=== PATIENT | male | born 1965 | race Caucasian/White ===

== ENCOUNTER 2018-11-29 20:48 | Observation (INO) ==
[2018-11-29 21:08] LABS: Basophils # 0.1 K/mm3 (0-0.2); Eosinophils # 0.3 K/mm3 (0.0-0.4); Eosinophils % 3.7 % (0.1-12.0); Hematocrit 49.1 % (42.0-52.0); Hemoglobin 16.9 g/dL (14.1-18.0); Lymphocytes # 2.9 K/mm3 (0.7-4.5); Mean Corpuscular HGB Conc 34.4 g/dL (31.8-35.4); Mean Corpuscular Hemoglobin 30.2 pg (27.0-31.2); Mean Corpuscular Volume 87.9 fl (80-94); Mean Platelet Volume 7.7 fl (7.4-10.4); Monocytes # 0.5 K/mm3 (0.1-1.0); Monocytes % 5.9 % (1.7-9.3); Neutrophils % 56.4 % (37.0-80.0); Platelet Count 207 K/mm3 (142-424); Red Blood Count 5.59 M/mm3 (4.60-6.20); White Blood Count 8.9 K/mm3 (4.8-10.8)
[2018-11-29 21:09] LABS: Appearance,Urine CLEAR (Clear); Bilirubin,Urine Negative (Negative); Blood, Urine 1+ (Negative); Color,Urine YELLOW (Yellow); Glucose,Urine (UA) 3+ (Negative); Ketones,Urine TRACE (Negative); Leukocyte Esterase,Urine Negative (Negative); Microscopic, Urine URINE MICROSCOPIC (MICROSCOPIC); Protein,Urine 2+ (Negative); Urobilinogen,Urine 0.2 EU/dl (0.2)
[2018-11-29 21:19] LABS: Alanine Aminotransferase 32 U/L (12-78); Albumin Level 3.6 gm/dL (3.4-5.0); Alkaline Phosphatase 92 U/L (46-116); Anion Gap 15.2 mEq/L (5-15); Aspartate Amino Transferase 8 U/L (15-37); Bilirubin,Direct 0.1 mg/dL (0.0-0.2); Bilirubin,Indirect 0.2 mg/dL (0.0-0.9); Bilirubin,Total 0.3 mg/dL (0.2-1.0); Blood Urea Nitrogen 20 mg/dL (7-18); Calcium 9.8 mg/dL (8.5-10.1); Carbon Dioxide 25 mmol/L (21.0-32.0); Chloride 97 mmol/L (98-107); Glucose 342 mg/dL (74-106); Potassium 4.2 mmoL/L (3.5-5.1); Sodium 133 mmol/L (136-145); Total Protein,Serum 7.5 gm/dL (6.4-8.2)
[2018-11-29 21:35] LABS: C-Reactive Protein < 0.2 mg/L (0.0-0.9)
[2018-11-29 21:36] LABS: Bacteria,Urine 1+ /lpf; Mucus,Urine Trace /lpf
--- NOTE | 2018-11-29 21:59 | Emergency Department Note ---
ED Disposition Clinical Impression: Pulmonary nodule, Tobacco use, Hepatomegaly Chest pain Qualifiers: Chest pain type: precordial pain Qualified Code(s): R07.2 - Precordial pain Pancreatitis Qualifiers: Chronicity: acute Pancreatitis type: unspecified pancreatitis type Acute p ancreatitis complication: no infection or necrosis Qualified Code(s): K85.90 - Acute pancreatitis without necrosis or infection, unspecified COPD (chronic obstructive pulmonary disease) Qualifiers: COPD type: unspecified COPD Qualified Code(s): J44.9 - Chronic obstructive pulmonary disease, unspecified Disposition: Admitted as Observation Condition on Discharge: Fair - Critical Care Critical Care Time: No Attestation: On 11/29/18, the high probability of a clinically significant, sudden or life threatening deterioration of the following system(s) required my full and direct attention, intervention and personal management. The time I documented below is in addition to time spent performing reported procedures but includes the following listed in this critical care notation. Medical Decision Making - Medical Records Medical records reviewed: Yes: I reviewed the patient's medical records. - Anthony Inquiry Pt receiving controlled substance: No Vital Signs: 11/29/18 20:49 11/29/18 21:16 11/29/18 21:50 Temperature 98.5 F Temperature Source Oral Pulse Rate [Right Brachial] 109 H 100 H 100 H Respiratory Rate 15 Blood Pressure [Right Arm] 101/62 L 182/97 H 181/100 H Blood Pressure Mean [Right Arm] 75 125 127 Blood Pressure Source [Right Arm] Automatic Cuff Automatic Cuff Blood Pressure Position [Right Arm] Sitting Sitting 02 Sat by Pulse Oximetry 99 98 98 Oxygen Delivery Method Room Air Room Air Room Air 11/29/18 22:00 11/29/18 22:39 11/29/18 23:00 Temperature Temperature Source Pulse Rate [Right Brachial] 94 H 99 H 100 H Respiratory Rate 15 Blood Pressure [Right Arm] 138/98 H 189/94 H 167/53 H Blood Pressure Mean [Right Arm] 111 125 91 Blood Pressure Source [Right Arm] Automatic Cuff Blood Pressure Position [Right Arm] Sitting 02 Sat by Pulse Oximetry 95 99 100 Oxygen Delivery Method Room Air Room Air - Lab Data Lab results reviewed: Yes: I reviewed the patient's lab results. Lab Results 11/29/18 20:50: WBC 8.9, RBC 5.59, Hgb 16.9, Hct 49.1, MCV 87.9, MCH 30.2, MCHC 34.4, RDW 13.0, Plt Count 207, MPV 7.7, Neut % (Auto) 56.4, Lymph % (Auto) 33.0, [place] % (Auto) 5.9, Eos % (Auto) 3.7, Baso % (Auto) 1.0, Neut # (Auto) 5.0, Lymph # (Auto) 2.9, [place] # (Auto) 0.5, Eos # (Auto) 0.3, Baso # (Auto) 0.1, ESR 14 11/29/18 20:50: Sodium 133 L, Potassium 4.2, Chloride 97 L, Carbon Dioxide 25, Anion Gap 15.2 H, BUN 20 H, Creatinine 1.08, Estimated Creat Clear 80, Estimated GFR 71, Est GFR ( Amer) 86, Glucose 342 H, Calcium 9.8, Total Bilirubin 0.3, Direct Bilirubin 0.1, Indirect Bilirubin 0.2, AST 8 L, ALT 32, Alkaline Phosphatase 92, Troponin I < 0.02, C-Reactive Protein < 0.2, Total Protein 7.5, Albumin 3.6 11/29/18 20:50: Acetone Level None detected 11/29/18 20:50: Amylase 138 H, Lipase 2260 H 11/29/18 21:00: Urine Color Yellow, Urine Appearance Clear, Urine pH 6.0, Ur Specific [place] 1.020, Urine Protein 2+, Urine Glucose (UA) 3+, Urine Ketones Trace, Urine Blood 1+, Urine Nitrate Negative, Urine Bilirubin Negative, Urine Urobilinogen 0.2, Ur Leukocyte Esterase Negative, Urine RBC 5-10, Urine WBC 3-5, Ur Squamous Epith Cells 3-5, Urine Bacteria 1+, Hyaline Casts 3-5, Urine Mucus Trace Result diagrams: 11/29/18 20:50 11/29/18 20:50 Orders (Tests/Meds): ED MEDICATIONS Generic Name Dose Route Start Last Admin Trade Name Freq PRN Reason Stop Dose Admin Sodium Chloride 1,000 mls @ 999 mls/hr 11/29/18 21:15 11/29/18 21:11 Sod Chlor 0.9% 1000ml Bag IV 11/29/18 22:15 999 mls/hr .[id number] MARISELA Administration Discontinued Medications Generic Name Dose Route Start Last Admin Trade Name Shahana PRN Reason Stop Dose Admin Aspirin 324 mg 11/29/18 21:07 11/29/18 21:11 Aspirin 81mg Chewable Tablet PO 11/29/18 21:08 324 mg ONCE ONE Administration ORDERS Category Date Time Status CT abdomen pelvis wo con Stat Cat Scan 11/29/18 20:[address] chest wo con Stat Cat Scan 11/29/18 20:[address] head/brain wo con Stat Cat Scan 11/29/18 20:55 Taken XR chest portable Stat Exams 11/29/18 20:53 Taken Hemoglobin A1C Stat Lab 11/29/18 20:50 Received ECG Request by /Farhad Stat Y 11/29/18 20:53 Ordered - Radiology Data #1 Image(s): Chest Image Reviewed: Yes I reviewed the patient's radiology image Preliminary Findings: Normal/NAD - CT Data CT Scan: Head, Abdomen, Pelvis, Chest Time Received: 23:[address] Reviewed: Yes: I have viewed the radiologist's interpretation Preliminary Findings: Abnormal (see reports ) - ECG Data Tracing #1 Normal Sinus Rhythm: Yes Ischemic changes: non-specific ST-T wave changes Chest Pain HPI - General Chief Complaint: Chest Pain Stated Complaint: cp, weakness, weight loss, high blood sugar Time Seen by Provider: 11/29/18 20:55 Mode of Arrival: Wheelchair Source of Information: Patient Limitations: No Limitations Description of Symptoms (Recalled from ER Triage Doc. by RN): Pt brought by family with c/o chest pain that has been intermittent over the last few months, but got worse about 45 minutes ago. Pt reports he does not have a family doctor, but he has had multiple complaints. Frequent urination, significant weight loss, high blood sugar, and weakness. - History of Present Illness HPI narrative: pt with not feeling well and had chest pain tonight and has had episodes of chest pain over the last few months - has diabetes and tob use - pt has no etoh - MD complaint: chest pain indicative of cardiac Onset (ago): hour(s) Duration: now resolved Activity at onset: during rest Pain location: substernal Severity: moderate Quality: sharp Risk Factors for CAD: Hypertension, Family Hx of CAD, Diabetes, Smoking Treatments prior to or on arrival for Cardiac Chest Pain: none - SHAUN Score for Non-Stemi Age of Patient: 50-59 years old Heart Rate: 90-109 bpm Systolic Blood Pressure: 100-119 mmHg Serum Creatinine: 0.80-1.19 mg/dl CHF [place] Class: I-No CHF Other Risk Factors: None Non-Stemi Risk Score: 106 - Related Data Home Medications Medication Instructions Recorded Confirmed Metformin HCl 1,000 mg PO BID 11/29/18 11/29/18 Allergies Allergy/AdvReac Type Severity Reaction Status Date / Time Penicillins [PENICILLINS] Allergy Unknown Verified 11/29/18 21:04 [facility] History - Hepatitis A Screen Drug use history?: No High risk sexual behaviors?: No History of sexually transmitted infection?: No 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er?: No Do you have indoor plumbing?: Yes Do you have electricity?: Yes Attestation statement:: This patient has been screened for Hepatitis A risk factors. I have reviewed the patient's past medical history: Yes ROS Obtained: Yes All systems reviewed & no additional complaints - Constitutional Constitutional: Denies fever(s) - Eyes Eyes: Denies change in vision - ENT Ears, Nose, Mouth, and Throat: Denies throat swelling - Cardiovascular Cardiovascular: Reports chest pain, Reports chest pain at rest, Reports palpitations - Respiratory Respiratory: No cough - Gastrointestinal Gastrointestingal: Denies: abdominal pain, vomiting - Genitourinary Male Genitourinary: Denies hematuria - Musculoskeletal Musculoskeletal: Denies joint swelling - Integumentary/Breasts Skin/Breast: Denies rash - Neurologic Neurologic: Denies headache(s), Denies seizure-like activity, Denies sensory deficit Physical Exam - General General appearance: alert, in no apparent distress - Head Head exam: normocephalic - Eye Eye exam: Present: PERRL, EOMI. Absent: scleral icterus - ENT ENT exam: Present: mucous membranes dry - Neck Neck exam: Present: trachea midline, other (no bruit ) - Respiratory Respiratory exam: Present: normal lung sounds bilaterally, respiratory distress - Cardiovascular Cardiovascular exam: Present: regular rate, systolic murmur - Abdominal Exam Abdominal exam: Present: soft, tenderness Abdominal tenderness: Present: epigastrium, moderate - Extremities Exam Extremities exam: Present: full ROM. Absent: calf tenderness - Neurological Exam Neurological exam: Present: alert, oriented X3, CN II-XII intact, motor sensory deficit, other (dec sensory lower ext ) - Psychiatric Psychiatric exam: Present: normal affect - Skin Skin exam: Absent: rash
[2018-11-29 22:14] LABS: Erythrocyte Sedimentation Rate 14 mm/hr (0-20)
[2018-11-29 22:25] LABS: Amylase 138 U/L (25-115); Lipase 2260 u/L (73-393)
[2018-11-30 07:02] LABS: Basophils # 0.1 K/mm3 (0-0.2); Eosinophils # 0.3 K/mm3 (0.0-0.4); Eosinophils % 3.9 % (0.1-12.0); Hematocrit 45.1 % (42.0-52.0); Lymphocytes # 2.2 K/mm3 (0.7-4.5); Lymphocytes % 26.9 % (10-50); Mean Corpuscular HGB Conc 33.4 g/dL (31.8-35.4); Mean Corpuscular Hemoglobin 29.8 pg (27.0-31.2); Mean Corpuscular Volume 89.4 fl (80-94); Mean Platelet Volume 7.9 fl (7.4-10.4); Monocytes # 0.4 K/mm3 (0.1-1.0); Monocytes % 5.2 % (1.7-9.3); Neutrophils # 5.2 K/mm3 (1.8-7.8); Platelet Count 177 K/mm3 (142-424); Red Blood Count 5.05 M/mm3 (4.60-6.20); Red Cell Distribution Width 13.1 % (11.5-17.5); White Blood Count 8.2 K/mm3 (4.8-10.8)
[2018-11-30 07:16] LABS: Hemoglobin 15.1 g/dL (14.1-18.0)
[2018-11-30 07:18] LABS: Anion Gap 11.9 mEq/L (5-15); Blood Urea Nitrogen 14 mg/dL (7-18); Carbon Dioxide 25 mmol/L (21.0-32.0); Chloride 102 mmol/L (98-107); Chol/HDL Ratio 3.5 (1-3.5); Cholesterol 204 mg/dL (140-200); Glucose 287 mg/dL (74-106); HDL Cholesterol 59 mg/dL (27-67); LDL Cholesterol 104 mg/dL (0-130); Potassium 3.9 mmoL/L (3.5-5.1); Sodium 135 mmol/L (136-145); Triglycerides 205 mg/dL (30-200); VLDL Cholesterol 41 mg/dL (0-40)
--- NOTE | 2018-11-30 07:35 | Pharmacy Consult Notes ---
[facility] Pharmacy VTE Monitoring - Patient Demographics Admission date: 11/30/18 Report Date: 11/30/18 Time: 07:34 Allergies/Adverse Reactions: Patient Allergies Penicillins [PENICILLINS] Allergy (Unknown, Verified 11/29/18 21:04) Height: 1.78 m Weight: 72.575 kg Patient Problems: Current Active Problems (Updated 11/29/18 @ 23:50 by Yash Dacosta MD) Chest pain (Acute) Pancreatitis (Acute) Pulmonary nodule (Acute) Tobacco use (Acute) Hepatomegaly (Acute) COPD (chronic obstructive pulmonary disease) (Acute) - VTE Risk Labs: VTE Related Lab Results Hgb 15.1 g/dL (14.1-18.0) D 11/30/18 06:04 Hct 45.1 % (42.0-52.0) 11/30/18 06:04 Plt Count 177 K/mm3 (142-424) 11/30/18 06:04 BUN 14 mg/dL (7-18) D 11/30/18 06:04 Creatinine 0.79 mg/dL (0.70-1.30) D 11/30/18 06:04 Estimated Creat Clear 110 mL/min (50-200) 11/30/18 06:04 Was VTE Risk Assessment Performed: Yes VTE Score: 2 VTE Risk Level: Low Risk Clinical Trial Participant: No - Prophylaxis Types of VTE Prophylaxis: TEDS Knee High Location of Applied Device: Bilateral Lower Extremeties
--- NOTE | 2018-11-30 10:32 | Consult Report ---
History of Present Illness Consult date: 11/30/18 Requesting physician: Yash Dacosta Consult reason: chest pain Chief complaint: Chest pain Additional Medical History:: 1. Hypertension 2. Diabetes History of present illness: This is a 53-year-old gentleman who was admitted to the hospital with chest pain. He has ruled out for myocardial infarction. The patient reports that his blood sugar was elevated yesterday and he had sudden onset of weakness and dizziness followed by chest pain. The patient reports that his chest pain was a dull aching sensation in the center of his chest. It radiated to the left side and to his left side of his back. The chest pain was associated with shortness of breath, nausea, and sweatiness. He rates the pain a 3 or 4 out of 10 in intensity. He states that the chest pain lasts for about 30 minutes approximately on and off. The patient states that he is no longer having chest pain this morning. He has never previously had symptoms like this before. He is a 1 pack/day smoker. He does state that his maternal grandmother from an [place]. He denies any fever, chills, vomiting, diarrhea, PND or orthopnea. [facility] History I have reviewed the patient's past medical history: Yes Medical History: Reports:: Diabetes Mellitus Type 2, Hypertension Denies:: Diabetes Mellitus Type 1, MRSA *Have you ever received a pneumonia vaccine?: No *Have you received a flu vaccine this season?: No Other Surgeries: Yes: Cholecystectomy, EGD Amputation: No Fractures: Yes (knee) - *Social History Educational Level: Completed High School Smoking Status: Current every day smoker Tobacco Type: cigarettes # Packs/Day (cigarettes): 1 Alcohol Intake: current Alcohol Intake Frequency:: holidays/special occasions only *Occupational Status:: employed Housing: house Household Members: family *Travel in the last 8 weeks: None - Psychiatric History Expresses thoughts of harming self/others: None Suicide Plan Description: No Plan Family Hx:: Diabetes, Hypertension Meds Home Medications Medication Instructions Recorded Confirmed Type Metformin HCl 1,000 mg PO BID 11/29/18 11/30/18 History Allergies Allergy/AdvReac Type Severity Reaction Status Date / Time Penicillins [PENICILLINS] Allergy Unknown Verified 11/29/18 21:04 Review of Systems - Review of Systems Review of systems:: pertinent systems reviewed and negative unless documented below - *Cardiovascular Reports chest pain, Reports chest pain at rest, Reports chest pain with activity, Reports shortness of breath, Reports shortness of breath with activity - *Respiratory Reports shortness of breath, Reports shortness of breath with activity - *Gastrointestinal Reports nausea - *Neurologic Denies headache(s), Denies seizure-like activity, Denies sensory deficit Exam Vital signs and Labs for Last 24 Hours: Temp Pulse Resp BP Pulse Ox 98.8 F 96 H 16 148/89 H 99 11/30/18 08:00 11/30/18 08:00 11/30/18 08:00 11/30/18 08:00 11/30/18 08:00 Laboratory Results - last 24 hr 11/29/18 20:50: WBC 8.9, RBC 5.59, Hgb 16.9, Hct 49.1, MCV 87.9, MCH 30.2, MCHC 34.4, RDW 13.0, Plt Count 207, MPV 7.7, Neut % (Auto) 56.4, Lymph % (Auto) 33.0, [place] % (Auto) 5.9, Eos % (Auto) 3.7, Baso % (Auto) 1.0, Neut # (Auto) 5.0, Lymph # (Auto) 2.9, [place] # (Auto) 0.5, Eos # (Auto) 0.3, Baso # (Auto) 0.1, ESR 14 11/29/18 20:50: Sodium 133 L, Potassium 4.2, Chloride 97 L, Carbon Dioxide 25, Anion Gap 15.2 H, BUN 20 H, Creatinine 1.08, Estimated Creat Clear 80, Estimated GFR 71, Est GFR ( Amer) 86, Glucose 342 H, Calcium 9.8, Total Bilirubin 0.3, Direct Bilirubin 0.1, Indirect Bilirubin 0.2, AST 8 L, ALT 32, Alkaline Phosphatase 92, Troponin I < 0.02, C-Reactive Protein < 0.2, Total Protein 7.5, Albumin 3.6 11/29/18 20:50: Acetone Level None detected 11/29/18 20:50: Amylase 138 H, Lipase 2260 H 11/29/18 20:50: Hemoglobin A1c 11.1 H 11/29/18 20:50: Plasma/Serum Alcohol 0 11/29/18 21:00: Urine Color Yellow, Urine Appearance Clear, Urine pH 6.0, Ur Specific [place] 1.020, Urine Protein 2+, Urine Glucose (UA) 3+, Urine Ketones Trace, Urine Blood 1+, Urine Nitrate Negative, Urine Bilirubin Negative, Urine Urobilinogen 0.2, Ur Leukocyte Esterase Negative, Urine RBC 5-10, Urine WBC 3-5, Ur Squamous Epith Cells 3-5, Urine Bacteria 1+, Hyaline Casts 3-5, Urine Mucus Trace 11/30/18 03:00: Troponin I < 0.02 11/30/18 06:04: WBC 8.2, RBC 5.05, Hgb 15.1 D, Hct 45.1, MCV 89.4, MCH 29.8, MCHC 33.4, RDW 13.1, Plt Count 177, MPV 7.9, Neut % (Auto) 63.0, Lymph % (Auto) 26.9, [place] % (Auto) 5.2, Eos % (Auto) 3.9, Baso % (Auto) 1.0, Neut # (Auto) 5.2, Lymph # (Auto) 2.2, [place] # (Auto) 0.4, Eos # (Auto) 0.3, Baso # (Auto) 0.1 11/30/18 06:04: Sodium 135 L, Potassium 3.9, Chloride 102, Carbon Dioxide 25, Anion Gap 11.9, BUN 14 D, Creatinine 0.79 D, Estimated Creat Clear 110, Estimated GFR 102, Est GFR ( Amer) 124 D, Glucose 287 H, Calcium 9.0, Magnesium 1.8, Troponin I < 0.02, Triglycerides 205 H, Cholesterol 204 H, LDL Cholesterol 104, VLDL Cholesterol 41 H, HDL Cholesterol 59, Cholesterol/HDL Ratio 3.5 11/30/18 06:49: POC Glucose 267 H I & O for Last 24 hours: Intake & Output 11/27/18 11/28/18 11/29/18 11/30/18 23:59 23:59 23:59 23:59 Intake Total 1308 / 1308 Balance 1308 / 1308 Weight 160 lb 160 lb Narrative: His EKG shows sinus rhythm with incomplete right bundle branch block and left axis deviation. - Constitutional no acute distress, average body habitus - *Routine HEENT Exam Head: Present: normocephalic, atraumatic Eye: Present: EOMI, PERRL ENT: Present: mucous membranes moist - *Routine Neck Exam Present: supple, full ROM, normal carotid upstroke. Absent: JVD, carotid bruit, lymphadenopathy - *Routine Respiratory Exam Present: CTA bilaterally - *Routine Cardiovascular Exam Present: RRR, Normal S1, Normal S2. Absent: murmur, gallop - *Routine Abdominal Exam Present: soft, normoactive bowel sounds. Absent: tenderness, distended - *Routine Extremities Exam Present: full ROM, pulses intact, normal capillary refill. Absent: cyanosis, clubbing, edema - *Routine Skin Exam Present: intact, warm. Absent: erythema, rash - *Routine Neurological Exam Present: alert, oriented X3, CN II-XII intact. Absent: sensory deficit, motor deficit - Routine Psychiatric Exam Present: normal affect, normal thought process - Detailed Eye Exam Eyelids: Left normal inspection Assessment and Plan (1) Chest pain Current visit: Yes Status: Acute Qualifiers: Chest pain type: precordial pain Qualified Code(s): R07.2 - Precordial pain Category: Medical Code(s): R07.9 - Chest pain, unspecified (2) Hypertension Current visit: Yes Status: Chronic Category: Medical Code(s): I10 - Essential (primary) hypertension (3) Abnormal EKG Current visit: Yes Status: Acute Category: Medical Code(s): R94.31 - Abnormal electrocardiogram [ECG] [EKG] (4) Diabetes mellitus Current visit: Yes Status: Chronic Category: Medical Code(s): E11.9 - Type 2 diabetes mellitus without complications (5) Tobacco use Current visit: Yes Status: Chronic Category: Medical Code(s): Z72.0 - Tobacco use (6) COPD (chronic obstructive pulmonary disease) Current visit: Yes Status: Chronic Qualifiers: COPD type: unspecified COPD Qualified Code(s): J44.9 - Chronic obstructive pulmonary disease, unspecified Category: Medical Code(s): J44.9 - Chronic obstructive pulmonary disease, unspecified - Assessment and plan all Dx Assessment and Plan for all problems:: Plan: 1. The patient was admitted to the hospital with chest pain. States that this was a dull aching sensation in the center of his chest and radiated to his left side and the left side of his back. It was associated with shortness of breath, nausea and sweatiness. The patient states that the pain was occurring off and on and lasting for approximately 30 minutes when he was having the chest pain. He is a 1 pack/day smoker. He does have an abnormal EKG. He is diabetic and does have a family history of ischemic heart disease. 2. We will set the patient up for a Myoview stress test to rule out ischemia. 3. His echocardiogram is currently pending. 4. His blood pressure is acceptable. 5. His LDL goal is less than 100. His LDL is currently 104. 6. The patient is diabetic. This is placed him at high risk for coronary artery disease. The patient does need aggressive control of his diabetes. Is managed by his primary care provider. 7. Tobacco cessation is highly advised and counseled. 8. Further recognitions will be made pending the patient's response to treatmen t and the results of his Myoview stress test later today. Thank you for the opportunity to help participate in the care of this patient.
--- NOTE | 2018-11-30 17:34 | H&P/Discharge Summary ---
General - General Admission date:: 11/30/18 Discharge date: 11/30/18 *Admission Date: 11/30/18 *Chief complaint: chest pain *History of present illness: this wm presented to the ed with chest pain with sig risk factors and was admitted for eval and treatment - he was also noted to have elevated lipase - Pt brought by family with c/o chest pain that has been intermittent over the last few months, but got worse about 45 minutes ago. Pt reports he does not have a family doctor, but he has had multiple complaints. Frequent urination, significant weight loss, high blood sugar, and weakness. - pt with not feeling well and had chest pain tonight and has had episodes of chest pain over the last few months - has diabetes and tob use - pt has no etoh - [facility] History I have reviewed the patient's past medical history: Yes Medical History: Reports:: Diabetes Mellitus Type 2, Hypertension Denies:: Diabetes Mellitus Type 1, MRSA *Have you ever received a pneumonia vaccine?: No *Have you received a flu vaccine this season?: No Other Surgeries: Yes: Cholecystectomy, EGD Amputation: No Fractures: Yes (knee) - *Social History Educational Level: Completed High School Smoking Status: Current every day smoker Tobacco Type: cigarettes # Packs/Day (cigarettes): 1 Alcohol Intake: current Alcohol Intake Frequency:: holidays/special occasions only *Occupational Status:: employed Housing: house Household Members: family *Travel in the last 8 weeks: None - Psychiatric History Expresses thoughts of harming self/others: None Suicide Plan Description: No Plan Family Hx:: Diabetes, Hypertension Review of Systems - Review of Systems Review of systems:: pertinent systems reviewed and negative unless documented below - Constitutional Denies fever(s) - Eyes Denies discharge - ENT Denies sore throat - *Cardiovascular Reports chest pain, Reports radiating jaw, neck or arm pain - *Respiratory Denies cough - *Gastrointestinal Denies abdominal pain - *Musculoskeletal Denies back pain - Integumentary/Breasts Denies rash - *Neurologic Denies headache(s), Denies seizure-like activity, Denies sensory deficit Exam Vital signs and Labs for Last 24 Hours: Temp Pulse Resp BP Pulse Ox 98.1 F 100 H 16 150/80 H 99 11/30/18 16:00 11/30/18 16:00 11/30/18 16:00 11/30/18 16:00 11/30/18 16:00 Laboratory Results - last 24 hr 11/29/18 20:50: WBC 8.9, RBC 5.59, Hgb 16.9, Hct 49.1, MCV 87.9, MCH 30.2, MCHC 34.4, RDW 13.0, Plt Count 207, MPV 7.7, Neut % (Auto) 56.4, Lymph % (Auto) 33.0, Mckean % (Auto) 5.9, Eos % (Auto) 3.7, Baso % (Auto) 1.0, Neut # (Auto) 5.0, Lymph # (Auto) 2.9, Mckean # (Auto) 0.5, Eos # (Auto) 0.3, Baso # (Auto) 0.1, ESR 14 11/29/18 20:50: Sodium 133 L, Potassium 4.2, Chloride 97 L, Carbon Dioxide 25, Anion Gap 15.2 H, BUN 20 H, Creatinine 1.08, Estimated Creat Clear 80, Estimated GFR 71, Est GFR ( Amer) 86, Glucose 342 H, Calcium 9.8, Total Bilirubin 0.3, Direct Bilirubin 0.1, Indirect Bilirubin 0.2, AST 8 L, ALT 32, Alkaline Phosphatase 92, Troponin I < 0.02, C-Reactive Protein < 0.2, Total Protein 7.5, Albumin 3.6 11/29/18 20:50: Acetone Level None detected 11/29/18 20:50: Amylase 138 H, Lipase 2260 H 11/29/18 20:50: Hemoglobin A1c 11.1 H 11/29/18 20:50: Plasma/Serum Alcohol 0 11/29/18 21:00: Urine Color Yellow, Urine Appearance Clear, Urine pH 6.0, Ur Specific Garland 1.020, Urine Protein 2+, Urine Glucose (UA) 3+, Urine Ketones Trace, Urine Blood 1+, Urine Nitrate Negative, Urine Bilirubin Negative, Urine Urobilinogen 0.2, Ur Leukocyte Esterase Negative, Urine RBC 5-10, Urine WBC 3-5, Ur Squamous Epith Cells 3-5, Urine Bacteria 1+, Hyaline Casts 3-5, Urine Mucus Trace 11/30/18 03:00: Troponin I < 0.02 11/30/18 06:04: WBC 8.2, RBC 5.05, Hgb 15.1 D, Hct 45.1, MCV 89.4, MCH 29.8, MCHC 33.4, RDW 13.1, Plt Count 177, MPV 7.9, Neut % (Auto) 63.0, Lymph % (Auto) 26.9, Mckean % (Auto) 5.2, Eos % (Auto) 3.9, Baso % (Auto) 1.0, Neut # (Auto) 5.2, Lymph # (Auto) 2.2, Mckean # (Auto) 0.4, Eos # (Auto) 0.3, Baso # (Auto) 0.1 11/30/18 06:04: Sodium 135 L, Potassium 3.9, Chloride 102, Carbon Dioxide 25, Anion Gap 11.9, BUN 14 D, Creatinine 0.79 D, Estimated Creat Clear 110, Estimated GFR 102, Est GFR ( Amer) 124 D, Glucose 287 H, Calcium 9.0, Magnesium 1.8, Troponin I < 0.02, Triglycerides 205 H, Cholesterol 204 H, LDL Cholesterol 104, VLDL Cholesterol 41 H, HDL Cholesterol 59, Cholesterol/HDL Ratio 3.5 11/30/18 06:49: POC Glucose 267 H 11/30/18 11:22: POC Glucose 219 H I & O for Last 24 hours: Intake & Output 11/28/18 11/29/18 11/30/18 12/01/18 11:59 11:59 11:59 11:59 Intake Total 1308 / 1308 0 / 0 Balance 1308 / 1308 0 / 0 Weight 160 lb 160 lb 0.008 oz - Constitutional no acute distress - *Routine HEENT Exam Head: Present: normocephalic Eye: Present: EOMI, PERRL ENT: Present: mucous membranes dry - *Routine Neck Exam Present: supple - *Routine Respiratory Exam Present: CTA bilaterally - *Routine Cardiovascular Exam Present: RRR, murmur - *Routine Abdominal Exam Present: soft - *Routine Extremities Exam Absent: calf tenderness - *Routine Skin Exam Present: intact - *Routine Neurological Exam Present: alert, oriented X3, CN II-XII intact - Routine Psychiatric Exam Present: normal affect Hospital Course Hospital Course: pt was admitted and did well with stable card enz and was seen by card - ertension 2. Diabetes History of present illness: This is a 53-year-old gentleman who was admitted to the hospital with chest pain. He has ruled out for myocardial infarction. The patient reports that his blood sugar was elevated yesterday and he had sudden onset of weakness and dizziness followed by chest pain. The patient reports that his chest pain was a dull aching sensation in the center of his chest. It radiated to the left side and to his left side of his back. The chest pain was associated with shortness of breath, nausea, and sweatiness. He rates the pain a 3 or 4 out of 10 in intensity. He states that the chest pain lasts for about 30 minutes approximately on and off. The patient states that he is no longer having chest pain this morning. He has never previously had symptoms like this before. He is a 1 pack/day smoker. He does state that his maternal grandmother from an [place]. He denies any fever, chills, vomiting, diarrhea, PND or orthopnea. The patient was admitted to the hospital with chest pain. States that this was a dull aching sensation in the center of his chest and radiated to his left side and the left side of his back. It was associated with shortness of breath, nausea and sweatiness. The patient states that the pain was occurring off and on and lasting for approximately 30 minutes when he was having the chest pain. He is a 1 pack/day smoker. He does have an abnormal EKG. He is diabetic and does have a family history of ischemic heart disease. 2. We will set the patient up for a Myoview stress test to rule out ischemia. 3. His echocardiogram is currently pending. 4. His blood pressure is acceptable. 5. His LDL goal is less than 100. His LDL is currently 104. 6. The patient is diabetic. This is placed him at high risk for coronary artery disease. The patient does need aggressive control of his diabetes. Is managed by his primary care provider. 7. Tobacco cessation is highly advised and counseled. 8. Further recognitions will be made pending the patient's response to treatment and the results of his Myoview stress test later today. ORY: chest pain PROCEDURE: Rest imaging performed after administration of10.70 millicuries Tc MIBI. Dose administered at12:00 p.m., with imaging thereafter. Stress imaging was then performed following7 minutes of exercise stress. The patient achieved a heart [id number] with projected heart rate of145 . Resting BP161/90 with stress 142/83. At maximum exercise stress,31.2 millicuries Tc MIBI administered at1:30 p.m. with [id number] minutes thereafter. FINDINGS: Perfusion Evaluation: The single slice spect images as well as the [facility] bull's-eye data summary were reviewed. Wall Motion and Ejection Fraction Evaluation: Gated SPECT review and analysis used to evaluate these features. There is a 53 % left ventricular ejection fraction. There seems to be good wall motion Uniform myocardial activity at both stress and rest gated images calculated ejection fraction of percent with normal wall motion IMPRESSION: No scintigraphic evidence of exercise-induced myocardial ischemia with normal ejection fraction normal wall motion pt will be followed as op and lipase pending and will discuss diabetes and meds and tob cessation Results Labs on day of discharge: Labs from last 24 hours 11/30/18 11/30/18 11/30/18 11:22 06:49 06:04 WBC RBC Hgb Hct MCV MCH MCHC RDW Plt Count MPV Neut % (Auto) Lymph % (Auto) Mckean % (Auto) Eos % (Auto) Baso % (Auto) Neut # (Auto) Lymph # (Auto) Mckean # (Auto) Eos # (Auto) Baso # (Auto) ESR Sodium 135 L Potassium 3.9 Chloride 102 Carbon Dioxide 25 Anion Gap 11.9 BUN 14 D Creatinine 0.79 D Estimated Creat Clear 110 Estimated GFR 102 Est GFR ( Amer) 124 D Glucose 287 H POC Glucose 219 H 267 H Hemoglobin A1c Calcium 9.0 Magnesium 1.8 Total Bilirubin Direct Bilirubin Indirect Bilirubin AST ALT Alkaline Phosphatase Troponin I < 0.02 C-Reactive Protein Total Protein Albumin Triglycerides 205 H Cholesterol 204 H LDL Cholesterol 104 VLDL Cholesterol 41 H HDL Cholesterol 59 Cholesterol/HDL Ratio 3.5 Amylase Lipase Urine Color Urine Appearance Urine pH Ur Specific Garland Urine Protein Urine Glucose (UA) Urine Ketones Urine Blood Urine Nitrate Urine Bilirubin Urine Urobilinogen Ur Leukocyte Esterase Urine RBC Urine WBC Ur Squamous Epith Cells Urine Bacteria Hyaline Casts Urine Mucus Plasma/Serum Alcohol Acetone Level 11/30/18 11/30/18 11/29/18 06:04 03:00 21:00 WBC 8.2 RBC 5.05 Hgb 15.1 D Hct 45.1 MCV 89.4 MCH 29.8 MCHC 33.4 RDW 13.1 Plt Count 177 MPV 7.9 Neut % (Auto) 63.0 Lymph % (Auto) 26.9 Mckean % (Auto) 5.2 Eos % (Auto) 3.9 Baso % (Auto) 1.0 Neut # (Auto) 5.2 Lymph # (Auto) 2.2 Mckean # (Auto) 0.4 Eos # (Auto) 0.3 Baso # (Auto) 0.1 ESR Sodium Potassium Chloride Carbon Dioxide Anion Gap BUN Creatinine Estimated Creat Clear Estimated GFR Est GFR ( Amer) Glucose POC Glucose Hemoglobin A1c Calcium Magnesium Total Bilirubin Direct Bilirubin Indirect Bilirubin AST ALT Alkaline Phosphatase Troponin I < 0.02 C-Reactive Protein Total Protein Albumin Triglycerides Cholesterol LDL Cholesterol VLDL Cholesterol HDL Cholesterol Cholesterol/HDL Ratio Amylase Lipase Urine Color Yellow Urine Appearance Clear Urine pH 6.0 Ur Specific Garland 1.020 Urine Protein 2+ Urine Glucose (UA) 3+ Urine Ketones Trace Urine Blood 1+ Urine Nitrate Negative Urine Bilirubin Negative Urine Urobilinogen 0.2 Ur Leukocyte Esterase Negative Urine RBC 5-10 Urine WBC 3-5 Ur Squamous Epith Cells 3-5 Urine Bacteria 1+ Hyaline Casts 3-5 Urine Mucus Trace Plasma/Serum Alcohol Acetone Level 11/29/18 11/29/18 11/29/18 20:50 20:50 20:50 WBC RBC Hgb Hct MCV MCH MCHC RDW Plt Count MPV Neut % (Auto) Lymph % (Auto) Mckean % (Auto) Eos % (Auto) Baso % (Auto) Neut # (Auto) Lymph # (Auto) Mckean # (Auto) Eos # (Auto) Baso # (Auto) ESR Sodium Potassium Chloride Carbon Dioxide Anion Gap BUN Creatinine Estimated Creat Clear Estimated GFR Est GFR ( Amer) Glucose POC Glucose Hemoglobin A1c 11.1 H Calcium Magnesium Total Bilirubin Direct Bilirubin Indirect Bilirubin AST ALT Alkaline Phosphatase Troponin I C-Reactive Protein Total Protein Albumin Triglycerides Cholesterol LDL Cholesterol VLDL Cholesterol HDL Cholesterol Cholesterol/HDL Ratio Amylase 138 H Lipase 2260 H Urine Color Urine Appearance Urine pH Ur Specific Gar[place] Urine Protein Urine Glucose (UA) Urine Ketones Urine Blood Urine Nitrate Urine Bilirubin Urine Urobilinogen Ur Leukocyte Esterase Urine RBC Urine WBC Ur Squamous Epith Cells Urine Bacteria Hyaline Casts Urine Mucus Plasma/Serum Alcohol 0 Acetone Level 11/29/18 11/29/18 11/29/18 20:50 20:50 20:50 WBC 8.9 RBC 5.59 Hgb 16.9 Hct 49.1 MCV 87.9 MCH 30.2 MCHC 34.4 RDW 13.0 Plt Count 207 MPV 7.7 Neut % (Auto) 56.4 Lymph % (Auto) 33.0 Mckean % (Auto) 5.9 Eos % (Auto) 3.7 Baso % (Auto) 1.0 Neut # (Auto) 5.0 Lymph # (Auto) 2.9 Mckean # (Auto) 0.5 Eos # (Auto) 0.3 Baso # (Auto) 0.1 ESR 14 Sodium 133 L Potassium 4.2 Chloride 97 L Carbon Dioxide 25 Anion Gap 15.2 H BUN 20 H Creatinine 1.08 Estimated Creat Clear 80 Estimated GFR 71 Est GFR ( Amer) 86 Glucose 342 H POC Glucose Hemoglobin A1c Calcium 9.8 Magnesium Total Bilirubin 0.3 Direct Bilirubin 0.1 Indirect Bilirubin 0.2 AST 8 L ALT 32 Alkaline Phosphatase 92 Troponin I < 0.02 C-Reactive Protein < 0.2 Total Protein 7.5 Albumin 3.6 Triglycerides Cholesterol LDL Cholesterol VLDL Cholesterol HDL Cholesterol Cholesterol/HDL Ratio Amylase Lipase Urine Color Urine Appearance Urine pH Ur Specific Gar[place] Urine Protein Urine Glucose (UA) Urine Ketones Urine Blood Urine Nitrate Urine Bilirubin Urine Urobilinogen Ur Leukocyte Esterase Urine RBC Urine WBC Ur Squamous Epith Cells Urine Bacteria Hyaline Casts Urine Mucus Plasma/Serum Alcohol Acetone Level None detected DS: Diagnosis - Discharge Diagnosis (1) Chest pain Status: Acute (2) Hypertension Status: Chronic (3) Abnormal EKG Status: Acute (4) Diabetes mellitus Status: Chronic (5) Tobacco use Status: Chronic (6) COPD (chronic obstructive pulmonary disease) Status: Chronic (7) Pulmonary nodule Status: Acute (8) Pancreatitis Status: Acute (9) History of cholecystectomy Status: Acute (10) Lumbar spondylitis Status: Acute (11) CAD (coronary artery disease) Status: Acute Discharge Medications - Medications for Discharge Home Medication List at Discharge: Continued Metformin HCl 1,000 mg PO BID Disposition Disposition: Home, Self-Care
--- NOTE | 2018-12-01 10:01 | Cardiology Report ---
PROCEDURE: 2-D M-mode and color Doppler study INDICATIONS FOR THE TEST: Chest pain+ COPD+ Heart Murmur Tobacco Smoking+ Palpitations Fatigue Syncope Edema Hypertension+Diabetes Mellitus+ Rheumatic Fever SOB+RUANO Obesity Hyperlipidemia+ Family History HD Additional History PULMONARY NODULES, PANCREATITIS PATIENT INFORMATION HEIGHT: 70 WEIGHT:160 GENDER: Male B/P:101/62 2-D/M-MODE INTERPRETATION: 2-D MEASUREMENTS OBSERVED VALUES IN CMS Right Ventricular Dimension (RVDd) 3.0 Interventricular Septum (Thickness)(IVsd) 1.5 Left Ventricular Internal Dimensions(LVIDd) 4.5 Left Ventricular Posterior Wall (Thickness)(LVPWd) 0.7 Aortic Root .3.7 Aortic Cusp Separation 2.1 Left Atrial Dimensions (LAD) 3.7 2D 1. Left atrium is mildly enlarged, left ventricle is normal size, mild concentric left ventricular hypertrophy, visually estimated ejection fraction 55% with no regional wall motion abnormality. 2. The right atrium and ventricle are mildly enlarged with normal contractility. 3. The aortic valve is minimally thickened and fibrosed. 4. The mitral and tricuspid valvular grossly normal. 5. The pulmonic valve is poorly visualized. 6. No significant pericardial effusion noted. DOPPLER INTERROGATION: Doppler interrogation of the aortic, mitral and tricuspid valvular presence of mild mitral and tricuspid regurgitation, tricuspid regurgitation jet velocity is inadequate for calculation of the right ventricular systolic pressure, grade 1 diastolic dysfunction seen with tissue Doppler evidence of raised left atrial pressure. Inferior vena cava is normal size with normal inspiratory collapse. CONCLUSION: 1. Mildly enlarged left atrium, normal left ventricular size, mild concentric left ventricular hypertrophy, visually estimated ejection fraction 55% with no regional wall motion abnormality, grade 1 diastolic dysfunction seen with tissue Doppler evidence of raised left atrial pressure. 2. Mildly enlarged right ventricle with normal contractility 3. Thickened and calcified aortic valve without Doppler evidence of aortic stenosis aortic insufficiency. 4. Mild mitral and tricuspid regurgitation 5. Inferior vena cava is normal size with normal inspiratory collapse. 6. No significant pericardial effusion.
== END 2018-11-30 18:38 | disposition home or self-care (01) ==
LOC: ER 20:48 → 2ND 20:48
PROVIDERS: ADMIT Emergency Medicine; ATTEND Emergency Medicine
CPT/HCPCS: 36415; 70450; 71010; 71045; 71250; 74176; 78452; 80048; 80061; 80076; 81001; 82009; 82150; 82962; 83036; 83690; 83735; 84484; 85025; 85651; 86140; 93005; 93017; 93306; 96365; 99285; A9502; G0378

== ENCOUNTER 2020-07-09 18:38 | Emergency (ER) | payer MEDICAID, SELFPAY ==
[2020-07-09 18:50] VITALS: BP 156/94; PULSE 111; RESP 18; TEMP 36.7; O2SAT 100; BMI 23.6
--- NOTE | 2020-07-09 19:12 | HMH.EDUTC ---
[facility] – [place] Disposition Clinical Impression: Foot ulcer, right Qualifiers: Non-pressure ulcer stage: unspecified non-pressure ulcer stage Qualified Code(s): L97.519 - Non-pressure chronic ulcer of other part of right foot with unspecified severity Disposition: Home, Self-Care Condition on Discharge: Good Instructions: DI for Diabetic Foot Ulcer, Clindamycin Additional Instructions: Keep wound area clean Stay off foot as much as possible and wear diabetic shoes and avoid tight fitting shoes that cause pressure to blister area you was given cast shoe to help avoid pressure to the toe Call Podiatry Clinic tomorrow and make appointment for further treatment and evaluation of foot and wound Return if needed Straight to ER if any life threatening symptoms or worsening of redness FOllow up with your Family Doctor for further evaluation and treatment Prescriptions: clindamycin HCL [Cleocin HCl] 300 mg PO TID 10 Days #30 cap Transmission Status: Received by [facility] Referrals: PCP,No [Primary Care Provider] - As needed Rianna Pablo APRN [Nurse Practitioner] - Jacqui Hernandez DPM [Staff Physician] - As needed (Call office tomorrow for appointment) Time of Disposition: 19:25 Medical Decision Making - Anthony Inquiry Pt receiving controlled substance: No Anthony was queried for this patient: No Vital Signs: 07/09/20 18:50 07/09/20 19:35 Temperature 98.1 F 98.1 F Temperature Source Oral Pulse Rate 111 H Pulse Rate [Right Brachial] 111 H Respiratory Rate 18 18 Blood Pressure 156/94 H Blood Pressure [Right Arm] 156/94 H Blood Pressure Mean [Right Arm] 114 Blood Pressure Source [Right Arm] Automatic Cuff Blood Pressure Position [Right Arm] Sitting 02 Sat by Pulse Oximetry 100 Oxygen Delivery Method Room Air Orders (Tests/Meds): ORDERS Category Date Time Status Tissue Culture and Gram Stain Stat Micro 07/09/20 19:10 Received Medical Decision Narrative: Patient was educated to clean wound well and stay off foot until he sees Dr Hernandez or Rianna Pablo in the Podiatry Clinic for further evaluation and treatment Use post op shoe to help not apply pressure to toe area Take medication as prescribed [facility] [place] HPI - General Stated complaint: sore on R Foot Time Seen by Provider: 07/09/20 19:12 Mode of Arrival: Ambulatory Source of Information: Patient Limitations: No Limitations Description of Symptoms (Recalled from Triage Doc. by RN): PATIENT C/O INFECTION TO RIGHT FOOT X 1 WEEK. REPORTS HE IS DIABETIC HEENT Symptoms (Recalled from RN notes): No Resp Symptoms (Recalled from RN notes): No Skin Symptoms (Recalled from RN notes): Yes MS Symptoms (Recalled from RN notes): No Functional Status (Recalled from RN notes): WNL - History of Present Illness Provider Complaint: Patient states that he is a diabetic State that he noticed about a week ago that he had a blister on the side of his right great toe States that he has been keeping it clean and soaking it in peroxide and applying neosporin but today the toe looked red so he come in to see if he could get some oral antibiotics to help with infection States that he hasnt seen PCP in awhile and has managed wounds like this before at home but this one looked a little red and was worried that it may be infected - Related Data Home Medications Medication Instructions Recorded Confirmed Metformin HCl [Metformin 1000mg 1,000 mg PO BID 07/09/20 07/09/20 Tablets] Previous Rx's Medication Instructions Recorded clindamycin HCL [Cleocin HCl] 300 mg PO TID 10 Days #30 cap 07/09/20 Allergies Allergy/AdvReac Type Severity Reaction Status Date / Time Penicillins [PENICILLINS] Allergy Unknown Verified 12/12/18 09:12 - Worker's Comp Is this a Worker's Comp case?: No [facility] History - Hepatitis A Screen Drug use history?: No High risk sexual behaviors?: No History of sexually transmitted infection?: No 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
[2020-07-09 19:35] VITALS: BP 156/94; PULSE 111; RESP 18; TEMP 36.7; O2SAT 100
== END 2020-07-09 19:43 | disposition home or self-care (01) ==
PROVIDERS: Emergency Provider Nurse Practitioner
DX: E11.621 Type 2 diabetes mellitus with foot ulcer (principal); L97.511 Non-pressure chronic ulcer of other part of right foot limited to breakdown of skin; Z79.84 Long term (current) use of oral hypoglycemic drugs; I10 Essential (primary) hypertension; J44.9 Chronic obstructive pulmonary disease, unspecified; F17.210 Nicotine dependence, cigarettes, uncomplicated; Z88.0 Allergy status to penicillin
CPT/HCPCS: 87070; 87077; 87186; 87205; 99201

== ENCOUNTER → 2020-07-16 10:43 | Outpatient (CLI) | payer MEDICAID, SELFPAY ==
--- NOTE | 2020-07-16 10:49 | XR_ITS ---
PROCEDURE: XR ANKLE WT BEARING RT MIN 3V CLINICAL INDICATION: diabetic Diabetic ulcer COMPARISON: CR XR FOOT WT BEARING RT 3V from 07/16/2020 FINDINGS: There is diffuse vascular calcification. No fracture or dislocation. No lytic or blastic change. No bony erosive process evident. Bandage artifact noted at distal aspect of the great toe. There is soft tissue swelling along proximal aspect of the proximal phalanx of the 5th toe. IMPRESSION: No acute findings. Dictated by: Vince Miranda MD 07/16/2020 17:21 Vince Miranda MD in [place] 07/16/2020 17:21
--- NOTE | 2020-07-16 10:49 | XR_ITS ---
PROCEDURE: XR ANKLE WT BEARING LT MIN 3V CLINICAL INDICATION: wound Diabetic ulcer. Numbness COMPARISON: CR XR FOOT WT BEARING LT 3V from 07/16/2020 FINDINGS: There is diffuse vascular calcification. There is a prominent posterior talar process. Faint calcifications are present at the tip of the lateral malleolus. No fracture or dislocation. No lytic or blastic change. IMPRESSION: No acute findings. Dictated by: Vince Miranda MD 07/16/2020 17:20 Vince Miranda MD in [place] 07/16/2020 17:20
[2020-07-16 11:36] LABS: Basophils # 0.1 K/mm3 (0-0.2); Basophils % 1.1 % (0.1-2.0); Eosinophils # 0.4 K/mm3 (0.0-0.4); Eosinophils % 3.7 % (0.1-12.0); Hematocrit 48.1 % (42.0-52.0); Hemoglobin 15.7 g/dL (14.1-18.0); Lymphocytes # 2.3 K/mm3 (0.7-4.5); Lymphocytes % 23.2 % (10-50); Mean Corpuscular HGB Conc 32.6 g/dL (31.8-35.4); Mean Corpuscular Hemoglobin 30.5 pg (27.0-31.2); Mean Corpuscular Volume 93.3 fl (80-94); Mean Platelet Volume 8.1 fl (7.4-10.4); Monocytes # 0.4 K/mm3 (0.1-1.0); Monocytes % 4.3 % (1.7-9.3); Neutrophils # 6.7 K/mm3 (1.8-7.8); Neutrophils % 67.7 % (37.0-80.0); Platelet Count 218 K/mm3 (142-424); Red Blood Count 5.16 M/mm3 (4.60-6.20); Red Cell Distribution Width 13.9 % (11.5-17.5); White Blood Count 9.8 K/mm3 (4.8-10.8)
[2020-07-16 12:00] LABS: Hemoglobin A1C > 14.0 % (4.0-6.0)
[2020-07-16 12:13] LABS: Erythrocyte Sedimentation Rate 17 mm/hr (0-20)
[2020-07-16 12:26] LABS: Alanine Aminotransferase 24 U/L (12-78); Albumin Level 4.1 g/dl (3.5-5.0); Albumin/Globulin Ratio 1.6 (1.1-1.8); Alkaline Phosphatase 97 U/L (38-126); Anion Gap 12.4 mEq/L (5-15); Aspartate Amino Transferase 27 U/L (17-59); Bilirubin,Total 0.4 mg/dl (0.2-1.3); Blood Urea Nitrogen 19 mg/dl (9-20); Calcium 9.9 mg/dl (8.4-10.2); Carbon Dioxide 29 mmol/L (22.0-30.0); Chloride 99 mmol/L (98-107); Estimated Glomerular Filt Rate 100 ml/min (>60); GFR (African American) 121 ML/MIN (>60); Globulin 2.6 g/dL (1.3-3.2); Glucose 361 mg/dl (74-100); Potassium 4.4 mmoL/L (3.5-5.1); Sodium 136 mmol/L (136-145); Total Protein,Serum 6.7 g/dl (6.3-8.2)
[2020-07-16 12:34] LABS: C-Reactive Protein < 0.3 mg/L (0-4)
== END ==
PROVIDERS: PCP Emergency Medicine; Visit Provider Nurse Practitioner
DX: E11.621 Type 2 diabetes mellitus with foot ulcer (principal); E11.622 Type 2 diabetes mellitus with other skin ulcer; L97.309 Non-pressure chronic ulcer of unspecified ankle with unspecified severity; L97.509 Non-pressure chronic ulcer of other part of unspecified foot with unspecified severity; Z79.84 Long term (current) use of oral hypoglycemic drugs
CPT/HCPCS: 36415; 73610; 73630; 80053; 83036; 85025; 85651; 86140

== ENCOUNTER → 2020-07-26 12:51 | Outpatient (CLI) | payer MEDICAID, SELFPAY ==
--- NOTE | 2020-07-26 13:08 | US_ITS ---
APPROVED REPORT Exam Type: Lower Extremity Segmental Pressures Plate Glass Grinder: Cheri Castillo RVT Indications Claudication: Bilaterally Non-healing Ulcer: Right Rest Pain: Bilaterally Current Smoker ULCER RT GREAT TOE Risk Factors Diabetes Current Smoker Pressures/Indices Right Indices Left Indices Brachial 145.00 mmHg Brachial 158.00 mmHg Low Thigh 255.00 mmHg 0.00 Low Thigh 167.00 mmHg 1.06 Calf 191.00 mmHg 1.21 Calf 226.00 mmHg 1.43 Ankle(PT) 255.00 mmHg 0.00 Ankle(PT) 255.00 mmHg 0.00 Ankle(DP) 147.00 mmHg 0.93 Ankle(DP) 255.00 mmHg 0.00 Digit 101.00 mmHg 0.64 Digit 63.00 mmHg 0.40 Findings RT TRINITY:NON-COMPRESSIBLE LT TRINITY:NON-COMPRESSIBLE RT TBI:0.64 LT TBI:0.40 NORMAL PULSES BILATERAL NORMAL WAVEFORMS BILATERAL Conclusion RT TRINITY:0.93 LT TRINITY:NON-COMPRESSIBLE RT TBI:0.64 LT TBI:0.40 NORMAL PULSES BILATERAL NORMAL WAVEFORMS BILATERAL Low left TBI suggesting small vessel disease Medial calcinosis (rigid vessels) is suggested due to noncompressible thigh vessels, bilaterally. Electronically signed by : Vince Miranda MD 07/26/2020 16:11:17
== END ==
PROVIDERS: PCP Emergency Medicine; Visit Provider Nurse Practitioner
DX: R68.89 Other general symptoms and signs (principal); R20.0 Anesthesia of skin; R20.2 Paresthesia of skin
CPT/HCPCS: 93923

== ENCOUNTER → 2020-08-05 10:09 | Outpatient (CLI) | payer MEDICAID, SELFPAY ==
[2020-08-05 10:49] LABS: Basophils # 0.1 K/mm3 (0-0.2); Basophils % 1.2 % (0.1-2.0); Eosinophils # 0.5 K/mm3 (0.0-0.4); Eosinophils % 4.9 % (0.1-12.0); Hemoglobin 15.3 g/dL (14.1-18.0); Lymphocytes # 2.6 K/mm3 (0.7-4.5); Lymphocytes % 28.1 % (10-50); Mean Corpuscular HGB Conc 32.5 g/dL (31.8-35.4); Mean Corpuscular Hemoglobin 30.9 pg (27.0-31.2); Mean Corpuscular Volume 95.2 fl (80-94); Mean Platelet Volume 8.4 fl (7.4-10.4); Monocytes # 0.5 K/mm3 (0.1-1.0); Monocytes % 5.4 % (1.7-9.3); Neutrophils # 5.7 K/mm3 (1.8-7.8); Neutrophils % 60.4 % (37.0-80.0); Platelet Count 222 K/mm3 (142-424); Red Blood Count 4.93 M/mm3 (4.60-6.20); Red Cell Distribution Width 13.8 % (11.5-17.5); White Blood Count 9.4 K/mm3 (4.8-10.8)
[2020-08-05 10:56] LABS: Chloride 102 mmol/L (98-107)
[2020-08-05 10:57] LABS: Potassium 4.8 mmoL/L (3.5-5.1); Sodium 134 mmol/L (136-145)
[2020-08-05 11:00] LABS: Anion Gap 9.8 mEq/L (5-15); Blood Urea Nitrogen 20 mg/dl (9-20); Calcium 10.2 mg/dl (8.4-10.2); Carbon Dioxide 27 mmol/L (22.0-30.0); Estimated Glomerular Filt Rate 88 ml/min (>60); GFR (African American) 106 ML/MIN (>60); Glucose 371 mg/dl (74-100)
[2020-08-05 12:03] LABS: Coronavirus 19 IgG Antibody Negative (Negative); Coronavirus 19 IgM Antibody Negative (Negative)
[2020-08-06 10:08] LABS: C-Reactive Protein < 0.3 mg/L (0-4)
== END ==
PROVIDERS: Nurse Practitioner; Visit Provider Urology
DX: Z01.818 Encounter for other preprocedural examination (principal); Z03.818 Encounter for observation for suspected exposure to other biological agents ruled out; R06.00 Dyspnea, unspecified; R42 Dizziness and giddiness; I20.9 Angina pectoris, unspecified; E08.621 Diabetes mellitus due to underlying condition with foot ulcer; I10 Essential (primary) hypertension; I25.10 Atherosclerotic heart disease of native coronary artery without angina pectoris; L97.501 Non-pressure chronic ulcer of other part of unspecified foot limited to breakdown of skin; R20.0 Anesthesia of skin; R20.2 Paresthesia of skin; R68.89 Other general symptoms and signs; Z72.0 Tobacco use; Z51.89 Encounter for other specified aftercare; Z79.84 Long term (current) use of oral hypoglycemic drugs
CPT/HCPCS: 36415; 80048; 85025; 86140; 86328

== ENCOUNTER 2020-08-08 07:35 | Day surgery (SDC) | payer MEDICAID, SELFPAY ==
[2020-08-08] VITALS (14 sets, daily range): BP systolic 123–188; BP diastolic 81–108; PULSE 81–94; RESP 13–18; TEMP 36.2; O2SAT 94–97; BMI 24.3
--- NOTE | 2020-08-08 07:15 | IR_ITS ---
APPROVED REPORT Patient Location: Outpatient PROCEDURES Left heart catheterization Left ventriculogram Selective coronary angiogram Drug-eluting stent deployment to the proximal and mid LAD Drug-eluting stent deployment to the dominant circumflex arteries first obtuse marginal artery INDICATION Coronary artery disease, Angina pectoris accelerated Informed consent was obtained prior to the procedure. COMPLICATIONS none Estimated Blood Loss: less than 10 mls TECHNIQUE One percent lidocaine used to anesthetize the right anterior aspect of the wrist. The right radial artery was accessed via the Seldinger technique. A 6 Indian sheath was placed in the right radial artery. 2.5 mg of verapamil, 800 mcg of nitroglycerin, 1mg Lidocaine and 5000 U Heparin were given through the arterial sheath. The trap catheter was also used to perform left heart catheterization, left ventriculogram and selective coronary angiogram. At the end the diagnostic angiogram therapeutic heparin was administered giving an ACT out of range. An EBU 3.75 guide catheter was placed in the left main artery and a Choice PT extra-support wire was placed into the distal LAD. A 3 mm x 38 mm resolute comfort stent was deployed at 20 javier reducing the stenosis. An additional 3 mm x 22 mm resolute Comfort stent was placed distal to the first stent and deployed at 18 javier. The balloon was brought back and deployed at 24 javier up and down the LAD stents. Following this a 3.5 x 12 mm noncompliant balloon was placed in the proximal and midportion of the first stent and deployed at 20 javier and then 24 javier to post dilate. Excellent angiographic results were obtained with CHRISTIANNE-3 flow being present before and after the procedure. Following this the same wire was placed into the circumflex arteries first obtuse marginal artery and a 2.5 x 26 mm resolute comfort stent was deployed at 18 javier in the first obtuse marginal artery reducing the severe stenosis to 0%. CHRISTIANNE-3 flow was present before and after the procedure. At the end of the procedure the apparatus was removed the sheath was removed and hemostasis was achieved using TR banding patient was transferred to the postop putting her stable condition ANGIOGRAPHIC RESULTS The left main artery Normal The left anterior descending artery Is a proximal to mid vessel concentric 70% stenosis. The first diagonal artery is a bifurcating vessel with the inferior branch being 1.5 mm in diameter with a proximal 80% stenosis The circumflex artery Is a large dominant vessel with 30 to 40% stenosis in the proximal to mid segment. The first obtuse marginal artery is a large branch which has a proximal 70 to 80% stenosis which extends into the mid segment. The right coronary artery Is a nondominant vessel with a long proximal to mid vessel 70 to 80% tubular stenosis. This is a 2.5 mm vessel The MCCURDY ventriculogram reveals Hyperdynamic at 80 to 85% The left ventricular end-diastolic pressure 20 mmHg IMPRESSION Severe coronary disease as described above Successful stenting in the proximal to mid LAD with 2 drug-eluting stents in a contiguous manner Successful stenting of the large first obtuse marginal artery branching off a large dominant circumflex artery Persistent severe stenosis throughout a small to moderate size nondominant right coronary artery Hyperdynamic ventricle 80 to 85% Elevated LVEDP PLAN 1. Dual antiplatelet therapy 2. At this point I favor medical management for the right coronary artery. If patient has ongoing angina pectoris it likely stems from the hyperdynamic ventricle which should be treated with beta-blockers and diltiazem or verapamil 3. Avoidance of tobacco products 4. Risk facto
--- NOTE | 2020-08-08 07:43 | CA_ITS ---
APPROVED REPORT EXAM: Comprehensive 2D, Doppler, and color-flow Echocardiogram Brake Shoe Rebuilder: Allison Eric RT(R) Ht: 5 ft 10 in Wt: 170lbs BSA: 1.95 BP: 147/84 mmHg Indications: SOA, CP, smoker, HTN, DM, SOB, RUANO, CAD 2D Dimensions LVOT 1.98 cm (M/F) 1.5-2.5 M-Mode Dimensions RVDd 1.64 cm (0.9-2.6) LA Diam 2.87 cm (1.9-4.0) LVDd 3.12 cm (3.5-5.7) Ao Diam 3.16 cm (2.0-3.7) LVDs 2.45 cm (3.5-5.7) IVSd 1.17 cm (0.6-1.1) PWd 0.87 cm (0.6-1.1) EF (Teich) 44.90% FS 21.50% EDV (Teich) 38.50 mL ESV (Teich) 21.20 mL LV Diastology E Decel Time 208.00 (160-240 msec) E/A Ratio 0.9 MED E' 7.00 (< 7 cm/sec) E'/MED E' Ratio 12.89 (>14) LAT E' 9.00 (<10 cm/sec) E/LAT E' Ratio 10.02 (>14) Mitral Valve MV E Max Zhang. 90.00 (40-130 cm/s) MV A Velocity 104.00 (40-130 cm/s) E/A Ratio 0.86 MV Decel. Time 208.00 (160-240 ms) MV PHT 61.00 ms Left Ventricle Left atrium is mildly enlarged, left ventricle is normal size, mild concentric left ventricular hypertrophy, visually estimated ejection fraction 55% with no regional wall motion abnormality, grade 1 diastolic dysfunction seen without tissue Doppler evidence of raise left atrial pressure. Right Ventricle Right atrium and right ventricle are normal size and contractility. Aortic Valve Aortic valve is minimally thickened and fibrosed, there is no aortic stenosis or aortic insufficiency. Mitral Valve Mitral valve is grossly normal, there is mild mitral regurgitation. Tricuspid Valve Tricuspid valve grossly normal, there is mild tricuspid regurgitation tricuspid regurgitation jet velocity is inadequate for calculation of the right ventricular systolic pressure. Pulmonic Valve Pulmonic valve is poorly visualized. Great Vessels Aortic root is normal size. Pericardium No significant pericardial effusion noted. Conclusion 1. Mildly enlarged left atrium, normal left ventricular size, mild concentric left ventricular hypertrophy, visually estimated ejection fraction 55% with no regional wall motion abnormality, grade 1 diastolic dysfunction seen without tissue Doppler evidence of raise left atrial pressure. 2. Mild mitral and tricuspid regurgitation. 3. No significant pericardial effusion noted. Electronically signed by : Alireza Mai, 08/09/2020 11:58:52
[2020-08-08 13:57] LABS: CATHL Activated Clotting Time > 400 SEC (74-125)
--- NOTE | 2020-08-08 14:20 | HMH.PHACLD ---
Vikash Van has received discharge medication counseling on the following medications: NEW MEDICATIONS: BRILINTA, ASPIRIN, BISOPROLOL CONTINUED MEDICATIONS: ATORVASTATIN, LISINOPRIL
== END 2020-08-08 14:44 | disposition home or self-care (01) ==
LOC: CATHLAB 07:35
PROVIDERS: PCP Emergency Medicine; Visit Provider Internal Medicine
DX: I25.118 Atherosclerotic heart disease of native coronary artery with other forms of angina pectoris (principal); I10 Essential (primary) hypertension; Z72.0 Tobacco use; E11.621 Type 2 diabetes mellitus with foot ulcer; L97.511 Non-pressure chronic ulcer of other part of right foot limited to breakdown of skin; Z79.84 Long term (current) use of oral hypoglycemic drugs; E11.42 Type 2 diabetes mellitus with diabetic polyneuropathy; J44.9 Chronic obstructive pulmonary disease, unspecified; Z79.82 Long term (current) use of aspirin; Z88.0 Allergy status to penicillin
CPT/HCPCS: 85347; 92928; 93306; 93458; 99152; 99153; C1725; C1769; C1876; C9600; J1644; Q9967

== ENCOUNTER 2020-08-14 09:41 | Emergency (ER) | payer OTHER, SELFPAY ==
[2020-08-14] VITALS (8 sets, daily range): BP systolic 126–180; BP diastolic 64–96; PULSE 85–103; RESP 16; TEMP 36.7–36.9; O2SAT 97–98; BMI 23.6
--- NOTE | 2020-08-14 09:43 | ECG_ITS ---
APPROVED REPORT Exam: Resting ECG HR:94 bpm ECG Measurements Heart Rate 94 AXES MA 130 P 68 QRSd 92 QRS -40 QT 358 T 36 QTc 447 Conclusion Normal sinus rhythm Left axis deviation Septal infarct, age undetermined Abnormal ECG Electronically signed by : Parveen Rosales, 08/14/2020 17:10:15
--- NOTE | 2020-08-14 09:43 | XR_ITS ---
PROCEDURE: XR CHEST PORTABLE CLINICAL HISTORY: chest pain COMPARISON: CR CXR CHEST(2 VIEWS-NOT PORTABLE) from 03/14/2015 CR CXR2 CHEST-AP VIEW ONLY from 03/23/[address] chest wo con from 11/29/2018 CR CXR1VP XR chest portable from 11/29/2018 FINDINGS: The cardiomediastinal silhouette and pulmonary vascularity are within normal limits. COPD changes. No lobar consolidation or collapse. Lungs are clear. No acute bony abnormalities. IMPRESSION: No acute findings. Dictated by: Vince Miranda MD 08/14/2020 10:36 Vince Miranda MD in [place] 08/14/2020 10:36
--- NOTE | 2020-08-14 09:43 | HMH.EDGENADL ---
ED Disposition Clinical Impression: Chest pain due to CAD Disposition: Home, Self-Care Condition on Discharge: Fair Instructions: DI for Chest Pain Additional Instructions: You have been evaluated for chest pain. Please take all medications as prescribed including metoprolol. Avoid tobacco. Follow-up with Dr. Navarrete in clinic on Wednesday as scheduled. Return to the emergency department if you have any new or worsening symptoms. Prescriptions: bisoproloL fumarate [Bisoprolol 10mg Tablet] 10 mg PO DAILY #30 tab Transmission Status: Received by [facility] Referrals: Yash Dacosta MD [Primary Care Provider] - Time of Disposition: 13:49 - Critical Care Critical Care Time: No Attestation: On , the high probability of a clinically significant, sudden or life threatening deterioration of the following system(s) required my full and direct attention, intervention and personal management. The time I documented below is in addition to time spent performing reported procedures but includes the following listed in this critical care notation. Medical Decision Making - Medical Records Medical records reviewed: Yes: I reviewed the patient's medical records. - Anthony Inquiry Pt receiving controlled substance: No Vital Signs: 08/14/20 09:41 08/14/20 10:28 08/14/20 11:00 Temperature 98.1 F Temperature Source Oral Pulse Rate [Right] 93 H 103 H 97 H Respiratory Rate 16 Blood Pressure [Right Arm] 136/80 162/87 H 180/96 H Blood Pressure Mean [Right Arm] 98 112 124 Blood Pressure Source [Right Arm] Automatic Cuff Automatic Cuff Automatic Cuff Blood Pressure Position [Right Arm] Sitting Sitting Sitting 02 Sat by Pulse Oximetry 98 98 98 Oxygen Delivery Method Room Air Room Air Room Air 08/14/20 11:46 08/14/20 12:32 08/14/20 13:15 Temperature Temperature Source Pulse Rate [Right] 93 H 102 H 97 H Respiratory Rate Blood Pressure [Right Arm] 176/94 H 141/82 H 152/92 H Blood Pressure Mean [Right Arm] 121 101 112 Blood Pressure Source [Right Arm] Automatic Cuff Automatic Cuff Automatic Cuff Blood Pressure Position [Right Arm] Sitting Sitting Sitting 02 Sat by Pulse Oximetry 97 97 97 Oxygen Delivery Method Room Air Room Air Room Air 08/14/20 13:43 Temperature Temperature Source Pulse Rate [Right] 90 Respiratory Rate Blood Pressure [Right Arm] 139/75 Blood Pressure Mean [Right Arm] 96 Blood Pressure Source [Right Arm] Automatic Cuff Blood Pressure Position [Right Arm] Sitting 02 Sat by Pulse Oximetry 97 Oxygen Delivery Method Room Air - Lab Data Lab Results 08/14/20 09:48: WBC 12.4 H, RBC 5.04, Hgb 15.3, Hct 46.4, MCV 92.0, MCH 30.3, MCHC 32.9, RDW 13.6, Plt Count 243, MPV 8.7, Neut % (Auto) 69.4, Lymph % (Auto) 20.5, Jack % (Auto) 5.4, Eos % (Auto) 3.4, Baso % (Auto) 1.2, Neut # (Auto) 8.6 H, Lymph # (Auto) 2.5, Jack # (Auto) 0.7, Eos # (Auto) 0.4, Baso # (Auto) 0.2 08/14/20 09:48: Sodium 135 L, Potassium 4.4, Chloride 100, Carbon Dioxide 26, Anion Gap 13.4, BUN 22 H, Creatinine 0.90, Estimated Creat Clear 98, Estimated GFR 88, Est GFR ( Amer) 106, Glucose 390 H, Calcium 9.6, Troponin I 0.14 H 08/14/20 09:48: NT-Pro-B Natriuret Pep 225 H 08/14/20 09:48: SARS-CoV-2 IgG Ab (Rapid) Negative, SARS-CoV-2 IgM Ab (Rapid) Negative 08/14/20 12:55: Troponin I 0.13 H Result diagrams: 08/14/20 09:48 08/14/20 09:48 Orders (Tests/Meds): ED MEDICATIONS Discontinued Medications Generic Name Dose Route Start Last Admin Trade Name Freq PRN Reason Stop Dose Admin Bisoprolol Fumarate 10 mg 08/15/20 12:32 Bisoprolol 5mg Tablet PO 08/15/20 12:33 ONCE ONE Bisoprolol Fumarate 10 mg 08/14/20 12:32 08/14/20 12:53 Bisoprolol 5mg Tablet PO 08/14/20 12:33 10 mg ONCE ONE Administration ORDERS Category Date Time Status Troponin I Q3H Lab 08/14/20 15:45 Ordered EKG Request [ECG Request by /Farhad] Stat Y 08/14/20 09:43 Stop Req - ECG Data Tracing
[2020-08-14 09:59] LABS: Basophils # 0.2 K/mm3 (0-0.2); Basophils % 1.2 % (0.1-2.0); Eosinophils # 0.4 K/mm3 (0.0-0.4); Eosinophils % 3.4 % (0.1-12.0); Hematocrit 46.4 % (42.0-52.0); Hemoglobin 15.3 g/dL (14.1-18.0); Lymphocytes # 2.5 K/mm3 (0.7-4.5); Lymphocytes % 20.5 % (10-50); Mean Corpuscular HGB Conc 32.9 g/dL (31.8-35.4); Mean Corpuscular Hemoglobin 30.3 pg (27.0-31.2); Mean Platelet Volume 8.7 fl (7.4-10.4); Monocytes # 0.7 K/mm3 (0.1-1.0); Monocytes % 5.4 % (1.7-9.3); Neutrophils # 8.6 K/mm3 (1.8-7.8); Neutrophils % 69.4 % (37.0-80.0); Platelet Count 243 K/mm3 (142-424); Red Blood Count 5.04 M/mm3 (4.60-6.20); Red Cell Distribution Width 13.6 % (11.5-17.5); White Blood Count 12.4 K/mm3 (4.8-10.8)
[2020-08-14 10:07] LABS: Chloride 100 mmol/L (98-107); Potassium 4.4 mmoL/L (3.5-5.1); Sodium 135 mmol/L (136-145)
[2020-08-14 10:09] LABS: Blood Urea Nitrogen 22 mg/dl (9-20); Creatinine Clearance Estimated 98 mL/min (50-200); Estimated Glomerular Filt Rate 88 ml/min (>60); GFR (African American) 106 ML/MIN (>60)
[2020-08-14 10:10] LABS: Anion Gap 13.4 mEq/L (5-15); Calcium 9.6 mg/dl (8.4-10.2); Carbon Dioxide 26 mmol/L (22.0-30.0); Glucose 390 mg/dl (74-100)
[2020-08-14 10:20] LABS: NT Pro Brain Natriuretic Pep. 225 pg/mL (0-125)
[2020-08-14 10:22] LABS: Troponin I 0.14 ng/ml (0.00-0.034)
[2020-08-14 10:43] LABS: Coronavirus 19 IgG Antibody Negative (Negative); Coronavirus 19 IgM Antibody Negative (Negative)
--- NOTE | 2020-08-14 12:24 | PC.NURSE ---
Dr. Navarrete speaking with Dr. Duarte
--- NOTE | 2020-08-14 12:32 | PC.NURSE ---
Dr Navarrete at bedside
--- NOTE | 2020-08-14 12:34 | PC.NURSE ---
Dr. Navarrete at bedside
--- NOTE | 2020-08-14 12:35 | PC.NURSE ---
Notified pharmacy need for medication
--- NOTE | 2020-08-14 13:10 | PC.NURSE ---
Family at bedside
[2020-08-14 13:37] LABS: Troponin I 0.13 ng/ml (0.00-0.034)
--- NOTE | 2020-08-14 14:28 | HMH.CNCARD ---
History of Present Illness Consult date: 08/14/20 Requesting physician: Elaine Duarte Consult reason: chest pain Chief complaint: chest pain History of present illness: This is a 54-year-old white gentleman who presented to the emergency department with complaints of chest pain. The patient has a known history of coronary artery disease with recent stenting last week. The patient states that he was having a left-sided chest pain that was sharp in nature. He states that this was radiating down his left arm. He states that it started approximately an hour prior to his arrival to the emergency department while he was at his primary care provider's office. He states that he was given aspirin and nitroglycerin and told to come to the emergency department. He did have improvement in his chest pain and arm pain with the nitroglycerin and aspirin. He states that his pain was a 4 out of 10 in intensity. The patient states that he has had no chest pain until today while he was at his primary care provider's office. He states that this was associated with shortness of breath and he did feel like he was going to pass out. He denies any fever, chills, nausea, vomiting, diarrhea, PND or orthopnea. His initial troponin was 0.14 which is most likely secondary to his recent cardiac intervention. The patient is tachycardic on arrival to the hospital. [facility] History I have reviewed the patient's past medical history: Yes Medical History: Reports:: Chronic Obstructive Pulmonary Disease (COPD), Coronary Artery Disease, Diabetes Mellitus Type 2, Hyperlipidemia, Hypertension Denies:: Diabetes Mellitus Type 1, MRSA *Have you ever received a pneumonia vaccine?: No *Have you received a flu vaccine this season?: Yes Other Surgeries: Yes: Cholecystectomy, EGD Amputation: No Fractures: Yes (knee) - *Social History Smoking Status: Current every day smoker Tobacco Type: cigarettes # Packs/Day (cigarettes): 1 Alcohol Intake: never Alcohol Intake Frequency:: holidays/special occasions only Substance Use Type: denies use *Occupational Status:: employed Housing: house Household Members: family *Travel in the last 8 weeks: None Family Hx:: Diabetes, Hypertension Meds Home Medications Medication Instructions Recorded Confirmed Type metformin 1,000 mg tablet 1,000 mg PO BID #180 tab 07/23/20 08/14/20 Rx Atorvastatin Calcium [Lipitor 10mg 10 mg PO DAILY 08/08/20 08/14/20 History Tab] Blood Sugar Diagnostic [Advanced See Rx Instructions .ROUTE 08/08/20 08/14/20 History Gluc Meter Test Strip] .MEDSUPPLY Blood-Glucose Meter [Blood Glucose See Rx Instructions .ROUTE 08/08/20 08/14/20 History Meter] .MEDSUPPLY Empagliflozin [Jardiance] 25 mg PO DAILY 08/08/20 08/14/20 History Lancets [Pip Lancet] See Rx Instructions .ROUTE 08/08/20 08/14/20 History .MEDSUPPLY lisinopriL [Lisinopril 5mg 5 mg PO DAILY 08/08/20 08/14/20 History Tablet] Ticagrelor [Brilinta 60mg Tab] 60 mg PO BID 08/14/20 08/14/20 History bisoproloL fumarate [Bisoprolol 10 mg PO DAILY #30 tab 08/14/20 Rx 10mg Tablet] Allergies Allergy/AdvReac Type Severity Reaction Status Date / Time Penicillins [PENICILLINS] Allergy Unknown Verified 08/14/20 08:54 Exam Vital signs and Labs for Last 24 Hours: Temp Pulse Resp BP Pulse Ox 98.4 F 85 16 126/64 97 08/14/20 14:03 08/14/20 14:03 08/14/20 14:03 08/14/20 14:03 08/14/20 13:43 Laboratory Results - last 24 hr 08/14/20 09:48: WBC 12.4 H, RBC 5.04, Hgb 15.3, Hct 46.4, MCV 92.0, MCH 30.3, MCHC 32.9, RDW 13.6, Plt Count 243, MPV 8.7, Neut % (Auto) 69.4, Lymph % (Auto) 20.5, [place] % (Auto) 5.4, Eos % (Auto) 3.4, Baso % (Auto) 1.2, Neut # (Auto) 8.6 H, Lymph # (Auto) 2.5, [place] # (Auto) 0.7, Eos # (Auto) 0.4, Baso # (Auto) 0.2 08/14/20 09:48: Sodium 135 L, Potassium 4.4, Chloride 100, Carbon Dioxide 26, Anion Gap 13.4, BUN 22 H, Creatinine 0.90, Estimated Creat Clear 98, Estimated GFR 88, Est GFR ( Amer) 106, Gluc
== END 2020-08-14 14:04 | disposition home or self-care (01) ==
PROVIDERS: Emergency Provider Emergency Medicine; PCP Emergency Medicine
DX: R07.89 Other chest pain (principal); I25.10 Atherosclerotic heart disease of native coronary artery without angina pectoris; E11.65 Type 2 diabetes mellitus with hyperglycemia; Z79.4 Long term (current) use of insulin; I10 Essential (primary) hypertension; J44.9 Chronic obstructive pulmonary disease, unspecified; Z01.84 Encounter for antibody response examination; Z79.899 Other long term (current) drug therapy; Z88.0 Allergy status to penicillin; Z95.5 Presence of coronary angioplasty implant and graft
CPT/HCPCS: 36415; 71045; 80048; 83880; 84484; 85025; 86328; 93005; 99283

== ENCOUNTER → 2020-08-23 15:13 | Outpatient (CLI) | payer OTHER, SELFPAY ==
[2020-08-23 16:07] LABS: Basophils # 0.2 K/mm3 (0-0.2); Basophils % 1.3 % (0.1-2.0); Eosinophils # 0.7 K/mm3 (0.0-0.4); Eosinophils % 5.9 % (0.1-12.0); Hematocrit 44.7 % (42.0-52.0); Hemoglobin 14.8 g/dL (14.1-18.0); Lymphocytes # 3.4 K/mm3 (0.7-4.5); Mean Corpuscular HGB Conc 33.1 g/dL (31.8-35.4); Mean Corpuscular Hemoglobin 30.1 pg (27.0-31.2); Mean Corpuscular Volume 91.1 fl (80-94); Mean Platelet Volume 7.8 fl (7.4-10.4); Monocytes # 0.6 K/mm3 (0.1-1.0); Monocytes % 4.8 % (1.7-9.3); Neutrophils # 6.8 K/mm3 (1.8-7.8); Neutrophils % 59.1 % (37.0-80.0); Platelet Count 224 K/mm3 (142-424); Red Blood Count 4.91 M/mm3 (4.60-6.20); Red Cell Distribution Width 13.8 % (11.5-17.5); White Blood Count 11.6 K/mm3 (4.8-10.8)
[2020-08-23 16:42] LABS: Coronavirus 19 IgG Antibody Negative (Negative); Coronavirus 19 IgM Antibody Negative (Negative)
[2020-08-23 19:44] LABS: Alanine Aminotransferase 51 U/L (12-78); Albumin Level 3.7 g/dl (3.5-5.0); Albumin/Globulin Ratio 1.5 (1.1-1.8); Alkaline Phosphatase 68 U/L (38-126); Anion Gap 11.1 mEq/L (5-15); Aspartate Amino Transferase 34 U/L (17-59); Bilirubin,Total 0.3 mg/dl (0.2-1.3); Blood Urea Nitrogen 21 mg/dl (9-20); Calcium 9.5 mg/dl (8.4-10.2); Carbon Dioxide 27 mmol/L (22.0-30.0); Chloride 103 mmol/L (98-107); Estimated Glomerular Filt Rate 77 ml/min (>60); GFR (African American) 94 ML/MIN (>60); Globulin 2.5 g/dL (1.3-3.2); Glucose 226 mg/dl (74-100); Potassium 5.1 mmoL/L (3.5-5.1); Sodium 136 mmol/L (136-145); Total Protein,Serum 6.2 g/dl (6.3-8.2)
== END ==
PROVIDERS: Visit Provider Internal Medicine
DX: I25.10 Atherosclerotic heart disease of native coronary artery without angina pectoris (principal); Z01.812 Encounter for preprocedural laboratory examination; Z11.52 Encounter for screening for COVID-19
CPT/HCPCS: 36415; 80053; 85025; 86328

== ENCOUNTER 2020-08-26 08:58 | Day surgery (SDC) | payer OTHER, SELFPAY ==
[2020-08-26] VITALS (11 sets, daily range): BP systolic 147–188; BP diastolic 82–108; PULSE 71–76; RESP 16–20; TEMP 36.6; O2SAT 95–98; BMI 23.2
--- NOTE | 2020-08-26 07:07 | IR_ITS ---
APPROVED REPORT Patient Location: Outpatient Medical Research Associate: CHAY Zhou RT (R) PROCEDURES Left femoral arterial access Catheter placed in the abdominal aorta Abdominal aortography with bilateral iliofemoral runoff Drug-coated balloon angioplasty to the right popliteal artery Right popliteal artery selective angiogram INDICATION Alexander claudication class V, Poorly healing lower extremity ulcer, Peripheral artery disease, Right popliteal artery stenosis Informed consent was obtained prior to the procedure. COMPLICATIONS none Estimated Blood Loss: less than 10 mls TECHNIQUE 1% lidocaine used anesthetize the left groin the left femoral artery was accessed via the Salinger technique and a five Lithuanian sheath was placed in the femoral artery. Pigtail catheter was advanced to the abdominal aorta and bilateral iliofemoral runoff was performed. Therapeutic heparin was administered and an advantage wire was then used to cannulate the right common iliac artery and then placed into the right superficial femoral artery under fluoroscopic guidance. The five Lithuanian sheath was exchanged for a long destination sheath. The wire was used to traverse the stenosis in the popliteal artery and a 4 mm x 40 mm balloon was used to predilate the stenosis. Following this a 4 mm x 60 mm drug-coated balloon was deployed at 8 javier for 3 minutes reducing the stenosis. A small dissection was identified therefore the balloon was reinflated at 16 javier for 2 minutes. Post balloon angiography demonstrated wide patency of the right popliteal artery with improved in line flow below the knee. At the end of the procedure the apparatus was removed the groin was reprepped gloves were changed sheath was removed and hemostasis was achieved using Perclose device patient was transferred to the postop putting in stable condition ANGIOGRAPHIC RESULTS The distal abdominal aorta is calcified with no significant stenosis. The right common iliac artery has proximal eccentric 30% stenosis. The right internal iliac artery is patent. The right external iliac artery has a small proximal aneurysmal dilatation. Distally the vessel is normal. The right common femoral artery has 30% stenosis. The right profunda femoris artery is normal. The right superficial femoral artery has a very proximal eccentric 30 to 40% stenosis with diffuse 10 to 20% stenoses. The left right popliteal artery has a concentric 90% relatively focal stenosis. The right anterior tibialis artery is subtotally occluded in the proximal segment and then occludes at the mid segment and then reconstitutes distally although is subtotally occluded. The right peroneal artery is a large vessel and supplies inline flow into the right foot. The right posterior tibialis artery is severely diseased in the proximal segment and patent. The vessel does reconstitute distally via collaterals from the peroneal artery The left common iliac artery is widely patent with mild atheromatous plaque the left internal iliac arteries patent the left external iliac artery has mild disease. The left common femoral artery has a 40% stenosis. The left profunda femoris artery is normal. The left superficial femoral artery has proximal 30 to 40% stenosis with a mid vessel 70 to 80% stenotic lesion. The left popliteal artery has mild disease in the proximal segment with a 70% stenosis at the infrageniculate level. The left posterior tibialis artery is severely diseased in the proximal segment and then subtotally occluded distally. The peroneal artery is widely patent and provides flow just proximal to the beginning of the left foot. The left posterior tibialis artery is patent but severely diseased throughout its en
[2020-08-26 15:33] LABS: CATHL Activated Clotting Time 232 SEC (74-125)
--- NOTE | 2020-08-26 16:37 | SUR.PHASEII ---
Patient was very disgruntled about care received since stents place on 08/08/20 I addressed several concerns I called Araceli Rodrigues to make sure his insurance was still active and explained to the patient that it would be active until 11/06/20, with a possible additional 3 month extension Patient was concerned about diarrhea after starting new medications, So I called his PCP for Follow-up. Olesya 08/28/20 at 1130 I called cardiac rehab about getting patient an appointment following PCI. They told me he would be called as soon as possible to get an appointment for evaluation but that they were backlogged and short staffed.
--- NOTE | 2020-08-26 17:51 | SUR.PHASEII ---
1530 During discharge education patient observed wiping forehead with blue OR towel. When questioned patient stated he hit head on wipe bracket located on wall. I observed 1-1.5 inch what appeared to be a superficial wound on left scalp on hair line area. When I asked patient if I could clean and dress wound, and or get a physician to look at site, patient refused care.
== END 2020-08-26 15:30 | disposition home or self-care (01) ==
LOC: CATHLAB 08:59
PROVIDERS: PCP Emergency Medicine; Visit Provider Internal Medicine
DX: E11.51 Type 2 diabetes mellitus with diabetic peripheral angiopathy without gangrene (principal); L98.491 Non-pressure chronic ulcer of skin of other sites limited to breakdown of skin; I70.25 Atherosclerosis of native arteries of other extremities with ulceration; I77.1 Stricture of artery; Z72.0 Tobacco use; I25.118 Atherosclerotic heart disease of native coronary artery with other forms of angina pectoris; I10 Essential (primary) hypertension; I77.79 Dissection of other specified artery; Z88.0 Allergy status to penicillin; Z79.899 Other long term (current) drug therapy; Z79.82 Long term (current) use of aspirin; Z79.84 Long term (current) use of oral hypoglycemic drugs; I70.213 Atherosclerosis of native arteries of extremities with intermittent claudication, bilateral legs
CPT/HCPCS: 36247; 37224; 75630; 85347; 99152; 99153; C1725; C1760; C1766; C1769; C1894; C2623; J1644; Q9966

== ENCOUNTER 2020-09-12 09:10 | Outpatient (RCR) | payer OTHER, SELFPAY | END 2020-11-20 09:43 | disposition home or self-care (01) | LOC: PT 09:10 | PROVIDERS: Visit Provider Internal Medicine | DX: Z95.5 Presence of coronary angioplasty implant and graft (principal); Z95.820 Peripheral vascular angioplasty status with implants and grafts ==

== ENCOUNTER 2020-09-13 11:02 | Observation (INO) | payer OTHER, SELFPAY ==
[2020-09-13] VITALS (21 sets, daily range): BP systolic 112–176; BP diastolic 61–91; PULSE 80–104; RESP 12–20; TEMP 36.2–37; O2SAT 94–100; BMI 22.9; BMI 23.6
--- NOTE | 2020-09-13 11:23 | XR_ITS ---
PROCEDURE: XR FOOT RT 2V CLINICAL INDICATION: pain Diabetic ulcer COMPARISON: CR XR FOOT WT BEARING LT 3V from 07/16/2020 CR XR FOOT WT BEARING RT 3V from 07/16/2020 FINDINGS: No fracture or dislocation. No lytic or blastic change. There is normal mineralization. The joint spaces are well-preserved. No significant degenerative/arthritic changes. No erosive changes evident. Other findings:Vascular calcification noted IMPRESSION: No acute findings. Dictated by: Vince Miranda MD 09/13/2020 12:10 Vince Miranda MD in [place] 09/13/2020 12:10
[2020-09-13 11:50] LABS: Basophils # 0.1 K/mm3 (0-0.2); Basophils % 1.1 % (0.1-2.0); Eosinophils # 0.3 K/mm3 (0.0-0.4); Eosinophils % 2.8 % (0.1-12.0); Hematocrit 44.4 % (42.0-52.0); Hemoglobin 14.3 g/dL (14.1-18.0); Lymphocytes # 1.5 K/mm3 (0.7-4.5); Lymphocytes % 16.2 % (10-50); Mean Corpuscular HGB Conc 32.1 g/dL (31.8-35.4); Mean Corpuscular Hemoglobin 29.2 pg (27.0-31.2); Mean Corpuscular Volume 91.1 fl (80-94); Mean Platelet Volume 7.2 fl (7.4-10.4); Monocytes # 0.8 K/mm3 (0.1-1.0); Monocytes % 8.6 % (1.7-9.3); Neutrophils # 6.7 K/mm3 (1.8-7.8); Neutrophils % 71.4 % (37.0-80.0); Platelet Count 237 K/mm3 (142-424); Red Blood Count 4.88 M/mm3 (4.60-6.20); White Blood Count 9.3 K/mm3 (4.8-10.8)
[2020-09-13 12:08] LABS: Activated Partial Thrombo Time 24.2 seconds (23.6-34.0); Chloride 101 mmol/L (98-107); INR 0.91 (0.9-1.1); Potassium 4.3 mmoL/L (3.5-5.1); Prothrombin Time 10.2 seconds (9.4-11.8); Sodium 137 mmol/L (136-145)
[2020-09-13 12:11] LABS: Alanine Aminotransferase 23 U/L (12-78); Albumin/Globulin Ratio 1.1 (1.1-1.8); Alkaline Phosphatase 112 U/L (38-126); Anion Gap 12.3 mEq/L (5-15); Aspartate Amino Transferase 28 U/L (17-59); Bilirubin,Total 0.6 mg/dl (0.2-1.3); Blood Urea Nitrogen 24 mg/dl (9-20); Calcium 9.9 mg/dl (8.4-10.2); Carbon Dioxide 28 mmol/L (22.0-30.0); Creatinine Clearance Estimated 85 mL/min (50-200); Estimated Glomerular Filt Rate 77 ml/min (>60); GFR (African American) 94 ML/MIN (>60); Globulin 3.5 g/dL (1.3-3.2); Glucose 343 mg/dl (74-100); Total Protein,Serum 7.5 g/dl (6.3-8.2)
--- NOTE | 2020-09-13 12:42 | HMH.EDGENADL ---
ED Disposition Clinical Impression: Ischemic necrosis of toe, Peripheral vascular disease COPD (chronic obstructive pulmonary disease) Qualifiers: COPD type: chronic bronchitis Chronic bronchitis type: simple Qualified Code(s): J41.0 - Simple chronic bronchitis Hypertension Qualifiers: Hypertension type: essential hypertension Qualified Code(s): I10 - Essential (primary) hypertension Disposition: Admitted As Inpatient Condition on Discharge: Fair Referrals: Yash Dacosta MD [Primary Care Provider] - - Critical Care Critical Care Time: No Attestation: On 09/13/20, the high probability of a clinically significant, sudden or life threatening deterioration of the following system(s) required my full and direct attention, intervention and personal management. The time I documented below is in addition to time spent performing reported procedures but includes the following listed in this critical care notation. Medical Decision Making - Medical Records Medical records reviewed: Yes: I reviewed the patient's medical records. - Anthony Inquiry Pt receiving controlled substance: Yes Anthony was queried for this patient: No Reason not queried -: Emergent pt cond-no time Risks and benefits of using a controlled substance: were discussed with pt by me Vital Signs: 09/13/20 11:04 09/13/20 11:28 Temperature 98.6 F Temperature Source Oral Pulse Rate [Radial] 104 H 99 H Respiratory Rate 16 18 Blood Pressure [Right Arm] 176/91 H 164/87 H Blood Pressure Mean [Right Arm] 119 112 Blood Pressure Position [Right Arm] Sitting 02 Sat by Pulse Oximetry 94 L 98 Oxygen Delivery Method Room Air - Lab Data Lab Results 09/13/20 11:30: WBC 9.3, RBC 4.88, Hgb 14.3, Hct 44.4, MCV 91.1, MCH 29.2, MCHC 32.1, RDW 13.0, Plt Count 237, MPV 7.2 L, Neut % (Auto) 71.4, Lymph % (Auto) 16.2, [place] % (Auto) 8.6, Eos % (Auto) 2.8, Baso % (Auto) 1.1, Neut # (Auto) 6.7, Lymph # (Auto) 1.5, [place] # (Auto) 0.8, Eos # (Auto) 0.3, Baso # (Auto) 0.1 09/13/20 11:30: PT 10.2, INR 0.91, APTT 24.2 09/13/20 11:30: Sodium 137, Potassium 4.3, Chloride 101, Carbon Dioxide 28, Anion Gap 12.3, BUN 24 H, Creatinine 1.00, Estimated Creat Clear 85, Estimated GFR 77, Est GFR ( Amer) 94, Glucose 343 H, Calcium 9.9, Total Bilirubin 0.6, AST 28, ALT 23, Alkaline Phosphatase 112, Total Protein 7.5, Albumin 4.0, Globulin 3.5 H, Albumin/Globulin Ratio 1.1 09/13/20 11:30: Lactate 1.0 Result diagrams: 09/13/20 11:30 09/13/20 11:30 Orders (Tests/Meds): ED MEDICATIONS Generic Name Dose Route Start Last Admin Trade Name Freq PRN Reason Stop Dose Admin Vancomycin HCl 1,500 mg/ 250 mls @ 125 mls/hr 09/13/20 13:00 Sodium Chloride IV 09/13/20 14:59 ONCE ONE Heparin Sodium/Dextrose 500 mls @ 26 mls/hr 09/13/20 13:00 09/13/20 13:21 Heparin 25,000 Units In D5w 500ml Premix IV 10/13/20 12:59 26 mls/hr .[id number] MARISELA Administration 1,300 UNITS/HR Discontinued Medications Generic Name Dose Route Start Last Admin Trade Name Freq PRN Reason Stop Dose Admin Heparin Sodium (Porcine) 5,800 unit 09/13/20 13:00 09/13/20 13:18 Heparin Sodium 5,000 Unit/Ml Vial IV 09/13/20 13:01 5,800 unit ONCE ONE Administration Miscellaneous 1 each 09/13/20 13:00 09/13/20 13:01 Heparin Drip Consult * 10/13/20 12:59 1 each CONSULT PHARMACY MARISELA Administration ORDERS Category Date Time Status Consult to Cardiology [CONS] Routine Cons 09/13/20 13:30 Active Consult to Podiatry [CONS] Routine Cons 09/13/20 13:30 Active PTT [Activated Partial Thrombo Time] Stat Lab 09/13/20 14:20 Ordered Blood Culture Stat Micro 09/13/20 11:30 Received - Radiology Data #1 Image(s): Foot/Toes Image Reviewed: Yes I reviewed the patient's radiology results, Yes I reviewed the patient's radiology image, Yes I have reviewed radiologist's interpretation Preliminary Findings: Normal/NAD, No Fracture Seen - Reevaluation(s) Time: 13:3
--- NOTE | 2020-09-13 12:58 | PC.NURSE ---
Dr Araujo speaking with Dr hood
--- NOTE | 2020-09-13 13:00 | PC.NURSE ---
DR PETTIT SPOKE WITH DR DEL TORO HE IS GONNA COME SEE THE PT
--- NOTE | 2020-09-13 13:04 | PC.NURSE ---
DR DEL TORO HERE TO SEE PT
--- NOTE | 2020-09-13 13:15 | PC.NURSE ---
DR PRECIOUS LLANOS
--- NOTE | 2020-09-13 13:36 | PC.NURSE ---
DR LOPEZ CALLED BACK SHE WANTS PT ADMITTED FOR REMOVAL OF TOE , DR OQUENDO CALLED AND AGREED TO ADMIT PT
[2020-09-13 14:17] LABS: Coronavirus 19 IgG Antibody Negative (Negative); Coronavirus 19 IgM Antibody Negative (Negative)
[2020-09-13 14:19] LABS: POC Glucose,Bedside 346 (70-110)
--- NOTE | 2020-09-13 14:32 | HMH.ORTHOCON ---
*Admission Date: 09/13/20 *Reason for consult:: Right hallux gangrene, cellulitis *History of present illness: 55-year-old male presented to the emergency department 09/13/20 with pain in the right great toe. The patient does have a history of peripheral vascular disease. ER concerned for ischemic digit. There is also some surrounding redness. Patient was started on antibiotic therapy. Dr Navarrete saw patient and feels that the stent is working appropriately. We do believe that the ischemia, edema and swelling of the right great toe is likely secondary to reperfusion. However this is consistent with an ischemic digit that was likely there prior to the reperfusion injury. I did consult podiatry. Patient will need amputation. Patient started on broad-spectrum antibiotics. Admitted to the hospital for further evaluation and treatment. Patient has been seeing Rianna Pablo APRN outpatient, last seen 09/03/20. He has a f/u schedule for 09/17/20. [facility] History I have reviewed the patient's past medical history: Yes Medical History: Reports:: Chronic Obstructive Pulmonary Disease (COPD), Coronary Artery Disease, Diabetes Mellitus Type 2, Hyperlipidemia, Hypertension Denies:: Diabetes Mellitus Type 1, Internal Pacemaker, MRSA, Seizures *Have you ever received a pneumonia vaccine?: No *Have you received a flu vaccine this season?: No Other Surgeries: Yes: Cardiac Catheterization, Cholecystectomy, Coronary Stent, EGD. No: Pacemaker Amputation: No Fractures: Yes (knee) - *Social History Smoking Status: Current every day smoker Tobacco Type: cigarettes # Packs/Day (cigarettes): 1 Alcohol Intake: never Alcohol Intake Frequency:: holidays/special occasions only Substance Use Type: denies use *Occupational Status:: employed Housing: house Household Members: spouse *Travel in the last 8 weeks: None Family Hx:: Diabetes, Hypertension Review of Systems - Review of Systems Review of systems:: pertinent systems reviewed and negative unless documented below - Constitutional Denies chills - Eyes Denies blind spots - ENT Denies abnormal hearing - *Cardiovascular Reports foot swelling, Denies chest pain, Denies shortness of breath - *Respiratory Denies shortness of breath - *Gastrointestinal Denies abdominal pain - *Genitourinary Denies difficulty urinating - *Musculoskeletal Reports joint pain, Reports numbness, Reports stiffness - Integumentary/Breasts Reports hair loss, Reports nail changes, Reports dry skin, Reports non-healing lesions, Reports wounds - *Neurologic Reports tingling/numbness/burning sensations, Denies headache(s) - Psychiatric Denies abnormal sleep pattern - Endocrine Reports increased thirst - Hematologic/Lymphatic Reports easy bruising - Allergic/Immunologic Denies wheezing Meds Home Medications Medication Instructions Recorded Confirmed Type metformin 1,000 mg tablet 1,000 mg PO BID #180 tab 07/23/20 09/03/20 Rx Atorvastatin Calcium [Lipitor 10mg 10 mg PO DAILY 08/08/20 09/03/20 History Tab] Empagliflozin [Jardiance] 25 mg PO DAILY 08/08/20 09/03/20 History Lancets [Pip Lancet] See Rx Instructions .ROUTE 08/08/20 09/03/20 History .MEDSUPPLY lisinopriL [Lisinopril 5mg 5 mg PO DAILY 08/08/20 09/03/20 History Tablet] metoprolol succinate 100 mg 100 mg PO HS #30 tab 08/14/20 09/03/20 Rx tablet,extended release 24 hr aspirin 81 mg tablet,delayed 81 mg PO DAILY 08/19/20 09/03/20 History release diltiazem HCl 120 mg 120 mg PO DAILY #30 cap 08/19/20 09/03/20 Rx capsule,extended release 24 hr ticagrelor 90 mg tablet 90 mg PO BID #60 tab 09/03/20 09/03/20 Rx clindamycin HCl 300 mg capsule 300 mg PO TID 14 Days #42 cap 09/13/20 Rx levofloxacin 750 mg tablet 750 mg PO Q24H 14 Days #14 tab 09/13/20 Rx oxycodone 5 mg tablet 5 mg PO Q6H PRN 7 Days #30 tab 09/13/20 Rx Allergies Allergy/AdvReac Type Severity Reaction Status Date / Time Penicillins [PENICILLINS] Allergy
--- NOTE | 2020-09-13 14:43 | HMH.OPNOTE ---
Date of procedure: 09/16/20 Pre-op Diagnosis:: 1. Right hallux gangrene, ischemic toe 2. Right diabetic foot infection 3. Right foot cellulitis Post-op Diagnosis:: Same Procedure performed:: 1. Right hallux amputation 2. Right foot irrigation and debridement Surgeon:: Jacqui Hernandez DPM SYSTEMS ADMINISTRATION ANALYST:: Yoni Rose Anesthesia: GETA, local (30cc 0.5% marcaine plain) Estimated blood loss (mL): 5 Clinical Note:: Patient has been seeing Podiatry GLASS SCULLION, last seen 09/03/20. Has f/u scheduled 09/17/20. He reports worsening blackness and pain x 5days. Recent revac and stent placement per Dr. Navarrete. Patient having reperfusion pain. Radiographs of the right foot were reviewed and discussed with the patient. X-rays show no obvious gas or osteomyelitis. Vascular calcifications noted. We discussed conservative versus surgical treatment options. Conservative treatment options include local wound care, oral and IV antibiotics, change in shoe wear, taping/padding, and off-loading. Discussed that patient would benefit from a wider and deeper shoe wear to accommodate the deformity. We discussed surgical intervention for amputation of the right great toe Patient understands that there is a chance that the toes can migrate to fill the gap or the foot may change shape after surgery. Patient also understands that they could have wound healing complications including delayed healing and infection. We discussed that if the wound does not heal, it is possible that they may need a more proximal amputation and could result in further loss of digits, loss of partial foot or loss of leg. We discussed the risks and benefits in great detail. Other surgical risks include: prolonged pain and swelling, further infection requiring oral or IV antibiotics, delay in healing of soft tissue or bone, nerve or blood vessel damage, CRPS/RSD, DVT, anesthesia complications, and even . All questions answered. Patient verbalized understanding. Consent obtained. Medical clearance per Dr. Dacosta and cardiac clearance per Dr. Navarrete. Operative findings:: Right toe had gangrene with skin sloughing. The entire toe was ischemic. The underlying soft tissue and bone was a purplish discoloration. There was no bleeding at the tip of the toe. No capillary fill time. Upon removal of the distal phalanx the proximal phalanx head was purple issue. There were calcified vessels that had no blood flow to the tip of the toe. First metatarsal head intact with early arthritic changes noted. No infection tracking up the tendon. No obvious signs of osteomyelitis to the first metatarsal. Operative note:: On this date and time patient was deemed an appropriate surgical candidate. With informed consent signed, the patient was taken to the operating theater. The patient was positioned supine. General anesthesia was induced. No tourniquet used. Pre-op right hallux and ankle blocks given with 30 cc 0.5% marcaine plain. IV vancomycin and Levaquin given. Right hallux amputation, irrigation and debridement: The right lower extremity was prepped and drapped in normal sterile fashion. Cellulitis noted around the ulcer. A fish mouth incision was mapped out. Utilizing a 15 blade dissection was carried down sharply to the level of the bone around the distal phalanx which was disarticulated from the proximal phalanx. All nonviable soft tissue and bone was debrided. The distal phalanx bone was hard but had mild malodor and purplish discoloration to it. Attention was then directed to the proximal phalanx. The head was discolored with cortical erosions noted. The head was transected and sent for bone culture. The base the proximal phalanx was sent for bone path proximal margin. The head of the 1st metatarsal was intact with early degenerative changes, no discoloration or obvious signs of osteomyelitis. Next 3L of bacitracin irrigation was used to flush the wound. The wound was reexplored and no further signs of infection noted. No vessels ligat
--- NOTE | 2020-09-13 15:28 | P.PN_ITS ---
[facility] Anesthesia Checklist - Patient Identification Patient Identification: Arm Band - Structural Data Admitted From: Home Planned Operative Procedure/s: Left Great Toe Amputation Consent for Planned Operative Procedure(s) Verified: Yes Verified Documents: Surgical Consent, History and Physical - NPO Status Verified Time NPO: 07:00 (black coffee) - Additional verifications Anesthesia Reactions: No - Airway Assessment C-Spine Mobility Assessed: Yes (mp2) TMJ Mobility Assessed: Yes Dentition: Poor Dentition - Neurological Assessment Level of Consciousness: Awake, Alert - Anesthesia Plan Anesthesia Risk discussed: Yes Anesthesia Plan: Verified ASA Class: III Anesthesia Type: General [facility] History I have reviewed the patient's past medical history: Yes Medical History: Reports:: Chronic Obstructive Pulmonary Disease (COPD), Coronary Artery Disease, Diabetes Mellitus Type 2, Hyperlipidemia, Hypertension Denies:: Diabetes Mellitus Type 1, Internal Pacemaker, MRSA, Seizures *Have you ever received a pneumonia vaccine?: No *Have you received a flu vaccine this season?: No Anesthesia experience/problems:: nac Other Surgeries: Yes: Cardiac Catheterization, Cholecystectomy, Coronary Stent, EGD. No: Pacemaker Amputation: No Fractures: Yes (knee) - *Social History Smoking Status: Current every day smoker Tobacco Type: cigarettes # Packs/Day (cigarettes): 1 Alcohol Intake: never Alcohol Intake Frequency:: holidays/special occasions only Substance Use Type: denies use *Occupational Status:: employed Housing: house Household Members: spouse *Travel in the last 8 weeks: None Family Hx:: Diabetes, Hypertension
--- NOTE | 2020-09-13 15:40 | HMH.PHAVTE ---
[facility] Pharmacy VTE Monitoring - Patient Demographics Admission date: 09/13/20 Report Date: 09/13/20 Time: 15:40 Allergies/Adverse Reactions: Patient Allergies Penicillins [PENICILLINS] Allergy (Unknown, Verified 09/03/20 09:36) Height: 1.78 m Weight: 72.575 kg Patient Problems: Current Active Problems Ischemic necrosis of toe (Acute) Peripheral vascular disease (Acute) Abnormal ankle brachial index (TRINITY) (Acute) COPD (chronic obstructive pulmonary disease) (Chronic) Hypertension (Chronic) CAD (coronary artery disease) (Chronic) Diabetic ulcer of toe associated with diabetes mellitus due to underlying condition, limited to breakdown of skin (Acute) Uncontrolled diabetes mellitus (Acute) - VTE Risk Labs: VTE Related Lab Results Hgb 14.3 g/dL (14.1-18.0) 09/13/20 11:30 Hct 44.4 % (42.0-52.0) 09/13/20 11:30 Plt Count 237 K/mm3 (142-424) 09/13/20 11:30 PT 10.2 seconds (9.4-11.8) 09/13/20 11:30 INR 0.91 (0.9-1.1) 09/13/20 11:30 APTT 24.2 seconds (23.6-34.0) 09/13/20 11:30 BUN 24 mg/dl (9-20) H 09/13/20 11:30 Creatinine 1.00 mg/dl (0.66-1.25) 09/13/20 11:30 Estimated Creat Clear 85 mL/min (50-200) 09/13/20 11:30 Clinical Trial Participant: No - Prophylaxis VTE Prophylaxis Ordered?: Yes Types of VTE Prophylaxis: Pharmacological Pharmacologic Type: Heparin
--- NOTE | 2020-09-13 15:45 | HMH.PHACONS ---
- Pharmacy Consult Date: 09/13/20 Time: 15:45 Referring provider: DR. JOHNSTON Reason for Consult:: VANCOMYCIN DOSING Allergies and ADEs:: Allergies Allergy/AdvReac Type Severity Reaction Status Date / Time Penicillins [PENICILLINS] Allergy Unknown Verified 09/03/20 09:36 Home Medications:: Home Medications Medication Instructions Recorded Confirmed Type metformin 1,000 mg tablet 1,000 mg PO BID #180 tab 07/23/20 09/03/20 Rx Atorvastatin Calcium [Lipitor 10mg 10 mg PO DAILY 08/08/20 09/03/20 History Tab] Empagliflozin [Jardiance] 25 mg PO DAILY 08/08/20 09/03/20 History Lancets [Pip Lancet] See Rx Instructions .ROUTE 08/08/20 09/03/20 History .MEDSUPPLY lisinopriL [Lisinopril 5mg 5 mg PO DAILY 08/08/20 09/03/20 History Tablet] metoprolol succinate 100 mg 100 mg PO HS #30 tab 08/14/20 09/03/20 Rx tablet,extended release 24 hr aspirin 81 mg tablet,delayed 81 mg PO DAILY 08/19/20 09/03/20 History release diltiazem HCl 120 mg 120 mg PO DAILY #30 cap 08/19/20 09/03/20 Rx capsule,extended release 24 hr ticagrelor 90 mg tablet 90 mg PO BID #60 tab 09/03/20 09/03/20 Rx clindamycin HCl 300 mg capsule 300 mg PO TID 14 Days #42 cap 09/13/20 Rx levofloxacin 750 mg tablet 750 mg PO Q24H 14 Days #14 tab 09/13/20 Rx oxycodone 5 mg tablet 5 mg PO Q6H PRN 7 Days #30 tab 09/13/20 Rx Height: 1.78 m Weight: 72.575 kg Laboratory Results:: Laboratory Results - last 24 hr 09/13/20 11:30: WBC 9.3, RBC 4.88, Hgb 14.3, Hct 44.4, MCV 91.1, MCH 29.2, MCHC 32.1, RDW 13.0, Plt Count 237, MPV 7.2 L, Neut % (Auto) 71.4, Lymph % (Auto) 16.2, [place] % (Auto) 8.6, Eos % (Auto) 2.8, Baso % (Auto) 1.1, Neut # (Auto) 6.7, Lymph # (Auto) 1.5, [place] # (Auto) 0.8, Eos # (Auto) 0.3, Baso # (Auto) 0.1 09/13/20 11:30: PT 10.2, INR 0.91, APTT 24.2 09/13/20 11:30: Sodium 137, Potassium 4.3, Chloride 101, Carbon Dioxide 28, Anion Gap 12.3, BUN 24 H, Creatinine 1.00, Estimated Creat Clear 85, Estimated GFR 77, Est GFR ( Amer) 94, Glucose 343 H, Calcium 9.9, Total Bilirubin 0.6, AST 28, ALT 23, Alkaline Phosphatase 112, Total Protein 7.5, Albumin 4.0, Globulin 3.5 H, Albumin/Globulin Ratio 1.1 09/13/20 11:30: Lactate 1.0 09/13/20 11:30: SARS-CoV-2 IgG Ab (Rapid) Negative, SARS-CoV-2 IgM Ab (Rapid) Negative 09/13/20 14:12: POC Glucose 346 H* Medical History: Reports:: Chronic Obstructive Pulmonary Disease (COPD), Coronary Artery Disease, Diabetes Mellitus Type 2, Hyperlipidemia, Hypertension Denies:: Diabetes Mellitus Type 1, Internal Pacemaker, MRSA, Seizures Assessment and Plan (1) Ischemic necrosis of toe Status: Acute Category: Medical Code(s): I96 - Gangrene, not elsewhere classified (2) Peripheral vascular disease Status: Acute Category: Medical Code(s): I73.9 - Peripheral vascular disease, unspecified (3) Diabetic ulcer of toe associated with diabetes mellitus due to underlying condition, limited to breakdown of skin Status: Acute Qualifiers: Laterality: right Qualified Code(s): E08.621 - Diabetes mellitus due to underlying condition with foot ulcer; L97.511 - Non-pressure chronic ulcer of other part of right foot limited to breakdown of skin Category: Medical Code(s): E08.621 - Diabetes mellitus due to underlying condition with foot ulcer; L97.501 - Non-pressure chronic ulcer of other part of unspecified foot limited to breakdown of skin (4) Uncontrolled diabetes mellitus Status: Acute Qualifiers: Diabetes mellitus type: type 2 Glycemic state: with hyperglycemia Qualified Code(s): E11.65 - Type 2 diabetes mellitus with hyperglycemia Category: Medical Code(s): E11.65 - Type 2 diabetes mellitus with hyperglycemia (5) Diabetic ulcer of foot associated with diabetes mellitus due to underlying condition, limited to breakdown of skin Status: Resolved Qualifiers: Diabetic foot ulcer location: other Laterality: right Qualified Code(s): E08.621 - Diabetes mellitus due to unde
--- NOTE | 2020-09-13 15:58 | PC.NURSE ---
came to floor from surgery
--- NOTE | 2020-09-13 16:27 | HMH.ANESII ---
[facility] Anesthesia Record Part II Discharge Time: 15:54 Destination: Medical Surgical Department PACU nurse assessment reviewed?: Yes Patient Condition:: Good Anesthesia Complications:: None Swallowing reflex intact?: Yes Cyanosis?: No Blood Pressure: 118/63 Pulse Rate: 85 Temperature: 97.8 F Mental Status: Alert & Oriented Pain level:: 0 Nausea and/or vomitting:: None Intake, IV Amount: 0
--- NOTE | 2020-09-13 16:28 | P.PN_ITS ---
[facility] Anesthesia Record Part I Intake, IV Amount: 600 Estimated blood loss (mL): 5 Urine output (mL): 0 Blood Pressure: 112/61 SaO2: 96 Pulse Rate: 84 Respiratory Rate: 16 Temperature: 97.2 F Patient is:: Drowsy, Stable Stable to PACU at:: 15:25
[2020-09-13 16:53] LABS: Activated Partial Thrombo Time 31.5 seconds (23.6-34.0)
--- NOTE | 2020-09-13 19:09 | HMH.HP ---
*Admission Date: 09/13/20 *History of present illness: Patient is a 55-year-old white male, history of diabetes, tobacco abuse, coronary disease, peripheral vascular disease, presented to the emergency room with an ischemic right great toe. Patient has a history of coronary artery disease. In late July he was taken to [facility], had 2 stents deployed in the LAD, 1 deployed in the obtuse marginal. Disease in the RCA was to be medically managed. He was brought in subsequently for peripheral studies, underwent an angioplasty of his right popliteal artery. Severe bilateral infrageniculate disease was noted, and the decision was made to medically observe the left lower extremity. He was placed on dual antiplatelet agents, later transitioned to Xarelto and aspirin. Vascular disease occurs in the setting of poorly controlled diabetes and longstanding tobacco abuse. The patient has smoked 2 packs/day for the last 30 years, has longstanding diabetes but does not measure his sugars at home. Patient presented to the emergency room with increasing pain in the right great toe. Dr. Herrera was consulted. The cardiology service also came to see the patient. Patient was taken to the OR earlier today for amputation of the right hallux. Also debridement of the infected tissue. He is currently receiving IV antibiotics. Patient is awake, alert, oriented x3. He appears to have tolerated the procedure well, the dressing on the right foot is clean and dry. The patient is eating, denies chest pain or dyspnea at rest. [facility] History Medical History: Reports:: Chronic Obstructive Pulmonary Disease (COPD), Coronary Artery Disease, Diabetes Mellitus Type 2, Hyperlipidemia, Hypertension Denies:: Diabetes Mellitus Type 1, Internal Pacemaker, MRSA, Seizures *Have you ever received a pneumonia vaccine?: Yes *Have you received a flu vaccine this season?: Yes Anesthesia experience/problems:: nac Other Surgeries: Yes: Cardiac Catheterization, Cholecystectomy, Coronary Stent, EGD. No: Pacemaker Amputation: No Fractures: Yes (knee) - *Social History Smoking Status: Current every day smoker Tobacco Type: cigarettes # Packs/Day (cigarettes): 1 Alcohol Intake: never Alcohol Intake Frequency:: holidays/special occasions only Substance Use Type: denies use *Occupational Status:: retired Housing: house Household Members: spouse *Travel in the last 8 weeks: None Family Hx:: Unable to obtain Review of Systems - Constitutional Reports fatigue, Reports lack of energy - Eyes Denies change in vision - ENT Denies abnormal hearing - *Cardiovascular Reports leg pain with activity, Reports shortness of breath with activity, Reports leg sores, Denies chest pain, Denies chest pain at rest - *Respiratory Denies chest congestion - *Gastrointestinal Denies abdominal pain - *Genitourinary Denies difficulty urinating - *Musculoskeletal Reports abnormal walking, Reports muscle weakness - Integumentary/Breasts Denies yellowing of the skin - *Neurologic Reports numbness, Reports tingling/numbness/burning sensations, Denies abnormal hearing, Denies headache(s) - Psychiatric Denies behavioral changes - Endocrine Denies excessive sweating - Hematologic/Lymphatic Denies easy bleeding - Allergic/Immunologic Denies hives Meds Home Medications Medication Instructions Recorded Confirmed Type metformin 1,000 mg tablet 1,000 mg PO BID #180 tab 07/23/20 09/03/20 Rx Atorvastatin Calcium [Lipitor 10mg 10 mg PO DAILY 08/08/20 09/03/20 History Tab] Empagliflozin [Jardiance] 25 mg PO DAILY 08/08/20 09/03/20 History Lancets [Pip Lancet] See Rx Instructions .ROUTE 08/08/20 09/03/20 History .MEDSUPPLY lisinopriL [Lisinopril 5mg 5 mg PO DAILY 08/08/20 09/03/20 History Tablet] metoprolol succinate 100 mg 100 mg PO HS #30 tab 08/14/20 09/03/20 Rx tablet,extended release 24 hr aspirin 81 mg tablet,delayed 81 mg PO DAILY 08/19/20 09/03/20 Hist
[2020-09-13 19:24] LABS: Activated Partial Thrombo Time 24.7 seconds (23.6-34.0)
--- NOTE | 2020-09-13 20:31 | PC.NURSE ---
THIS RN PHONED DAYRON MUHAMMAD FOR CONFIRMATION TO ADMINISTER HEPARIN DRIP. DAYRON STATED TO CALL MD. THIS RN ALSO REPORTED TO PHARMACY THAT PATIENT IS UNABLE TO COMPLETE MED REC AT THIS TIME WITH THIS RN. PER JB PADGETT. HE WILL LOOK INTO PATIENT'S MEDICATIONS. THIS RN SPOKE WITH DR. JANG. INQUIRED ABOUT HEPARIN DRIP. PER MD, HE WAS STILL IN HIS OFFICE WITH PATIENTS AND HE WILL COME TO THE FLOOR AND LOOK OVER PATIENT'S INFORMATION THEN. THIS RN RECEIVED A PHONE CALL FROM DAYRON STATING TO CALL HIM WHEN MD DECIDES SO THAT HE MAY STATE DOSAGE. DR. JANG INFORMED THIS RN ALONG WITH ASHWIN LOPEZ RN. OKAY TO ADMINISTER HEPARIN. THIS RN PHONED DAYRON MUHAMMAD, PER ANNEL PADGETT TO KEEP HEPARIN BOLUS AND DRIP STATED ON OCT. THIS RN REPORTED INFORMATION TO Dominik LOPEZ RN.
[2020-09-13 21:22] LABS: POC Glucose,Bedside 268 (70-110)
[2020-09-14] VITALS: BP 112/59; PULSE 81; RESP 18; TEMP 36.8; O2SAT 96
[2020-09-14 01:53] LABS: Activated Partial Thrombo Time 58.1 seconds (23.6-34.0)
--- NOTE | 2020-09-14 02:03 | PC.NURSE ---
Will CLAY CONTACTED THIS RN REGARDING PTT LEVELS. NEW ORDER: CHANGE HEPARIN RATE TO 1350 UNITS/HR AND RECHECK PTT IN 4 HRS.
[2020-09-14 04:00] VITALS: BP 110/74; PULSE 79; RESP 16; TEMP 36.9; O2SAT 99
[2020-09-14 05:45] VITALS: BMI 21.9
[2020-09-14 06:28] LABS: POC Glucose,Bedside 153 (70-110)
--- NOTE | 2020-09-14 07:01 | PC.NURSE ---
PT. HAS NOT C/O PAIN, N/V/D, SOA, OR DIZZINESS. R FOOT DSG IN PLACE; C/D/I.
[2020-09-14 07:54] VITALS: BP 149/70; PULSE 75; RESP 20; TEMP 36.9; O2SAT 99
[2020-09-14 08:53] LABS: Basophils # 0.1 K/mm3 (0-0.2); Basophils % 0.8 % (0.1-2.0); Eosinophils # 0.4 K/mm3 (0.0-0.4); Eosinophils % 3.9 % (0.1-12.0); Hematocrit 37.3 % (42.0-52.0); Lymphocytes # 1.8 K/mm3 (0.7-4.5); Lymphocytes % 17.7 % (10-50); Mean Corpuscular HGB Conc 33.3 g/dL (31.8-35.4); Mean Corpuscular Volume 90.1 fl (80-94); Mean Platelet Volume 8.1 fl (7.4-10.4); Monocytes # 0.8 K/mm3 (0.1-1.0); Monocytes % 7.2 % (1.7-9.3); Neutrophils # 7.3 K/mm3 (1.8-7.8); Neutrophils % 70.4 % (37.0-80.0); Platelet Count 239 K/mm3 (142-424); Red Blood Count 4.14 M/mm3 (4.60-6.20); Red Cell Distribution Width 13.3 % (11.5-17.5); White Blood Count 10.4 K/mm3 (4.8-10.8)
[2020-09-14 08:57] LABS: Chloride 102 mmol/L (98-107); Sodium 133 mmol/L (136-145)
--- NOTE | 2020-09-14 08:59 | HMH.DCSUM ---
General - General Admission date:: 09/13/20 Discharge date: 09/14/20 HPI HPI: Patient is a 55-year-old white male, history of diabetes, tobacco abuse, coronary disease, peripheral vascular disease, presented to the emergency room with an ischemic right great toe. Patient has a history of coronary artery disease. In late July he was taken to the [facility], had 2 stents deployed in the LAD, 1 deployed in the obtuse marginal. Disease in the RCA was to be medically managed. He was brought in subsequently for peripheral studies, underwent an angioplasty of his right popliteal artery. Severe bilateral infrageniculate disease was noted, and the decision was made to medically observe the left lower extremity. He was placed on dual antiplatelet agents, later transitioned to Xarelto and aspirin. Vascular disease occurs in the setting of poorly controlled diabetes and longstanding tobacco abuse. The patient has smoked 2 packs/day for the last 30 years, has longstanding diabetes but does not measure his sugars at home. Patient presented to the emergency room with increasing pain in the right great toe. Dr. Herrera was consulted. The cardiology service also came to see the patient. Patient was taken to the OR earlier today for amputation of the right hallux. Also debridement of the infected tissue. He is currently receiving IV antibiotics. Patient is awake, alert, oriented x3. He appears to have tolerated the procedure well, the dressing on the right foot is clean and dry. The patient is eating, denies chest pain or dyspnea at rest. Hospital Course Hospital Course: pt was seen by dr weaver and had surg-Reason for consult:: Right hallux gangrene, cellulitis *History of present illness: 55-year-old male presented to the emergency department 09/13/20 with pain in the right great toe. The patient does have a history of peripheral vascular disease. ER concerned for ischemic digit. There is also some surrounding redness. Patient was started on antibiotic therapy. Dr Hood saw patient and feels that the stent is working appropriately. We do believe that the ischemia, edema and swelling of the right great toe is likely secondary to reperfusion. However this is consistent with an ischemic digit that was likely there prior to the reperfusion injury. I did consult podiatry. Patient will need amputation. Patient started on broad-spectrum antibiotics. Admitted to the hospital for further evaluation and treatment. Patient has been seeing Rianna Gauze DIRECTOR OF LEARNING outpatient, last seen 09/03/20. He has a f/u schedule for 09/17/20. Admit per Dr. Dacosta 2. Continue IV antibiotics: IV Vanco, Levofloxacin 3. e-Rx Oxycodone 5mg, Clinda 300mg TID x 14 days and Levofloxacin 750mg daily x 14 days (called into Clinic Rx for meds to bed) 4. Maintain dressing clean dry and intact to right foot 5. NWB to right foot with fracture boot (he has at home) and DME assistance (may need walker) 6. Plan for discharge home tomorrow after some IV antibiotics 7. Stable from Podiatry stand point 8. Follow up as previously scheduled with Podiatry on Wednesday09/17/20 @0840 this am looks good with intact dressing rt foot and discussed with dr hood for follow up - to restart brillanta and asa - ient has been seeing Podiatry DIRECTOR OF LEARNING, last seen 09/03/20. Has f/u scheduled 09/17/20. He reports worsening blackness and pain x 5days. Recent revac and stent placement per Dr. Hood. Patient having reperfusion pain. Radiographs of the right foot were reviewed and discussed with the patient. X-rays show no obvious gas or osteomyelitis. Vascular calcifications noted. We discussed conservative versus surgical treatment options. Conservative treatment options include local wound care, oral and IV antibiotics, change in shoe wear, taping/padding, and off-loading. Discussed that patient would benefit from a wider and deeper shoe wear to accommodate the deformity. We discussed surgical intervention for amputation
[2020-09-14 09:00] LABS: Alanine Aminotransferase 16 U/L (12-78); Albumin Level 3.2 g/dl (3.5-5.0); Albumin/Globulin Ratio 1.1 (1.1-1.8); Alkaline Phosphatase 82 U/L (38-126); Aspartate Amino Transferase 24 U/L (17-59); Bilirubin,Total 0.4 mg/dl (0.2-1.3); Blood Urea Nitrogen 18 mg/dl (9-20); Carbon Dioxide 28 mmol/L (22.0-30.0); Chol/HDL Ratio 2.6 (1-3.5); Cholesterol 90 mg/dl (140-200); Creatinine Clearance Estimated 101 mL/min (50-200); Estimated Glomerular Filt Rate 100 ml/min (>60); GFR (African American) 121 ML/MIN (>60); Globulin 2.8 g/dL (1.3-3.2); Glucose 244 mg/dl (74-100); HDL Cholesterol 35 mg/dl (40-60); Triglycerides 152 mg/dl (30-150); VLDL Cholesterol 30 mg/dL (0-40)
[2020-09-14 09:01] LABS: Calcium 8.9 mg/dl (8.4-10.2)
[2020-09-14 09:03] LABS: Activated Partial Thrombo Time 41.6 seconds (23.6-34.0)
[2020-09-14 09:12] LABS: Direct LDL Cholesterol 30.08 mg/dL (100-129)
[2020-09-14 09:26] LABS: Hemoglobin 12.4 g/dL (14.1-18.0)
[2020-09-14 10:31] LABS: Hemoglobin A1C 11.9 % (4.0-6.0)
--- NOTE | 2020-09-14 13:46 | HMH.PHAHEP ---
[facility] Pharmacy Heparin Dosing - Demographic Data Admission date:: 09/13/20 Date: 09/14/20 Time: 08:30 Allergies/Adverse Reactions: Allergies Allergy/AdvReac Type Severity Reaction Status Date / Time Penicillins [PENICILLINS] Allergy Unknown Verified 09/03/20 09:36 Height: 1.78 m Weight: 69.57 kg - Indication Medication therapy:: Heparin Patient Problems: Current Active Problems Ischemic necrosis of toe (Acute) Peripheral vascular disease (Acute) Abnormal ankle brachial index (TRINITY) (Acute) COPD (chronic obstructive pulmonary disease) (Chronic) Hypertension (Chronic) CAD (coronary artery disease) (Chronic) Diabetic ulcer of toe associated with diabetes mellitus due to underlying condition, limited to breakdown of skin (Acute) Uncontrolled diabetes mellitus (Acute) CVA?: No Bleeding problem?: No Kidney disease?: No ID?: No Desired PTT range:: 60-80 seconds - Labs Anticoagulation Lab Results:: 09/14/20 08:13 Hgb 12.4 L D Hct 37.3 L Plt Count 239 - Monitoring Dose Monitor 1 Date: 09/13/20 Time: 11:30 PTT Result:: 24.2 Infusion Rate:: HEPARIN 1300 UNITS/HR AND 5800 UNIT BOLUS STARTED ~1330. Dose Monitor 2 Date: 09/13/20 Time: 16:00 PTT Result:: 31.5 Infusion Rate:: PATIENT WAS TAKEN TO SURGERY. HEPARIN DRIP WAS TURNED OFF PRIOR TO SURGICAL DEBRIDEMENT. RESTARTED ~2113. NURSE WAS DISCUSSING CONTINUING THE HEPARIN DRIP WITH DR. JANG. Dose Monitor 3 Date: 09/13/20 Time: 23:30 PTT Result:: 89.0 Infusion Rate:: DRIP AND SEND BOLUS WAS NOT STARTED UNTIL 2113. RECOMMENDED STARTING WITH HEPARIN 1300 UNITS/HR AND 6000 UNIT BOLUS. Dose Monitor 4 Date: 09/14/20 Time: 01:18 PTT Result:: 58.1 Infusion Rate:: INCREASE RATE OF HEPARIN DRIP TO 1350 UNITS/HR. WHILE THERAPEUTIC NOW, SUSPECT PTT WITH FURTHER DROP. Dose Monitor 5 Date: 09/14/20 Time: 08:13 PTT Result:: 41.6 Infusion Rate:: PATIENT IS IN PROCESS OF BEING DISCHARGE RESULT OF 0600 LAB CAME BACK. - Core Measures Is INR > or = 2 at discharge?: No Most Recent Labs:: Laboratory Results - last 24 hr 09/13/20 11:30: SARS-CoV-2 IgG Ab (Rapid) Negative, SARS-CoV-2 IgM Ab (Rapid) Negative 09/13/20 14:12: POC Glucose 346 H* 09/13/20 16:15: APTT 31.5 09/13/20 18:37: APTT 24.7 09/13/20 21:09: POC Glucose 268 H 09/13/20 23:30: APTT 89.0 H* D 09/14/20 01:18: APTT 58.1 H* D 09/14/20 06:21: POC Glucose 153 H 09/14/20 08:13: WBC 10.4, RBC 4.14 L, Hgb 12.4 L D, Hct 37.3 L, MCV 90.1, MCH 30.0, MCHC 33.3, RDW 13.3, Plt Count 239, MPV 8.1, Neut % (Auto) 70.4, Lymph % (Auto) 17.7, [place] % (Auto) 7.2, Eos % (Auto) 3.9, Baso % (Auto) 0.8, Neut # (Auto) 7.3, Lymph # (Auto) 1.8, [place] # (Auto) 0.8, Eos # (Auto) 0.4, Baso # (Auto) 0.1 09/14/20 08:13: Sodium 133 L, Potassium 4.0, Chloride 102, Carbon Dioxide 28, Anion Gap 7.0, BUN 18, Creatinine 0.80, Estimated Creat Clear 101, Estimated GFR 100, Est GFR ( Amer) 121 D, Glucose 244 H D, Calcium 8.9 D, Total Bilirubin 0.4, AST 24, ALT 16 D, Alkaline Phosphatase 82, Total Protein 6.0 L, Albumin 3.2 L D, Globulin 2.8, Albumin/Globulin Ratio 1.1, Triglycerides 152 H, Cholesterol 90 L, LDL Cholesterol Direct 30.08 L, VLDL Cholesterol 30, HDL Cholesterol 35 L, Cholesterol/HDL Ratio 2.6 09/14/20 08:13: Hemoglobin A1c 11.9 H D 09/14/20 08:13: APTT 41.6 H D Were Heparin and Warfarin started on the same day?: No
--- NOTE | 2020-09-16 10:45 | SW/DCPLANNER ---
PATIENT DISCHARGED OVER THE WEEKEND AND DID NOT GET A WALKER.... I HAVE ATTEMPTED TO SET ONE UP TODAY FOR IT TO BE DELIVERED TO HIS HOME... I HAVE CALLED DR JOHNSTON'S OFFICE TO GET HER TO WRITE WHY HE NEEDS A WALKER... ONCE I RECEIVE THIS I WILL SET IT UP TO BE DELIVERED TO HIS HOME....
--- NOTE | 2020-09-16 15:16 | PC.NURSE ---
PATIENT WILL REQUIRE A ROLLING WALKER RATHER THAN A CANE DUE TO UNSTABLE GAIT AND MOBILITY ISSUES.
== END 2020-09-14 11:14 | disposition home or self-care (01) ==
LOC: ER 13:39 → OR 13:43 → 2ND 14:40
PROVIDERS: Family Medicine; Admitting Provider Emergency Medicine; Emergency Provider Emergency Medicine; PCP Emergency Medicine; Visit Provider Podiatrist
PROC: (CPT 28825; principal; 2020-09-13 14:45)
DX: E11.65 Type 2 diabetes mellitus with hyperglycemia (principal); Z88.0 Allergy status to penicillin; Z79.899 Other long term (current) drug therapy; Z79.4 Long term (current) use of insulin; Z95.5 Presence of coronary angioplasty implant and graft; E11.52 Type 2 diabetes mellitus with diabetic peripheral angiopathy with gangrene; Z95.820 Peripheral vascular angioplasty status with implants and grafts; I77.1 Stricture of artery; I70.25 Atherosclerosis of native arteries of other extremities with ulceration; I70.213 Atherosclerosis of native arteries of extremities with intermittent claudication, bilateral legs; Z72.0 Tobacco use; J44.9 Chronic obstructive pulmonary disease, unspecified; Z91.81 History of falling; L03.031 Cellulitis of right toe; B95.1 Streptococcus, group B, as the cause of diseases classified elsewhere; B96.89 Other specified bacterial agents as the cause of diseases classified elsewhere
CPT/HCPCS: 28825; 36415; 73620; 80053; 80061; 82962; 83036; 83605; 85025; 85610; 85730; 86328; 87040; 87070; 87075; 87077; 87186; 87205; 96375; 99284; G0378; J1956; J2405; J3370

== ENCOUNTER → 2020-09-25 14:42 | Outpatient (CLI) | payer OTHER, SELFPAY ==
[2020-09-25 15:46] LABS: Basophils # 0.1 K/mm3 (0-0.2); Basophils % 0.7 % (0.1-2.0); Eosinophils # 0.3 K/mm3 (0.0-0.4); Eosinophils % 1.9 % (0.1-12.0); Hematocrit 38.9 % (42.0-52.0); Hemoglobin 12.4 g/dL (14.1-18.0); Lymphocytes # 2.1 K/mm3 (0.7-4.5); Lymphocytes % 15.2 % (10-50); Mean Corpuscular HGB Conc 31.9 g/dL (31.8-35.4); Mean Corpuscular Hemoglobin 29.6 pg (27.0-31.2); Mean Corpuscular Volume 92.8 fl (80-94); Mean Platelet Volume 6.9 fl (7.4-10.4); Monocytes # 0.7 K/mm3 (0.1-1.0); Monocytes % 4.8 % (1.7-9.3); Neutrophils # 10.9 K/mm3 (1.8-7.8); Neutrophils % 77.4 % (37.0-80.0); Platelet Count 408 K/mm3 (142-424); Red Blood Count 4.19 M/mm3 (4.60-6.20); Red Cell Distribution Width 13.7 % (11.5-17.5)
[2020-09-25 16:02] LABS: Chloride 101 mmol/L (98-107); Potassium 4.3 mmoL/L (3.5-5.1); Sodium 137 mmol/L (136-145)
[2020-09-25 16:05] LABS: Alanine Aminotransferase 30 U/L (12-78); Albumin Level 3.4 g/dl (3.5-5.0); Albumin/Globulin Ratio 1.3 (1.1-1.8); Alkaline Phosphatase 84 U/L (38-126); Anion Gap 10.3 mEq/L (5-15); Aspartate Amino Transferase 30 U/L (17-59); Bilirubin,Total 0.2 mg/dl (0.2-1.3); Blood Urea Nitrogen 20 mg/dl (9-20); Calcium 9.6 mg/dl (8.4-10.2); Carbon Dioxide 30 mmol/L (22.0-30.0); Estimated Glomerular Filt Rate 87 ml/min (>60); GFR (African American) 106 ML/MIN (>60); Globulin 2.7 g/dL (1.3-3.2); Total Protein,Serum 6.1 g/dl (6.3-8.2)
[2020-09-25 16:09] LABS: Glucose 420 mg/dl (74-100)
[2020-09-25 16:15] LABS: C-Reactive Protein 1.2 mg/L (0-4)
[2020-09-25 17:02] LABS: Erythrocyte Sedimentation Rate 86 mm/hr (0-20)
== END ==
PROVIDERS: Visit Provider Nurse Practitioner
DX: Z98.890 Other specified postprocedural states (principal); I96 Gangrene, not elsewhere classified; I73.9 Peripheral vascular disease, unspecified; E08.621 Diabetes mellitus due to underlying condition with foot ulcer; L97.511 Non-pressure chronic ulcer of other part of right foot limited to breakdown of skin; Z79.84 Long term (current) use of oral hypoglycemic drugs
CPT/HCPCS: 36415; 80053; 85025; 85651; 86140

== ENCOUNTER → 2020-09-27 06:04 | Day surgery (SDC) | payer OTHER, SELFPAY ==
[2020-09-27 06:45] VITALS: BMI 28.9
--- NOTE | 2020-09-27 07:56 | SUR.PREOP ---
PROCEDURE CANCELLED/TO BE RESCHEDULED TRANSPORTATION NOT AVAILABLE
[2020-09-27 07:58] LABS: Coronavirus 19 IgG Antibody Negative (Negative); Coronavirus 19 IgM Antibody Negative (Negative)
== END ==
PROVIDERS: PCP Emergency Medicine; Visit Provider Podiatrist
DX: Z53.09 Procedure and treatment not carried out because of other contraindication (principal); E11.42 Type 2 diabetes mellitus with diabetic polyneuropathy; Z79.84 Long term (current) use of oral hypoglycemic drugs; Z79.899 Other long term (current) drug therapy
CPT/HCPCS: 86328

== ENCOUNTER → 2020-10-08 17:54 | Outpatient (CLI) | payer OTHER, SELFPAY ==
[2020-10-08 18:12] LABS: Basophils # 0.2 K/mm3 (0-0.2); Basophils % 1.4 % (0.1-2.0); Eosinophils # 0.6 K/mm3 (0.0-0.4); Eosinophils % 5.2 % (0.1-12.0); Hemoglobin 14.5 g/dL (14.1-18.0); Lymphocytes # 2.8 K/mm3 (0.7-4.5); Lymphocytes % 24.3 % (10-50); Mean Corpuscular HGB Conc 31.5 g/dL (31.8-35.4); Mean Corpuscular Hemoglobin 29.8 pg (27.0-31.2); Mean Corpuscular Volume 94.5 fl (80-94); Monocytes # 0.6 K/mm3 (0.1-1.0); Monocytes % 5.1 % (1.7-9.3); Neutrophils # 7.3 K/mm3 (1.8-7.8); Neutrophils % 63.9 % (37.0-80.0); Platelet Count 323 K/mm3 (142-424); Red Blood Count 4.86 M/mm3 (4.60-6.20); Red Cell Distribution Width 13.9 % (11.5-17.5); White Blood Count 11.5 K/mm3 (4.8-10.8)
[2020-10-08 18:26] LABS: Alanine Aminotransferase 78 U/L (12-78); Albumin Level 4.2 g/dl (3.5-5.0); Albumin/Globulin Ratio 1.4 (1.1-1.8); Alkaline Phosphatase 104 U/L (38-126); Anion Gap 11.4 mEq/L (5-15); Aspartate Amino Transferase 53 U/L (17-59); Bilirubin,Total 0.3 mg/dl (0.2-1.3); Blood Urea Nitrogen 21 mg/dl (9-20); Calcium 10.4 mg/dl (8.4-10.2); Carbon Dioxide 27 mmol/L (22.0-30.0); Chloride 100 mmol/L (98-107); Chol/HDL Ratio 1.7 (1-3.5); Cholesterol 165 mg/dl (140-200); Estimated Glomerular Filt Rate 69 ml/min (>60); GFR (African American) 84 ML/MIN (>60); Glucose 362 mg/dl (74-100); HDL Cholesterol 96 mg/dl (40-60); Potassium 5.4 mmoL/L (3.5-5.1); Sodium 133 mmol/L (136-145); Total Protein,Serum 7.2 g/dl (6.3-8.2); Triglycerides 196 mg/dl (30-150); VLDL Cholesterol 39 mg/dL (0-40)
[2020-10-08 18:36] LABS: Direct LDL Cholesterol 38.94 mg/dL (100-129)
[2020-10-08 18:42] LABS: Free T4 (Free Thyroxine) 1.03 ng/dl (0.78-2.19)
[2020-10-08 18:57] LABS: Prostate Specific Ag Screen 0.1 ng/ml (0.0-4.0); Thyroid Stimulating Hormone 4.36 uIU/mL (0.465-4.68)
[2020-10-08 19:06] LABS: Creatinine,Urine Random 35 mg/dL (Not Estab.)
[2020-10-08 19:56] LABS: Hemoglobin A1C 11.5 % (4.0-6.0)
== END ==
PROVIDERS: Visit Provider Emergency Medicine
DX: E11.9 Type 2 diabetes mellitus without complications (principal); Z79.84 Long term (current) use of oral hypoglycemic drugs; Z79.899 Other long term (current) drug therapy
CPT/HCPCS: 80053; 80061; 82043; 82570; 83036; 84439; 84443; 85025; G0103

== ENCOUNTER → 2020-10-15 09:49 | Outpatient (CLI) | payer OTHER, SELFPAY ==
[2020-10-15 10:51] LABS: Coronavirus 19 IgG Antibody Negative (Negative); Coronavirus 19 IgM Antibody Negative (Negative)
== END ==
PROVIDERS: Visit Provider Podiatrist
DX: Z01.818 Encounter for other preprocedural examination (principal); Z11.52 Encounter for screening for COVID-19; M86.10 Other acute osteomyelitis, unspecified site; I96 Gangrene, not elsewhere classified
CPT/HCPCS: 36415; 86328

== ENCOUNTER 2020-10-16 09:05 | Day surgery (SDC) | payer OTHER, SELFPAY ==
[2020-10-14 16:39] VITALS: BMI 21.5
[2020-10-16] VITALS (11 sets, daily range): BP systolic 105–146; BP diastolic 60–87; PULSE 82–91; RESP 15–18; TEMP 36.2–36.7; O2SAT 96–100
[2020-10-16 11:19] LABS: Basophils # 0.1 K/mm3 (0-0.2); Basophils % 0.9 % (0.1-2.0); Eosinophils # 0.6 K/mm3 (0.0-0.4); Eosinophils % 5.7 % (0.1-12.0); Hematocrit 43.2 % (42.0-52.0); Hemoglobin 13.4 g/dL (14.1-18.0); Lymphocytes # 2.5 K/mm3 (0.7-4.5); Lymphocytes % 24.1 % (10-50); Mean Corpuscular Hemoglobin 29.3 pg (27.0-31.2); Mean Corpuscular Volume 94.4 fl (80-94); Mean Platelet Volume 8.1 fl (7.4-10.4); Monocytes # 0.6 K/mm3 (0.1-1.0); Monocytes % 5.4 % (1.7-9.3); Neutrophils # 6.7 K/mm3 (1.8-7.8); Neutrophils % 63.9 % (37.0-80.0); Platelet Count 283 K/mm3 (142-424); Red Blood Count 4.58 M/mm3 (4.60-6.20); Red Cell Distribution Width 13.9 % (11.5-17.5); White Blood Count 10.5 K/mm3 (4.8-10.8)
[2020-10-16 11:23] LABS: Chloride 104 mmol/L (98-107); Potassium 5.5 mmoL/L (3.5-5.1); Sodium 136 mmol/L (136-145)
[2020-10-16 11:25] LABS: Alanine Aminotransferase 65 U/L (12-78); Alkaline Phosphatase 95 U/L (38-126); Anion Gap 10.5 mEq/L (5-15); Aspartate Amino Transferase 50 U/L (17-59); Bilirubin,Total 0.3 mg/dl (0.2-1.3); Blood Urea Nitrogen 26 mg/dl (9-20); Carbon Dioxide 27 mmol/L (22.0-30.0); Creatinine Clearance Estimated 88 mL/min (50-200); Estimated Glomerular Filt Rate 87 ml/min (>60); GFR (African American) 106 ML/MIN (>60)
[2020-10-16 11:26] LABS: Albumin/Globulin Ratio 1.3 (1.1-1.8); Globulin 3.2 g/dL (1.3-3.2); Glucose 297 mg/dl (74-100); Total Protein,Serum 7.2 g/dl (6.3-8.2)
--- NOTE | 2020-10-16 11:30 | HMH.OPNOTE ---
Date of procedure: 10/16/20 Pre-op Diagnosis:: 1. Right foot gangrene 2. PAD 3. Ischemic necrosis of toe 4. Right foot osteomyelitis 5. Diabetic foot 6. Uncontrolled type 2 diabetes mellitus with hyperglycemia 7. Equinus contracture of right ankle Post-op Diagnosis:: Same Procedure performed:: 1. Right transmetatarsal amputation 2. Right tendo achilles lengthening 3. Right foot irrigation and debridement Surgeon:: Jacqui Hernandez DPM WHEAT WASHER:: Yoni Rose Anesthesia: GETA, local (25cc 0.5% marcaine plain) Estimated blood loss (mL): 20 Clinical Note:: Patient is a 55 DM male with PAD who had right hallux amp 09/13/20. The amp site has edema and erythema, with early gangrenous changes. We discussed conservative versus surgical treatment options. Conservative treatment options include local wound care, oral and IV antibiotics, change in shoe wear, taping/padding, and off-loading. We discussed surgical intervention for amputation of the forefoot to a level that would likely heal. Patient understands that there is a chance that the foot may change shape after surgery. Patient also understands that they could have wound healing complications including delayed healing and infection. We discussed that if the wound does not heal, it is possible that they may need a more proximal amputation and could result in further loss of digits, loss of partial foot or loss of leg. We discussed the risks and benefits in great detail. Other surgical risks include: prolonged pain and swelling, further infection requiring oral or IV antibiotics, delay in healing of soft tissue or bone, nerve or blood vessel damage, CRPS/RSD, DVT, anesthesia complications, and even . All questions answered. Patient verbalized understanding. Consent obtained. PCP Dr Dacosta, cardiology Dr Navarrete. Pre-op labs: ESR, CRP, CBC, CMP, covid. e-Rx Bactrim DS x 2 weeks. 09/13/20, intra-op specimens: Right hallux wound culture: Enterobacter cloacae Right proximal phalanx bone culture: Enterobacter cloacae, Staphylococcus aureus (MSSA) Right proximal phalanx bone pathology: bone with findings compatible with acute osteomyelitis Right great toe: skin and underlying soft tissue with ulceration and cellulitis, extends to soft tissue margin. Underlying bon with osteomyelitis Operative findings:: Previous right hallux amputation. There was intact black eschar and gangrenous changes to the hallux amputation site extending to the first metatarsal neck. Mild edema and minimal erythema noted. No ascending cellulitis under the black eschar there was purulence noted, wound culture taken. First metatarsal distally was soft and crumbly, suspicious for osteomyelitis. No infection tracking up the tendons. Infection tend to be localized distally. Adequate blood flow noted at the level of the TMA. Operative note:: On this date and time patient was deemed an appropriate surgical candidate. With informed consent signed, the patient was taken to the operating theater. The patient was positioned supine. General anesthesia was induced. No tourniquet used. Right tendo Achilles lengthening: The extremity was prepped and draped in normal sterile fashion. Utilizing a 15 blade stab incision was made x3 in the distal posterior leg. Utilizing the three holes, percutaneous aline-section of the Achilles was performed with the foot maximally dorsiflexed. Release of Achilles contracture was noted. The incisions were flushed with sterile saline and the wound was closed with Prolene. Right transmetatarsal amputation: Attention was directed to the hallux where previous amp was noted with gangrenous changes. There was skin sloughing noted with dusky discoloration noted sub-first through fifth MPJs. A wound culture was taken from under the hallux eschar. A fish mouth incision was mapped out. Utilizing a 15 blade dissection was carried down sharply to the level of the bone around the proximal phalanx bases, which were disarticulated from the metata
--- NOTE | 2020-10-16 11:40 | P.PN_ITS ---
[facility] Anesthesia Checklist - Patient Identification Patient Identification: Arm Band - Structural Data Admitted From: Home Planned Operative Procedure/s: Right Transmetatarsal Amputation Consent for Planned Operative Procedure(s) Verified: Yes Verified Documents: Surgical Consent, History and Physical - NPO Status Verified Time NPO: 00:00 - Additional verifications Anesthesia Reactions: No Hx Blood Transfusions: No Blood Transfusion Reaction: No - Airway Assessment C-Spine Mobility Assessed: Yes (mp1) TMJ Mobility Assessed: Yes Dentition: Edentulous - Neurological Assessment Level of Consciousness: Awake, Alert - Anesthesia Plan Anesthesia Risk discussed: Yes Anesthesia Plan: Verified ASA Class: III Anesthesia Type: General [facility] History I have reviewed the patient's past medical history: Yes Medical History: Reports:: Chronic Obstructive Pulmonary Disease (COPD), Coronary Artery Disease, Diabetes Mellitus Type 2, Hyperlipidemia, Hypertension Denies:: Cancer, Diabetes Mellitus Type 1, Internal Pacemaker, MRSA, Seizures *Have you ever received a pneumonia vaccine?: No *Have you received a flu vaccine this season?: No Other Medical History: Denies: Blood Transfusion Reaction Anesthesia experience/problems:: nac Other Surgeries: Yes: Cardiac Catheterization, Cardiac Surgery, Cholecystectomy, Coronary Stent, EGD. No: Pacemaker Amputation: Yes Fractures: Yes (knee) - *Social History Last grade of school completed: High school graduate Smoking Status: Current every day smoker Tobacco Type: cigarettes # Packs/Day (cigarettes): 1 Alcohol Intake: never Alcohol Intake Frequency:: holidays/special occasions only Substance Use Type: denies use *Occupational Status:: retired Housing: house Household Members: spouse *Travel in the last 8 weeks: None Family Hx:: Unable to obtain
[2020-10-16 11:42] LABS: C-Reactive Protein 0.5 mg/L (0-4)
--- NOTE | 2020-10-16 11:51 | XR_ITS ---
PROCEDURE: XR FOOT RT 2V CLINICAL INDICATION: PLANNING FOR RIGHT TRANS METATARSAL AMPUTATION COMPARISON: CR XR FOOT WT BEARING LT 3V from 07/16/2020 CR XR FOOT WT BEARING RT 3V from 07/16/2020 CR XR FOOT RT 2V from 09/13/2020 FINDINGS: Fluoroscopy time: 4 seconds Single AP view is submitted for planning for the transmetatarsal amputation. There has been amputation at the 1st metatarsophalangeal junction Other findings:None. IMPRESSION: C-arm utilized for transmetatarsal amputation Dictated by: Vince Miranda MD 10/16/2020 16:56 Vince Miranda MD in [place] 10/16/2020 16:56
[2020-10-16 11:54] LABS: Erythrocyte Sedimentation Rate 67 mm/hr (0-20)
--- NOTE | 2020-10-16 12:30 | XR_ITS ---
PROCEDURE: XR FOOT RT MIN 3V CLINICAL INDICATION: Post op amp Follow-up amputation COMPARISON: CR XR FOOT WT BEARING LT 3V from 07/16/2020 CR XR FOOT WT BEARING RT 3V from 07/16/2020 CR XR FOOT RT 2V from 09/13/2020 CR XR FOOT RT 2V from 10/16/2020 FINDINGS: Status post transmetatarsal amputation at the proximal aspect of the metatarsals. Postsurgical drain and clips are present. Good alignment. Diffuse vascular calcification noted. IMPRESSION: Status post transmetatarsal amputation Dictated by: Vince Miranda MD 10/16/2020 15:53 Vince Miranda MD in [place] 10/16/2020 15:53
--- NOTE | 2020-10-16 12:35 | HMH.ANESI ---
[facility] Anesthesia Record Part I Intake, IV Amount: 1,000 Estimated blood loss (mL): 5 Urine output (mL): 0 Blood Pressure: 113/60 SaO2: 97 Pulse Rate: 88 Respiratory Rate: 16 Temperature: 98.1 F Patient is:: Drowsy, Stable Stable to PACU at:: 12:30
[2020-10-16 13:03] LABS: POC Glucose,Bedside 272 (70-110)
--- NOTE | 2020-10-16 14:34 | HMH.ANESII ---
[facility] Anesthesia Record Part II Discharge Time: 13:00 Destination: Surgical Day Care (OP Surgery) PACU nurse assessment reviewed?: Yes Patient Condition:: Good Anesthesia Complications:: None Swallowing reflex intact?: Yes Cyanosis?: No Blood Pressure: 105/62 Pulse Rate: 90 Temperature: 97.4 F Mental Status: Alert & Oriented Pain level:: 0 Nausea and/or vomitting:: None Intake, IV Amount: 0
[2020-10-16 20:54] LABS: POC Glucose,Bedside 275 (70-110)
== END 2020-10-16 13:43 | disposition home or self-care (01) ==
LOC: OR 09:07
PROVIDERS: PCP Emergency Medicine; Visit Provider Podiatrist
PROC: (CPT 28805; principal; 2020-10-16 10:45)
DX: E11.52 Type 2 diabetes mellitus with diabetic peripheral angiopathy with gangrene (principal); I96 Gangrene, not elsewhere classified; M67.01 Short Achilles tendon (acquired), right ankle; E11.65 Type 2 diabetes mellitus with hyperglycemia; Z79.84 Long term (current) use of oral hypoglycemic drugs; M24.571 Contracture, right ankle; E11.621 Type 2 diabetes mellitus with foot ulcer; E11.69 Type 2 diabetes mellitus with other specified complication; M86.9 Osteomyelitis, unspecified; L97.514 Non-pressure chronic ulcer of other part of right foot with necrosis of bone
CPT/HCPCS: 28805; 27606; 36415; 73620; 73630; 76000; 80053; 82962; 85025; 85651; 86140; 87070; 87075; 87077; 87186; 87205; 96374; J2405; J3370

== ENCOUNTER → 2020-10-22 16:43 | Outpatient (CLI) | payer OTHER, SELFPAY | PROVIDERS: Visit Provider Podiatrist | DX: Z98.890 Other specified postprocedural states (principal); L97.519 Non-pressure chronic ulcer of other part of right foot with unspecified severity | CPT/HCPCS: 87070; 87077; 87186; 87205 ==

== ENCOUNTER → 2020-10-29 16:58 | Outpatient (CLI) | payer OTHER, SELFPAY | PROVIDERS: Visit Provider Podiatrist | DX: Z98.890 Other specified postprocedural states (principal); M79.671 Pain in right foot | CPT/HCPCS: 87070; 87077; 87186; 87205 ==

== ENCOUNTER → 2020-11-12 09:55 | Outpatient (CLI) | payer OTHER, SELFPAY ==
[2020-11-12 10:36] LABS: Basophils # 0.1 K/mm3 (0-0.2); Basophils % 0.9 % (0.1-2.0); Eosinophils # 0.5 K/mm3 (0.0-0.4); Eosinophils % 4.4 % (0.1-12.0); Lymphocytes # 1.7 K/mm3 (0.7-4.5); Lymphocytes % 14.1 % (10-50); Mean Corpuscular HGB Conc 31.4 g/dL (31.8-35.4); Mean Corpuscular Hemoglobin 29.3 pg (27.0-31.2); Mean Corpuscular Volume 93.1 fl (80-94); Mean Platelet Volume 7.3 fl (7.4-10.4); Monocytes # 0.6 K/mm3 (0.1-1.0); Monocytes % 4.9 % (1.7-9.3); Neutrophils % 75.7 % (37.0-80.0); Platelet Count 385 K/mm3 (142-424); Red Blood Count 4.08 M/mm3 (4.60-6.20); Red Cell Distribution Width 13.7 % (11.5-17.5); White Blood Count 11.9 K/mm3 (4.8-10.8)
[2020-11-12 10:49] LABS: Hemoglobin A1C 11.4 % (4.0-6.0)
[2020-11-12 11:21] LABS: Alanine Aminotransferase 50 U/L (12-78); Albumin Level 3.9 g/dl (3.5-5.0); Albumin/Globulin Ratio 1.4 (1.1-1.8); Alkaline Phosphatase 110 U/L (38-126); Anion Gap 13.8 mEq/L (5-15); Aspartate Amino Transferase 46 U/L (17-59); Bilirubin,Total 0.2 mg/dl (0.2-1.3); Blood Urea Nitrogen 28 mg/dl (9-20); Calcium 9.7 mg/dl (8.4-10.2); Carbon Dioxide 20 mmol/L (22.0-30.0); Chloride 104 mmol/L (98-107); Estimated Glomerular Filt Rate 100 ml/min (>60); GFR (African American) 121 ML/MIN (>60); Globulin 2.7 g/dL (1.3-3.2); Glucose 379 mg/dl (74-100); Potassium 5.8 mmoL/L (3.5-5.1); Sodium 132 mmol/L (136-145); Total Protein,Serum 6.6 g/dl (6.3-8.2)
[2020-11-12 15:21] LABS: Erythrocyte Sedimentation Rate 87 mm/hr (0-20)
== END ==
PROVIDERS: Visit Provider Podiatrist
DX: Z98.890 Other specified postprocedural states (principal); E11.9 Type 2 diabetes mellitus without complications; Z79.84 Long term (current) use of oral hypoglycemic drugs
CPT/HCPCS: 36415; 80053; 83036; 85025; 85651; 86140

== ENCOUNTER → 2020-11-13 10:27 | Outpatient (CLI) | payer OTHER, SELFPAY ==
--- NOTE | 2020-11-13 10:28 | CA_ITS ---
APPROVED REPORT Doll Dresser: VANESA Laterality: Bilateral Study Quality: Excellent Indications: dizziness/cad/pad Risk Factors Hypertension: Hyperlipidemia CAD, PAD Smoking Doppler Spectral Velocity Analysis ECA (R) 117.40/0.00 cm/s ECA (L) 133.70/6.00 cm/s dICA (R) 89.00/26.20 cm/s dICA (L) 74.80/25.40 cm/s Art (R) 84.50/26.20 cm/s Art (L) 74.10/23.90 cm/s pICA (R) 50.70/14.10 cm/s pICA (L) 55.40/18.00 cm/s dCCA (R) 89.10/17.10 cm/s dCCA (L) 108.00/21.40 cm/s pCCA (R) 114.40/15.00 cm/s pCCA (L) 115.70/18.00 cm/s Vert (R) 53.10/18.70 cm/s Vert (L) 42.40/14.10 cm/s ICA/CCA 1.00 ICA/CCA 0.70 Findings Duplex evaluation demonstrates antegrade flow of bilateral vertebral arteries. Duplex evaluation demonstrates stenosis of the right proximal internal carotid artery in the range of 20-49% with PSV <140 cm/sec, EDV <100 cm/sec, and IC/CC Ratio <4.0. Mild heterogenous plaque formation in the right carotid bulb. Duplex evaluation demonstrates stenosis of the left proximal internal carotid artery <20% with PSV <140 cm/sec, EDV <100 cm/sec, and IC/CC Ratio <4.0. Conclusion Duplex evaluation demonstrates antegrade flow of bilateral vertebral arteries. Duplex evaluation demonstrates stenosis of the right proximal internal carotid artery in the range of 20-49% with PSV <140 cm/sec, EDV <100 cm/sec, and IC/CC Ratio <4.0. Mild heterogenous plaque formation in the right carotid bulb. Duplex evaluation demonstrates stenosis of the left proximal internal carotid artery <20% with PSV <140 cm/sec, EDV <100 cm/sec, and IC/CC Ratio <4.0. Electronically signed by : Vince Miranda MD 11/13/2020 17:11:28
--- NOTE | 2020-11-13 10:28 | US_ITS ---
APPROVED REPORT Market Superintendent: Allison Eric RT(R) Symptoms History of Smoking Claudication : Waveforms Prox Mid Distal Brachial 114 Radial 149 Ulnar 150 Left Prox Mid Distal Brachial 111 Radial 196 Ulnar 153 Findings RT forearm [id number] with an index of 1.3 LT forearm pressure 196 with an index of 1.72 RT radial pressures non compressible=no index LT radial pressure 200 with an index of 1.75 RT wrist pressure 150 with an index of 1.32 LT wrist pressure 153 with an index of 1.34 Rt digit pressure 186 with an index of 1.63 LT digit pressure 179 with an index of 1.57 Conclusion RT forearm with an index of 1.3 LT forearm pressure 196 with an index of 1.72 RT radial pressures non compressible=no index LT radial pressure 200 with an index of 1.75 RT wrist pressure 150 with an index of 1.32 LT wrist pressure 153 with an index of 1.34 Rt digit pressure 186 with an index of 1.63 LT digit pressure 179 with an index of 1.57 The WBI is normal on both sides at the ulnar arteries Elevated radial pressures may indicate vessel hardening Electronically signed by : Vince Miranda MD 11/13/2020 17:19:29
--- NOTE | 2020-11-13 10:28 | US_ITS ---
APPROVED REPORT Exam Type: Ankle to Brachial Index Inspector [employer]: Allison Eric RT(R) Indications Non-healing Ulcer: History of Smoking s/P RT TOES REMOVED Risk Factors Hypertension Pressures/Indices Right Indices Left Indices Brachial 124.00 mmHg Brachial 147.00 mmHg Low Thigh 174.00 mmHg 1.18 Low Thigh 0.00 mmHg 0.00 Calf 144.00 mmHg 0.98 Calf 0.00 mmHg 0.00 Ankle(PT) 109.00 mmHg 0.74 Ankle(PT) 0.00 mmHg 0.00 Ankle(DP) 65.00 mmHg 0.44 Ankle(DP) 0.00 mmHg 0.00 Digit Digit 81.00 mmHg 0.55 Findings RT TRINITY= 0.74 NO LT TRINITY=NONCOMPRESSIBLE VESSELS-MEDIAL CALCINOSIS NO RT TOES LT TPI0.55 Conclusion RT TRINITY= 0.74 NO LT TRINITY=NONCOMPRESSIBLE VESSELS-MEDIAL CALCINOSIS NO RT TOES LT TPI0.55 Moderate arterial disease on the right Non compressible vessels on the left indicating medial calcinosis of the arteries Electronically signed by : Vince Miranda MD 11/13/2020 17:24:28
== END ==
PROVIDERS: PCP Emergency Medicine; Visit Provider Podiatrist
DX: R42 Dizziness and giddiness (principal); R06.00 Dyspnea, unspecified; I25.10 Atherosclerotic heart disease of native coronary artery without angina pectoris; I10 Essential (primary) hypertension; E78.5 Hyperlipidemia, unspecified; I96 Gangrene, not elsewhere classified; L97.519 Non-pressure chronic ulcer of other part of right foot with unspecified severity; Z72.0 Tobacco use
CPT/HCPCS: 93880; 93923

== ENCOUNTER 2020-11-28 07:34 | Observation (INO) | payer OTHER, SELFPAY ==
[2020-11-28] VITALS (13 sets, daily range): BP systolic 143–200; BP diastolic 73–112; PULSE 80–116; RESP 8–22; TEMP 36.4–36.8; O2SAT 98–100; BMI 21.5; BMI 20.8
--- NOTE | 2020-11-28 07:26 | ECG_ITS ---
APPROVED REPORT Exam: Resting ECG HR:111 bpm ECG Measurements Heart Rate 111 AXES AR 116 P 74 QRSd 86 QRS -58 QT 344 T 79 QTc 467 Conclusion Sinus tachycardia Possible Left atrial enlargement RSR' or QR pattern in V1 suggests right ventricular conduction delay Left anterior fascicular block Abnormal ECG Electronically signed by : Parveen Rosales, 11/29/2020 19:11:30
--- NOTE | 2020-11-28 07:42 | XR_ITS ---
PROCEDURE: XR CHEST PORTABLE CLINICAL HISTORY: CHEST PAIN COMPARISON: CR CXR2 CHEST-AP VIEW ONLY from 03/23/2017 CR CXR1VP XR chest portable from 11/29/[address] chest wo con from 11/29/2018 CR XR CHEST PORTABLE from 08/14/2020 FINDINGS: The cardiomediastinal silhouette and pulmonary vascularity are within normal limits. The lungs are clear without infiltrates, suspicious nodules, or pleural effusions. COPD changes No acute bony abnormalities. IMPRESSION: No acute findings. Dictated by: Vince Miranda MD 11/28/2020 09:10 Vince Miranda MD in [facility] 11/28/2020 09:10
[2020-11-28 07:49] LABS: Basophils # 0.1 K/mm3 (0-0.2); Basophils % 0.4 % (0.1-2.0); Eosinophils # 0.1 K/mm3 (0.0-0.4); Eosinophils % 0.5 % (0.1-12.0); Hemoglobin 13.1 g/dL (14.1-18.0); Lymphocytes # 1.8 K/mm3 (0.7-4.5); Mean Corpuscular HGB Conc 31.3 g/dL (31.8-35.4); Mean Corpuscular Hemoglobin 28.2 pg (27.0-31.2); Mean Corpuscular Volume 90.1 fl (80-94); Mean Platelet Volume 7.8 fl (7.4-10.4); Monocytes # 0.7 K/mm3 (0.1-1.0); Monocytes % 4.4 % (1.7-9.3); Neutrophils # 12.3 K/mm3 (1.8-7.8); Neutrophils % 82.7 % (37.0-80.0); Platelet Count 328 K/mm3 (142-424); Red Blood Count 4.66 M/mm3 (4.60-6.20); Red Cell Distribution Width 14.2 % (11.5-17.5); White Blood Count 14.8 K/mm3 (4.8-10.8)
[2020-11-28 07:50] LABS: Chloride 90 mmol/L (98-107); Potassium 4.7 mmoL/L (3.5-5.1); Sodium 130 mmol/L (136-145)
[2020-11-28 07:53] LABS: Alanine Aminotransferase 37 U/L (12-78); Albumin Level 4.3 g/dl (3.5-5.0); Alkaline Phosphatase 118 U/L (38-126); Anion Gap 16.7 mEq/L (5-15); Aspartate Amino Transferase 25 U/L (17-59); Bilirubin,Direct 0.2 mg/dl (0.0-0.4); Bilirubin,Indirect 0.4 mg/dL (0.0-0.9); Bilirubin,Total 0.6 mg/dl (0.2-1.3); Bilirubin,Unconjugated 0.5 mg/dL (0.0-1.1); Blood Urea Nitrogen 26 mg/dl (9-20); Calcium 10.1 mg/dl (8.4-10.2); Carbon Dioxide 28 mmol/L (22.0-30.0); Creatinine Clearance Estimated 79 mL/min (50-200); Estimated Glomerular Filt Rate 77 ml/min (>60); GFR (African American) 94 ML/MIN (>60); Total Protein,Serum 7.3 g/dl (6.3-8.2)
[2020-11-28 07:55] LABS: Glucose 476 mg/dl (74-100)
--- NOTE | 2020-11-28 08:04 | HMH.EDGENADL ---
ED Disposition Clinical Impression: Gastroenteritis, Hyperglycemia Chest pain Qualifiers: Chest pain type: precordial pain Qualified Code(s): R07.2 - Precordial pain Disposition: Admitted as Observation Condition on Discharge: Fair - Critical Care Critical Care Time: No Attestation: On 11/28/20, the high probability of a clinically significant, sudden or life threatening deterioration of the following system(s) required my full and direct attention, intervention and personal management. The time I documented below is in addition to time spent performing reported procedures but includes the following listed in this critical care notation. Medical Decision Making - Medical Records Medical records reviewed: Yes: I reviewed the patient's medical records. MR Comment: Reviewed recent cardiology office visit 11/25/2020. Repeat left heart cath and aortic runoff recommended. Reviewed left heart cath report from 08/08/2020. See below. - Anthony Inquiry Pt receiving controlled substance: No Vital Signs: 11/28/20 07:34 11/28/20 08:00 11/28/20 08:30 Temperature 97.5 F L Temperature Source Oral Pulse Rate 101 H 101 H Pulse Rate [Radial] 116 H Respiratory Rate 22 8 L 10 L Blood Pressure 167/100 H 168/98 H Blood Pressure [Right Radial Artery] 148/94 H Blood Pressure Mean 122 119 Blood Pressure Mean [Right Radial Artery] 112 Blood Pressure Position [Right Radial Artery] Sitting 02 Sat by Pulse Oximetry 98 98 98 Oxygen Delivery Method Room Air - Lab Data Lab Results 11/28/20 07:35: WBC 14.8 H, RBC 4.66, Hgb 13.1 L, Hct 42.0, MCV 90.1, MCH 28.2, MCHC 31.3 L, RDW 14.2, Plt Count 328, MPV 7.8, Neut % (Auto) 82.7 H, Lymph % (Auto) 12.0, Glynn % (Auto) 4.4, Eos % (Auto) 0.5, Baso % (Auto) 0.4, Neut # (Auto) 12.3 H, Lymph # (Auto) 1.8, Glynn # (Auto) 0.7, Eos # (Auto) 0.1, Baso # (Auto) 0.1 11/28/20 07:35: Sodium 130 L, Potassium 4.7, Chloride 90 L, Carbon Dioxide 28, Anion Gap 16.7 H, BUN 26 H, Creatinine 1.00, Estimated Creat Clear 79, Estimated GFR 77, Est GFR ( Amer) 94, Glucose 476 H*, Calcium 10.1, Total Bilirubin 0.6, Direct Bilirubin 0.2, Conjugated Bilirubin 0.0, Indirect Bilirubin 0.4, Unconjugated Bilirubin 0.5, AST 25, ALT 37, Alkaline Phosphatase 118, Troponin I < 0.01, C-Reactive Protein 0.9, Total Protein 7.3, Albumin 4.3 11/28/20 07:35: ESR 53 H 11/28/20 07:35: Acetone Level Small 11/28/20 08:24: VBG pH 7.35, VBG pCO2 46.3, VBG pO2 73.4 H, VBG HCO3 25.2, VBG Total CO2 26.6, VBG O2 Saturation 94.4 H, VBG Base Excess -0.4 Result diagrams: 11/28/20 07:35 11/28/20 07:35 Orders (Tests/Meds): ED MEDICATIONS Discontinued Medications Generic Name Dose Route Start Last Admin Trade Name Shahana PRN Reason Stop Dose Admin Aspirin 324 mg 11/28/20 07:40 11/28/20 07:43 Aspirin 81mg Chewable Tablet PO 11/28/20 07:41 324 mg ONCE ONE Administration Sodium Chloride 1,000 mls @ 999 mls/hr 11/28/20 07:45 11/28/20 07:43 Sod Chlor 0.9% 1000ml Bag IV 11/28/20 08:45 999 mls/hr .Q1H1M MARISELA Administration Insulin Human Regular 5 unit 11/28/20 08:32 11/28/20 08:43 Insulin Human Regular 100 Units/Ml 10ml Vial IVP 11/28/20 08:33 5 unit ONCE ONE Administration Ondansetron HCl 4 mg 11/28/20 07:38 11/28/20 07:43 Ondansetron 4mg/2ml Vial IV 11/28/20 07:39 4 mg ONCE ONE Administration ORDERS Category Date Time Status Consult to Cardiology [CONS] Routine Cons 11/28/20 08:26 Active Diarrhea 23 Panel, PCR Stat Lab 11/28/20 07:43 Ordered Full Resp Panel w/COVID ([facility]) Routine Lab 11/28/20 08:27 Received Troponin I Q3H Lab 11/28/20 10:45 Ordered Troponin I Q3H Lab 11/28/20 13:45 Ordered - Radiology Data #1 Image(s): Chest Image Reviewed: Yes I reviewed the patient's radiology image COPD, no acute process - ECG Data Tracing #1 EKG interpreted by Kwabena Rivas MD: Rhythm: sinus tachycardia Rate: 111 RSR prime pattern in V1 suggest
[2020-11-28 08:07] LABS: C-Reactive Protein 0.9 mg/L (0-4)
[2020-11-28 08:13] LABS: Acetone, Serum (Rapid) Small (None Detect)
[2020-11-28 08:16] LABS: Erythrocyte Sedimentation Rate 53 mm/hr (0-20)
[2020-11-28 08:19] LABS: Troponin I < 0.01 ng/ml (0.00-0.034)
[2020-11-28 08:32] LABS: VBG Base Excess -0.4 mmol/L (-2.4-2.3); VBG HCO3 25.2 mmol/L (23-30); VBG Oxygen Saturation 94.4 % (50-70); VBG PCO2 46.3 mmol/L (35-51); VBG PH 7.35 mmol/L (7.31-7.41); VBG PO2 73.4 mmol/L (28-40); VBG Total CO2 26.6 mmol/L (23-27)
--- NOTE | 2020-11-28 08:34 | PC.NURSE ---
CARE MANAGEMENT CALLED REGARDING PT'S ADMISSION
[2020-11-28 08:35] LABS: Adenovirus,PCR Not Detected (NotDetected); Bordetella Pertussis Not Detected (NotDetected); Chlamydophila Pneumoniae, PCR Not Detected (NotDetected); Coronavirus 19, PCR Not Detected (NotDetected); Coronavirus 229E Not Detected (NotDetected); Coronavirus NL63 Not Detected (NotDetected); Coronavirus OC43 Not Detected (NotDetected); Coronovirus HKU1,PCR Not Detected (NotDetected); Human Metapneumovirus Not Detected (NotDetected); Influenza A, PCR Not Detected (NotDetected); Influenza AH1, 2009 Not Detected (NotDetected); Influenza AH1, PCR Not Detected (NotDetected); Influenza AH3,PCR Not Detected (NotDetected); Influenza B, PCR Not Detected (NotDetected); Mycoplasma Pneumoniae, PCR Not Detected (NotDetected); Parainfluenza 1, PCR Not Detected (NotDetected); Parainfluenza 2, PCR Not Detected (NotDetected); Parainfluenza 3, PCR Not Detected (NotDetected); Parainfluenza 4, PCR Not Detected (NotDetected); Respiratory Syncytial Virus Not Detected (NotDetected); Rhinovirus/Enterovirus Not Detected (NotDetected)
--- NOTE | 2020-11-28 08:40 | PC.NURSE ---
CALLED WOUND CARE REGARDING PT'S DRESSING CHANGE.
--- NOTE | 2020-11-28 08:43 | HMH.HP ---
*Admission Date: 11/28/20 *Chief complaint: chest pain *History of present illness: pt presents to the ed -pt has episodes of chest pain and has nausea and vomiting -scription of Symptoms (Recalled from ER Triage Doc. by RN): TO ED PER [employer] WITH C/O NAUSEA, VOMITING, DIARRHEA X 1 WEEK, STATES TODAY WOKE UP WITH CHEST PRESSURE RADIATING MADELYN. ARMS C/O SOB, COUGH. PT STATES UNABLE TO KEEP MEDS DOWN. PT WITH HX OF DM WITH AMPUTATIONS TOES RT FOOT. PT STATES CURRENTLY TAKING ANTIBIOTICS AND HAS BEEN ON ANTIBIOTICS SINCE AUGUST . PT DENIES FEVER, CHILLS, ABD PAIN Multiple complaints. States he has not been able to hold anything down since Wednesday 3 days ago. Is having vomiting and diarrhea. Last episode this morning. Has not noted blood in his diarrhea. No fever. No abdominal pain. He has diabetes and has a blood glucose monitor device on his abdomen, but says that it is due for replacement and he has not yet learned how to replace it. Therefore does not know what his blood sugar has been running. He also complains of has episodic chest pain. last episode this morning, lasted 1/2-hour. States he has been having chest pain off and on for a while, it has not stopped since getting 3 stents placed August 08. He is not currently having chest pain. Also states that he has COPD and has been having increasing shortness of breath recently. Denies getting any treatment for COPD: He is not on oxygen, nebulizer treatments, inhalers, or pills for COPD. He continues to smoke, but has cut down. Had amputation of his distal right foot a couple of months ago. Had amputation of his distal right foot couple of months ago. Says they initially amputated his great toe, then took off the distal aspect of the foot because it was not healing. pt was admitted for treatment and eval [facility] History I have reviewed the patient's past medical history: Yes Medical History: Reports:: Chronic Obstructive Pulmonary Disease (COPD), Coronary Artery Disease, Diabetes Mellitus Type 2, Hyperlipidemia, Hypertension Denies:: Cancer, Diabetes Mellitus Type 1, Internal Pacemaker, MRSA, Seizures *Have you ever received a pneumonia vaccine?: Yes *Have you received a flu vaccine this season?: Yes Other Medical History: Denies: Blood Transfusion Reaction Other Surgeries: Yes: Cardiac Catheterization, Cardiac Surgery, Cholecystectomy, Coronary Stent, EGD. No: Pacemaker Amputation: Yes Fractures: Yes (knee) - *Social History Smoking Status: Current every day smoker Tobacco Type: cigarettes # Packs/Day (cigarettes): 1 Alcohol Intake: never Alcohol Intake Frequency:: holidays/special occasions only Substance Use Type: denies use *Occupational Status:: retired Housing: house Household Members: spouse *Travel in the last 8 weeks: None Family Hx:: Unable to obtain Review of Systems - Review of Systems Review of systems:: pertinent systems reviewed and negative unless documented below - Constitutional Denies fever(s) - Eyes Denies change in vision - ENT Denies sore throat - *Cardiovascular Reports chest pain, Reports shortness of breath - *Respiratory Reports cough - *Gastrointestinal Reports abdominal pain, Reports nausea, Reports vomiting - *Genitourinary Denies blood in urine - *Musculoskeletal Reports joint pain - Integumentary/Breasts Reports other (rt foot with healing ) - *Neurologic Denies seizure-like activity, Denies localized weakness, Denies headache(s) - Psychiatric Denies confusion Meds Home Medications Medication Instructions Recorded Confirmed Type metformin 1,000 mg tablet 1,000 mg PO BID #180 tab 07/23/20 11/28/20 Rx Metoprolol Succinate [Metoprolol 100 mg PO DAILY 10/14/20 11/28/20 History Succinate 100mg Tablet*] Nicotine [Nicotine Patch 1 patch TRANSDERMA DAILY 10/14/20 11/28/20 History 14mg/24Hrs] glipiZIDE [Glipizide ER] 10 mg PO DAILY 10/14/20 11/28/20 History glucagon 1 mg/0.2 mL subcutaneous 1 mg SQ O
--- NOTE | 2020-11-28 08:55 | PC.NURSE ---
Talked to Romie Palacios to come see pt
--- NOTE | 2020-11-28 09:23 | HMH.CNCARD ---
History of Present Illness Consult date: 11/28/20 Requesting physician: Yash Dacosta Consult reason: chest pain Chief complaint: Vomiting, diarrhea, chest pain Additional Medical History:: 1. Diabetes mellitus A. Poorly controlled with hemoglobin A1c of 11.4, 11/2020 2. Hypertension A. Echo, 08/2020,1. Mildly enlarged left atrium, normal left ventricular size, mild concentric left ventricular hypertrophy, visually estimated ejection fraction 55% with no regional wall motion abnormality, grade 1 diastolic dysfunction seen without tissue Doppler evidence of raise left atrial pressure. 2. Mild mitral and tricuspid regurgitation. 3. No significant pericardial effusion noted 3. Tobacco use, ongoing A. COPD 4. Hyperlipidemia A. LDL 38, 10/2020, on statin therapy 5. Coronary artery disease A. [facility], 08/08/2020, CODY to mid LAD and large 1st OM off dominant Circumflex. Med Therapy for remaining RCA disease. The left main artery Normal The left anterior descending artery Is a proximal to mid vessel concentric 70% stenosis. The first diagonal artery is a bifurcating vessel with the inferior branch being 1.5 mm in diameter with a proximal 80% stenosis The circumflex artery Is a large dominant vessel with 30 to 40% stenosis in the proximal to mid segment. The first obtuse marginal artery is a large branch which has a proximal 70 to 80% stenosis which extends into the mid segment. The right coronary artery Is a nondominant vessel with a long proximal to mid vessel 70 to 80% tubular stenosis. This is a 2.5 mm vessel The MCCURDY ventriculogram reveals Hyperdynamic at 80 to 85% The left ventricular end-diastolic pressure 20 mmHg IMPRESSION Severe coronary disease as described above Successful stenting in the proximal to mid LAD with 2 drug-eluting stents in a contiguous manner Successful stenting of the large first obtuse marginal artery branching off a large dominant circumflex artery Persistent severe stenosis throughout a small to moderate size nondominant right coronary artery Hyperdynamic ventricle 80 to 85% Elevated LVEDP 6. Peripheral arterial disease A. Abdominal angiogram with bilateral lower extremity runoff, 08/2020, resulting in drug-coated balloon angioplasty of the right popliteal artery. Severe bilateral infrageniculate small vessel disease with recommendation for medical therapy unless limb threatening ischemia develops then consideration for intervention could be undertaken. Patient was started on Xarelto 2.5 mg twice daily. B. Status post right hallux amputation, 09/2020 C. 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 States he has not been able to hold anything down since Wednesday 3 days ago. Is having vomiting and diarrhea. Last episode this morning. Has not noted blood in his diarrhea. No fever. No abdominal pain. He has diabetes and has a blood glucose monitor device on his abdomen, but says that it is due for replacement and he has not yet learned how to replace it. Therefore does not know what his blood sugar has been running. He also complains of has episodic chest pain. last episode this morning, lasted 1/2-hour. States he has been having chest pain off and on for a while, it has not stopped since getting 3 stents placed August 08. He is not currently having chest pain. Also states that he has COPD and has been having increasing shortness of breath recently. Denies getting any treatment for COPD: He is not on oxygen, nebulizer treatments, inhalers, or pills for COPD. He continues to smoke, but has cut down. Had amputation of his distal right foot a couple of months ago. Had amputation of his distal right foot couple of months ago. Says they initially amputated his great toe, then took off the distal aspect of the foot because it was not healing The above per Dr. Rivas 55-year-old white male with known CAD, PA
--- NOTE | 2020-11-28 09:43 | PC.NURSE ---
ACCUCHECK 356
[2020-11-28 09:46] LABS: POC Glucose,Bedside 356 (70-110)
--- NOTE | 2020-11-28 10:14 | PC.NURSE ---
REPORT CALLED TO SIERRA MONZON
--- NOTE | 2020-11-28 10:34 | PC.NURSE ---
patient arrived to floor at this time
--- NOTE | 2020-11-28 10:34 | HMH.PHAVTE ---
[facility] Pharmacy VTE Monitoring - Patient Demographics Admission date: 11/28/20 Report Date: 11/28/20 Time: 10:35 Allergies/Adverse Reactions: Patient Allergies Penicillins [PENICILLINS] Allergy (Unknown, Verified 11/25/20 14:25) Height: 1.78 m Weight: 68.039 kg Patient Problems: Current Active Problems Gastroenteritis (Acute) Hyperglycemia (Acute) PAD (peripheral artery disease) (Chronic) Cigarette smoker (Acute) Chest pain (Acute) COPD (chronic obstructive pulmonary disease) (Chronic) Hypertension (Chronic) Diabetes mellitus (Chronic) CAD (coronary artery disease) (Chronic) - VTE Risk Labs: VTE Related Lab Results Hgb 13.1 g/dL (14.1-18.0) L 11/28/20 07:35 Hct 42.0 % (42.0-52.0) 11/28/20 07:35 Plt Count 328 K/mm3 (142-424) 11/28/20 07:35 BUN 26 mg/dl (9-20) H 11/28/20 07:35 Creatinine 1.00 mg/dl (0.66-1.25) 11/28/20 07:35 Estimated Creat Clear 79 mL/min (50-200) 11/28/20 07:35 - Prophylaxis VTE Prophylaxis Ordered?: Yes Types of VTE Prophylaxis: TEDS Knee High Location of Applied Device: Bilateral Lower Extremeties
--- NOTE | 2020-11-28 11:04 | HMH.PTWOUND ---
Rehab Inpt Wound Evaluation Rehab IP Wound Evaluation Start: 11/28/20 09:26 Freq: ONCE Status: Active Protocol: Document 11/28/20 10:58 LUCIA (Rec: 11/28/20 11:04 PHOFLORENTIN [id number]) Rehab PT Wound Assessment Subjective Subjective 55 yowm adm to [facility] with chest pain, but has prior wound of the R foot due to gangrene and is S/P L TMA. Wound Left Distal Foot Wound Type Incision Is This a Chronic Wound Yes Wound Length (cm) 2.5 Wound Width (cm) 11.0 Wound Bed Appearance Yellow,Slough,Eschar,Sutures, Cisco Wound Margins Description Indistinct Surrounding Tissue Appearance Natoma Wound Drainage Description Serosanguineous,Purulent Drainage Amount Small Dressing Status Changed Wound Topical Solution/Irrigant Saline Irrigant Primary Dressing Composite Comment polymem Wound Secondary Dressing Type Gauze Pad,Gauze Roll/Wrap Wound Debridement Amount of Tissue None Removed Dressing Change Patient Tolerance Tolerated Well Plan/Recommendation Comment Nsg to continue dressing changes as above daily. Will continue with outpatient wound care as needed depending of podiatry recommendations. Eval Complexity Eval Charge Codes 46431 - Moderate Complexity PHYSICIAN CERTIFICATION: I certify the specified therapy services for Vikash Van are required, authorized, and reviewed every 30 days.
[2020-11-28 11:10] LABS: POC Glucose,Bedside 357 (70-110)
[2020-11-28 11:16] LABS: Troponin I < 0.01 ng/ml (0.00-0.034)
[2020-11-28 15:21] LABS: Troponin I < 0.01 ng/ml (0.00-0.034)
[2020-11-28 16:30] LABS: POC Glucose,Bedside 179 (70-110)
--- NOTE | 2020-11-28 17:01 | PC.NURSE ---
Pt has been pleasant and cooperative this shift. A&O X4. No complaints of pain. Pt has had frequents complaints of heart burn and has received Maalox per MAR X2 with favorable results. Pt is on room air with sats. >90%. No edema noted. Telemetry reveals NSR. RT foot partial amputation dressing C/D/I. Pt ambulates independently and uses the toilet to void clear, yellow urine without issue. No BM this shift. FSBS results have been 357 and 179. 20 G peripheral IV in the LT AC is patent and infusing NS@ 150 ML/HR. VSS. Call light within reach. Will continue to monitor.
[2020-11-28 19:56] LABS: POC Glucose,Bedside 189 (70-110)
[2020-11-29] VITALS (18 sets, daily range): BP systolic 138–164; BP diastolic 67–87; PULSE 77–93; RESP 16–20; TEMP 36.4–36.9; O2SAT 96–100; BMI 22.1
--- NOTE | 2020-11-29 | IR_ITS ---
APPROVED REPORT Patient Location: Inpatient [facility]: CHAY Zhou RT (R) PROCEDURES Left heart catheterization Left ventriculogram Selective coronary angiogram Catheter placed in the right external iliac artery Right external iliac artery antegrade angiogram with unilateral runoff to the right foot Catheter placement in the left external iliac artery Left external iliac artery antegrade angiogram with unilateral runoff to the left foot Catheter placed to the distal abdominal aorta Distal abdominal aortogram with iliofemoral angiography INDICATION Abnormal TRINIYT, Iroquois claudication class IV-V, History of right foot transmetatarsal amputation, Poorly healing ulcer on the right foot, Known coronary disease, Accelerated angina pectoris Informed consent was obtained prior to the procedure. COMPLICATIONS None Estimated Blood Loss: Less than 10 mls TECHNIQUE One percent lidocaine used to anesthetize the right anterior aspect of the wrist. The right radial artery was accessed via the Seldinger technique. A 6 Swedish sheath was placed in the right radial artery. 2.5 mg of verapamil, 800 mcg of nitroglycerin, 1mg Lidocaine and 5000 U Heparin were given through the arterial sheath. The trap catheter was also used to perform left heart catheterization, left ventriculogram and selective coronary angiogram. A PV multi curve was used to selectively intubate each bilateral external iliac artery and perform selective unilateral antegrade runoff. At the end of this portion of the procedure the catheter was pulled back to the distal abdominal area where distal abdominal aortography with bilateral iliofemoral angiography was performed. The trap catheter was then used as described above. At the end the procedure the apparatus was removed the sheath was removed and hemostasis was achieved using TR banding patient was transferred to the postop holding in stable condition ANGIOGRAPHIC RESULTS The left main artery Normal The left anterior descending artery Is proximally normal and then has a stent proximal to the first septal visual training aide which extends throughout the mid segment which is widely patent free of in-stent restenosis with excellent proximal distal transitioning The circumflex artery Is a large dominant vessel with a proximal tubular 30% stenosis which extends both proximally and distally to the first obtuse marginal artery. A moderate sized first obtuse marginal artery has an ostial proximal 50% smooth stenosis while the much larger second obtuse marginal artery giving rise to the posterior descending artery is widely patent The right coronary artery Is nondominant yet still supplies a portion of the left ventricle. The vessel has a long 70% stenosis throughout its proximal to midportion over a 60 to 70 mm zone. The MCCURDY ventriculogram reveals Normal to hyperdynamic at 75% The left ventricular end-diastolic pressure 20 to 25 mmHg The distal abdominal aorta is calcified but patent with no stenosis greater than 10% Right common iliac artery has a proximal to distal tubular 30% stenosis. The right internal iliac artery is widely patent. The right external iliac artery is widely patent with mild atheromatous plaque which extends into a widely patent right femoral artery with mild 20% stenosis. The right profunda femoris artery is normal. The right superficial femoral artery has a proximal eccentric 40% stenosis and is open throughout its entire proximal and mid segment which extends into moderate to large caliber popliteal artery which has concentric 40% stenosis. The anterior tibialis artery is proximally occluded while the posterior tibialis artery is subtotally occluded in its proximal segm
--- NOTE | 2020-11-29 03:32 | PC.NURSE ---
Pt A&O x4 and has slept well through the night. Pt c/o pain in legs, tylenol given per mar with desired effects. Pt also c/o heart burn, Maalox was given x1 with favorable results. Lungs CTA, on room air. Drsg on RLE CDI PT has been NPO since midnight. VSS, call light in reach, no concerns at this time.
[2020-11-29 06:11] LABS: POC Glucose,Bedside 220 (70-110)
[2020-11-29 07:29] LABS: Chloride 101 mmol/L (98-107); Sodium 135 mmol/L (136-145)
[2020-11-29 07:30] LABS: Potassium 3.8 mmoL/L (3.5-5.1)
[2020-11-29 07:32] LABS: Blood Urea Nitrogen 18 mg/dl (9-20); Creatinine Clearance Estimated 102 mL/min (50-200); Estimated Glomerular Filt Rate 100 ml/min (>60); GFR (African American) 121 ML/MIN (>60)
[2020-11-29 07:33] LABS: Anion Gap 8.8 mEq/L (5-15); Carbon Dioxide 29 mmol/L (22.0-30.0); Glucose 199 mg/dl (74-100)
[2020-11-29 07:51] LABS: Calcium 8.6 mg/dl (8.4-10.2)
--- NOTE | 2020-11-29 09:08 | HMH.PNCARD ---
Subjective Date: 11/29/20 Time: 09:08 Principal diagnosis: AGE, chest pain, right foot pain Interval history: 55-year-old white male sitting up in bed in no acute distress. Nausea and vomiting have resolved. He is epigastric discomfort from the vomiting. Right foot pain is unchanged. Exam Vital signs and Labs for Last 24 Hours: Temp Pulse Resp BP Pulse Ox 98.4 F 86 20 144/78 H 96 11/29/20 07:45 11/29/20 07:45 11/29/20 07:45 11/29/20 07:45 11/29/20 07:45 Laboratory Results - last 24 hr 11/28/20 08:27: Chlamy pneumoniae PCR Not detected, Adenovirus (PCR) Not detected, B. pertussis DNA (PCR) Not detected, Coronavirus OC43 (PCR) Not detected, Coronavirus HKU1 (PCR) Not detected, Coronavirus 229E (PCR) Not detected, SARS-CoV-2 (PCR) Not detected, Coronavirus NL63 (PCR) Not detected, Human Metapneumovir PCR Not detected, Influenza A (H1) PCR Not detected, Influ A (H1N1/09) PCR Not detected, Influenza A (H3) PCR Not detected, Influenza Type A (PCR) Not detected, Influenza Type B (PCR) Not detected, M. pneumoniae (PCR) Not detected, Parainfluenza 1 (PCR) Not detected, Parainfluenza 2 (PCR) Not detected, Parainfluenza 3 (PCR) Not detected, Parainfluenza 4 (PCR) Not detected, RSV (PCR) Not detected, Entero/Rhino (PCR) Not detected 11/28/20 09:39: POC Glucose 356 H* 11/28/20 10:30: Troponin I < 0.01 11/28/20 10:58: POC Glucose 357 H* 11/28/20 13:38: Troponin I < 0.01 11/28/20 16:14: POC Glucose 179 H 11/28/20 19:47: POC Glucose 189 H 11/29/20 05:37: POC Glucose 220 H 11/29/20 06:45: Sodium 135 L, Potassium 3.8, Chloride 101, Carbon Dioxide 29, Anion Gap 8.8, BUN 18 D, Creatinine 0.80, Estimated Creat Clear 102, Estimated GFR 100, Est GFR ( Amer) 121 D, Glucose 199 H D, Calcium 8.6 D I & O for Last 24 hours: Intake & Output 11/26/20 11/27/20 11/28/20 11/29/20 11:59 11:59 11:59 11:59 Intake Total 1538 / 1538 Balance 1538 / 1538 Weight 145 lb 1 oz 154 lb 4 oz - Constitutional no acute distress - *Routine HEENT Exam Head: Present: normocephalic Eye: Present: EOMI, PERRL ENT: Present: mucous membranes moist - *Routine Neck Exam Present: supple. Absent: lymphadenopathy - *Routine Respiratory Exam Present: CTA bilaterally - *Routine Cardiovascular Exam Present: RRR - *Routine Abdominal Exam Present: soft, normoactive bowel sounds. Absent: tenderness - *Routine Extremities Exam Absent: cyanosis, clubbing, edema Comments: Right foot is still wrapped in gauze. - *Routine Skin Exam Present: warm. Absent: rash - *Routine Neurological Exam Present: alert, oriented X3 Progress Note: A&P (1) Gastroenteritis Status: Acute (2) CAD (coronary artery disease) Status: Chronic (3) Diabetes mellitus Status: Chronic (4) Diabetic foot Status: Acute (5) Peripheral vascular disease Status: Acute (6) PAD (peripheral artery disease) Status: Chronic Assessment and Plan for All Diagnoses:: Plan to proceed with left heart catheterization today for further evaluation of his recurrent angina despite increasing antianginal medications. Depending on the amount of contrast used for left heart catheterization, we will plan to proceed with lower extremity angiogram to reevaluate the patient's complaint of right foot pain in hopes of maximizing blood flow to allow healing after transmetatarsal amputation. Further recommendations pending above results.
--- NOTE | 2020-11-29 09:31 | HMH.ORTHOCON ---
*Admission Date: 11/28/20 *Reason for consult:: Right foot ulcer, s/p TMA *History of present illness: Patient is resting comfortably in bed. He is n.p.o. for cardiac cath and possible peripheral runoff. Patient has been seeing the [facility] wound care clinic but has missed several podiatry appointments. He had a right foot TMA 10/16/2020. Uncontrolled diabetes with chronic nonhealing surgical wound. [facility] History I have reviewed the patient's past medical history: Yes Medical History: Reports:: Chronic Obstructive Pulmonary Disease (COPD), Coronary Artery Disease, Diabetes Mellitus Type 2, Hyperlipidemia, Hypertension, Myocardial Infarction Denies:: Cancer, Diabetes Mellitus Type 1, Internal Pacemaker, MRSA, Seizures *Have you ever received a pneumonia vaccine?: No *Have you received a flu vaccine this season?: No Other Medical History: Denies: Blood Transfusion Reaction Other Surgeries: Yes: Cardiac Catheterization, Cardiac Surgery, Cholecystectomy, Coronary Stent, EGD, Other (RT foot partial amputation). No: Pacemaker Amputation: Yes Fractures: Yes (knee) - *Social History Last grade of school completed: High school graduate Smoking Status: Current every day smoker Tobacco Type: cigarettes # Packs/Day (cigarettes): 1 Alcohol Intake: never Alcohol Intake Frequency:: holidays/special occasions only Substance Use Type: denies use *Occupational Status:: previously employed Housing: house Household Members: spouse *Travel in the last 8 weeks: None Family Hx:: No significant family history Review of Systems - Review of Systems Review of systems:: pertinent systems reviewed and negative unless documented below - Constitutional Reports lack of energy - Eyes Denies blind spots - ENT Denies abnormal hearing - *Cardiovascular Reports chest pain, Reports shortness of breath - *Respiratory Reports shortness of breath - *Gastrointestinal Denies abdominal pain, Denies nausea, Denies vomiting - Integumentary/Breasts Reports hair loss, Reports nail changes, Reports dry skin, Reports wounds - *Neurologic Denies confusion, Denies seizure-like activity, Denies localized weakness, Denies headache(s) - Psychiatric Denies abnormal sleep pattern - Hematologic/Lymphatic Reports easy bruising Meds Home Medications Medication Instructions Recorded Confirmed Type metformin 1,000 mg tablet 1,000 mg PO BID #180 tab 07/23/20 11/28/20 Rx Metoprolol Succinate [Metoprolol 100 mg PO DAILY 10/14/20 11/28/20 History Succinate 100mg Tablet*] Nicotine [Nicotine Patch 1 patch TRANSDERMA DAILY 10/14/20 11/28/20 History 14mg/24Hrs] glipiZIDE [Glipizide ER] 10 mg PO DAILY 10/14/20 11/28/20 History glucagon 1 mg/0.2 mL subcutaneous 1 mg SQ ONCE PRN #0.4 ml 10/31/20 11/28/20 Rx auto-injector oxycodone 5 mg tablet 5 mg PO Q6H PRN 7 Days #28 tab 11/08/20 11/28/20 Rx levofloxacin 750 mg tablet 750 mg PO DAILY 21 Days #21 tab 11/12/20 11/28/20 Rx sulfamethoxazole 800 1 tab PO BID 14 Days #28 tab 11/12/20 11/28/20 Rx mg-trimethoprim 160 mg tablet Ticagrelor [Brilinta 90mg 90 mg PO BID 11/28/20 11/28/20 History Tablet] clindamycin HCL [Clindamycin HCl] 300 mg PO TID 11/28/20 11/28/20 History dilTIAZem HCL [Cardizem Cd] 120 mg PO DAILY 11/28/20 11/28/20 History metroNIDAZOLE [metroNIDAZOLE 500mg 500 mg PO DAILY 11/28/20 11/28/20 History Tablet] Allergies Allergy/AdvReac Type Severity Reaction Status Date / Time Penicillins [PENICILLINS] Allergy Unknown Verified 11/28/20 18:28 Exam Vital signs and Labs for Last 24 Hours: Temp Pulse Resp BP Pulse Ox 98.4 F 86 20 144/78 H 96 11/29/20 07:45 11/29/20 07:45 11/29/20 07:45 11/29/20 07:45 11/29/20 07:45 Laboratory Results - last 24 hr 11/28/20 08:27: Chlamy pneumoniae PCR Not detected, Adenovirus (PCR) Not detected, B. pertussis DNA (PCR) Not detected, Coronavirus OC43 (PCR) Not detected, Coronavirus HKU1 (PCR) Not dete
--- NOTE | 2020-11-29 09:41 | HMH.PHAINT ---
MEDICATION RECONCILIATION COMPLETED BY NURSING USING MED LEST FROM FAMILY MEMBER
--- NOTE | 2020-11-29 10:11 | XR_ITS ---
PROCEDURE: XR FOOT RT MIN 3V CLINICAL INDICATION: DM ulcer, Hx TMA follow-up amputation COMPARISON: CR XR FOOT WT BEARING LT 3V from 07/16/2020 CR XR FOOT RT 2V from 09/13/2020 CR XR FOOT RT MIN 3V from 10/16/2020 CR XR FOOT RT 2V from 10/16/2020 FINDINGS: There has been a transmetatarsal amputation. Surgical clips are present at the amputation stump. Surgical drain is been removed. At the amputation site at the 1st metatarsal there is a lucent area laterally not readily apparent on the previous exam possibly due to the patient's positioning. Continued follow-up suggested to exclude a developing area of bony destruction. This area measures approximately 3 mm. Study is otherwise unremarkable. IMPRESSION: Status post transmetatarsal amputation. A nonspecific lucent areas present at the amputation site involving the lateral aspect of the 1st metatarsal and could be related to an area of bony erosive change from osteomyelitis. Please correlate with clinical parameters and follow-up. Dictated by: Vince Miranda MD 11/29/2020 11:04 Vince Miranda MD in [place] 11/29/2020 11:04
[2020-11-29 11:47] LABS: POC Glucose,Bedside 155 (70-110)
--- NOTE | 2020-11-29 15:36 | HMH.DCSUM ---
General - General Admission date:: 11/28/20 Discharge date: 11/29/20 HPI HPI: pt presents to the ed -pt has episodes of chest pain and has nausea and vomiting -scription of Symptoms (Recalled from ER Triage Doc. by RN): TO ED PER [facility] [facility] WITH C/O NAUSEA, VOMITING, DIARRHEA X 1 WEEK, STATES TODAY WOKE UP WITH CHEST PRESSURE RADIATING MADELYN. ARMS C/O SOB, COUGH. PT STATES UNABLE TO KEEP MEDS DOWN. PT WITH HX OF DM WITH AMPUTATIONS TOES RT FOOT. PT STATES CURRENTLY TAKING ANTIBIOTICS AND HAS BEEN ON ANTIBIOTICS SINCE AUGUST . PT DENIES FEVER, CHILLS, ABD PAIN Multiple complaints. States he has not been able to hold anything down since Wednesday 3 days ago. Is having vomiting and diarrhea. Last episode this morning. Has not noted blood in his diarrhea. No fever. No abdominal pain. He has diabetes and has a blood glucose monitor device on his abdomen, but says that it is due for replacement and he has not yet learned how to replace it. Therefore does not know what his blood sugar has been running. He also complains of has episodic chest pain. last episode this morning, lasted 1/2-hour. States he has been having chest pain off and on for a while, it has not stopped since getting 3 stents placed August 08. He is not currently having chest pain. Also states that he has COPD and has been having increasing shortness of breath recently. Denies getting any treatment for COPD: He is not on oxygen, nebulizer treatments, inhalers, or pills for COPD. He continues to smoke, but has cut down. Had amputation of his distal right foot a couple of months ago. Had amputation of his distal right foot couple of months ago. Says they initially amputated his great toe, then took off the distal aspect of the foot because it was not healing. pt was admitted for treatment and eval Hospital Course Hospital Course: pt has improved while in the hospital with dec gi sx - pt was seen by podiatry and wound clinic -[facility] TMA wound dehiscence, DM foot infection, PAD: 11/28/20, labs: wbc 14.8, esr 53, crp 0.9, glucose 199, creatinine 0.8, gfr 100 11/29/20, bedside right amp wound culture: pending Right foot x-rays 3 views: pending Report FINDINGS: There has been a transmetatarsal amputation. Surgical clips are present at the amputation stump. Surgical drain is been removed. At the amputation site at the 1st metatarsal there is a lucent area laterally not readily apparent on the previous exam possibly due to the patient's positioning. Continued follow-up suggested to exclude a developing area of bony destruction. This area measures approximately 3 mm. Study is otherwise unremarkable. IMPRESSION: Status post transmetatarsal amputation. A nonspecific lucent areas present at the amputation site involving the lateral aspect of the 1st metatarsal and could be related to an area of bony erosive change from osteomyelitis. Please correlate with clinical parameters and follow-up. Sutures and sydnee are clean, dry and intact to the incision site. Several sutures were removed from the incision and posterior Achilles AZEEM site. Skin not fully healed. Wound dehiscence to the TMA site. Patient has been seeing wound care. Utilizing a 15 blade and forceps sutures were removed and nonviable fibrotic slough and debris was sharply excisionally debrided from the wound dehiscence site. Post debridement see skin section for measurements. There was some serosanguineous drainage, wound culture taken. A betadine soaked gauze, dry 4x4's, joseph and Mac were placed to the foot. Patient is to keep this dressing clean, dry, and intact until follow-up with wound care Wednesday. He was given specific instructions on how to do the Betadine dressing change. If the dressing gets wet, patient will need to change immediately. Continue partial weight bearing. Educated the patient he must wear the fracture boot and use a walker or crutches. I explained the more tension and weight that on the foot, greater chance
== END 2020-11-29 17:30 | disposition home or self-care (01) ==
LOC: ER 08:49 → 2ND 09:57
PROVIDERS: Internal Medicine; Admitting Provider Emergency Medicine; Emergency Provider Emergency Medicine; PCP Emergency Medicine; Visit Provider Emergency Medicine
DX: I25.118 Atherosclerotic heart disease of native coronary artery with other forms of angina pectoris (principal); E78.5 Hyperlipidemia, unspecified; I10 Essential (primary) hypertension; I70.235 Atherosclerosis of native arteries of right leg with ulceration of other part of foot; R06.00 Dyspnea, unspecified; Z72.0 Tobacco use; E11.52 Type 2 diabetes mellitus with diabetic peripheral angiopathy with gangrene; E11.628 Type 2 diabetes mellitus with other skin complications; Z89.431 Acquired absence of right foot; K52.9 Noninfective gastroenteritis and colitis, unspecified; Z79.84 Long term (current) use of oral hypoglycemic drugs; Z79.01 Long term (current) use of anticoagulants; Z88.0 Allergy status to penicillin; Z95.820 Peripheral vascular angioplasty status with implants and grafts; Z95.5 Presence of coronary angioplasty implant and graft; T87.81 Dehiscence of amputation stump; E11.621 Type 2 diabetes mellitus with foot ulcer; E11.65 Type 2 diabetes mellitus with hyperglycemia
CPT/HCPCS: 11042; 36246; 36248; 36415; 71045; 73630; 75625; 75716; 80048; 80076; 82009; 82803; 82962; 84484; 85025; 85651; 86140; 87070; 87077; 87186; 87205; 87581; 87633; 87798; 93005; 93458; 96365; 96372; 96376; 99152; 99153; 99284; C1725; C1769; G0378; J1335; J1644; J2405; Q9966

== ENCOUNTER → 2020-12-09 09:39 | Outpatient (CLI) | payer OTHER, SELFPAY ==
[2020-12-09 10:10] LABS: Basophils # 0.1 K/mm3 (0-0.2); Basophils % 1.3 % (0.1-2.0); Eosinophils # 0.6 K/mm3 (0.0-0.4); Eosinophils % 5.5 % (0.1-12.0); Hematocrit 42.2 % (42.0-52.0); Hemoglobin 13.4 g/dL (14.1-18.0); Lymphocytes # 2.8 K/mm3 (0.7-4.5); Mean Corpuscular HGB Conc 31.9 g/dL (31.8-35.4); Mean Platelet Volume 7.7 fl (7.4-10.4); Monocytes # 0.5 K/mm3 (0.1-1.0); Monocytes % 4.7 % (1.7-9.3); Neutrophils % 63.6 % (37.0-80.0); Platelet Count 343 K/mm3 (142-424); Red Blood Count 4.64 M/mm3 (4.60-6.20); White Blood Count 11.1 K/mm3 (4.8-10.8)
[2020-12-09 10:39] LABS: Coronavirus 19 IgG Antibody Negative (Negative); Coronavirus 19 IgM Antibody Negative (Negative)
[2020-12-09 10:42] LABS: Alanine Aminotransferase 29 U/L (12-78); Albumin Level 3.8 g/dl (3.5-5.0); Albumin/Globulin Ratio 1.4 (1.1-1.8); Alkaline Phosphatase 125 U/L (38-126); Anion Gap 9.9 mEq/L (5-15); Aspartate Amino Transferase 22 U/L (17-59); Bilirubin,Total 0.2 mg/dl (0.2-1.3); Blood Urea Nitrogen 19 mg/dl (9-20); Calcium 9.9 mg/dl (8.4-10.2); Carbon Dioxide 30 mmol/L (22.0-30.0); Chloride 98 mmol/L (98-107); Estimated Glomerular Filt Rate 100 ml/min (>60); GFR (African American) 121 ML/MIN (>60); Globulin 2.7 g/dL (1.3-3.2); Potassium 4.9 mmoL/L (3.5-5.1); Sodium 133 mmol/L (136-145); Total Protein,Serum 6.5 g/dl (6.3-8.2)
[2020-12-09 10:43] LABS: Erythrocyte Sedimentation Rate 39 mm/hr (0-20)
[2020-12-09 10:44] LABS: Glucose 540 mg/dl (74-100)
[2020-12-09 10:48] LABS: C-Reactive Protein 0.4 mg/L (0-4)
== END ==
PROVIDERS: Visit Provider Podiatrist
DX: M86.172 Other acute osteomyelitis, left ankle and foot (principal); Z51.89 Encounter for other specified aftercare
CPT/HCPCS: 36415; 80053; 83036; 85025; 85651; 86140; 86328; 87070; 87077; 87186; 87205

== ENCOUNTER 2020-12-09 10:00 | Outpatient (RCR) | payer OTHER, SELFPAY | END 2020-12-09 10:05 | disposition home or self-care (01) | LOC: PT 10:00 | PROVIDERS: PCP Emergency Medicine; Visit Provider Podiatrist | DX: L97.519 Non-pressure chronic ulcer of other part of right foot with unspecified severity (principal); I96 Gangrene, not elsewhere classified | CPT/HCPCS: 97162; 97597; 97598 ==

== ENCOUNTER 2020-12-11 09:25 | Day surgery (SDC) | payer OTHER, SELFPAY ==
[2020-12-11] VITALS (15 sets, daily range): BP systolic 127–180; BP diastolic 70–114; PULSE 83–108; RESP 12–20; TEMP 36.3–43; O2SAT 95–99; BMI 21.5
--- NOTE | 2020-12-11 10:16 | SUR.PREOP ---
1000: Will Rose CRNA notified of pts. glucose of 422. States to leave it untreated at this time.
[2020-12-11 10:17] LABS: POC Glucose,Bedside 442 (70-110)
--- NOTE | 2020-12-11 13:30 | XR_ITS ---
PROCEDURE: XR FOOT RT MIN 3V CLINICAL INDICATION: Post op amp COMPARISON: CR XR FOOT RT 2V from 09/13/2020 CR XR FOOT RT MIN 3V from 10/16/2020 CR XR FOOT RT 2V from 10/16/2020 CR XR FOOT RT MIN 3V from 11/29/2020 FINDINGS: There has been interval extension the amputation now at the distal tarsal region with antibiotic beads present. Amputation site also appears to include the distal aspect of the mid cuneiform. A drain is in place medially curving around the amputation stump. IMPRESSION: Extension of amputation now at distal tarsal region as described above. Dictated by: Vince Miranda MD 12/11/2020 17:01 Vince Miranda MD in [place] 12/11/2020 17:01
--- NOTE | 2020-12-11 13:39 | P.PN_ITS ---
[facility] Anesthesia Checklist - Structural Data Admitted From: Home Planned Operative Procedure/s: r foot amp revision Consent for Planned Operative Procedure(s) Verified: Yes - Additional verifications Anesthesia Reactions: No Hx Blood Transfusions: No Blood Transfusion Reaction: No - Airway Assessment C-Spine Mobility Assessed: Yes TMJ Mobility Assessed: Yes Dentition: Edentulous - Neurological Assessment Level of Consciousness: Awake, Alert, Appropriate - Anesthesia Plan Anesthesia Risk discussed: Yes Anesthesia Plan: Verified ASA Class: III Anesthesia Type: General [facility] History I have reviewed the patient's past medical history: Yes Medical History: Reports:: Chronic Obstructive Pulmonary Disease (COPD), Coronary Artery Disease, Diabetes Mellitus Type 2, Hyperlipidemia, Hypertension, Myocardial Infarction Denies:: Cancer, Diabetes Mellitus Type 1, Internal Pacemaker, MRSA, Seizures *Have you ever received a pneumonia vaccine?: No *Have you received a flu vaccine this season?: No Other Medical History: Denies: Blood Transfusion Reaction Anesthesia experience/problems:: none Other Surgeries: Yes: Cardiac Catheterization, Cardiac Surgery, Cholecystectomy, Coronary Stent, EGD, Other (RT foot partial amputation). No: Pacemaker Amputation: Yes Fractures: Yes (knee) - *Social History Last grade of school completed: High school graduate Smoking Status: Current every day smoker Tobacco Type: cigarettes # Packs/Day (cigarettes): 1 Alcohol Intake: never Alcohol Intake Frequency:: holidays/special occasions only Substance Use Type: denies use *Occupational Status:: unemployed Housing: house Household Members: spouse, children *Travel in the last 8 weeks: None Family Hx:: No significant family history
--- NOTE | 2020-12-11 14:00 | HMH.ANESI ---
[facility] Anesthesia Record Part I Intake, IV Amount: 1,000 Estimated blood loss (mL): 0 Urine output (mL): 0 Blood Pressure: 127/70 SaO2: 98 Pulse Rate: 88 Respiratory Rate: 12 Temperature: 97.8 F Patient is:: Awake, Stable Stable to PACU at:: 14:00
[2020-12-11 14:11] LABS: POC Glucose,Bedside 383 (70-110)
--- NOTE | 2020-12-11 14:11 | HMH.OPNOTE ---
Date of procedure: 12/11/20 Pre-op Diagnosis:: 1. Right foot osteomyelitis 2. Right diabetic foot infection 3. Right foot gangrene 4. PAD Post-op Diagnosis:: Same Procedure performed:: 1. Right tarsometatarsal (LisFranc) disarticulation/amputation 2. Right foot irrigation and debridement of non-viable soft tissue and bone 3. Application of antibiotic beads 4. Application of RONN drain 5. Removal of sutures/sydnee Surgeon:: Jacqui Hernandez DPM SHEEP CLIPPER:: Yoni Rose Anesthesia: GETA Estimated blood loss (mL): 15 Clinical Note:: Patient is a noncompliant 55-year-old uncontrolled diabetic with peripheral arterial disease who had surgery on 10/16/20, s/p right transmetatarsal amputation, tendo achilles lengthening, foot irrigation and debridement. Previous surgery on 10/16/20, intra-op specimens: Right hallux/1st metatarsal bone culture: Pantoea agglomerans, Enterobacter cloacae. Right 2-3rd metatarsals bone culture: Pantoea agglomerans, Enterobacter cloacae. Right distal toes/TMA pathology: Skin and subcutaneous tissue with marked acute and chronic inflammation and gangrenous necrosis, extends to surgical margin. Underlying bone, negative for acute osteomyelitis. Right foot metatarsals bone pathology: Fragments of bone, negative for acute osteomyelitis. 10/29/20, right amp wound culture: Enterobacter cloacae. 11/29/20, CATH: Right common iliac artery has a proximal to distal tubular 30% stenosis. The right internal iliac artery is widely patent. The right external iliac artery is widely patent with mild atheromatous plaque which extends into a widely patent right femoral artery with mild 20% stenosis. The right profunda femoris artery is normal. The right superficial femoral artery has a proximal eccentric 40% stenosis and is open throughout its entire proximal and mid segment which extends into moderate to large caliber popliteal artery which has concentric 40% stenosis. The anterior tibialis artery is proximally occluded while the posterior tibialis artery is subtotally occluded in its proximal segment. A large peroneal artery is patent throughout its entire course and supplies the distal calf. It then branches and reconstitutes the posterior tibial artery and anterior tibialis artery into the dorsalis pedis artery and scantly supplies the right foot. There is small vessel diffuse vasculopathy distal to the distal tibial bone. The left common iliac artery is widely patent with mild atheromatous plaque while the left internal iliac artery is patent in the left external iliac artery has a proximal 20 and distal 40% stenosis as it turns into the left common femoral artery which continues with a 40% eccentric stenosis. The left profunda femoris artery is normal. The left superficial femoral artery has a proximal eccentric 30% stenosis with a mid vessel concentric 70 to 80% stenosis but is patent with excellent flow through Damian's canal and into a large caliber popliteal artery which has diffuse 30% disease with a focal 50% concentric stenosis at the proximal tibial plate. The vessel then branches into the left anterior tibialis artery which is severely diseased in the proximal segment and essentially subtotally occluded however does have antegrade flow into the left foot. The left peroneal artery is patent and has small vessel vasculopathy in the distal segments. The left posterior tibialis artery is proximally occluded and then reconstitutes from a collateral from the peroneal artery as well as some collaterals from the posterior tibial artery itself and then scantly supplies the left foot. Distal to the distal tibial plate all vascularity in the left foot is small diffusely and severely diseased with severe vasculopathy. IMPRESSION: Coronary disease as described above. Patient does have right coronary artery disease which is amenable to stenting however given the hyperdynamic ventricle I believe patient's angina pectoris stems from hypertensive heart disease. Elevated LVEDP consis
--- NOTE | 2020-12-11 14:42 | SUR.PHASEI ---
blood sugar 383 in pacu- no new orders per anesthesia or surgeon
--- NOTE | 2020-12-12 09:51 | P.PN_ITS ---
[facility] Anesthesia Record Part II Discharge Time: 14:40 Destination: Surgical Day Care (OP Surgery) PACU nurse assessment reviewed?: Yes Patient Condition:: Good Anesthesia Complications:: None Swallowing reflex intact?: Yes Cyanosis?: No Blood Pressure: 180/95 Pulse Rate: 83 Temperature: 98 F Mental Status: Alert & Oriented Pain level:: 8 Nausea and/or vomitting:: None Intake, IV Amount: 0
[2020-12-12 09:59] VITALS: BP 180/95; PULSE 83; TEMP 36.6
== END 2020-12-11 15:40 | disposition home or self-care (01) ==
LOC: OR 09:26
PROVIDERS: PCP Emergency Medicine; Visit Provider Podiatrist
PROC: (CPT 28805; principal; 2020-12-11 11:00)
DX: I96 Gangrene, not elsewhere classified (principal); E11.621 Type 2 diabetes mellitus with foot ulcer; M86.171 Other acute osteomyelitis, right ankle and foot; M86.671 Other chronic osteomyelitis, right ankle and foot; E11.52 Type 2 diabetes mellitus with diabetic peripheral angiopathy with gangrene; E11.65 Type 2 diabetes mellitus with hyperglycemia; E11.69 Type 2 diabetes mellitus with other specified complication; I10 Essential (primary) hypertension; B95.2 Enterococcus as the cause of diseases classified elsewhere; L97.514 Non-pressure chronic ulcer of other part of right foot with necrosis of bone; I70.235 Atherosclerosis of native arteries of right leg with ulceration of other part of foot; T87.81 Dehiscence of amputation stump; J44.9 Chronic obstructive pulmonary disease, unspecified; Z79.84 Long term (current) use of oral hypoglycemic drugs; Z79.01 Long term (current) use of anticoagulants
CPT/HCPCS: 28805; 11043; 73630; 82962; 87070; 87075; 87077; 87186; 87205; 96374; C1713; J1335; J2405; J3370

== ENCOUNTER → 2020-12-19 16:57 | Outpatient (CLI) | payer OTHER, SELFPAY | PROVIDERS: Visit Provider Podiatrist | DX: Z98.890 Other specified postprocedural states (principal) | CPT/HCPCS: 87070; 87077; 87186; 87205 ==

== ENCOUNTER 2020-12-20 09:45 | Outpatient (CLI) | payer OTHER, SELFPAY ==
[2020-12-20 10:30] VITALS: BMI 20.7
--- NOTE | 2020-12-20 10:30 | XR_ITS ---
PROCEDURE: XR CHEST PORTABLE PICC PLAC CLINICAL HISTORY: PICC line placement COMPARISON: CR CXR1VP XR chest portable from 11/29/[address] chest wo con from 11/29/2018 CR XR CHEST PORTABLE from 08/14/2020 CR XR CHEST PORTABLE from 11/28/2020 FINDINGS: Left subclavian PICC line with its tip overlying the SVC is noted. No lobar consolidation, pleural effusions or pneumothorax. The cardiac size and central pulmonary vasculature within normal limits. Calcified left hilar lymph nodes. Few calcified granulomas. Minor degenerative changes of the visualized thoracic spine. IMPRESSION: No lobar consolidation, pleural effusions or pneumothorax. Dictated by: Kaylynn Philippe 12/20/2020 10:44 Kaylynn Philippe in [place] 12/20/2020 10:44
[2020-12-20 12:00] VITALS: BP 131/112; PULSE 98; RESP 20; TEMP 36.9; O2SAT 100
[2020-12-20 12:30] VITALS: BP 131/78; PULSE 60; RESP 20; TEMP 37.1; O2SAT 95
== END 2020-12-20 12:30 | disposition home or self-care (01) ==
LOC: INF 09:50
PROVIDERS: Visit Provider Podiatrist
DX: M86.171 Other acute osteomyelitis, right ankle and foot (principal)
CPT/HCPCS: 71045; 96365; C1751; J0878

== ENCOUNTER → 2020-12-23 13:00 | Outpatient (CLI) | payer OTHER, SELFPAY ==
[2020-12-23 13:24] LABS: Basophils # 0.1 K/mm3 (0-0.2); Basophils % 0.8 % (0.1-2.0); Eosinophils # 0.3 K/mm3 (0.0-0.4); Eosinophils % 3.2 % (0.1-12.0); Hematocrit 30.6 % (42.0-52.0); Hemoglobin 9.4 g/dL (14.1-18.0); Lymphocytes # 1.6 K/mm3 (0.7-4.5); Lymphocytes % 15.1 % (10-50); Mean Corpuscular HGB Conc 30.6 g/dL (31.8-35.4); Mean Corpuscular Hemoglobin 27.4 pg (27.0-31.2); Mean Corpuscular Volume 89.5 fl (80-94); Monocytes # 0.7 K/mm3 (0.1-1.0); Monocytes % 6.8 % (1.7-9.3); Neutrophils # 7.9 K/mm3 (1.8-7.8); Neutrophils % 74.2 % (37.0-80.0); Platelet Count 428 K/mm3 (142-424); Red Blood Count 3.41 M/mm3 (4.60-6.20); Red Cell Distribution Width 13.4 % (11.5-17.5); White Blood Count 10.7 K/mm3 (4.8-10.8)
[2020-12-23 13:41] LABS: Alanine Aminotransferase 12 U/L (12-78); Albumin Level 2.6 g/dl (3.5-5.0); Alkaline Phosphatase 109 U/L (38-126); Anion Gap 8.7 mEq/L (5-15); Aspartate Amino Transferase 14 U/L (17-59); Bilirubin,Total 0.2 mg/dl (0.2-1.3); Blood Urea Nitrogen 12 mg/dl (9-20); Calcium 8.4 mg/dl (8.4-10.2); Carbon Dioxide 27 mmol/L (22.0-30.0); Chloride 101 mmol/L (98-107); Creatine Kinase 38 U/L (55-170); Estimated Glomerular Filt Rate 87 ml/min (>60); GFR (African American) 106 ML/MIN (>60); Globulin 2.5 g/dL (1.3-3.2); Glucose 366 mg/dl (74-100); Potassium 3.7 mmoL/L (3.5-5.1); Sodium 133 mmol/L (136-145); Total Protein,Serum 5.1 g/dl (6.3-8.2)
[2020-12-23 13:46] LABS: C-Reactive Protein 17.2 mg/L (0-4)
[2020-12-23 14:43] LABS: Erythrocyte Sedimentation Rate > 140 mm/hr (0-20)
== END ==
PROVIDERS: Visit Provider Podiatrist
DX: M86.171 Other acute osteomyelitis, right ankle and foot (principal)
CPT/HCPCS: 80053; 82550; 85025; 85651; 86140

== ENCOUNTER 2020-12-24 18:18 | Emergency (ER) | payer OTHER, SELFPAY ==
--- NOTE | 2020-12-24 18:09 | ECG_ITS ---
APPROVED REPORT Exam: Resting ECG HR:103 bpm ECG Measurements Heart Rate 103 AXES TN 124 P 61 QRSd 86 QRS -51 QT 354 T 44 QTc 463 Conclusion Sinus tachycardia Left axis deviation Abnormal ECG Electronically signed by : Parveen Rosales, 12/27/2020 09:08:35
[2020-12-24 18:21] VITALS: BP 162/92; PULSE 102; RESP 14; TEMP 36.6; O2SAT 100; BMI 21.5
--- NOTE | 2020-12-24 18:21 | XR_ITS ---
PROCEDURE INFORMATION: Exam: XR Chest Exam date and time: 12/24/2020 6:21 PM Age: 55 years old Clinical indication: Shortness of breath; Prior surgery; Surgery date: 6+ months; Surgery type: Stents; Patient HX: Soa---. Emphysema; Additional info: Short of breath TECHNIQUE: Imaging protocol: XR of the chest. Views: 1 view. COMPARISON: CR XR CHEST PORTABLE PICC PLAC 12/20/2020 10:35 AM FINDINGS: Tubes, catheters and devices: Left-sided subclavian PICC line tip in the SVC. Lungs: Emphysema. No consolidation. Pleural spaces: Unremarkable. No pleural effusion. No pneumothorax. Heart/Mediastinum: Unremarkable. No cardiomegaly. Bones/joints: Unremarkable. IMPRESSION: No acute findings.
--- NOTE | 2020-12-24 18:22 | HMH.EDGENADL ---
ED Disposition Clinical Impression: Hyperglycemia Post-operative infection Qualifiers: Encounter type: subsequent encounter Postoperative infection type: unspecified type Qualified Code(s): T81.40XD - Infection following a procedure, unspecified, subsequent encounter Disposition: Home, Self-Care Condition on Discharge: Fair Instructions: DI for Hyperglycemia -- Adult, How to Check Your Blood Glucose Additional Instructions: You have been evaluated for elevated blood glucose. Please continue taking Metformin. Follow a low-carb, low sugar diet. Continue I V daptomycin as prescribed. Follow-up with Dr. Hernandez as scheduled. Call Dr. Dacosta's office in the morning for follow-up appointment. Return to the emergency department for any new or worsening symptoms, vomiting, confusion, shortness of breath, other concerns. Referrals: Yash Dacosta MD [Primary Care Provider] - Time of Disposition: 20:32 - Critical Care Critical Care Time: No Attestation: On , the high probability of a clinically significant, sudden or life threatening deterioration of the following system(s) required my full and direct attention, intervention and personal management. The time I documented below is in addition to time spent performing reported procedures but includes the following listed in this critical care notation. Medical Decision Making - Medical Records Medical records reviewed: Yes: I reviewed the patient's medical records. - Anthony Inquiry Pt receiving controlled substance: No Vital Signs: 12/24/20 18:21 12/24/20 19:32 Temperature 97.9 F 100 F H Temperature Source Oral Pulse Rate 94 H Pulse Rate [Right] 102 H Respiratory Rate 14 Blood Pressure 163/89 H Blood Pressure [Right Arm] 162/92 H Blood Pressure Mean [Right Arm] 115 Blood Pressure Source [Right Arm] Automatic Cuff Blood Pressure Position [Right Arm] Sitting 02 Sat by Pulse Oximetry 100 100 Oxygen Delivery Method Room Air - Lab Data Lab Results 12/24/20 18:21: WBC 11.7 H, RBC 3.66 L, Hgb 10.1 L, Hct 31.1 L, MCV 85.0, MCH 27.5, MCHC 32.4, RDW 13.6, Plt Count 402, MPV 7.2 L, Neut % (Auto) 77.3, Lymph % (Auto) 14.6, [place] % (Auto) 5.3, Eos % (Auto) 2.3, Baso % (Auto) 0.5, Neut # (Auto) 9.0 H, Lymph # (Auto) 1.7, [place] # (Auto) 0.6, Eos # (Auto) 0.3, Baso # (Auto) 0.1 12/24/20 18:21: Sodium 132 L, Potassium 3.3 L, Chloride 98, Carbon Dioxide 25, Anion Gap 12.3, BUN 11, Creatinine 0.80, Estimated Creat Clear 99, Estimated GFR 100, Est GFR ( Amer) 121, Glucose 425 H*, Calcium 8.7, Phosphorus 1.7 L, Magnesium 1.2 L, Total Bilirubin 0.4, AST 17, ALT 15, Alkaline Phosphatase 110, Total Protein 6.1 L, Albumin 3.1 L D, Globulin 3.0, Albumin/Globulin Ratio 1.0 L 12/24/20 18:21: Acetone Level None detected 12/24/20 18:21: Lactate 2.0 12/24/20 18:21: C-Reactive Protein 21.1 H, Procalcitonin 0.227 12/24/20 18:21: Troponin I < 0.01 12/24/20 18:31: Chlamy pneumoniae PCR Not detected, Adenovirus (PCR) Not detected, B. pertussis DNA (PCR) Not detected, Coronavirus OC43 (PCR) Not detected, Coronavirus HKU1 (PCR) Not detected, Coronavirus 229E (PCR) Not detected, SARS-CoV-2 (PCR) Not detected, Coronavirus NL63 (PCR) Not detected, Human Metapneumovir PCR Not detected, Influenza A (H1) PCR Not detected, Influ A (H1N1/09) PCR Not detected, Influenza A (H3) PCR Not detected, Influenza Type A (PCR) Not detected, Influenza Type B (PCR) Not detected, M. pneumoniae (PCR) Not detected, Parainfluenza 1 (PCR) Not detected, Parainfluenza 2 (PCR) Not detected, Parainfluenza 3 (PCR) Not detected, Parainfluenza 4 (PCR) Not detected, RSV (PCR) Not detected, Entero/Rhino (PCR) Not detected 12/24/20 19:17: VBG pH 7.47 H, VBG pCO2 41.1, VBG pO2 34.9, VBG HCO3 29.2, VBG Total CO2 30.4 H, VBG O2 Saturation 75.1 H, VBG Base Excess 5.5 H 12/24/20 20:13: POC Glucose 374 H* Result diagrams: 12/24/20 18:21 12/24/20 18:21 Orders (Tests/Meds): ED MEDICATIONS Generic Name Dose Route Start Last A
--- NOTE | 2020-12-24 18:26 | PC.NURSE ---
Access pt port and bruna labs.
[2020-12-24 18:31] LABS: Basophils # 0.1 K/mm3 (0-0.2); Basophils % 0.5 % (0.1-2.0); Eosinophils # 0.3 K/mm3 (0.0-0.4); Eosinophils % 2.3 % (0.1-12.0); Hematocrit 31.1 % (42.0-52.0); Hemoglobin 10.1 g/dL (14.1-18.0); Lymphocytes # 1.7 K/mm3 (0.7-4.5); Lymphocytes % 14.6 % (10-50); Mean Corpuscular HGB Conc 32.4 g/dL (31.8-35.4); Mean Corpuscular Hemoglobin 27.5 pg (27.0-31.2); Mean Platelet Volume 7.2 fl (7.4-10.4); Monocytes # 0.6 K/mm3 (0.1-1.0); Monocytes % 5.3 % (1.7-9.3); Neutrophils % 77.3 % (37.0-80.0); Platelet Count 402 K/mm3 (142-424); Red Blood Count 3.66 M/mm3 (4.60-6.20); Red Cell Distribution Width 13.6 % (11.5-17.5); White Blood Count 11.7 K/mm3 (4.8-10.8)
[2020-12-24 18:36] LABS: Adenovirus,PCR Not Detected (NotDetected); Bordetella Pertussis Not Detected (NotDetected); Chlamydophila Pneumoniae, PCR Not Detected (NotDetected); Coronavirus 19, PCR Not Detected (NotDetected); Coronavirus 229E Not Detected (NotDetected); Coronavirus NL63 Not Detected (NotDetected); Coronavirus OC43 Not Detected (NotDetected); Coronovirus HKU1,PCR Not Detected (NotDetected); Human Metapneumovirus Not Detected (NotDetected); Influenza A, PCR Not Detected (NotDetected); Influenza AH1, 2009 Not Detected (NotDetected); Influenza AH1, PCR Not Detected (NotDetected); Influenza AH3,PCR Not Detected (NotDetected); Influenza B, PCR Not Detected (NotDetected); Mycoplasma Pneumoniae, PCR Not Detected (NotDetected); Parainfluenza 1, PCR Not Detected (NotDetected); Parainfluenza 2, PCR Not Detected (NotDetected); Parainfluenza 3, PCR Not Detected (NotDetected); Parainfluenza 4, PCR Not Detected (NotDetected); Respiratory Syncytial Virus Not Detected (NotDetected); Rhinovirus/Enterovirus Not Detected (NotDetected)
[2020-12-24 18:38] LABS: Alanine Aminotransferase 15 U/L (12-78); Albumin Level 3.1 g/dl (3.5-5.0); Alkaline Phosphatase 110 U/L (38-126); Anion Gap 12.3 mEq/L (5-15); Aspartate Amino Transferase 17 U/L (17-59); Bilirubin,Total 0.4 mg/dl (0.2-1.3); Blood Urea Nitrogen 11 mg/dl (9-20); Calcium 8.7 mg/dl (8.4-10.2); Carbon Dioxide 25 mmol/L (22.0-30.0); Chloride 98 mmol/L (98-107); Creatinine Clearance Estimated 99 mL/min (50-200); Estimated Glomerular Filt Rate 100 ml/min (>60); GFR (African American) 121 ML/MIN (>60); Magnesium 1.2 mg/dl (1.6-2.3); Potassium 3.3 mmoL/L (3.5-5.1); Sodium 132 mmol/L (136-145); Total Protein,Serum 6.1 g/dl (6.3-8.2)
[2020-12-24 18:43] LABS: Acetone, Serum (Rapid) None Detected (None Detect)
[2020-12-24 18:49] LABS: Glucose 425 mg/dl (74-100); Phosphorous 1.7 mg/dl (2.5-4.5)
--- NOTE | 2020-12-24 18:49 | PC.NURSE ---
critical lab value glucose given to Andrew Langford. 421
[2020-12-24 18:56] LABS: C-Reactive Protein 21.1 mg/L (0-4)
[2020-12-24 19:00] VITALS: BP 145/91; PULSE 96; O2SAT 100
[2020-12-24 19:10] LABS: Procalcitonin 0.227 ng/mL (0.0-2.0)
[2020-12-24 19:17] LABS: Troponin I < 0.01 ng/ml (0.00-0.034)
[2020-12-24 19:19] LABS: VBG Base Excess 5.5 mmol/L (-2.4-2.3); VBG HCO3 29.2 mmol/L (23-30); VBG Oxygen Saturation 75.1 % (50-70); VBG PCO2 41.1 mmol/L (35-51); VBG PH 7.47 mmol/L (7.31-7.41); VBG PO2 34.9 mmol/L (28-40); VBG Total CO2 30.4 mmol/L (23-27)
[2020-12-24 19:32] VITALS: BP 163/89; PULSE 94; TEMP 37.7; O2SAT 100
[2020-12-24 20:00] VITALS: BP 180/93; PULSE 92; O2SAT 100
--- NOTE | 2020-12-24 20:12 | PC.NURSE ---
Dr. Cantu pageandreea
--- NOTE | 2020-12-24 20:15 | PC.NURSE ---
finger stick 374, Dr. Acosta aware
[2020-12-24 20:21] LABS: POC Glucose,Bedside 374 (70-110)
[2020-12-24 20:30] VITALS: BP 155/75; PULSE 90; O2SAT 99
[2020-12-24 20:58] VITALS: BP 150/74; PULSE 92; RESP 20; TEMP 36.7; O2SAT 99
== END 2020-12-24 21:02 | disposition home or self-care (01) ==
PROVIDERS: Emergency Provider Emergency Medicine; PCP Emergency Medicine
DX: T81.40XD Infection following a procedure, unspecified, subsequent encounter (principal); M86.671 Other chronic osteomyelitis, right ankle and foot; E11.65 Type 2 diabetes mellitus with hyperglycemia; I10 Essential (primary) hypertension; E78.5 Hyperlipidemia, unspecified; I25.10 Atherosclerotic heart disease of native coronary artery without angina pectoris; J44.9 Chronic obstructive pulmonary disease, unspecified; Z79.899 Other long term (current) drug therapy; Z88.0 Allergy status to penicillin
CPT/HCPCS: 71045; 80053; 82009; 82803; 82962; 83605; 83735; 84100; 84145; 84484; 85025; 86140; 87040; 87581; 87633; 87798; 93005; 96365; 99283

== ENCOUNTER 2020-12-30 10:55 | Outpatient (CLI) | payer OTHER, SELFPAY ==
[2020-12-30 11:00] VITALS: BMI 21.5
[2020-12-30 11:36] LABS: Basophils # 0.1 K/mm3 (0-0.2); Basophils % 0.6 % (0.1-2.0); Eosinophils # 0.4 K/mm3 (0.0-0.4); Hemoglobin 9.1 g/dL (14.1-18.0); Lymphocytes # 2.1 K/mm3 (0.7-4.5); Neutrophils # 9.8 K/mm3 (1.8-7.8)
[2020-12-30 11:39] LABS: Alanine Aminotransferase 20 U/L (12-78); Albumin/Globulin Ratio 1.1 (1.1-1.8); Alkaline Phosphatase 75 U/L (38-126); Anion Gap 9.2 mEq/L (5-15); Aspartate Amino Transferase 30 U/L (17-59); Bilirubin,Total 0.2 mg/dl (0.2-1.3); Blood Urea Nitrogen 16 mg/dl (9-20); Calcium 8.2 mg/dl (8.4-10.2); Carbon Dioxide 28 mmol/L (22.0-30.0); Chloride 101 mmol/L (98-107); Creatine Kinase 269 U/L (55-170); Creatinine Clearance Estimated 88 mL/min (50-200); Estimated Glomerular Filt Rate 87 ml/min (>60); GFR (African American) 106 ML/MIN (>60); Globulin 2.8 g/dL (1.3-3.2); Glucose 267 mg/dl (74-100); Potassium 3.2 mmoL/L (3.5-5.1); Sodium 135 mmol/L (136-145); Total Protein,Serum 5.8 g/dl (6.3-8.2)
[2020-12-30 11:44] LABS: Eosinophils % 2.9 % (0.1-12.0); Hematocrit 28.3 % (42.0-52.0); Lymphocytes % 16.2 % (10-50); Mean Corpuscular HGB Conc 32.2 g/dL (31.8-35.4); Mean Corpuscular Volume 83.9 fl (80-94); Mean Platelet Volume 7.5 fl (7.4-10.4); Monocytes # 0.6 K/mm3 (0.1-1.0); Monocytes % 4.6 % (1.7-9.3); Neutrophils % 75.6 % (37.0-80.0); Platelet Count 398 K/mm3 (142-424); Red Blood Count 3.38 M/mm3 (4.60-6.20); Red Cell Distribution Width 13.4 % (11.5-17.5)
[2020-12-30 11:45] LABS: C-Reactive Protein 3.4 mg/L (0-4)
[2020-12-30 12:55] LABS: Erythrocyte Sedimentation Rate > 140 mm/hr (0-20)
== END 2020-12-30 11:20 | disposition home or self-care (01) ==
LOC: INF 10:56
PROVIDERS: PCP Emergency Medicine; Visit Provider Podiatrist
DX: M86.171 Other acute osteomyelitis, right ankle and foot (principal); Z48.00 Encounter for change or removal of nonsurgical wound dressing
CPT/HCPCS: 80053; 82550; 85025; 85651; 86140

== ENCOUNTER → 2021-01-03 09:44 | Outpatient (CLI) | payer OTHER, SELFPAY ==
--- NOTE | 2021-01-03 09:52 | XR_ITS ---
PROCEDURE: XR TIBIA FIBULA RT 2V CLINICAL INDICATION: RT BKA evaluation COMPARISON: No exams were available for comparison FINDINGS: The tibia and fibula appear intact and bone mineralization appears normal. The soft tissues are grossly normal, there are no abnormal calcifications seen. There appears be minimal calcification of the popliteal artery. IMPRESSION: No acute findings. Dictated by: Dr. Arsenio Pedro MD 01/03/2021 12:18 Dr. Arsenio Pedro MD in [place] 01/03/2021 12:18
== END ==
PROVIDERS: PCP Emergency Medicine; Visit Provider Orthopaedic Surgery
DX: I96 Gangrene, not elsewhere classified (principal)
CPT/HCPCS: 73590

== ENCOUNTER → 2021-01-06 17:44 | Outpatient (CLI) | payer OTHER, SELFPAY ==
[2021-01-06 18:19] LABS: Basophils # 0.1 K/mm3 (0-0.2); Basophils % 0.9 % (0.1-2.0); Eosinophils # 0.5 K/mm3 (0.0-0.4); Eosinophils % 4.6 % (0.1-12.0); Hematocrit 28.4 % (42.0-52.0); Hemoglobin 9.3 g/dL (14.1-18.0); Lymphocytes # 2.1 K/mm3 (0.7-4.5); Lymphocytes % 18.8 % (10-50); Mean Corpuscular HGB Conc 32.8 g/dL (31.8-35.4); Mean Corpuscular Hemoglobin 27.6 pg (27.0-31.2); Mean Corpuscular Volume 84.1 fl (80-94); Mean Platelet Volume 7.4 fl (7.4-10.4); Monocytes # 0.5 K/mm3 (0.1-1.0); Monocytes % 4.7 % (1.7-9.3); Neutrophils # 8.1 K/mm3 (1.8-7.8); Neutrophils % 70.9 % (37.0-80.0); Platelet Count 361 K/mm3 (142-424); Red Blood Count 3.37 M/mm3 (4.60-6.20); Red Cell Distribution Width 14.3 % (11.5-17.5); White Blood Count 11.4 K/mm3 (4.8-10.8)
[2021-01-06 18:30] LABS: Alanine Aminotransferase 33 U/L (12-78); Albumin Level 3.2 g/dl (3.5-5.0); Albumin/Globulin Ratio 1.1 (1.1-1.8); Alkaline Phosphatase 106 U/L (38-126); Anion Gap 6.4 mEq/L (5-15); Aspartate Amino Transferase 29 U/L (17-59); Bilirubin,Total 0.3 mg/dl (0.2-1.3); Blood Urea Nitrogen 20 mg/dl (9-20); Calcium 8.7 mg/dl (8.4-10.2); Carbon Dioxide 31 mmol/L (22.0-30.0); Chloride 100 mmol/L (98-107); Creatine Kinase 52 U/L (55-170); Estimated Glomerular Filt Rate 117 ml/min (>60); GFR (African American) 141 ML/MIN (>60); Glucose 287 mg/dl (74-100); Potassium 4.4 mmoL/L (3.5-5.1); Sodium 133 mmol/L (136-145); Total Protein,Serum 6.2 g/dl (6.3-8.2)
[2021-01-06 18:35] LABS: C-Reactive Protein 6.8 mg/L (0-4)
[2021-01-06 20:42] LABS: Erythrocyte Sedimentation Rate > 140 mm/hr (0-20)
== END ==
PROVIDERS: Visit Provider Podiatrist
DX: M86.171 Other acute osteomyelitis, right ankle and foot (principal)
CPT/HCPCS: 80053; 82550; 85025; 85651; 86140

== ENCOUNTER → 2021-01-14 15:04 | Outpatient (CLI) | payer OTHER, SELFPAY ==
[2021-01-14 15:06] LABS: Adenovirus F 40/41, stool Not Detected (NotDetected); Astrovirus Not Detected (NotDetected); Campylobacter Not Detected (NotDetected); Clostridium Difficile A/B, PCR Not Detected (NotDetected); Cryptosporidium Not Detected (NotDetected); Cyclospora Cayetanesis Not Detected (NotDetected); Entamoeba histolytica Not Detected (NotDetected); Enteroaggregative E coli Not Detected (NotDetected); Enteropathogenic E coli Not Detected (NotDetected); Enterotoxigenic E coli Not Detected (NotDetected); Giardia lamblia Not Detected (NotDetected); Norovirus Not Detected (NotDetected); Plesimonas Shigalloides, PCR Not Detected (NotDetected); Rotavirus A Not Detected (NotDetected); Salmonella, PCR Not Detected (NotDetected); Sapovirus Not Detected (NotDetected); Shiga-like toxin E coli Not Detected (NotDetected); Shigella Enterovasive E coli Not Detected (NotDetected); Vibrio Cholerae Not Detected (NotDetected); Vibrio, PCR Not Detected (NotDetected); Yersinia Entercolitica, PCR Not Detected (NotDetected)
[2021-01-14 18:33] LABS: Prothrombin Time 10.7 seconds (10.1-12.5)
== END ==
PROVIDERS: Visit Provider Emergency Medicine
DX: R19.7 Diarrhea, unspecified (principal); I10 Essential (primary) hypertension; E78.5 Hyperlipidemia, unspecified; E11.9 Type 2 diabetes mellitus without complications; Z79.84 Long term (current) use of oral hypoglycemic drugs; F17.210 Nicotine dependence, cigarettes, uncomplicated
CPT/HCPCS: 85610; 85730; 87507

== ENCOUNTER → 2021-01-20 14:22 | Outpatient (CLI) | payer OTHER, SELFPAY ==
[2021-01-20 14:42] LABS: Basophils # 0.1 K/mm3 (0-0.2); Basophils % 0.5 % (0.1-2.0); Eosinophils # 1.6 K/mm3 (0.0-0.4); Eosinophils % 13.5 % (0.1-12.0); Hematocrit 28.8 % (42.0-52.0); Hemoglobin 9.1 g/dL (14.1-18.0); Lymphocytes # 1.9 K/mm3 (0.7-4.5); Lymphocytes % 15.7 % (10-50); Mean Corpuscular HGB Conc 31.7 g/dL (31.8-35.4); Mean Corpuscular Hemoglobin 26.2 pg (27.0-31.2); Mean Corpuscular Volume 82.6 fl (80-94); Mean Platelet Volume 8.2 fl (7.4-10.4); Monocytes # 0.5 K/mm3 (0.1-1.0); Monocytes % 4.5 % (1.7-9.3); Neutrophils # 7.9 K/mm3 (1.8-7.8); Neutrophils % 65.8 % (37.0-80.0); Platelet Count 448 K/mm3 (142-424); Red Blood Count 3.49 M/mm3 (4.60-6.20); Red Cell Distribution Width 14.3 % (11.5-17.5)
[2021-01-20 14:47] LABS: Chloride 95 mmol/L (98-107); Potassium 4.3 mmoL/L (3.5-5.1); Sodium 129 mmol/L (136-145)
[2021-01-20 14:50] LABS: Alanine Aminotransferase 22 U/L (12-78); Albumin/Globulin Ratio 1.1 (1.1-1.8); Alkaline Phosphatase 122 U/L (38-126); Anion Gap 11.3 mEq/L (5-15); Aspartate Amino Transferase 24 U/L (17-59); Blood Urea Nitrogen 20 mg/dl (9-20); Carbon Dioxide 27 mmol/L (22.0-30.0); Estimated Glomerular Filt Rate 117 ml/min (>60); GFR (African American) 141 ML/MIN (>60); Globulin 2.7 g/dL (1.3-3.2); Total Protein,Serum 5.7 g/dl (6.3-8.2)
[2021-01-20 14:55] LABS: C-Reactive Protein 11.4 mg/L (0-4)
[2021-01-20 15:02] LABS: Bilirubin,Total 0.1 mg/dl (0.2-1.3); Glucose 559 mg/dl (74-100)
[2021-01-20 15:12] LABS: Erythrocyte Sedimentation Rate > 140 mm/hr (0-20)
[2021-01-21 10:34] LABS: Creatine Kinase 53 U/L (55-170)
== END ==
PROVIDERS: Visit Provider Podiatrist
DX: M86.171 Other acute osteomyelitis, right ankle and foot (principal)
CPT/HCPCS: 80053; 82550; 85025; 85651; 86140

== ENCOUNTER 2021-02-12 07:58 | Observation (INO) | payer OTHER, SELFPAY ==
[2021-02-12] VITALS (13 sets, daily range): BP systolic 158–191; BP diastolic 82–99; PULSE 78–92; RESP 16–19; TEMP 35.9–36.8; O2SAT 97–100; BMI 22.9; BMI 22.8
--- NOTE | 2021-02-12 | CA_ITS ---
APPROVED REPORT Exam: Pharmacologic Technologist: pranay pedroza, Ht: 5 ft 10 in Wt: 165 lbs BSA: 1.92 m2 HR: 82 bpm BP: 170/76 mmHg Rhythm: NSR, LAD, BORDERLINE CRITERIA FOR INCOMPLETE RBBB Indications: Pre-OP Medical History Medical History: HTN, Hyperlipidemia, Diabetic ??? Noninsulin Medications: Asa,,,,, Metformin,,,,, Glipizide,,,,, OxYCODONE,,,,, JaRDiance,,,,, RIvaROXABAN,,,,, Metooprolol,,,,, RYbelsus,,,,, Cardiac Risk Factors: HTN, Hyperlipidemia, Diabetes (non-insulin), FHX of CAD, Smoking Stress Test Details Test: LEXISCAN HR Resting HR: 79 bpm Max Heart Rate (APMHR): 164.909559 bpm Max HR Achieved: 100 bpm Target HR (85% APMHR): 139.189177 bpm % of APMHR: 60.98 Recovery HR: 95 bpm BP Resting BP: 170/76 mmHg Max BP: 185/87 mmHg Recovery BP: 179.0/85.0 mmHg ECG Resting ECG: NSR, LAD, BORDERLINE CRITERIA FOR INCOMPLETE RBBB Clinical Exercise duration: 04:00 min Highest Stage Achieved: Exercise capacity: 1.0 METs Stress ECG Conclusion During lexiscan pt experinced SOA, mild stomach discomfort, and BAZZI. Pt did not complain of CP. Rare PVCs noted. No ST-T significant changes. Unremarkable Lexiscan stress, myoview images reported separately. Electronically signed by : Godfrey Navarrete, 02/13/2021 09:24:00
[2021-02-12 08:11] LABS: POC Glucose,Bedside 463 (70-110)
--- NOTE | 2021-02-12 08:11 | ECG_ITS ---
APPROVED REPORT Exam: Resting ECG HR:85 bpm ECG Measurements Heart Rate 85 AXES CO 124 P 74 QRSd 98 QRS -34 QT 376 T 21 QTc 447 Conclusion Normal sinus rhythm Left axis deviation Incomplete right bundle branch block Abnormal ECG Electronically signed by : Parveen Rosales, 02/12/2021 17:40:19
[2021-02-12 08:20] LABS: Basophils # 0.1 K/mm3 (0-0.2); Eosinophils # 0.7 K/mm3 (0.0-0.4); Eosinophils % 8.9 % (0.1-12.0); Hematocrit 34.6 % (42.0-52.0); Hemoglobin 11.2 g/dL (14.1-18.0); Lymphocytes # 1.9 K/mm3 (0.7-4.5); Lymphocytes % 23.9 % (10-50); Mean Corpuscular HGB Conc 32.3 g/dL (31.8-35.4); Mean Corpuscular Hemoglobin 26.7 pg (27.0-31.2); Mean Corpuscular Volume 82.8 fl (80-94); Mean Platelet Volume 7.6 fl (7.4-10.4); Monocytes # 0.4 K/mm3 (0.1-1.0); Monocytes % 4.6 % (1.7-9.3); Neutrophils # 4.9 K/mm3 (1.8-7.8); Neutrophils % 61.6 % (37.0-80.0); Platelet Count 269 K/mm3 (142-424); Red Blood Count 4.19 M/mm3 (4.60-6.20); Red Cell Distribution Width 16.5 % (11.5-17.5)
--- NOTE | 2021-02-12 08:21 | PC.NURSE ---
Calling for records from at this time
[2021-02-12 08:28] LABS: Alanine Aminotransferase 26 U/L (12-78); Albumin Level 3.4 g/dl (3.5-5.0); Albumin/Globulin Ratio 1.1 (1.1-1.8); Alkaline Phosphatase 120 U/L (38-126); Anion Gap 10.7 mEq/L (5-15); Aspartate Amino Transferase 23 U/L (17-59); Bilirubin,Total 0.3 mg/dl (0.2-1.3); Blood Urea Nitrogen 17 mg/dl (9-20); Calcium 9.1 mg/dl (8.4-10.2); Carbon Dioxide 26 mmol/L (22.0-30.0); Chloride 104 mmol/L (98-107); Creatinine Clearance Estimated 94 mL/min (50-200); Estimated Glomerular Filt Rate 87 ml/min (>60); GFR (African American) 106 ML/MIN (>60); Globulin 3.1 g/dL (1.3-3.2); Potassium 3.7 mmoL/L (3.5-5.1); Sodium 137 mmol/L (136-145); Total Protein,Serum 6.5 g/dl (6.3-8.2)
[2021-02-12 08:32] LABS: Glucose 491 mg/dl (74-100)
--- NOTE | 2021-02-12 08:32 | PC.NURSE ---
JUWAN FROM LAB NOTIFIED ER OF A GLUCOSE OF 491. MADE AWARE
--- NOTE | 2021-02-12 09:00 | PC.NURSE ---
RESPIRATORY CALLED FOR FOR VBG
[2021-02-12 09:05] LABS: VBG Base Excess -1.5 mmol/L (-2.4-2.3); VBG Oxygen Saturation 90.2 % (50-70); VBG PCO2 44.1 mmol/L (35-51); VBG PH 7.35 mmol/L (7.31-7.41); VBG Total CO2 25.4 mmol/L (23-27)
[2021-02-12 09:15] LABS: Microscopic, Urine URINE MICROSCOPIC (MICROSCOPIC)
[2021-02-12 09:20] LABS: Appearance,Urine CLEAR (Clear); Bilirubin,Urine Negative (Negative); Blood, Urine 2+ (Negative); Color,Urine YELLOW (Yellow); Glucose,Urine (UA) 3+ (Negative); Ketones,Urine Negative (Negative); Leukocyte Esterase,Urine Negative (Negative); Nitrate,Urine Negative (Negative); PH,Urine 5.5 (5.0-8.5); Protein,Urine 3+ (Negative); Specific Gravity, Urine 1.025 (1.005-1.030); Urobilinogen,Urine 0.2 EU/dl (0.2)
[2021-02-12 09:26] LABS: Erythrocyte Sedimentation Rate 117 mm/hr (0-20)
--- NOTE | 2021-02-12 09:26 | PC.NURSE ---
CARDIOLOGY AWARE OF CONSULT ORDERED
[2021-02-12 09:39] LABS: Troponin I < 0.01 ng/ml (0.00-0.034)
--- NOTE | 2021-02-12 09:45 | PC.NURSE ---
Wound care & dressing changed to right foot.
--- NOTE | 2021-02-12 09:52 | PC.NURSE ---
Cardiology ROCKET MOTOR MECHANIC at bedside.
--- NOTE | 2021-02-12 09:56 | NM_ITS ---
APPROVED REPORT Exam: Nuclear Stress Test Indication: CAD, HTN, D.M., HYPERLIPIDEMIA, TOB USE, FM HX., C.P., SOB, SYNCOPE Patient Location: ER Stress Tech: Sadie Frank [place] Tech:Armida Espinosa, ARRT RT (R)(N)(M) Ht: 5 ft 10 in Wt: 160 lbs HR: 82 bpm BP: 170/76 mmHg BSA: 1.90 m2 BMI: 22.9 History: CAD, HTN, D.M., HYPERLIPIDEMIA, TOB USE, FM HX., C.P., SOB, SYNCOPE Procedure: Patient received a 0.4 mg of intravenous Lexiscan, resting heart rate 82 bpm, resting blood pressure 170/76 mmHg, with Lexiscan maximum heart rate achived was 99 bpm which is % of the maximum predicted heart rate and blood pressure was 150/78 mmHg. With Lexiscan, patient denied any complaint of chest pain. SOB, NAUSEA, H.A. Cardiac Stress and Resting SPECT Images: Cardiac Stress and Resting SPECT images were obtained using technetium 99m Myoview 32.3 mCi stress and 10.03 mCi at rest. EF 52% with no wall motion abnormalities There is a focal defect within the inferior waal on the stress images which shows redistribution on the rest images consistent with an area of ischemia Conclusion: EF lower normal at 52% Ishemic changes inferior wall Electronically signed by : Vince Miranda MD 02/12/2021 14:41:07
--- NOTE | 2021-02-12 10:03 | PC.NURSE ---
patient reports medication list has not changed since recent admission
--- NOTE | 2021-02-12 10:04 | PC.NURSE ---
Dr. Philippe paged for consult on patient at this time
--- NOTE | 2021-02-12 10:12 | PC.NURSE ---
Gave status update to patient , Kirstin with patient permission at this time
--- NOTE | 2021-02-12 10:13 | PC.NURSE ---
called dr jessica baptiste wanted to speak to him
--- NOTE | 2021-02-12 10:17 | HMH.CNCARD ---
History of Present Illness Consult date: 02/12/21 Requesting physician: Yash Dacosta Chief complaint: Syncope History of present illness: 55-year-old male presented to [facility] ED after syncopal episode. Patient states he was fixing breakfast when all of a sudden he fell to the ground and when he awoke EMS was shaking him. Patient states he is unsure as to what happened but thinks his blood sugar dropped. Patient is a known diabetic uncontrolled. Last A1c was greater than 14%. This is managed by his PCP. Patient denies chest pain, tightness or pressure. Patient denies shortness of breath with exertion. Patient denies palpitations or dizziness. Patient states he is unsure of the episode he had this morning, states that a few months ago he had had a similar episode. Patient does have history of coronary artery disease. Patient did undergo left heart catheterization in November 2020 with medical management. Heart catheterization revealed persistent disease to the RCA at 70% in which she had CODY in July 2020. Patient is currently on aspirin and Xarelto 2.5 twice daily due to PAD. Patient did undergo lower leg extremity angiogram for PAD. Medical management November 2020. Patient is also had recent drug coated balloon angioplasty to the right leg. Patient does currently have an infection of the right foot and ankle. Patient had been seeing podiatry due to infection. Patient has been released from that physician. Dressing is dry and intact on the right foot and ankle. It has been recommended that patient have right leg amputation below the knee due to PAD and nonhealing wound. Patient has been following up with this cardiology group and has been awaiting cardiology clearance to proceed with surgery. Patient does have history of hypertension. BP is elevated during this ED admission. History of hyperlipidemia and is on statin therapy. History of carotid artery stenosis. Last TNI was in November 2020 which revealed R ICA 20 to 49% and less than 20% of the LICA. Patient does have history of tobacco use. Patient has been advised to stop smoking due to his PAD and CAD. Patient verbalized understanding but states unwilling to stop at this time. Echocardiogram was performed in July 2020 which revealed EF 55% with no regional wall motion abnormality with grade 1 diastolic dysfunction. Mild mitral and tricuspid regurgitation noted. Serial troponins performed in the ED. Troponin x1 was negative. KG reveals normal sinus rhythm with an incomplete right bundle branch block, heart rate 85 bpm. While in the emergency room, ED physician has ordered Lexiscan Myoview to determine ischemia. Echo:Conclusion(07/28) 1. Mildly enlarged left atrium, normal left ventricular size, mild concentric left ventricular hypertrophy, visually estimated ejection fraction 55% with no regional wall motion abnormality, grade 1 diastolic dysfunction seen without tissue Doppler evidence of raise left atrial pressure. 2. Mild mitral and tricuspid regurgitation. 3. No significant pericardial effusion noted. Discussed plan of care with Dr. Navarrete. Orders and recommendations received from Dr. Navarrete. Pending on the results of the Lexiscan Myoview, medication and treatment therapies may be recommended. If Lexiscan Myoview is negative for ischemia, patient may be cleared for surgery for amputation right BKA. Please notify cardiology of any changes in patient status. Thank you for allowing cardiology to participate in the care of this patient. [facility] History I have reviewed the patient's past medical history: Yes Medical History: Reports:: Chronic Obstructive Pulmonary Disease (COPD), Coronary Artery Disease, Diabetes Mellitus Type 2, Hyperlipidemia, Hypertension, Myocardial Infarction, Peripheral Artery Disease Denies:: Cancer, Diabetes Mellitus Type 1, Internal Pacemaker, MRSA, Seizures *Have you ever received a pneumonia vaccine?: No *Have you received
--- NOTE | 2021-02-12 10:22 | HMH.EDSYNC ---
ED Disposition Clinical Impression: Tobacco use, Acute osteomyelitis, Cardiac ischemia Syncope Qualifiers: Syncope type: unspecified Qualified Code(s): R55 - Syncope and collapse Diabetes mellitus Qualifiers: Diabetes mellitus type: type 2 Diabetes mellitus sporting goods sales manager insulin use: without detention use Diabetes mellitus complication status: with neurologic complications Diabetes mellitus complication detail: with polyneuropathy Qualified Code(s): E11.42 - Type 2 diabetes mellitus with diabetic polyneuropathy Disposition: Admitted as Observation Condition on Discharge: Fair Instructions: DI for Syncope in Adults (Fainting), DI for Syncope in Children (Fainting) Referrals: Yash Dacosta MD [Primary Care Provider] - - Critical Care Critical Care Time: No Attestation: On 02/12/21, the high probability of a clinically significant, sudden or life threatening deterioration of the following system(s) required my full and direct attention, intervention and personal management. The time I documented below is in addition to time spent performing reported procedures but includes the following listed in this critical care notation. Medical Decision Making - Medical Records Medical records reviewed: Yes: I reviewed the patient's medical records. - Anthony Inquiry Pt receiving controlled substance: No Vital Signs: 02/12/21 08:00 02/12/21 08:30 02/12/21 09:00 Temperature 98.2 F Temperature Source Oral Pulse Rate 84 85 Pulse Rate [Right] 86 Respiratory Rate 16 Blood Pressure 171/94 H 158/83 H Blood Pressure [Right Arm] 188/92 H Blood Pressure Mean Blood Pressure Mean [Right Arm] 124 Blood Pressure Position [Right Arm] Sitting 02 Sat by Pulse Oximetry 99 98 98 Oxygen Delivery Method Room Air 02/12/21 09:30 02/12/21 10:00 02/12/21 10:30 Temperature Temperature Source Pulse Rate 86 86 85 Pulse Rate [Right] Respiratory Rate Blood Pressure 175/88 H 184/99 H 160/82 H Blood Pressure [Right Arm] Blood Pressure Mean 117 Blood Pressure Mean [Right Arm] Blood Pressure Position [Right Arm] 02 Sat by Pulse Oximetry 99 99 98 Oxygen Delivery Method 02/12/21 11:00 02/12/21 11:29 Temperature Temperature Source Pulse Rate 82 80 Pulse Rate [Right] Respiratory Rate Blood Pressure 172/93 H 174/94 H Blood Pressure [Right Arm] Blood Pressure Mean Blood Pressure Mean [Right Arm] Blood Pressure Position [Right Arm] 02 Sat by Pulse Oximetry 98 98 Oxygen Delivery Method - Lab Data Lab results reviewed: Yes: I reviewed the patient's lab results. Lab Results 02/12/21 08:01: POC Glucose 463 H* 02/12/21 08:08: WBC 8.0, RBC 4.19 L, Hgb 11.2 L, Hct 34.6 L, MCV 82.8, MCH 26.7 L, MCHC 32.3, RDW 16.5, Plt Count 269, MPV 7.6, Neut % (Auto) 61.6, Lymph % (Auto) 23.9, [place] % (Auto) 4.6, Eos % (Auto) 8.9, Baso % (Auto) 1.0, Neut # (Auto) 4.9, Lymph # (Auto) 1.9, [place] # (Auto) 0.4, Eos # (Auto) 0.7 H, Baso # (Auto) 0.1 02/12/21 08:08: Sodium 137, Potassium 3.7, Chloride 104, Carbon Dioxide 26, Anion Gap 10.7, BUN 17, Creatinine 0.90, Estimated Creat Clear 94, Estimated GFR 87, Est GFR ( Amer) 106, Glucose 491 H*, Calcium 9.1, Total Bilirubin 0.3, AST 23, ALT 26, Alkaline Phosphatase 120, Total Protein 6.5, Albumin 3.4 L, Globulin 3.1, Albumin/Globulin Ratio 1.1 02/12/21 08:08: Lactate 2.0 02/12/21 08:08: ESR 117 H 02/12/21 08:08: Procalcitonin 0.050 02/12/21 08:08: Troponin I < 0.01 02/12/21 08:56: VBG pH 7.35, VBG pCO2 44.1, VBG pO2 68.0 H, VBG HCO3 24.0, VBG Total CO2 25.4, VBG O2 Saturation 90.2 H, VBG Base Excess -1.5 02/12/21 09:11: Urine Color Yellow, Urine Appearance Clear, Urine pH 5.5, Ur Specific [place] 1.025, Urine Protein 3+, Urine Glucose (UA) 3+, Urine Ketones Negative, Urine Blood 2+, Urine Nitrate Negative, Urine Bilirubin Negative, Urine Urobilinogen 0.2, Ur Leukocyte Esterase Negative, Urine RBC 5-10, Urine WBC 3-5, Ur Squamous Epith Cells 3-5, Urine
--- NOTE | 2021-02-12 10:27 | PC.NURSE ---
POC GLUCOSE FINGERSTICK 421. MADE AWARE
[2021-02-12 10:33] LABS: POC Glucose,Bedside 421 (70-110)
--- NOTE | 2021-02-12 10:35 | PC.NURSE ---
DR. ALVA STATED HE WAS NOT GOING TO ADMIT PATIENT AT THIS TIME. PATIENT LORA MADE AWARE
--- NOTE | 2021-02-12 11:39 | PC.NURSE ---
Pt to stress test via wheelchair at this time.
--- NOTE | 2021-02-12 11:40 | PC.NURSE ---
Pt to rad for stress test.
--- NOTE | 2021-02-12 14:07 | PC.NURSE ---
pt back from having stress test
--- NOTE | 2021-02-12 14:45 | PC.NURSE ---
PATIENT RETURNED FROM STRESS TEST
--- NOTE | 2021-02-12 15:02 | PC.NURSE ---
GAVE STATUS UPDATE TO PATIENT AT THIS TIME
--- NOTE | 2021-02-12 15:10 | PC.NURSE ---
called care management to get a bed, emile baptiste, obs, caridiac escemey, synocopy, also called and got a tray for him
[2021-02-12 15:14] LABS: Coronavirus 19, PCR Not Detected (NotDetected); Influenza A, PCR Not Detected (NotDetected); Influenza B, PCR Not Detected (NotDetected)
--- NOTE | 2021-02-12 15:19 | PC.NURSE ---
pt in room eating lunch
--- NOTE | 2021-02-12 15:53 | HMH.PHAINT ---
MEDICATION RECONCILIATION COMPLETE USING LIST FROM MD OFFICE.
--- NOTE | 2021-02-12 15:55 | PC.NURSE ---
Report given to NA Gay from NA Tineo
[2021-02-12 17:11] LABS: POC Glucose,Bedside 366 (70-110)
[2021-02-12 20:23] LABS: POC Glucose,Bedside 452 (70-110)
[2021-02-13] VITALS (17 sets, daily range): BP systolic 131–170; BP diastolic 60–96; PULSE 72–89; RESP 17–20; TEMP 36.6–37.1; O2SAT 98–100; BMI 23.5
--- NOTE | 2021-02-13 | IR_ITS ---
APPROVED REPORT Patient Location: Inpatient PROCEDURES Left heart catheterization Left ventriculogram Selective coronary angiogram INDICATION Known coronary disease, Abnormal Myoview Informed consent was obtained prior to the procedure. COMPLICATIONS NONE Estimated Blood Loss: LESS THAN 10 ML TECHNIQUE One percent lidocaine used to anesthetize the right anterior aspect of the wrist. The right radial artery was accessed via the Seldinger technique. A 6 [place] sheath was placed in the right radial artery. 2.5 mg of verapamil, 800 mcg of nitroglycerin, 1mg Lidocaine and 5000 U Heparin were given through the arterial sheath. The [place] p catheter was also used to perform left heart catheterization, left ventriculogram and selective coronary angiogram. At the end of the procedure the sheath was removed good hemostasis was achieved using Traclet band, patient was transferred to the postop holding area in stable condition. ANGIOGRAPHIC RESULTS The left main artery Normal The left anterior descending artery Has a stent in the proximal and mid segment which is widely patent free of in-stent restenosis with excellent proximal distal transitioning. The remaining vessel is widely patent The circumflex artery Is a large dominant vessel with a proximal 30% stenosis. It gives rise to 2 substantive obtuse marginal arteries. First obtuse marginal artery has an ostial proximal 30% stenosis with a mid vessel 50% stenosis. The large terminal obtuse marginal artery which is a large posterior descending artery is widely patent free of disease The right coronary artery Is a nondominant vessel and has proximal and mid vessel 80 to 90% stenoses. The MCCURDY ventriculogram reveals Normal ejection fraction 65% The left ventricular end-diastolic pressure 10 mmHg IMPRESSION Coronary disease as described above Normal ejection fraction Single-vessel coronary artery disease involving a nondominant right coronary PLAN 1. Patient has normal ejection fraction with severe single-vessel disease in a nondominant vessel. There is no surgical nor clinical advantage or benefit to stenting this vessel either prior to surgery or following surgery. This lesion is managed medically and does not have any impact on life expectancy. This lesion will not alter patient's perioperative risk stratification. Patient is a low and acceptable risk from a cardiac standpoint to proceed with lower extremity amputation 2. Continue with Xarelto 2.5 p.o. twice daily following surgery 3. Continue with aggressive risk factor modification 4. Proceed with standard therapy for ischemic heart disease Electronically signed by : Godfrey Navarrete, 02/13/2021 11:11:28
--- NOTE | 2021-02-13 03:09 | PC.NURSE ---
Pt is A/O x4. No acute changes this shift. Pt slept well the whole shift. Pt is room air with stats >90's. Pt's glucose at 21:00 was 452 notified MD and administered 12 units per MD and sliding scale. Pt has a walker/boot on right foot. C/O of pain in foot once this shift and admin pain med per MAR with relief. Lungs sound CTA. Pt is independent uses bathroom to void. Pt is able to make needs known to staff, call light within reach, VSS. No concerns at this time.
[2021-02-13 05:18] LABS: POC Glucose,Bedside 242 (70-110)
[2021-02-13 06:46] LABS: Basophils # 0.1 K/mm3 (0-0.2); Basophils % 1.1 % (0.1-2.0); Eosinophils # 0.7 K/mm3 (0.0-0.4); Eosinophils % 7.9 % (0.1-12.0); Hematocrit 30.9 % (42.0-52.0); Lymphocytes # 2.4 K/mm3 (0.7-4.5); Lymphocytes % 28.6 % (10-50); Mean Corpuscular HGB Conc 32.4 g/dL (31.8-35.4); Mean Corpuscular Hemoglobin 26.4 pg (27.0-31.2); Mean Corpuscular Volume 81.6 fl (80-94); Mean Platelet Volume 7.4 fl (7.4-10.4); Monocytes # 0.4 K/mm3 (0.1-1.0); Monocytes % 4.8 % (1.7-9.3); Neutrophils # 4.9 K/mm3 (1.8-7.8); Neutrophils % 57.5 % (37.0-80.0); Platelet Count 214 K/mm3 (142-424); Red Blood Count 3.78 M/mm3 (4.60-6.20); Red Cell Distribution Width 16.7 % (11.5-17.5); White Blood Count 8.5 K/mm3 (4.8-10.8)
[2021-02-13 07:26] LABS: Anion Gap 6.1 mEq/L (5-15); Blood Urea Nitrogen 17 mg/dl (9-20); Calcium 8.3 mg/dl (8.4-10.2); Carbon Dioxide 25 mmol/L (22.0-30.0); Chloride 109 mmol/L (98-107); Creatinine Clearance Estimated 124 mL/min (50-200); Estimated Glomerular Filt Rate 117 ml/min (>60); GFR (African American) 141 ML/MIN (>60); Glucose 214 mg/dl (74-100); Magnesium 1.8 mg/dl (1.6-2.3); Potassium 3.1 mmoL/L (3.5-5.1); Sodium 137 mmol/L (136-145)
--- NOTE | 2021-02-13 07:29 | HMH.PHAVTE ---
[facility] Pharmacy VTE Monitoring - Patient Demographics Admission date: 02/12/21 Report Date: 02/13/21 Time: 07:29 Allergies/Adverse Reactions: Patient Allergies Penicillins [PENICILLINS] Allergy (Unknown, Verified 02/05/21 08:58) Height: 1.78 m Weight: 74.531 kg Patient Problems: Current Active Problems Diabetic foot infection (Acute) Syncope (Acute) Cardiac ischemia (Acute) Cigarette smoker (Acute) Acute osteomyelitis (Acute) Tobacco use (Chronic) Abnormal EKG (Acute) Diabetes mellitus (Chronic) Decreased sensation of lower extremity (Acute) Diabetic foot (Acute) - VTE Risk Labs: VTE Related Lab Results Hgb 10.0 g/dL (14.1-18.0) L D 02/13/21 06:21 Hct 30.9 % (42.0-52.0) L 02/13/21 06:21 Plt Count 214 K/mm3 (142-424) 02/13/21 06:21 BUN 17 mg/dl (9-20) 02/13/21 06:21 Creatinine 0.70 mg/dl (0.66-1.25) D 02/13/21 06:21 Estimated Creat Clear 124 mL/min (50-200) 02/13/21 06:21 Was VTE Risk Assessment Performed: Yes VTE Score: 5 VTE Risk Level: Low Risk Clinical Trial Participant: No - Prophylaxis VTE Prophylaxis Ordered?: Yes Types of VTE Prophylaxis: TEDS Knee High, Pharmacological (XARELTO)
--- NOTE | 2021-02-13 07:54 | PC.NURSE ---
PT STATES THAT LAST DOSE OF XARELTO WAS 02/11/2021. REPORTED TO HELENE MONZON IN LICENSE DISTRIBUTOR.
--- NOTE | 2021-02-13 09:51 | HMH.PNCARD ---
Subjective Date: 02/13/21 Time: 09:30 Principal diagnosis: syncope Interval history: This is a 55-year-old white gentleman who presented to the emergency department after syncopal episode. The patient states that he was fixing breakfast when all of a sudden he fell to the ground and he awoke with EMS shaking him. The patient does not really recall what happened but states that he thinks maybe his blood sugar dropped. The patient denied any chest pain, pressure or tightness. He denied any shortness of breath. He denied any dizziness or lightheadedness prior to the event. He denies any fever, chills, nausea, vomiting, diarrhea, PND or orthopnea. The patient does have a known history of coronary artery disease. He is currently being worked up for a right below the knee amputation and does have known PAD. The patient was recently in cardiology clinic for clearance for the right leg amputation due to his PAD and nonhealing wounds. The patient has undergone Myoview stress testing prior to the surgery in order to gain cardiac clearance to have his amputation. The patient did have the Myoview stress test which was abnormal, and showed ischemic changes in the inferior wall. The patient has been set up for left cardiac catheterization today. Exam Vital signs and Labs for Last 24 Hours: Temp Pulse Resp BP Pulse Ox 98.0 F 84 18 145/80 H 99 02/13/21 07:58 02/13/21 07:58 02/13/21 07:58 02/13/21 07:58 02/13/21 07:58 Laboratory Results - last 24 hr 02/12/21 10:25: POC Glucose 421 H* 02/12/21 15:10: SARS-CoV-2 (PCR) Not detected, Influenza A Untype (PCR) Not detected, Influenza Type B (PCR) Not detected 02/12/21 16:55: POC Glucose 366 H* 02/12/21 20:00: POC Glucose 452 H* 02/13/21 05:10: POC Glucose 242 H 02/13/21 06:21: WBC 8.5, RBC 3.78 L, Hgb 10.0 L D, Hct 30.9 L, MCV 81.6, MCH 26.4 L, MCHC 32.4, RDW 16.7, Plt Count 214, MPV 7.4, Neut % (Auto) 57.5, Lymph % (Auto) 28.6, [place] % (Auto) 4.8, Eos % (Auto) 7.9, Baso % (Auto) 1.1, Neut # (Auto) 4.9, Lymph # (Auto) 2.4, [place] # (Auto) 0.4, Eos # (Auto) 0.7 H, Baso # (Auto) 0.1 02/13/21 06:21: Sodium 137, Potassium 3.1 L, Chloride 109 H, Carbon Dioxide 25, Anion Gap 6.1, BUN 17, Creatinine 0.70 D, Estimated Creat Clear 124, Estimated GFR 117, Est GFR ( Amer) 141 D, Glucose 214 H D, Calcium 8.3 L, Magnesium 1.8 I & O for Last 24 hours: Intake & Output 02/10/21 02/11/21 02/12/21 02/13/21 23:59 23:59 23:59 23:59 Intake Total 400 / 1205 805 / 805 Balance 400 / 1205 805 / 805 Weight 159 lb 6 oz 164 lb 5 oz - Constitutional no acute distress, average body habitus, chronically ill appearing - *Routine HEENT Exam Head: Present: normocephalic Eye: Present: EOMI, PERRL ENT: Present: mucous membranes moist - *Routine Neck Exam Present: supple, full ROM, normal carotid upstroke. Absent: JVD, carotid bruit, lymphadenopathy - *Routine Respiratory Exam Present: CTA bilaterally - *Routine Cardiovascular Exam Present: RRR, Normal S1, Normal S2. Absent: murmur - *Routine Abdominal Exam Present: soft, normoactive bowel sounds. Absent: tenderness, distended - *Routine Extremities Exam Present: edema (Left lower extremity), full ROM, pulses intact, normal capillary refill, amputation (Right lower extremity has partial amputation). Absent: cyanosis, clubbing - *Routine Skin Exam Present: warm. Absent: rash Comments: Right lower extremity does have a partial amputation with the extremity wrapped in Mac bandages. - *Routine Neurological Exam Present: alert, oriented X3, CN II-XII intact. Absent: sensory deficit, motor deficit Progress Note: A&P (1) Preop cardiovascular exam Status: Acute (2) Abnormal stress test Status: Acute (3) Syncope Status: Acute (4) Abnormal EKG Status: Acute (5) Cigarette smoker Status: Acute (6) Decreased sensation of lower extremity Status: Acute (7) Diabetic foot Status: Acute (8) Diabetic foot
--- NOTE | 2021-02-13 13:20 | HMH.PHAINT ---
VERIFIED WITH CARDIOLOGY THAT PT SHOULD BE TAKING DILTIAZEM 240MG DAILY. MEDICATION ADDED TO HOME MEDICAITON LIST AND RESTARTED PER VERBAL ORDER
--- NOTE | 2021-02-13 15:41 | HMH.HPDC ---
General - General Admission date:: 02/12/21 Discharge date: 02/13/21 *Admission Date: 02/12/21 *Chief complaint: Syncope *History of present illness: 55-year-old male presented to [facility] ED after syncopal episode. Patient states he was fixing breakfast when all of a sudden he fell to the ground and when he awoke EMS was shaking him. Patient states he is unsure as to what happened but thinks his blood sugar dropped. Patient is a known diabetic uncontrolled. Last A1c was greater than 14%. This is managed by his PCP. Patient denies chest pain, tightness or pressure. Patient denies shortness of breath with exertion. Patient denies palpitations or dizziness. Patient states he is unsure of the episode he had this morning, states that a few months ago he had had a similar episode. Patient does have history of coronary artery disease. Patient did undergo left heart catheterization in November 2020 with medical management. Heart catheterization revealed persistent disease to the RCA at 70% in which she had CODY in July 2020. Patient is currently on aspirin and Xarelto 2.5 twice daily due to PAD. Patient did undergo lower leg extremity angiogram for PAD. Medical management November 2020. Patient is also had recent drug coated balloon angioplasty to the right leg. Patient does currently have an infection of the right foot and ankle. Patient had been seeing podiatry due to infection. Patient has been released from that physician. Dressing is dry and intact on the right foot and ankle. It has been recommended that patient have right leg amputation below the knee due to PAD and nonhealing wound. Patient has been following up with this cardiology group and has been awaiting cardiology clearance to proceed with surgery. Patient does have history of hypertension. BP is elevated during this ED admission. History of hyperlipidemia and is on statin therapy. History of carotid artery stenosis. Last TNI was in November 2020 which revealed R ICA 20 to 49% and less than 20% of the LICA. Patient does have history of tobacco use. Patient has been advised to stop smoking due to his PAD and CAD. Patient verbalized understanding but states unwilling to stop at this time. Echocardiogram was performed in July 2020 which revealed EF 55% with no regional wall motion abnormality with grade 1 diastolic dysfunction. Mild mitral and tricuspid regurgitation noted. Serial troponins performed in the ED. Troponin x1 was negative. KG reveals normal sinus rhythm with an incomplete right bundle branch block, heart rate 85 bpm. While in the emergency room, ED physician has ordered Lexiscan Myoview to determine ischemia (Per Bakari Sánchez APRN). [facility] History I have reviewed the patient's past medical history: Yes Medical History: Reports:: Chronic Obstructive Pulmonary Disease (COPD), Coronary Artery Disease, Diabetes Mellitus Type 2, Hyperlipidemia, Hypertension, Myocardial Infarction, Peripheral Artery Disease Denies:: Cancer, Diabetes Mellitus Type 1, Internal Pacemaker, MRSA, Seizures *Have you ever received a pneumonia vaccine?: No *Have you received a flu vaccine this season?: No Other Medical History: Denies: Blood Transfusion Reaction Other Surgeries: Yes: Cardiac Catheterization, Cardiac Surgery, Cholecystectomy, Coronary Stent, EGD, Other (RT foot partial amputation). No: Pacemaker Amputation: Yes Fractures: Yes (knee) - *Social History Smoking Status: Current some day smoker Tobacco Type: cigarettes # Packs/Day (cigarettes): 1 #Yrs smoked (if former smoker): 30 Alcohol Intake: current Alcohol Intake Frequency:: holidays/special occasions only Substance Use Type: denies use *Occupational Status:: unemployed Housing: house Household Members: spouse, children *Travel in the last 8 weeks: None Family Hx:: No significant family history Review of Systems - Review of Systems Review of systems:: pertinent systems reviewed and n
--- NOTE | 2021-02-13 16:14 | PC.NURSE ---
PT EDUCATED ON ACTIVITY RESTRICTIONS FOLLOWING PROCEDURE. INFORMED OF F/U APPOINTMENTS. VSS AT TIME OF DISCHARGE. ESCORTED BY STAFF TO PERSONAL VEHICLE.
[2021-02-14 00:36] LABS: POC Glucose,Bedside 223 (70-110)
== END 2021-02-13 15:59 | disposition home or self-care (01) ==
LOC: ER 15:22 → 2ND 15:40
PROVIDERS: Family Medicine; Internal Medicine; Admitting Provider Emergency Medicine; Emergency Provider Emergency Medicine; PCP Emergency Medicine; Visit Provider Emergency Medicine
DX: I25.9 Chronic ischemic heart disease, unspecified (principal); F17.210 Nicotine dependence, cigarettes, uncomplicated; Z20.822 Contact with and (suspected) exposure to COVID-19; I25.10 Atherosclerotic heart disease of native coronary artery without angina pectoris; J44.9 Chronic obstructive pulmonary disease, unspecified; I25.2 Old myocardial infarction; Z79.84 Long term (current) use of oral hypoglycemic drugs; Z79.01 Long term (current) use of anticoagulants; Z79.899 Other long term (current) drug therapy; Z95.5 Presence of coronary angioplasty implant and graft; E11.621 Type 2 diabetes mellitus with foot ulcer; L97.519 Non-pressure chronic ulcer of other part of right foot with unspecified severity; E11.65 Type 2 diabetes mellitus with hyperglycemia; M86.671 Other chronic osteomyelitis, right ankle and foot
CPT/HCPCS: 78452; 80048; 80053; 81001; 82803; 82962; 83605; 83735; 84145; 84484; 85025; 85651; 87040; 87081; 93005; 93017; 93458; 96365; 99152; 99284; 99291; A9502; C1725; C1769; G0378; J1644; Q9967; U0003

== ENCOUNTER 2021-02-14 08:24 | Emergency (ER) | payer OTHER, SELFPAY ==
[2021-02-14] VITALS (23 sets, daily range): BP systolic 146–190; BP diastolic 76–105; PULSE 61–968; RESP 16–29; TEMP 36.3–36.9; O2SAT 90–96; BMI 22.9
--- NOTE | 2021-02-14 08:29 | HMH.EDGENADL ---
ED Disposition Clinical Impression: Tonic clonic convulsion AMS (altered mental status) Qualifiers: Altered mental status type: unspecified Qualified Code(s): R41.82 - Altered mental status, unspecified Disposition: Xfer Short-Term Hosp Condition on Discharge: Good Instructions: DI for Syncope in Adults (Fainting), DI for Syncope in Children (Fainting) Referrals: Yash Dacosta MD [Primary Care Provider] - - Critical Care Critical Care Time: Yes (Seizure activity. Desatted. Receieved multiple doses of benzodiazepines) Attestation: On , the high probability of a clinically significant, sudden or life threatening deterioration of the following system(s) required my full and direct attention, intervention and personal management. The time I documented below is in addition to time spent performing reported procedures but includes the following listed in this critical care notation. Total Critical Care Time: 25 Vital system(s) involved:: Central Nervous System My critical care processes included: Assessment & monitoring of V/S, Initial and Re-exams, Data Review/Interpretation, Coordinating Care, Medication Orders and management Medical Decision Making - Medical Records Medical records reviewed: Yes: I reviewed the patient's medical records. - Anthony Inquiry Pt receiving controlled substance: No Vital Signs: 02/14/21 08:28 02/14/21 09:00 02/14/21 10:01 Temperature 97.5 F L Temperature Source Oral Pulse Rate 115 H 94 H Pulse Rate [Apical] 92 H Respiratory Rate 19 18 16 Blood Pressure 162/83 H 162/78 H Blood Pressure [Right Arm] 171/101 H Blood Pressure Mean Blood Pressure Mean [Right Arm] 124 Blood Pressure Source Blood Pressure Source [Right Arm] Automatic Cuff Blood Pressure Position Blood Pressure Position [Right Arm] Supine 02 Sat by Pulse Oximetry 94 L 95 94 L Oxygen Delivery Method Room Air 02/14/21 10:25 02/14/21 10:30 02/14/21 11:00 Temperature 97.4 F L Temperature Source Oral Pulse Rate 93 H 94 H 97 H Pulse Rate [Apical] 97 H Respiratory Rate 16 16 16 Blood Pressure 174/92 H 171/90 H 165/79 H Blood Pressure [Right Arm] 164/79 H Blood Pressure Mean Blood Pressure Mean [Right Arm] 107 Blood Pressure Source Automatic Cuff Blood Pressure Source [Right Arm] Automatic Cuff Blood Pressure Position Supine Supine Supine Blood Pressure Position [Right Arm] Supine 02 Sat by Pulse Oximetry 92 L 90 L 94 L Oxygen Delivery Method Room Air Room Air Room Air 02/14/21 11:30 02/14/21 12:00 02/14/21 13:00 Temperature 98.2 F 98.4 F Temperature Source Oral Oral Pulse Rate 968 H 100 H Pulse Rate [Apical] 96 H 94 H Respiratory Rate 16 16 Blood Pressure 146/79 H 168/89 H Blood Pressure [Right Arm] 168/89 H 178/91 H Blood Pressure Mean Blood Pressure Mean [Right Arm] 115 120 Blood Pressure Source Automatic Cuff Automatic Cuff Blood Pressure Source [Right Arm] Automatic Cuff Automatic Cuff Blood Pressure Position Supine Supine Blood Pressure Position [Right Arm] Supine Supine 02 Sat by Pulse Oximetry 94 L 95 Oxygen Delivery Method Room Air Room Air 02/14/21 13:30 02/14/21 14:00 02/14/21 14:30 Temperature 98.4 F Temperature Source Oral Pulse Rate 91 H Pulse Rate [Apical] 73 Respiratory Rate 16 18 18 Blood Pressure 167/96 H 167/90 H 176/97 H Blood Pressure [Right Arm] 167/96 H Blood Pressure Mean 130 134 Blood Pressure Mean [Right Arm] 119 Blood Pressure Source Blood Pressure Source [Right Arm] Automatic Cuff Blood Pressure Position Blood Pressure Position [Right Arm] Supine 02 Sat by Pulse Oximetry 94 L Oxygen Delivery Method Room Air 02/14/21 15:00 02/14/21 15:30 02/14/21 16:00 Temperature Temperature Source Pulse Rate 91 H 87 84 Pulse Rate [Apical] Respiratory Rate 29 H 18 18 Blood Pressure 186/102 H 190/100 H 190/105 H Blood Pressure [Right Arm] Blood Pressure Mean 137 138 135 Blood Pres
--- NOTE | 2021-02-14 08:30 | XR_ITS ---
PROCEDURE: XR CHEST PORTABLE CLINICAL HISTORY: syncope COMPARISON: CT CHESTWO CT chest wo con from 11/29/2018 CR XR CHEST PORTABLE from 11/28/2020 CR XR CHEST PORTABLE PICC PLAC from 12/20/2020 CR XR CHEST PORTABLE from 12/24/2020 FINDINGS: The cardiomediastinal silhouette and pulmonary vascularity are within normal limits. Patient is slightly rotated to the right. Increased density is present over the right hemithorax and is felt to be related to the rotation and technique. There is slight increased density in the right midlung laterally overlying the 4th rib and could be related to an area of atelectasis or infiltrate. Non rotated upright PA and lateral chest may provide further evaluation. No acute bony abnormalities. IMPRESSION: Possible atelectasis or patchy infiltrate in the right midlung laterally Dictated by: Vince Miranda MD 02/14/2021 08:52 Vince Miranda MD in [facility] 02/14/2021 08:52
[2021-02-14 08:40] LABS: Basophils # 0.1 K/mm3 (0-0.2); Basophils % 1.2 % (0.1-2.0); Eosinophils # 0.5 K/mm3 (0.0-0.4); Eosinophils % 7.1 % (0.1-12.0); Hematocrit 34.3 % (42.0-52.0); Hemoglobin 10.7 g/dL (14.1-18.0); Lymphocytes # 1.9 K/mm3 (0.7-4.5); Lymphocytes % 28.2 % (10-50); Mean Corpuscular HGB Conc 31.1 g/dL (31.8-35.4); Mean Corpuscular Hemoglobin 26.1 pg (27.0-31.2); Mean Corpuscular Volume 83.9 fl (80-94); Monocytes # 0.4 K/mm3 (0.1-1.0); Monocytes % 5.8 % (1.7-9.3); Neutrophils # 3.8 K/mm3 (1.8-7.8); Neutrophils % 57.7 % (37.0-80.0); Platelet Count 239 K/mm3 (142-424); Red Blood Count 4.09 M/mm3 (4.60-6.20); Red Cell Distribution Width 16.9 % (11.5-17.5); White Blood Count 6.6 K/mm3 (4.8-10.8)
[2021-02-14 08:42] LABS: POC Glucose,Bedside 583 (70-110)
[2021-02-14 08:46] LABS: Chloride 104 mmol/L (98-107); Potassium 3.8 mmoL/L (3.5-5.1); Sodium 137 mmol/L (136-145)
[2021-02-14 08:50] LABS: Anion Gap 9.8 mEq/L (5-15); Blood Urea Nitrogen 18 mg/dl (9-20); Calcium 8.9 mg/dl (8.4-10.2); Carbon Dioxide 27 mmol/L (22.0-30.0); Creatinine Clearance Estimated 94 mL/min (50-200); Estimated Glomerular Filt Rate 87 ml/min (>60); GFR (African American) 106 ML/MIN (>60)
--- NOTE | 2021-02-14 08:51 | ECG_ITS ---
APPROVED REPORT Exam: Resting ECG HR:86 bpm ECG Measurements Heart Rate 86 AXES MS 126 P 118 QRSd 92 QRS 217 QT 374 T 125 QTc 447 Conclusion Normal sinus rhythm Right superior axis deviation Pulmonary disease pattern Abnormal ECG Electronically signed by : Parveen Rosales, 02/14/2021 18:49:31
--- NOTE | 2021-02-14 08:53 | PC.NURSE ---
per Nelsy in lab pt has glucose greater than 625, states she is rerunning it to confirm. pt name and confirmed. notified ER MD of critical glucose
[2021-02-14 09:01] LABS: Glucose 633 mg/dl (74-100); Troponin I 0.08 ng/ml (0.00-0.034)
--- NOTE | 2021-02-14 09:04 | CT_ITS ---
PROCEDURE: CT HEAD/BRAIN WO CON CLINICAL INDICATION: seizure Altered mental status, altered level of consciousness, confusion, disorientation COMPARISON: CT HEADWO CT head/brain wo con from 11/29/2018 TECHNIQUE: Axial images obtained. All CT scans at the facility use one or more dose reduction, viz: automated exposure control, ma/kV adjustment per patient size (including targeted exams where dose is matched to indication, i.e. head), or iterative reconstruction technique. FINDINGS: No midline shift, mass effect, intracranial hemorrhage, hydrocephalus, or extra-axial fluid collection is evident. There is generalized atrophy with hypoattenuation of the periventricular white matter consistent with microangiopathic changes. There is an oval lucency in the right basal ganglia at 10 x 5 mm and may represent a choroidal fissure cyst. The calvarium has an unremarkable appearance. No mastoid effusion. No sinus air-fluid level. IMPRESSION: No acute intracranial finding Dictated by: Vince Miranda MD 02/14/2021 09:53 Vince Miranda MD in [facility] 02/14/2021 09:53
--- NOTE | 2021-02-14 09:17 | PC.NURSE ---
pt to CT with RN
[2021-02-14 09:40] LABS: Free T4 (Free Thyroxine) 0.86 ng/dl (0.78-2.19)
--- NOTE | 2021-02-14 09:43 | PC.NURSE ---
pt returned to room from CT
[2021-02-14 10:06] LABS: Lactic Acid 4.9 mmol/L (0.7-2.1)
--- NOTE | 2021-02-14 10:06 | PC.NURSE ---
Nurse transported patient to CT with durable medical equipment technician. During ct patient became highly agitated and was attempting to climb off the bed. 4 staff members were required to assist with patient. Patient was given two doses of ativan. Second dose was effective at helping patient rest. Patient was brought back to er room. Is currently resting in bed. Seizure pads are in place. Vitals stable.
--- NOTE | 2021-02-14 10:07 | PC.NURSE ---
Jael from lab called, talked to Tayla, lactic acid 4.9 and was repeated back
--- NOTE | 2021-02-14 10:08 | PC.NURSE ---
Dr Olesya rubio
--- NOTE | 2021-02-14 10:36 | PC.NURSE ---
BK DIAZ spoke with Dr. Dacosta at this time
--- NOTE | 2021-02-14 11:01 | PC.NURSE ---
[facility] called for transfer they advised no beds and there is a waiting list. [facility] called awaiting call from Neuro
[2021-02-14 11:02] LABS: POC Glucose,Bedside 560 (70-110)
--- NOTE | 2021-02-14 11:04 | PC.NURSE ---
Dr Stewart speaking with Dr Samy Godfrey at [facility]
[2021-02-14 11:05] LABS: Microscopic, Urine URINE MICROSCOPIC (MICROSCOPIC)
[2021-02-14 11:11] LABS: Appearance,Urine CLEAR (Clear); Bilirubin,Urine Negative (Negative); Blood, Urine 2+ (Negative); Color,Urine YELLOW (Yellow); Glucose,Urine (UA) 3+ (Negative); Ketones,Urine Negative (Negative); Leukocyte Esterase,Urine Negative (Negative); Nitrate,Urine Negative (Negative); PH,Urine 5.5 (5.0-8.5); Protein,Urine 2+ (Negative); Urobilinogen,Urine 0.2 EU/dl (0.2)
--- NOTE | 2021-02-14 11:17 | PC.NURSE ---
Dr Stewart spoke with Hospitalist at [facility]
[2021-02-14 11:25] LABS: Amphetamine/Metha Screen,Urine Negative ng/ml (<1000); Barbiturates Screen,Urine Negative ng/ml (<200)
[2021-02-14 11:26] LABS: Benzodiazepines Screen,Urine Negative ng/ml (<200)
[2021-02-14 11:27] LABS: Cannabinoid Screen,Urine Positive ng/ml (<50); Cocaine Screen,Urine Negative ng/ml (<300)
[2021-02-14 11:28] LABS: Methadone Screen,Urine Negative ng/ml (<300)
[2021-02-14 11:29] LABS: Opiate Screen,Urine Negative ng/ml (<300)
[2021-02-14 11:30] LABS: Glucose,Random 603 mg/dL (74-100)
[2021-02-14 11:30] LABS: Phencyclidine Screen,Urine Negative ng/ml (<25)
[2021-02-14 11:57] LABS: Amorphous Sediment,Urine 1+ /lpf
--- NOTE | 2021-02-14 12:07 | PC.NURSE ---
[facility] called no beds available at this time they will call back.
--- NOTE | 2021-02-14 12:19 | PC.NURSE ---
Upon admission to er via ems patient was a&ox4. He was unsure what happened or caused him to come in. Unsure if he had taken his medications. At roughly 0815 ER admissions was discussing with patient his insurance information when he began complaining of his hands cramping bilaterally. soda fountain clerk immediately came and got nurse, nurse and md went into the room and witnessed patient have a tonic clonic seizure, during which patients heartrate and oxygenation levels dropped. Patient was unable to tell us his name or where he was following the episode. MD immediately made orders to care for patient. Patient is currently resting in bed.
--- NOTE | 2021-02-14 12:46 | PC.NURSE ---
Patient continues to be agitated and attempt to dislodge IV catheter. Applied mittens to patient per MD to prevent patient from dislodging mullins catheter and injuring self and others.
[2021-02-14 12:54] LABS: Troponin I 0.07 ng/ml (0.00-0.034)
[2021-02-14 12:59] LABS: Coronavirus 19, PCR Not Detected (NotDetected); Influenza A, PCR Not Detected (NotDetected); Influenza B, PCR Not Detected (NotDetected)
[2021-02-14 13:18] LABS: POC Glucose,Bedside 450 (70-110)
[2021-02-14 13:56] LABS: Reflex Lactic Add Lactic Reflex
--- NOTE | 2021-02-14 14:32 | PC.NURSE ---
[facility] called checking status of pt, they still are working on an icu bed.
--- NOTE | 2021-02-14 14:36 | PC.NURSE ---
matilde from Dr. Dacosta's office called stated they lab staff called them stating that pts CRE screening is positive. notified ER
[2021-02-14 17:32] LABS: Lactic Acid Follow Up (RFLX 1) 2.2 mmol/L (0.7-2.1)
--- NOTE | 2021-02-14 17:33 | PC.NURSE ---
placed call to [facility], they advised they should have a bed no later than shift change at 7pm
[2021-02-14 17:34] LABS: Reflex Lactic (2 hrs) Add Lactic Reflex
[2021-02-14 17:41] LABS: POC Glucose,Bedside 268 (70-110)
--- NOTE | 2021-02-14 19:10 | PC.NURSE ---
Called [facility] for update they said pt should have a bed in approx 20 min.
--- NOTE | 2021-02-14 19:34 | PC.NURSE ---
Called report to mitch KELLOGG/renuka Parra in neuro ICU
[2021-02-15 13:11] LABS: Calcium, Ionized 5.6 mg/dL (4.5-5.6)
== END 2021-02-14 20:01 | disposition short-term general hospital (02) ==
PROVIDERS: Emergency Provider Emergency Medicine; PCP Emergency Medicine
DX: G40.409 Other generalized epilepsy and epileptic syndromes, not intractable, without status epilepticus (principal); R41.82 Altered mental status, unspecified; I25.2 Old myocardial infarction; I73.9 Peripheral vascular disease, unspecified; I10 Essential (primary) hypertension; J44.9 Chronic obstructive pulmonary disease, unspecified; E78.5 Hyperlipidemia, unspecified; F17.210 Nicotine dependence, cigarettes, uncomplicated; Z88.0 Allergy status to penicillin; Z79.899 Other long term (current) drug therapy
CPT/HCPCS: 70450; 71045; 80048; 80305; 81001; 82330; 82947; 82962; 83605; 83735; 84439; 84443; 84484; 85025; 93005; 96365; 96366; 96375; 99284; 99285; J0456; J1953; U0003

== ENCOUNTER → 2021-03-11 10:44 | Outpatient (CLI) | payer OTHER, SELFPAY | PROVIDERS: Visit Provider Orthopaedic Surgery | DX: Z01.812 Encounter for preprocedural laboratory examination (principal) ==

== ENCOUNTER → 2021-03-14 10:12 | Outpatient (CLI) | payer OTHER, SELFPAY ==
[2021-03-14 10:16] LABS: Adenovirus F 40/41, stool Not Detected (NotDetected); Astrovirus Not Detected (NotDetected); Campylobacter Not Detected (NotDetected); Clostridium Difficile A/B, PCR Not Detected (NotDetected); Cryptosporidium Not Detected (NotDetected); Cyclospora Cayetanesis Not Detected (NotDetected); Entamoeba histolytica Not Detected (NotDetected); Enteroaggregative E coli Not Detected (NotDetected); Enteropathogenic E coli Not Detected (NotDetected); Enterotoxigenic E coli Not Detected (NotDetected); Giardia lamblia Not Detected (NotDetected); Norovirus Not Detected (NotDetected); Plesimonas Shigalloides, PCR Not Detected (NotDetected); Rotavirus A Not Detected (NotDetected); Salmonella, PCR Not Detected (NotDetected); Sapovirus Not Detected (NotDetected); Shiga-like toxin E coli Not Detected (NotDetected); Shigella Enterovasive E coli Not Detected (NotDetected); Vibrio Cholerae Not Detected (NotDetected); Vibrio, PCR Not Detected (NotDetected); Yersinia Entercolitica, PCR Not Detected (NotDetected)
== END ==
PROVIDERS: Visit Provider Nurse Practitioner Family
DX: R19.7 Diarrhea, unspecified (principal)
CPT/HCPCS: 87507

== ENCOUNTER → 2021-03-15 11:46 | Outpatient (CLI) | payer OTHER, SELFPAY ==
[2021-03-15 12:12] LABS: Basophils # 0.2 K/mm3 (0-0.2); Basophils % 1.8 % (0.1-2.0); Eosinophils # 0.9 K/mm3 (0.0-0.4); Eosinophils % 9.1 % (0.1-12.0); Hematocrit 38.4 % (42.0-52.0); Hemoglobin 12.5 g/dL (14.1-18.0); Lymphocytes # 2.5 K/mm3 (0.7-4.5); Lymphocytes % 27.3 % (10-50); Mean Corpuscular HGB Conc 32.6 g/dL (31.8-35.4); Mean Corpuscular Hemoglobin 26.8 pg (27.0-31.2); Mean Corpuscular Volume 82.4 fl (80-94); Mean Platelet Volume 8.5 fl (7.4-10.4); Monocytes # 0.5 K/mm3 (0.1-1.0); Monocytes % 5.6 % (1.7-9.3); Neutrophils # 5.3 K/mm3 (1.8-7.8); Neutrophils % 56.2 % (37.0-80.0); Platelet Count 233 K/mm3 (142-424); Red Blood Count 4.66 M/mm3 (4.60-6.20); Red Cell Distribution Width 17.5 % (11.5-17.5); White Blood Count 9.3 K/mm3 (4.8-10.8)
[2021-03-15 13:07] LABS: Chloride 105 mmol/L (98-107); Potassium 4.3 mmoL/L (3.5-5.1); Sodium 137 mmol/L (136-145)
[2021-03-15 13:09] LABS: Alanine Aminotransferase 43 U/L (12-78); Alkaline Phosphatase 104 U/L (38-126); Aspartate Amino Transferase 30 U/L (17-59); Bilirubin,Total 0.3 mg/dl (0.2-1.3); Blood Urea Nitrogen 23 mg/dl (9-20); Estimated Glomerular Filt Rate 77 ml/min (>60); GFR (African American) 94 ML/MIN (>60)
[2021-03-15 13:10] LABS: Albumin Level 3.8 g/dl (3.5-5.0); Albumin/Globulin Ratio 1.5 (1.1-1.8); Anion Gap 13.3 mEq/L (5-15); Calcium 9.2 mg/dl (8.4-10.2); Carbon Dioxide 23 mmol/L (22.0-30.0); Globulin 2.6 g/dL (1.3-3.2); Glucose 291 mg/dl (74-100); Total Protein,Serum 6.4 g/dl (6.3-8.2)
[2021-03-15 13:17] LABS: C-Reactive Protein < 0.3 mg/L (0-4)
[2021-03-15 13:31] LABS: Erythrocyte Sedimentation Rate > 140 mm/hr (0-20)
[2021-03-15 13:44] LABS: Hemoglobin A1C 10.7 % (4.0-6.0)
== END ==
PROVIDERS: Visit Provider Orthopaedic Surgery
DX: Z01.818 Encounter for other preprocedural examination (principal); Z11.52 Encounter for screening for COVID-19
CPT/HCPCS: 80053; 83036; 85025; 85651; 86140; 86850; U0003

== ENCOUNTER 2021-03-17 18:46 | Observation (INO) | payer OTHER, SELFPAY ==
[2021-03-17] VITALS (19 sets, daily range): BP systolic 134–191; BP diastolic 78–99; PULSE 86–96; RESP 12–18; TEMP 36.2–43; O2SAT 96–100; BMI 22.9; BMI 23.4
[2021-03-17 11:29] LABS: POC Glucose,Bedside 262 (70-110)
--- NOTE | 2021-03-17 14:50 | HMH.ANESCL ---
[facility] Anesthesia Checklist - Patient Identification Patient Identification: Arm Band - Structural Data Admitted From: Home Planned Operative Procedure/s: BKA Consent for Planned Operative Procedure(s) Verified: Yes - NPO Status Verified Time NPO: 00:00 - Additional verifications Anesthesia Reactions: No Hx Blood Transfusions: No Blood Transfusion Reaction: No - Airway Assessment C-Spine Mobility Assessed: Yes TMJ Mobility Assessed: Yes Dentition: Edentulous - Neurological Assessment Level of Consciousness: Awake Hx Seizures: No Numbness or tingling in extremities: No - Anesthesia Plan Anesthesia Risk discussed: Yes Anesthesia Plan: Verified ASA Class: III Anesthesia Type: General [facility] History I have reviewed the patient's past medical history: Yes Medical History: Reports:: Chronic Obstructive Pulmonary Disease (COPD), Coronary Artery Disease, Diabetes Mellitus Type 2, Hyperlipidemia, Hypertension, Myocardial Infarction, Peripheral Artery Disease, Seizures Denies:: Cancer, Diabetes Mellitus Type 1, Internal Pacemaker, MRSA *Have you ever received a pneumonia vaccine?: No *Have you received a flu vaccine this season?: No Other Medical History: Denies: Blood Transfusion Reaction Anesthesia experience/problems:: None Other Surgeries: Yes: Angiogram, Cardiac Catheterization, Cardiac Surgery, Cholecystectomy, Coronary Stent, EGD, Other (RT foot partial amputation). No: Pacemaker Amputation: Yes Fractures: Yes (knee) - *Social History Smoking Status: Current some day smoker Tobacco Type: cigarettes # Packs/Day (cigarettes): 1 #Yrs smoked (if former smoker): 30 Alcohol Intake: current Alcohol Intake Frequency:: holidays/special occasions only Substance Use Type: denies use *Occupational Status:: unemployed Housing: house Household Members: spouse, children *Travel in the last 8 weeks: None Family Hx:: No significant family history
--- NOTE | 2021-03-17 17:42 | P.PN_ITS ---
[facility] Anesthesia Record Part I Intake, IV Amount: 600 Estimated blood loss (mL): 50 Urine output (mL): 0 Blood Pressure: 153/95 SaO2: 98 Pulse Rate: 86 Respiratory Rate: 18 Temperature: 99.4 F Patient is:: Awake Stable to PACU at:: 17:41
--- NOTE | 2021-03-17 18:01 | PC.NURSE ---
FSBS 173, NO S/SX OF HYPERGLYCEMIA
--- NOTE | 2021-03-17 18:03 | SUR.PHASEI ---
BIJAL ROCHE CRNA NOTIFIED OF PT'S B/P. ORDERS FOR LABETALOL 5MG IV X 1 PUSH. R/V
[2021-03-17 18:06] LABS: POC Glucose,Bedside 173 (70-110)
--- NOTE | 2021-03-17 18:12 | SUR.PHASEI ---
1809 182/95 HR 90 1812 ANESTHESIA PAGED B/P 191/95 HR 87 1815 ORDERS FOR HYDRALAZINE 10MG IV PUSH X 1 DOSE PER Louis ROCHE CRNA R/V 181 HYDRALAZINE 10MG IV PUSH GIVEN 184/88 HR 88
--- NOTE | 2021-03-17 18:23 | HMH.OPNOTE ---
Date of procedure: 03/17/21 Pre-op Diagnosis:: 1. Osteomyelitis, right foot 2. Nonhealing wound, right foot 3. Peripheral arterial disease Post-op Diagnosis:: Same Procedure performed:: Below-knee amputation, right leg Surgeon:: Redd Philippe MD Mill Platform Supervisor(s):: Lena Mahoney JOURNEYMAN SHEET METAL WORKER:: Alejandro Bryant Anesthesia: LMA Estimated blood loss (mL): 20 Clinical Note:: Patient is a 55-year-old male with multiple medical problems including nonhealing ulcer of the right foot, diabetic infection right foot, osteomyelitis right foot, small vessel arterial disease due to type 2 diabetes mellitus,] tobacco abuse, osteomyelitis, and peripheral arterial disease with previous multiple foot surgeries on his right foot. He was referred to me by Dr. Hernandez, passenger brakeman, for right below-knee amputation. Patient has history of peripheral vascular disease and diabetic foot ulcerations/infections for a long time with multiple foot surgeries. Most recently he had a right tarsometatarsal disarticulation/revision amputation, application of antibiotic beads on 12/11/2020, by Dr. Hernandez. This subsequently got infected leading to nonhealing ulcer and osteomyelitis. Patient was also seen by infectious disease specialist and had prolonged course of antibiotics. As patient failed to respond satisfactorily to IV antibiotics, he is referred to my office for consideration for right below-knee amputation. Patient states he has had extensive discussion with other physicians involved in his care about this and wants to go ahead with the surgery. He says he is feeling well within himself and denies any fevers, chills or rigors. No history of any nausea or vomiting. He states he is having pain in the foot. Following assessment in the office, I had a detailed discussion regarding management options with the patient; patient elected to proceed with a right below-knee amputation. I have discussed about the procedure, risks and benefits and alternatives. The patient expressed a full understanding and wished to proceed. I told him that we would plan on doing a right below-knee amputation but if the circulation is poor at this level, we would go ahead and perform an above-knee amputation. The complications discussed include but are not limited to infection, bleeding, injury to nerves and blood vessels, wound healing problems, prolonged pain and swelling, tender scar, further infection requiring oral or IV antibiotics, phantom pain, CRPS (complex regional pain syndrome- pain, sensory and temperature changes, swelling and stiffness), incomplete relief of pain, incomplete return of function, DVT, PE, ring sequestrum, likely need for further surgery in future and anesthetic problems including stroke, heart attack, and . I have discussed how there is a small but real possibility of loss of use of the limb, loss of the limb (proximal amputation) or loss of life itself. I have also explained how additional surgery may be required if there are any complications. We have also discussed the postoperative management, recovery and rehabilitation and the likely need for physical therapy, prosthetic limb fitting, the possibility of stiffness, osteomyelitis, chronic pain and we've also discussed the option of nonsurgical treatment. I strongly advised the patient to completely stop smoking and explained the rationale behind this advice. Also advised him about healthy lifestyle and healthy eating habits. The patient understand and has asked appropriate questions. All the questions were answered and patient verbalized a good understanding. Patient desires to proceed with the below knee amputation of the right lower extremity. Patient understood the risks, agreed to proceed with surgery and no guarantees or assurances were given or implied. Please refer to my office note for full details. Operative findings:: Healthy well perfused muscle and skin flaps at the level of the below knee amputation. No evidence of
--- NOTE | 2021-03-17 19:39 | SUR.PHASEI ---
1830 DETAILED REPORT GIVEN TO Kyung MUNOZ RN 1835 PT TRANSPORTED TO ROOM 215 PER STRETCHER, BED LOCKED IN LOWEST POSITION, PT STABLE AND TALKING WITH VISITOR. NO NEEDS AT THIS TIME. Kyung MUNOZ RN AT BEDSIDE
[2021-03-17 21:24] LABS: POC Glucose,Bedside 198 (70-110)
[2021-03-18] VITALS (8 sets, daily range): BP systolic 149–187; BP diastolic 80–98; PULSE 87–100; RESP 16–18; TEMP 36.5–37.2; O2SAT 98–100; BMI 22.6
--- NOTE | 2021-03-18 03:25 | PC.NURSE ---
pATIENT IS A&OX4. COMPLAINTS OF PAIN, CONTROLLED WITH PO MEDICATION. GAVE PATIENT CHICKEN SALAD SANDWICH AND SOUP AND PATIENT TOLERATED WELL. PATIENT HAD GOOD URINE OUTPUT. NO FURTHER CONCERNS VOICED TO RN. DRESSING TO RIGHT LOWER EXTREMITY IS CLEAN, DRY AND INTACT. VSS.
[2021-03-18 05:20] LABS: POC Glucose,Bedside 224 (70-110)
[2021-03-18 06:23] LABS: Basophils # 0.1 K/mm3 (0-0.2); Basophils % 1.2 % (0.1-2.0); Eosinophils # 0.7 K/mm3 (0.0-0.4); Eosinophils % 5.8 % (0.1-12.0); Hematocrit 36.4 % (42.0-52.0); Hemoglobin 11.8 g/dL (14.1-18.0); Lymphocytes # 2.1 K/mm3 (0.7-4.5); Lymphocytes % 18.4 % (10-50); Mean Corpuscular HGB Conc 32.4 g/dL (31.8-35.4); Mean Corpuscular Hemoglobin 26.7 pg (27.0-31.2); Mean Corpuscular Volume 82.5 fl (80-94); Mean Platelet Volume 8.3 fl (7.4-10.4); Monocytes # 0.6 K/mm3 (0.1-1.0); Neutrophils # 7.7 K/mm3 (1.8-7.8); Neutrophils % 69.5 % (37.0-80.0); Platelet Count 217 K/mm3 (142-424); Red Blood Count 4.41 M/mm3 (4.60-6.20); Red Cell Distribution Width 17.7 % (11.5-17.5); White Blood Count 11.1 K/mm3 (4.8-10.8)
[2021-03-18 06:33] LABS: Chloride 105 mmol/L (98-107); Potassium 3.9 mmoL/L (3.5-5.1); Sodium 137 mmol/L (136-145)
[2021-03-18 06:36] LABS: Anion Gap 13.9 mEq/L (5-15); Blood Urea Nitrogen 15 mg/dl (9-20); Calcium 8.8 mg/dl (8.4-10.2); Carbon Dioxide 22 mmol/L (22.0-30.0); Creatinine Clearance Estimated 93 mL/min (50-200); Estimated Glomerular Filt Rate 87 ml/min (>60); GFR (African American) 106 ML/MIN (>60); Glucose 215 mg/dl (74-100)
--- NOTE | 2021-03-18 07:19 | HMH.ANESII ---
[facility] Anesthesia Record Part II Discharge Time: 18:21 Destination: Medical Surgical Department PACU nurse assessment reviewed?: Yes Patient Condition:: Good Anesthesia Complications:: None Swallowing reflex intact?: Yes Cyanosis?: No Blood Pressure: 176/87 Pulse Rate: 88 Temperature: 97.7 F Mental Status: Alert & Oriented Pain level:: 0 Nausea and/or vomitting:: None Intake, IV Amount: 0
--- NOTE | 2021-03-18 07:34 | P.CONPHA_ITS ---
[facility] Pharmacy VTE Monitoring - Patient Demographics Admission date: 03/17/21 Report Date: 03/18/21 Time: 07:34 Allergies/Adverse Reactions: Patient Allergies Penicillins [PENICILLINS] Allergy (Unknown, Verified 03/13/21 15:52) Throat swelling Height: 1.78 m Weight: 71.668 kg - VTE Risk Labs: VTE Related Lab Results Hgb 11.8 g/dL (14.1-18.0) L 03/18/21 06:03 Hct 36.4 % (42.0-52.0) L 03/18/21 06:03 Plt Count 217 K/mm3 (142-424) 03/18/21 06:03 BUN 15 mg/dl (9-20) D 03/18/21 06:03 Creatinine 0.90 mg/dl (0.66-1.25) 03/18/21 06:03 Estimated Creat Clear 93 mL/min (50-200) 03/18/21 06:03 - Prophylaxis VTE Prophylaxis Ordered?: Yes Types of VTE Prophylaxis: IPCS Thigh High, Pharmacological Location of Applied Device: Left Leg Pharmacologic Type: Other (XARELTO)
--- NOTE | 2021-03-18 08:41 | HMH.HP ---
*Admission Date: 03/17/21 *Chief complaint: RLE non-healing wound *History of present illness: 55-year-old male patient admitted to [facility] for right below the knee amputation which was performed 03/17/2021 per Ortho. This morning he is sitting up in bed dressing to right lower extremity clean/dry/intact, he reports his pain is under control and denies any current concerns/needs. He does have a history of COPD, CAD, PAD, tobacco abuse, nonhealing right foot wound and gangrene of right foot as well as a history of noncompliance. [facility] History I have reviewed the patient's past medical history: Yes Medical History: Reports:: Chronic Obstructive Pulmonary Disease (COPD), Coronary Artery Disease, Diabetes Mellitus Type 2, Hyperlipidemia, Hypertension, Myocardial Infarction, Peripheral Artery Disease Denies:: Cancer, Diabetes Mellitus Type 1, Internal Pacemaker, MRSA, Seizures *Have you ever received a pneumonia vaccine?: No *Have you received a flu vaccine this season?: No Other Medical History: Denies: Blood Transfusion Reaction Anesthesia experience/problems:: None Other Surgeries: Yes: Angiogram, Cardiac Catheterization, Cardiac Surgery, Cholecystectomy, Coronary Stent, EGD, Other (RT foot partial amputation). No: Pacemaker Amputation: Yes Fractures: Yes (knee) - *Social History Smoking Status: Current every day smoker Tobacco Type: cigarettes # Packs/Day (cigarettes): 1 #Yrs smoked (if former smoker): 30 Alcohol Intake: former Alcohol Intake Frequency:: holidays/special occasions only Substance Use Type: denies use *Occupational Status:: unemployed Housing: house Household Members: spouse, children *Travel in the last 8 weeks: None Family Hx:: No significant family history Review of Systems - Review of Systems Review of systems:: pertinent systems reviewed and negative unless documented below - Constitutional Denies body ache(s), Denies fatigue - Eyes Denies blurry vision, Denies double vision - ENT Denies abnormal hearing, Denies dizziness - *Cardiovascular Denies chest pain, Denies shortness of breath with activity - *Respiratory Denies chest congestion, Denies cough - *Gastrointestinal Denies abdominal pain, Denies change in bowel habits - *Musculoskeletal Reports abnormal walking, Denies back pain - Integumentary/Breasts Denies bleeding lesions, Denies change in skin color - *Neurologic Reports abnormal walking, Denies abnormal speech, Denies behavioral changes - Psychiatric Denies lack of enjoyment, Denies anxiety - Endocrine Denies cold intolerance, Denies rapid, pounding, or irregular heartbeat - Hematologic/Lymphatic Denies easy bleeding, Denies easy bruising - Allergic/Immunologic Denies lip swelling, Denies tongue swelling Meds Home Medications Medication Instructions Recorded Confirmed Type glipiZIDE [Glipizide ER] 10 mg PO DAILY 10/14/20 03/17/21 History Aspirin [Aspirin 81mg EC Tab] 81 mg PO DAILY 12/09/20 03/17/21 History metformin 1,000 mg tablet 1,000 mg PO BID tab 02/05/21 03/17/21 History metoprolol succinate 100 mg 100 mg PO DAILY tab 02/05/21 03/17/21 History tablet,extended release 24 hr Empagliflozin [Jardiance] 25 mg PO DAILY 02/12/21 03/17/21 History Semaglutide [Rybelsus] 3 mg PO DAILY 02/12/21 03/17/21 History dilTIAZem HCl [Diltiazem 240mg 240 mg PO DAILY 02/13/21 03/17/21 History 24Hr ER Cap] levetiracetam 500 mg tablet 500 mg PO BID tab 02/25/21 03/17/21 History Atorvastatin Calcium [Lipitor 40mg 40 mg PO DAILY 03/17/21 03/17/21 History Tab] Losartan Potassium [Cozaar 50mg 50 mg PO DAILY 03/17/21 03/17/21 History Tablets] Rivaroxaban [Xarelto] 2.5 mg PO BID 03/17/21 03/17/21 History Allergies Allergy/AdvReac Type Severity Reaction Status Date / Time Penicillins [PENICILLINS] Allergy Unknown Throat Verified 03/13/21 15:52 swelling Exam Vital signs and Labs for Last 24 Hours: Temp Pulse Resp BP Pulse O
--- NOTE | 2021-03-18 10:18 | HMH.PHAINT ---
MEDICATION RECONCILIATION COMPLETE USING LIST FROM MD OFFICE VISIT IN EARLY MARCH AND EXTERNAL PHARMACY FILL HISTORY.
--- NOTE | 2021-03-18 10:46 | SW/DCPLANNER ---
Addendum entered by Jael Farris 03/19/21 11:48: Lisa with [facility] has stated that services will begin tomorrow for this patient. Addendum entered by Jael Farris 03/19/21 11:10: Patient information/order has been faxed to [facility] to resume home health services. Patient will discharge home later today. I will follow up with [facility] once patient information is reviewed. Addendum entered by Jael Farris 03/18/21 11:45: PT/OT has stated that patient is safe to return home at time of discharge. Original Note: I spoke with this patient regarding discharge plans. Patient stated that he resides at home with his and does well at home. Patients family [place] same [place] as well. Patient stated that he worked with PT this AM and did well. Patient has used [facility] in the past and is agreeable to use services if ordered at discharge. Patient stated that he currently has a rolling walker at home. I will continue to follow up with this patient until medically stable for discharge. Patient plans to return home with /family and home health services if needed.
--- NOTE | 2021-03-18 11:10 | PC.NURSE ---
did call and speak with md office about patient requests for something for diarrhea. no new orders at this time
--- NOTE | 2021-03-18 11:19 | HMH.PTEV ---
Physical Therapy Evaluation Rehab PT IP Evaluation Start: 03/17/21 18:16 Freq: ONCE Status: Active Protocol: Document 03/18/21 11:07 PARVEEN (Rec: 03/18/21 11:19 PARVEEN [id number]) Subjective/History History History Patient is a 55 year old male admitted to [facility] 03/17/21 secondary to osteomyelitis, non-healing wound and PAD. Patient underwent BKA 03/17/21. Patient reports that he lives at home with . Patient reports that he was able to go to the bathroom independently this morning. Subjective Subjective I've been feeling alright. Not really having that much pain. Rehab PT IP Eval Objective Appearance Patient Behavior Appropriate,Cooperative Patient Orientation Person,Place,Birthday,Day of Week Difficulty following instructions none Speech Pattern Clear,Appropriate Ambulation Patient Able to Ambulate Yes Ambulation Observation Ambulation Distance (feet) 5 Ambulation Assistive Device Rolling Walker Ambulation Ability Contact Guard/Hand Hold Balance Ability to Arise Able, uses arms to help Sitting Balance Steady, safe Standing Balance Steady, wide stance Dynamic Sitting Balance Ability Normal Dynamic Standing Balance Ability Normal Transfers Bed Transfer Ability Independent Chair Transfer Ability Contact Guard/Hand Hold Sit to Stand Bed Transfer Ability Contact Guard/Hand Hold Pain Right Calf Pain Intensity 5 ROM All Extremities PT ROM Status WFL MMT RLE PT MMT WFL Rehab PT IP prob,goals,plan Problems Date of Evaluation: 03/18/21 PT IP Problems Gait Rehab Potential Rehab Potential Good Equipment Needs Assistive Devices Rolling / Wheeled Walker Plan PT Intervention Plan Bed Mobility,Transfers,Gait, Balance,Self care,Safety, Therapeutic Exercise PT Plan Frequency BID Duration LOS Discharge Goals Bed Transfer Ability Independent Sit to Stand Chair Transfer Ability Independent Ambulation Assistive Device Rolling Walker Ambulation Distance (feet) 50 Discharge Plan PT Discharge Plan Patient is good to DC at this time, but will be seen by PT
[2021-03-18 11:37] LABS: POC Glucose,Bedside 280 (70-110)
--- NOTE | 2021-03-18 11:37 | HMH.OTEV ---
OT Inpatient Evaluation Rehab OT IP Evaluation Start: 03/17/21 18:16 Freq: ONCE Status: Complete Protocol: Document 03/18/21 11:[facility] (Rec: 03/18/21 11:30 [facility] [id number]) Rehab OT IP Assessment Subjective History Pt oriented x 4 on arrival. Pt agreeable to engage in therapy evaluation. Pt was admitted on 03/17/21 following a Right BKA completed by ortho. Pt had a R LE non-healing wound requiring amputation. Pt has a past medical history of Chronic Obstructive Pulmonary Disease (COPD), Coronary Artery Disease, Diabetes Mellitus Type 2, Hyperlipidemia, Hypertension, Myocardial Infarction, Peripheral Artery Disease. Pt reports prior to surgery he lived with his family. He claims he was independent with all ADLS prior to surgery. He was dependent upon family to complete all IADL's. He did not use a walker prior. Subjective I have had trouble with this wound since July. Objective Patient Orientation Person,Place,Birthday,Day of Week Upper Extremity Gross ROM WFL Bed Mobility bed mobility-scooting,bed mobility - supine/sit,bed mobility - rolling Assist Level Supervision/Stand by Transfer Training Sit/Stand Transfer Assist Level Contact Guard/Hand Hold Chair Transfer Ability Contact Guard/Hand Hold Chair Transfer Technique Sit to/from Ambulatory Chair Transfer Assistive Devices Rolling Walker Rehab OT IP prob,goals,plan Problems Date of Evaluation: 03/18/21 OT IP Problems Bed Mobility,Transfers,Gait, Balance,Self care,Safety Rehab Potential Rehab Potential Good Equipment Needs Assistive Devices Rolling / Wheeled Walker Plan OT intervention Plan Bed Mobility,Transfers,Gait, Balance,Self care,Safety, Therapeutic Exercise OT Plan Frequency BID Duration LOS Discharge Goals Bed Mobility Ability Standby Assistance Sit to
--- NOTE | 2021-03-18 13:55 | HMH.ORTHPN ---
Subjective Date: 03/18/21 Time: 12:15 Principal diagnosis: Status post below-knee amputation, right Interval history: Patient is status post right below-knee amputation post op day #1. Patient is sitting up in the chair and says he is doing well. Patient reports minimal pain in his right residual limb; he says it's well-controlled with as needed medication. No history of any nausea or vomiting. No history of any cough, chest pain, shortness of breath or palpitations. Patient says he is eating and drinking well.? PN: Obj Ex Vital signs: Temp Pulse Resp BP Pulse Ox 98 F 100 H 18 156/88 H 100 03/18/21 07:35 03/18/21 07:35 03/18/21 07:35 03/18/21 07:35 03/18/21 07:35 Narrative: Laboratory Results - last 24 hr 03/17/21 17:58: POC Glucose 173 H 03/17/21 20:19: POC Glucose 198 H 03/18/21 05:13: POC Glucose 224 H 03/18/21 06:03: WBC 11.1 H, RBC 4.41 L, Hgb 11.8 L, Hct 36.4 L, MCV 82.5, MCH 26.7 L, MCHC 32.4, RDW 17.7 H, Plt Count 217, MPV 8.3, Neut % (Auto) 69.5, Lymph % (Auto) 18.4, [place] % (Auto) 5.0, Eos % (Auto) 5.8, Baso % (Auto) 1.2, Neut # (Auto) 7.7, Lymph # (Auto) 2.1, [place] # (Auto) 0.6, Eos # (Auto) 0.7 H, Baso # (Auto) 0.1 03/18/21 06:03: Sodium 137, Potassium 3.9, Chloride 105, Carbon Dioxide 22, Anion Gap 13.9, BUN 15 D, Creatinine 0.90, Estimated Creat Clear 93, Estimated GFR 87, Est GFR ( Amer) 106, Glucose 215 H, Calcium 8.8 03/18/21 11:30: POC Glucose 280 H Exam General appearance: alert, active, awake, no acute distress.? Cardiovascular: regular rate & rhythm Respiratory: No respiratory distress noted, speaks in full sentences ABD: soft and non-tender Neuro: alert, awake, oriented x 3 Psych: Appropriate mood and affect On examination of the left residual limb, the dressings are clean, dry and intact.? No soakage or strikethrough noted.? The sugar tong splint is in place.? The surgical drain is in place and there is only a small amount of serosanguineous discharge in the drain. Progress Note: A&P (1) Below knee amputation Status: Acute (2) Peripheral vascular disease Status: Acute (3) Chronic osteomyelitis of right foot Status: Acute (4) Gangrene of right foot Status: Acute (5) HLD (hyperlipidemia) Status: Chronic (6) Cigarette smoker Status: Acute (7) COPD (chronic obstructive pulmonary disease) Status: Chronic (8) Hypertension Status: Chronic (9) CAD (coronary artery disease) Status: Chronic (10) Uncontrolled diabetes mellitus Status: Chronic (11) Marijuana abuse Status: Acute (12) Medical non-compliance Status: Acute Assessment and Plan for All Diagnoses:: I have reviewed the operative findings and procedure performed with the patient.?Overall he is doing well and no postoperative complications noted. Advised him to continue elevation, icing, as needed pain medication and continue the antibiotics.? Surgical dressings will be changed tomorrow and we will also remove the drain. Patient could potentially be discharged tomorrow after that. Continue medical management as per Dr. Dacosta.
--- NOTE | 2021-03-18 15:25 | PC.NURSE ---
patient has done well this shift. has had minimal complaints. has rested off and on. did sit up in chair with no issues. dahiana drain remains intact dressing remains clean and dry. vitals stable
[2021-03-18 17:37] LABS: POC Glucose,Bedside 257 (70-110)
[2021-03-18 23:45] LABS: POC Glucose,Bedside 298 (70-110)
[2021-03-19] VITALS: BP 132/78; PULSE 88; RESP 20; TEMP 36.6; O2SAT 99
[2021-03-19 04:00] VITALS: BP 151/79; PULSE 85; RESP 20; TEMP 36.6; O2SAT 99
[2021-03-19 05:13] VITALS: BMI 21.7
[2021-03-19 07:40] VITALS: BP 161/86; PULSE 98; RESP 18; TEMP 36.9; O2SAT 99
[2021-03-19 08:38] VITALS: RESP 18
--- NOTE | 2021-03-19 08:48 | PC.NURSE ---
Dr Dacosta and Tracy rounding at bedside at this time, okayed for pt's IV fluids to be saline locked, pt drinking well, vss.
[2021-03-19 09:13] LABS: Chloride 102 mmol/L (98-107); Potassium 3.7 mmoL/L (3.5-5.1); Sodium 137 mmol/L (136-145)
[2021-03-19 09:16] LABS: Anion Gap 10.7 mEq/L (5-15); Blood Urea Nitrogen 10 mg/dl (9-20); Calcium 8.9 mg/dl (8.4-10.2); Carbon Dioxide 28 mmol/L (22.0-30.0); Creatinine Clearance Estimated 89 mL/min (50-200); Estimated Glomerular Filt Rate 87 ml/min (>60); GFR (African American) 106 ML/MIN (>60); Glucose 292 mg/dl (74-100)
[2021-03-19 10:24] LABS: Basophils # 0.1 K/mm3 (0-0.2); Basophils % 1.5 % (0.1-2.0); Eosinophils # 0.8 K/mm3 (0.0-0.4); Eosinophils % 8.4 % (0.1-12.0); Hematocrit 34.6 % (42.0-52.0); Hemoglobin 11.5 g/dL (14.1-18.0); Lymphocytes # 1.7 K/mm3 (0.7-4.5); Lymphocytes % 18.1 % (10-50); Mean Corpuscular HGB Conc 33.3 g/dL (31.8-35.4); Mean Corpuscular Hemoglobin 27.1 pg (27.0-31.2); Mean Corpuscular Volume 81.3 fl (80-94); Mean Platelet Volume 8.8 fl (7.4-10.4); Monocytes # 0.7 K/mm3 (0.1-1.0); Monocytes % 7.7 % (1.7-9.3); Neutrophils # 6.2 K/mm3 (1.8-7.8); Neutrophils % 64.4 % (37.0-80.0); Platelet Count 225 K/mm3 (142-424); Red Blood Count 4.26 M/mm3 (4.60-6.20); Red Cell Distribution Width 17.7 % (11.5-17.5); White Blood Count 9.7 K/mm3 (4.8-10.8)
[2021-03-19 10:41] LABS: Vancomycin,Trough 14.7 ug/mL (5.0-10.0)
[2021-03-19 11:24] VITALS: BP 154/76; PULSE 68; RESP 18; TEMP 36.8; O2SAT 97
--- NOTE | 2021-03-19 12:24 | PC.NURSE ---
1221- Dr. Philippe at bedside at this time, changed pt's dressing and removed RONN drain, okayed for pt to be discharged from orthopedic standpoint 1224-notified NA Suarez at 's office that patient is okayed to be discharged from orthopedic standpoint
--- NOTE | 2021-03-19 13:06 | HMH.DCSUM ---
General - General Admission date:: 03/17/21 Discharge date: 03/19/21 HPI HPI: 55-year-old male patient admitted to [facility] for right below the knee amputation which was performed 03/17/2021 per Ortho. This morning he is sitting up in bed dressing to right lower extremity clean/dry/intact, he reports his pain is under control and denies any current concerns/needs. He does have a history of COPD, CAD, PAD, tobacco abuse, nonhealing right foot wound and gangrene of right foot as well as a history of noncompliance. Hospital Course Hospital Course: Laboratory Tests 03/17/21 03/17/21 03/17/21 11:18 17:58 20:19 WBC RBC Hgb Hct MCV MCH MCHC RDW Plt Count MPV Neut % (Auto) Lymph % (Auto) [place] % (Auto) Eos % (Auto) Baso % (Auto) Neut # (Auto) Lymph # (Auto) [place] # (Auto) Eos # (Auto) Baso # (Auto) Sodium Potassium Chloride Carbon Dioxide Anion Gap BUN Creatinine Estimated Creat Clear Estimated GFR Est GFR ( Amer) Glucose POC Glucose 262 H 173 H 198 H Calcium Vancomycin Trough 03/18/21 03/18/21 03/18/21 05:13 06:03 06:03 WBC 11.1 H RBC 4.41 L Hgb 11.8 L Hct 36.4 L MCV 82.5 MCH 26.7 L MCHC 32.4 RDW 17.7 H Plt Count 217 MPV 8.3 Neut % (Auto) 69.5 Lymph % (Auto) 18.4 [place] % (Auto) 5.0 Eos % (Auto) 5.8 Baso % (Auto) 1.2 Neut # (Auto) 7.7 Lymph # (Auto) 2.1 [place] # (Auto) 0.6 Eos # (Auto) 0.7 H Baso # (Auto) 0.1 Sodium 137 Potassium 3.9 Chloride 105 Carbon Dioxide 22 Anion Gap 13.9 BUN 15 D Creatinine 0.90 Estimated Creat Clear 93 Estimated GFR 87 Est GFR ( Amer) 106 Glucose 215 H POC Glucose 224 H Calcium 8.8 Vancomycin Trough 03/18/21 03/18/21 03/18/21 11:30 17:01 20:19 WBC RBC Hgb Hct MCV MCH MCHC RDW Plt Count MPV Neut % (Auto) Lymph % (Auto) [place] % (Auto) Eos % (Auto) Baso % (Auto) Neut # (Auto) Lymph # (Auto) [place] # (Auto) Eos # (Auto) Baso # (Auto) Sodium Potassium Chloride Carbon Dioxide Anion Gap BUN Creatinine Estimated Creat Clear Estimated GFR Est GFR ( Amer) Glucose POC Glucose 280 H 257 H 298 H Calcium Vancomycin Trough 03/19/21 03/19/21 03/19/21 05:39 08:40 08:40 WBC 9.7 RBC 4.26 L Hgb 11.5 L Hct 34.6 L MCV 81.3 MCH 27.1 MCHC 33.3 RDW 17.7 H Plt Count 225 MPV 8.8 Neut % (Auto) 64.4 Lymph % (Auto) 18.1 [place] % (Auto) 7.7 Eos % (Auto) 8.4 Baso % (Auto) 1.5 Neut # (Auto) 6.2 Lymph # (Auto) 1.7 [place] # (Auto) 0.7 Eos # (Auto) 0.8 H Baso # (Auto) 0.1 Sodium 137 Potassium 3.7 Chloride 102 Carbon Dioxide 28 D Anion Gap 10.7 BUN 10 D Creatinine 0.90 Estimated Creat Clear 89 Estimated GFR 87 Est GFR ( Amer) 106 Glucose 292 H POC Glucose Calcium 8.9 Vancomycin Trough 14.7 H Date of procedure: 03/17/21 Pre-op Diagnosis:: 1. Osteomyelitis, right foot 2. Nonhealing wound, right foot 3. Peripheral arterial disease Post-op Diagnosis:: Same Procedure performed:: Below-knee amputation, right leg Surgeon:: Redd Philippe MD Analytics Senior Manager(s):: Lena Mahoney STARCHMAKER:: Alejandro Bryant Anesthesia: LMA Estimated blood loss (mL): 20 Condition: stable Disposition: PACU Specimens:: None Complications:: None Subjective Date: 03/18/21 Time: 12:15 Principal diagnosis: Status post below-knee amputation, right Interval history: Patient is status post right below-knee amputation post op day #1. Patient is sitting up in the chair and says he is doing well. Patient reports minimal pain in his right residual limb; he says it's well-controlled with as needed medication. No
[2021-03-19 13:45] VITALS: RESP 18
[2021-03-19 14:06] LABS: Vancomycin,Peak 12.4 ug/ml (11-39)
[2021-03-19 14:13] LABS: POC Glucose,Bedside 306 (70-110)
[2021-03-20 05:54] LABS: POC Glucose,Bedside 232 (70-110)
== END 2021-03-19 14:58 | disposition home or self-care (01) ==
LOC: 2ND 18:50
PROVIDERS: Nurse Practitioner Family; Admitting Provider Emergency Medicine; PCP Emergency Medicine; Referring Provider Orthopaedic Surgery; Visit Provider Emergency Medicine
PROC: (CPT 27880; principal; 2021-03-17 11:45)
DX: E11.52 Type 2 diabetes mellitus with diabetic peripheral angiopathy with gangrene (principal); I70.261 Atherosclerosis of native arteries of extremities with gangrene, right leg; L97.519 Non-pressure chronic ulcer of other part of right foot with unspecified severity; E11.69 Type 2 diabetes mellitus with other specified complication; E11.42 Type 2 diabetes mellitus with diabetic polyneuropathy; I25.10 Atherosclerotic heart disease of native coronary artery without angina pectoris; M86.671 Other chronic osteomyelitis, right ankle and foot; J44.9 Chronic obstructive pulmonary disease, unspecified; F17.210 Nicotine dependence, cigarettes, uncomplicated; Z95.5 Presence of coronary angioplasty implant and graft; I10 Essential (primary) hypertension; Z79.899 Other long term (current) drug therapy; Z79.01 Long term (current) use of anticoagulants; Z79.84 Long term (current) use of oral hypoglycemic drugs
CPT/HCPCS: 27880; 36415; 80048; 80202; 82962; 85025; 96374; 97116; 97163; 97166; 97530; G0378; J0131; J3370

== ENCOUNTER 2021-03-28 09:45 | Emergency (ER) | payer OTHER, SELFPAY ==
[2021-03-28 09:46] VITALS: BP 157/87; PULSE 85; RESP 18; TEMP 36.9; O2SAT 99; BMI 22.9
--- NOTE | 2021-03-28 09:48 | HMH.EDGENADL ---
ED Disposition Clinical Impression: Difficulty swallowing Qualifiers: Dysphagia type: oral phase Qualified Code(s): R13.11 - Dysphagia, oral phase Disposition: Home, Self-Care Condition on Discharge: Good Additional Instructions: You were seen in the emergency department for evaluation of dry throat and difficulty swallowing. At this time no further emergent work-up is indicated. If you have worsening symptoms please return to the emergency department. Is important follow-up with your primary care physician also note you were seen in the emergency department. Referrals: Yash Dacosta MD [Primary Care Provider] - - Critical Care Critical Care Time: No Attestation: On , the high probability of a clinically significant, sudden or life threatening deterioration of the following system(s) required my full and direct attention, intervention and personal management. The time I documented below is in addition to time spent performing reported procedures but includes the following listed in this critical care notation. Medical Decision Making - Anthony Inquiry Pt receiving controlled substance: No Vital Signs: 03/28/21 09:46 03/28/21 12:15 Temperature 98.4 F Temperature Source Oral Pulse Rate 65 Pulse Rate [Right Radial] 85 Respiratory Rate 18 Blood Pressure 137/77 Blood Pressure [Right Arm] 157/87 H Blood Pressure Mean [Right Arm] 110 Blood Pressure Source [Right Arm] Automatic Cuff Blood Pressure Position [Right Arm] Sitting 02 Sat by Pulse Oximetry 99 99 Oxygen Delivery Method Room Air - Lab Data Lab Results 03/28/21 10:08: WBC 8.2, RBC 4.08 L, Hgb 11.0 L, Hct 32.6 L, MCV 79.9 L, MCH 26.9 L, MCHC 33.7, RDW 17.2, Plt Count 303, MPV 8.0, Neut % (Auto) 63.8, Lymph % (Auto) 21.1, [place] % (Auto) 6.4, Eos % (Auto) 7.4, Baso % (Auto) 1.3, Neut # (Auto) 5.2, Lymph # (Auto) 1.7, [place] # (Auto) 0.5, Eos # (Auto) 0.6 H, Baso # (Auto) 0.1 03/28/21 10:08: Sodium 134 L, Potassium 4.0, Chloride 99, Carbon Dioxide 25, Anion Gap 14.0, BUN 20, Creatinine 1.00, Estimated Creat Clear 85, Estimated GFR 77, Est GFR ( Amer) 94, Glucose 358 H, Calcium 9.0, Total Bilirubin 0.3, AST 27, ALT 32, Alkaline Phosphatase 94, Total Protein 6.7, Albumin 3.8, Globulin 2.9, Albumin/Globulin Ratio 1.3 Result diagrams: 03/28/21 10:08 03/28/21 10:08 Orders (Tests/Meds): ED MEDICATIONS Discontinued Medications Generic Name Dose Route Start Last Admin Trade Name Shahana PRN Reason Stop Dose Admin Iopamidol 75 ml 03/28/21 11:54 03/28/21 11:55 Iopamidol-370 (76%);100ml Bottle IV 03/28/21 11:55 75 ml ONCE ONE Administration Sodium Chloride 10 ml 03/28/21 11:54 03/28/21 11:55 Sodium Chloride 0.9% 10ml Syr (Rad Only) IV 03/28/21 11:55 10 ml ONCE ONE Administration Medical Decision Narrative: Upon arrival patient is hemodynamically stable afebrile overall nontoxic-appearing. He is saturating well on room air with no acute respiratory distress he does appear to have a dry tongue but his mucous membranes are moist otherwise he has no oropharyngeal swelling he does have a slight enlargement of his right tonsil does not appear to be erythematous or have exudate. Differential diagnosis includes but is not limited to dehydration, pharyngeal abscess, retropharyngeal abscess, viral pharyngitis. Patient has had no pain he has no signs concerning for a COPD exacerbation has no increased oxygen requirement saturating 100% on room air has no wheezing on exam is in no respiratory distress he has no chest pain either. He has no overall reassuring exam given the concern of possible abscess will obtain basic laboratory work-up along with CT of the neck give patient a fluid bolus for symptomatic relief. Patient is currently tolerating p.o. intake and came in drinking a soda. CT scan unremarkable laboratory work-up unremarkable as well no signs concerning for acute infection he did have some right tonsillar hypertrophy w
--- NOTE | 2021-03-28 10:02 | CT_ITS ---
PROCEDURE: CT SOFT TISSUE NECK W CON CLINICAL HISTORY: concern for tonsillar abscess COMPARISON: No exams were available for comparison TECHNIQUE: Oral Contrast: None IV Contrast: 75 mL Isovue 370 Axial images obtained with sagittal and coronal reformats. All CT scans at the facility use one or more dose reduction, viz: automated exposure control, ma/kV adjustment per patient size (including targeted exams where dose is matched to indication, i.e. head), or iterative reconstruction technique. FINDINGS: The nasopharynx, oropharynx, and hypopharynx have an unremarkable appearance. No evidence of peritonsillar abscess. There is some calcification within tonsillar crypts on the right. There is minimal hypertrophy of the right palatine tonsils. The epiglottis and glottic region appear unremarkable. There is some increased density within the left piriform sinus which appears to be due to nondistention. The parotids and submandibular glands have an unremarkable appearance. No significant cervical adenopathy. Unremarkable appearing thyroid gland. There is some hypertrophy of the right sternoclavicular joint with some increased soft tissue density suggesting prominent pannus. Centrilobular emphysematous changes are present in the upper lobes with an azygos fissure noted on the right. Degenerative changes are present within the cervical spine with anterior osteophytes at C5-C6. No sinus air-fluid level. There is mild leftward nasal septal deviation IMPRESSION: No evidence of peritonsillar abscess. Minimal hypertrophy of the right palatine tonsils with tonsillar calcified crypts noted and other non acute findings as described above. Dictated by: Vince Miranda MD 03/28/2021 11:48 Vince Miranda MD in [place] 03/28/2021 11:48
--- NOTE | 2021-03-28 10:03 | XR_ITS ---
PROCEDURE: XR CHEST 2V CLINICAL HISTORY: shortness of breath COMPARISON: CT CHESTWO CT chest wo con from 11/29/2018 CR XR CHEST PORTABLE PICC PLAC from 12/20/2020 CR XR CHEST PORTABLE from 12/24/2020 CR XR CHEST PORTABLE from 02/14/2021 FINDINGS: Normal heart size. Coronary artery stent is noted. No evidence of CHF. The lungs are clear without infiltrates, suspicious nodules, or pleural effusions. No acute bony abnormalities. IMPRESSION: No acute findings. Dictated by: Vince Miranda MD 03/28/2021 11:16 Vince Miranda MD in [place] 03/28/2021 11:16
[2021-03-28 10:16] LABS: Basophils # 0.1 K/mm3 (0-0.2); Basophils % 1.3 % (0.1-2.0); Eosinophils # 0.6 K/mm3 (0.0-0.4); Eosinophils % 7.4 % (0.1-12.0); Hematocrit 32.6 % (42.0-52.0); Lymphocytes # 1.7 K/mm3 (0.7-4.5); Lymphocytes % 21.1 % (10-50); Mean Corpuscular HGB Conc 33.7 g/dL (31.8-35.4); Mean Corpuscular Hemoglobin 26.9 pg (27.0-31.2); Mean Corpuscular Volume 79.9 fl (80-94); Monocytes # 0.5 K/mm3 (0.1-1.0); Monocytes % 6.4 % (1.7-9.3); Neutrophils # 5.2 K/mm3 (1.8-7.8); Neutrophils % 63.8 % (37.0-80.0); Platelet Count 303 K/mm3 (142-424); Red Blood Count 4.08 M/mm3 (4.60-6.20); Red Cell Distribution Width 17.2 % (11.5-17.5); White Blood Count 8.2 K/mm3 (4.8-10.8)
[2021-03-28 11:04] LABS: Chloride 99 mmol/L (98-107); Sodium 134 mmol/L (136-145)
[2021-03-28 11:06] LABS: Alanine Aminotransferase 32 U/L (12-78); Aspartate Amino Transferase 27 U/L (17-59); Blood Urea Nitrogen 20 mg/dl (9-20); Creatinine Clearance Estimated 85 mL/min (50-200); Estimated Glomerular Filt Rate 77 ml/min (>60); GFR (African American) 94 ML/MIN (>60)
[2021-03-28 11:07] LABS: Albumin Level 3.8 g/dl (3.5-5.0); Albumin/Globulin Ratio 1.3 (1.1-1.8); Alkaline Phosphatase 94 U/L (38-126); Bilirubin,Total 0.3 mg/dl (0.2-1.3); Carbon Dioxide 25 mmol/L (22.0-30.0); Globulin 2.9 g/dL (1.3-3.2); Glucose 358 mg/dl (74-100); Total Protein,Serum 6.7 g/dl (6.3-8.2)
[2021-03-28 12:15] VITALS: BP 137/77; PULSE 65; O2SAT 99
[2021-03-28 13:49] VITALS: BP 132/78; PULSE 85; RESP 18; TEMP 36.6; O2SAT 99
== END 2021-03-28 13:51 | disposition home or self-care (01) ==
PROVIDERS: Emergency Provider Emergency Medicine; PCP Emergency Medicine
DX: R13.11 Dysphagia, oral phase (principal); J44.9 Chronic obstructive pulmonary disease, unspecified; E11.65 Type 2 diabetes mellitus with hyperglycemia; I10 Essential (primary) hypertension; E78.5 Hyperlipidemia, unspecified; I25.2 Old myocardial infarction; F17.210 Nicotine dependence, cigarettes, uncomplicated; Z88.0 Allergy status to penicillin; Z79.899 Other long term (current) drug therapy
CPT/HCPCS: 70491; 71046; 80053; 85025; 99283; Q9967

== ENCOUNTER → 2021-04-05 10:39 | Outpatient (CLI) | payer OTHER, SELFPAY ==
[2021-04-05 11:16] LABS: Basophils # 0.1 K/mm3 (0-0.2); Basophils % 1.3 % (0.1-2.0); Eosinophils # 0.7 K/mm3 (0.0-0.4); Eosinophils % 8.7 % (0.1-12.0); Hematocrit 35.1 % (42.0-52.0); Hemoglobin 11.2 g/dL (14.1-18.0); Lymphocytes # 2.2 K/mm3 (0.7-4.5); Lymphocytes % 26.5 % (10-50); Mean Corpuscular HGB Conc 31.9 g/dL (31.8-35.4); Mean Corpuscular Hemoglobin 27.3 pg (27.0-31.2); Mean Corpuscular Volume 85.7 fl (80-94); Mean Platelet Volume 7.9 fl (7.4-10.4); Monocytes # 0.5 K/mm3 (0.1-1.0); Neutrophils # 4.7 K/mm3 (1.8-7.8); Neutrophils % 57.5 % (37.0-80.0); Platelet Count 317 K/mm3 (142-424); Red Cell Distribution Width 17.1 % (11.5-17.5); White Blood Count 8.1 K/mm3 (4.8-10.8)
[2021-04-05 11:57] LABS: Chloride 100 mmol/L (98-107)
[2021-04-05 11:58] LABS: Potassium 3.7 mmoL/L (3.5-5.1); Sodium 136 mmol/L (136-145)
[2021-04-05 12:01] LABS: Anion Gap 11.7 mEq/L (5-15); Blood Urea Nitrogen 19 mg/dl (9-20); Calcium 8.8 mg/dl (8.4-10.2); Carbon Dioxide 28 mmol/L (22.0-30.0); Estimated Glomerular Filt Rate 100 ml/min (>60); GFR (African American) 121 ML/MIN (>60); Glucose 338 mg/dl (74-100)
== END ==
PROVIDERS: Visit Provider Physician Assistant
DX: Z01.812 Encounter for preprocedural laboratory examination (principal); Z11.52 Encounter for screening for COVID-19; I20.0 Unstable angina; R06.00 Dyspnea, unspecified; R94.31 Abnormal electrocardiogram [ECG] [EKG]; I73.9 Peripheral vascular disease, unspecified; I10 Essential (primary) hypertension; E11.9 Type 2 diabetes mellitus without complications; J44.9 Chronic obstructive pulmonary disease, unspecified; Z79.84 Long term (current) use of oral hypoglycemic drugs
CPT/HCPCS: 36415; 80048; 85025; U0003

== ENCOUNTER 2021-04-07 11:01 | Day surgery (SDC) | payer OTHER, SELFPAY ==
[2021-04-07] VITALS (8 sets, daily range): BP systolic 143–167; BP diastolic 72–78; PULSE 63–66; RESP 18–65; TEMP 36.4; O2SAT 95–100; BMI 22.5
--- NOTE | 2021-04-07 07:14 | IR_ITS ---
APPROVED REPORT Patient Location: Outpatient PROCEDURES Drug-eluting stent deployment to the proximal dominant circumflex artery Drug-eluting stent deployment to the first obtuse marginal artery Drug-eluting stent deployment to the proximal mid right coronary INDICATION Coronary disease, Angina pectoris class III-IV Informed consent was obtained prior to the procedure. COMPLICATIONS None Estimated Blood Loss: Less than 10 mls TECHNIQUE 1% lidocaine used anesthetize right groin the right femoral arteries accessed via standard technique and a 6 Taiwanese sheath was placed in the right femoral artery. Therapeutic heparin was administered giving a therapeutic ACT. An EBU 3.75 guide catheter was used to intubate the left main artery the Choice PT extra-support wire was placed in the first obtuse marginal artery and an additional one was placed in the distal right coronary. A 2.5 x 18 mm resolute Dayne stent was deployed in the ostial proximal segment of the first obtuse marginal at 20 javier. This reduce the stenosis to 30%. A 3 mm balloon was then used to open the struts that was sticking out the main circumflex artery. A 3.5 x 18 mm resolute Dayne stent was then deployed in the proximal dominant circumflex artery crossing the first obtuse marginal artery 20 javier. A wire was placed back into the first obtuse marginal artery where a 2 mm balloon was used to predilate the stenosis. A 2.75 x 12 mm balloon was then deployed at 24 javier in the ostial proximal segment as well as the area sticking out into the true circumflex artery. Excellent angiographic results were obtained. The balloon was then pulled back to the obtuse marginal artery placed back into the circumflex artery adjacent from the first obtuse marginal artery and then deployed at 28 javier to make sure no additional struts stuck out to the stents. After achieving excellent angiograph results the apparatus was removed. CHRISTIANNE-3 flow was present before and after the procedure. Following this a JR4 guide catheter was placed in the right coronary artery and a Choice PT extra-support wire was placed distally. A 2.5 x 38 mm resolute Dayne stent was deployed at 20 javier reducing the stenosis. An additional stenosis was identified distally therefore a 3 mm x 12 mm resolute Dayne stent was placed distal to the first stent and deployed at 20 javier. The balloon was brought back and deployed at 24 javier up and down the right coronary artery. Following this a 3.25 x 12 mm balloon was deployed in a calcified area which was not yet fully deployed. The balloon was taken to 28 javier. After this failed to dilate the vessel completely a 3.5 x 12 mm balloon was then deployed at 24 javier. An additional 3.75 x 8 mm noncompliant balloon was then deployed at 28 javier in this area finally reducing the stenosis to less than 10%. CHRISTIANNE-3 flow was present before and after the procedure. After achieving excellent angiographic results the apparatus was removed the groin was reprepped closure changed sheath was removed and hemostasis was achieved using Perclose device patient was transferred to the postop holding her stable condition IMPRESSION Successful stenting of the proximal to mid dominant circumflex artery severe disease reduced to 0% with 1 drug-eluting stent Successful stenting of the first obtuse marginal artery which bifurcated off the proximal circumflex artery reducing the severe stenosis to 0% Successful reconstruction of the proximal to mid nondominant yet still large right coronary artery severe disease reduced to 0% with 2 contiguous drug-eluting stents as described above PLAN 1. Dual antiplatelet therapy 2. Cardiac rehabilitation 3. Avoidance of tobacco products 4. R
[2021-04-08 14:06] LABS: CATHL Activated Clotting Time > 400 SEC (74-125)
== END 2021-04-07 18:35 | disposition home or self-care (01) ==
LOC: CATHLAB 11:02
PROVIDERS: PCP Emergency Medicine; Visit Provider Internal Medicine
DX: I25.110 Atherosclerotic heart disease of native coronary artery with unstable angina pectoris (principal); E78.2 Mixed hyperlipidemia; I10 Essential (primary) hypertension; I73.9 Peripheral vascular disease, unspecified; R06.00 Dyspnea, unspecified; E11.9 Type 2 diabetes mellitus without complications; Z79.84 Long term (current) use of oral hypoglycemic drugs; Z79.01 Long term (current) use of anticoagulants
CPT/HCPCS: 85347; 92928; 92929; 99152; 99153; C1725; C1760; C1769; C1876; C1894; C9600; C9601; J1644; Q9967

== ENCOUNTER → 2021-04-08 22:00 | Outpatient (CLI) | payer OTHER, SELFPAY ==
[2021-04-09 13:40] LABS: Adenovirus F 40/41, stool Not Detected (NotDetected); Astrovirus Not Detected (NotDetected); Campylobacter Not Detected (NotDetected); Clostridium Difficile A/B, PCR Not Detected (NotDetected); Cryptosporidium Not Detected (NotDetected); Cyclospora Cayetanesis Not Detected (NotDetected); Entamoeba histolytica Not Detected (NotDetected); Enteroaggregative E coli Not Detected (NotDetected); Enteropathogenic E coli Not Detected (NotDetected); Enterotoxigenic E coli Not Detected (NotDetected); Giardia lamblia Not Detected (NotDetected); Norovirus Not Detected (NotDetected); Plesimonas Shigalloides, PCR Not Detected (NotDetected); Rotavirus A Not Detected (NotDetected); Salmonella, PCR Not Detected (NotDetected); Sapovirus Not Detected (NotDetected); Shiga-like toxin E coli Not Detected (NotDetected); Shigella Enterovasive E coli Not Detected (NotDetected); Vibrio Cholerae Not Detected (NotDetected); Vibrio, PCR Not Detected (NotDetected); Yersinia Entercolitica, PCR Not Detected (NotDetected)
== END ==
PROVIDERS: Visit Provider Physician Assistant
DX: R42 Dizziness and giddiness (principal); R55 Syncope and collapse; R07.9 Chest pain, unspecified; R06.00 Dyspnea, unspecified; R19.7 Diarrhea, unspecified; I25.10 Atherosclerotic heart disease of native coronary artery without angina pectoris; I73.9 Peripheral vascular disease, unspecified; I10 Essential (primary) hypertension; E78.5 Hyperlipidemia, unspecified; Z72.0 Tobacco use
CPT/HCPCS: 87506

== ENCOUNTER 2021-04-13 10:49 | Emergency (ER) | payer OTHER, SELFPAY ==
[2021-04-13 11:00] VITALS: BP 143/85; PULSE 87; RESP 19; TEMP 36.6; O2SAT 99; BMI 22.2
--- NOTE | 2021-04-13 11:26 | HMH.EDUTC ---
[facility] [place] Disposition Clinical Impression: COVID-19 virus test result unknown Disposition: Home, Self-Care Condition on Discharge: Good Instructions: COVID-19 Viral Test Additional Instructions: covid swab was sent to lab, call later today for results. self isolate until test results are known to be negative Referrals: Yash Dacosta MD [Primary Care Provider] - Time of Disposition: 11:35 Medical Decision Making - Anthony Inquiry Pt receiving controlled substance: No Orders (Tests/Meds): ORDERS Category Date Time Status Covid-19 Nasal PCR ([facility]) Routine Lab 04/13/21 11:11 Ordered [facility] [place] HPI - General Chief complaint: [facility] Stated complaint: covid exposure Time Seen by Provider: 04/13/21 11:26 Mode of Arrival: Ambulatory Source of Information: Patient Limitations: No Limitations - History of Present Illness Provider Complaint: 55 yr old male presents for covid test. pt states his tested positive and he is unsure if he is having symptoms. - Related Data Home Medications Medication Instructions Recorded Confirmed glipiZIDE [Glipizide ER] 10 mg PO DAILY 10/14/20 04/09/21 Aspirin [Aspirin 81mg EC Tab] 81 mg PO DAILY 12/09/20 04/09/21 metformin 1,000 mg tablet 1,000 mg PO BID tab 02/05/21 04/09/21 metoprolol succinate 100 mg 100 mg PO DAILY tab 02/05/21 04/09/21 tablet,extended release 24 hr Empagliflozin [Jardiance] 25 mg PO DAILY 02/12/21 04/09/21 Semaglutide [Rybelsus] 3 mg PO DAILY 02/12/21 04/09/21 dilTIAZem HCl [Diltiazem 240mg 240 mg PO DAILY 02/13/21 04/09/21 24Hr ER Cap] levetiracetam 500 mg tablet 500 mg PO BID tab 02/25/21 04/09/21 Atorvastatin Calcium [Lipitor 40mg 40 mg PO DAILY 03/17/21 04/09/21 Tab] Losartan Potassium [Cozaar 50mg 50 mg PO DAILY 03/17/21 04/09/21 Tablets] Rivaroxaban [Xarelto 2.5mg Tab*] 2.5 mg PO BID 03/17/21 04/09/21 clopidogrel 75 mg tablet 75 mg PO DAILY tab 04/08/21 04/09/21 Previous Rx's Medication Instructions Recorded cephalexin 500 mg tablet 1,000 mg PO Q12H #30 tab 03/26/21 hydrocodone 5 mg-acetaminophen 325 1 tab PO Q12H PRN #30 tab 04/02/21 mg tablet isosorbide mononitrate 60 mg 60 mg PO DAILY #30 tab 04/08/21 tablet,extended release 24 hr Allergies Allergy/AdvReac Type Severity Reaction Status Date / Time Penicillins [PENICILLINS] Allergy Unknown Throat Verified 04/09/21 15:31 swelling [facility] History - Hepatitis A Screen Attestation statement:: This patient has been screened for Hepatitis A risk factors. I have reviewed the patient's past medical history: Yes Medical History: Reports:: Chronic Obstructive Pulmonary Disease (COPD), Coronary Artery Disease, Diabetes Mellitus Type 2, Hyperlipidemia, Hypertension, Myocardial Infarction, Peripheral Artery Disease Denies:: Cancer, Diabetes Mellitus Type 1, Internal Pacemaker, MRSA, Seizures Other Medical History: Denies: Blood Transfusion Reaction Laterality Cases: Right: Other Other Surgeries: Yes: Angiogram, Cardiac Catheterization, Cardiac Surgery, Cholecystectomy, Coronary Stent, EGD, Other (RT foot partial amputation). 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 - Social History Smoking Status: Former smoker Tobacco Type: cigarettes # Packs/Day (cigarettes): 1 #Yrs smoked (if former smoker): 30 Alcohol Intake: never Alcohol Intake Frequency:: holidays/special occasions only Substance Use Type: denies use Occupational Status: unemployed Housing: house Household Members: spouse Comment: toe amputations Family Hx:: No significant family history ROS Obtained: Yes Systems reviewed as appropriate & no additional complaints - Constitutional Constitutional: Reports system reviewed and no additional complaints, except as docu, Denies fatigue, Denies fever(s) - Eyes Eyes: Reports system reviewed and no additional complaints, except as docu, Denies blind spots - ENT Ears, Nose, Mouth, and Throat:
[2021-04-13 11:34] VITALS: BP 143/85; PULSE 87; RESP 19; TEMP 36.6; O2SAT 99
== END 2021-04-13 11:40 | disposition home or self-care (01) ==
PROVIDERS: Emergency Provider Nurse Practitioner Family; PCP Emergency Medicine
DX: Z20.822 Contact with and (suspected) exposure to COVID-19 (principal)
CPT/HCPCS: 99202; G0463; U0003

== ENCOUNTER → 2021-04-18 08:41 | Outpatient (CLI) | payer OTHER, SELFPAY ==
--- NOTE | 2021-04-18 08:47 | FL_ITS ---
PROCEDURE: FL BARIUM SWALLOW CLINICAL INDICATION: dysphagia COMPARISON: No exams were available for comparison TECHNIQUE: The patient was placed prone in the right anterior oblique position and was observed to swallow barium with Valsalva technique. LPO images were also performed. FLUOROSCOPY TIME: 46 seconds FINDINGS: There was no evidence of aspiration. There was normal peristalsis. No filling defects or mucosal abnormalities. No masses or strictures. No hiatal hernia or reflux is evident. There were some tertiary contractions. IMPRESSION: Mild esophageal dysmotility. No hiatal hernia reflux or other significant anomaly. Dictated by: Vince Miranda MD 04/18/2021 14:49 Vince Miranda MD in OV 04/18/2021 14:49
== END ==
PROVIDERS: PCP Emergency Medicine; Visit Provider Emergency Medicine
DX: R13.10 Dysphagia, unspecified (principal)
CPT/HCPCS: 74220

== ENCOUNTER 2021-04-19 19:23 | Emergency (ER) | payer OTHER, SELFPAY ==
[2021-04-19 19:33] VITALS: BP 188/86; PULSE 80; RESP 16; TEMP 36.8; O2SAT 99; BMI 22.9
[2021-04-19 19:51] VITALS: BP 188/86; PULSE 80; RESP 18; TEMP 36.8
--- NOTE | 2021-04-19 20:08 | HMH.EDUTC ---
[facility] [place] Disposition Clinical Impression: Exposure to COVID-19 virus Disposition: Home, Self-Care Condition on Discharge: Good Instructions: DI for COVID-19 (Suspected or Confirmed ), Preventing the Spread of Coronavirus Discharge Instructions Additional Instructions: Drink plenty of fluids. Take tylenol for pain or fever. Return if you begin to have difficulty breathing. Follow up with your regular doctor. GO TO THE ER FOR ANY WORSENING SYMPTOMS Quarantine until you know the results of your covid-19 test. If it is positive, the health department should call you and give you further instructions about your length of Quarantine and other things. Notify your school or workplace of your results and follow their instructions regarding return to work/school. Once you're feeling better and if your covid-19 test is negative this time, I encourage you to get the covid-19 vaccine. Referrals: Yash Dacosta MD [Primary Care Provider] - Time of Disposition: 20:11 Medical Decision Making - Medical Records Medical records reviewed: No: I reviewed the patient's medical records. - Anthony Inquiry Pt receiving controlled substance: No Vital Signs: 04/19/21 19:33 04/19/21 19:51 Temperature 98.3 F 98.3 F Temperature Source Oral Pulse Rate 80 Pulse Rate [Left] 80 Respiratory Rate 16 18 Blood Pressure 188/86 H Blood Pressure [Right Arm] 188/86 H Blood Pressure Mean [Right Arm] 120 02 Sat by Pulse Oximetry 99 Orders (Tests/Meds): ORDERS Category Date Time Status Covid-19 Nasal PCR ([facility]) Routine Lab 04/19/21 19:[address] [facility] [place] HPI - General Stated complaint: covid test, sore throat,SOB,weak,diarrhea Time Seen by Provider: 04/19/21 20:08 Mode of Arrival: Ambulatory Source of Information: Patient Limitations: No Limitations Description of Symptoms (Recalled from Triage Doc. by RN): PT C/O WEAKNESS, SOA, LETHARGY, AND NOSEBLEEDS. EXPOSED EARLIER THIS WEEK HEENT Symptoms (Recalled from RN notes): Yes (NOSE BLEEDS) Resp Symptoms (Recalled from RN notes): Yes (SOA) Skin Symptoms (Recalled from RN notes): No MS Symptoms (Recalled from RN notes): No Functional Status (Recalled from RN notes): WEAKNESS AND LETHARGY - History of Present Illness Provider Complaint: He states that he is feeling bad for the past 2 days. He has been exposed to covid-19 in his home. He is not vaccinated against covid-19. He has multiple chronic health problems like copd and diabetes. - Related Data Home Medications Medication Instructions Recorded Confirmed glipiZIDE [Glipizide ER] 10 mg PO DAILY 10/14/20 04/16/21 Aspirin [Aspirin 81mg EC Tab] 81 mg PO DAILY 12/09/20 04/16/21 metoprolol succinate 100 mg 100 mg PO DAILY tab 02/05/21 04/16/21 tablet,extended release 24 hr Empagliflozin [Jardiance] 25 mg PO DAILY 02/12/21 04/16/21 Semaglutide [Rybelsus] 3 mg PO DAILY 02/12/21 04/16/21 dilTIAZem HCl [Diltiazem 240mg 240 mg PO DAILY 02/13/21 04/16/21 24Hr ER Cap] levetiracetam 500 mg tablet 500 mg PO BID tab 02/25/21 04/16/21 Atorvastatin Calcium [Lipitor 40mg 40 mg PO DAILY 03/17/21 04/16/21 Tab] Losartan Potassium [Cozaar 50mg 50 mg PO DAILY 03/17/21 04/16/21 Tablets] Rivaroxaban [Xarelto 2.5mg Tab*] 2.5 mg PO BID 03/17/21 04/16/21 clopidogrel 75 mg tablet 75 mg PO DAILY tab 04/08/21 04/16/21 Previous Rx's Medication Instructions Recorded cephalexin 500 mg tablet 1,000 mg PO Q12H #30 tab 03/26/21 hydrocodone 5 mg-acetaminophen 325 1 tab PO Q12H PRN #30 tab 04/02/21 mg tablet isosorbide mononitrate 60 mg 60 mg PO DAILY #30 tab 04/08/21 tablet,extended release 24 hr metformin 1,000 mg tablet See Rx Instructions .ROUTE 04/18/21 .COMPLEX #180 tab Allergies Allergy/AdvReac Type Severity Reaction Status Date / Time Penicillins [PENICILLINS] Allergy Unknown Throat Verified 04/16/21 12:01 swelling - Worker's Comp Is this a Worker's Comp case?: No [facility] Histor
--- NOTE | 2021-04-21 09:53 | PC.NURSE ---
Notified pt of negative COVID results
== END 2021-04-19 20:17 | disposition home or self-care (01) ==
PROVIDERS: Emergency Provider Nurse Practitioner Family; PCP Emergency Medicine
DX: Z20.822 Contact with and (suspected) exposure to COVID-19 (principal); J44.9 Chronic obstructive pulmonary disease, unspecified; I10 Essential (primary) hypertension; E11.9 Type 2 diabetes mellitus without complications; E78.5 Hyperlipidemia, unspecified; I25.2 Old myocardial infarction; Z88.0 Allergy status to penicillin; Z79.899 Other long term (current) drug therapy
CPT/HCPCS: 99202; C9803; G0463; U0003; U0005

== ENCOUNTER 2021-05-18 18:27 | Emergency (ER) | payer OTHER, SELFPAY ==
[2021-05-18 18:27] VITALS: BP 172/92; PULSE 84; RESP 16; TEMP 36.6; O2SAT 97; BMI 25.8
--- NOTE | 2021-05-18 18:31 | CT_ITS ---
PROCEDURE INFORMATION: Exam: CT Head Without Contrast Exam date and time: 05/18/2021 6:31 PM Age: 55 years old Clinical indication: Other: Seizure TECHNIQUE: Imaging protocol: Computed tomography of the head without contrast. 3D rendering (Not supervised by radiologist): MIP and/or 3D reconstructed images were created by the technologist. Radiation optimization: All CT scans at this facility use at least one of these dose optimization techniques: automated exposure control; mA and/or kV adjustment per patient size (includes targeted exams where dose is matched to clinical indication); or iterative reconstruction. COMPARISON: CT HEAD/BRAIN WO CON 02/14/2021 9:33 AM FINDINGS: Brain: Periventricular and subcortical white matter areas of hypoattenuation, likely chronic small vessel ischemic change, demyelination, or gliosis. No mass, hemorrhage, or acute infarction. Old lacunar infarction or dilated perivascular space within the right external basal ganglia region, unchanged. Cerebral ventricles: No ventriculomegaly. Paranasal sinuses: Visualized sinuses are unremarkable. No fluid levels. Mastoid air cells: Normal as visualized. Vasculature: Atherosclerotic vascular disease. Bones/joints: Normal. Soft tissues: Right parietal soft tissue swelling/contusion. IMPRESSION: 1. No acute intracranial abnormality. 2. Right parietal soft tissue swelling/contusion.
[2021-05-18 18:33] VITALS: BP 170/93; PULSE 85; RESP 18; O2SAT 96
--- NOTE | 2021-05-18 18:45 | HMH.EDSEIZ ---
ED Disposition Condition on Discharge: Fair - Critical Care Critical Care Time: No <Kwabena Araujo - Last Filed: 05/18/21 20:05> <Yash Dacosta - Last Filed: 05/18/21 20:29> Clinical Impression: Breakthrough seizure, Hypokalemia Disposition: Home, Self-Care Instructions: DI for Seizure Disorder -- Adult Additional Instructions: see pcp wednesday Referrals: Yash Dacosta MD [Primary Care Provider] - Attestation: On 05/18/21, the high probability of a clinically significant, sudden or life threatening deterioration of the following system(s) required my full and direct attention, intervention and personal management. The time I documented below is in addition to time spent performing reported procedures but includes the following listed in this critical care notation. Medical Decision Making - Medical Records Medical records reviewed: Yes: I reviewed the patient's medical records. - Anthony Inquiry Pt receiving controlled substance: No - Lab Data Result diagrams: 05/18/21 18:42 05/18/21 18:42 - Reevaluation(s) Time: 20:05 <Kwabena Araujo - Last Filed: 05/18/21 20:05> - Lab Data Lab results reviewed: Yes: I reviewed the patient's lab results. Result diagrams: 05/18/21 18:42 05/18/21 18:42 - CT Data CT Scan: Head Time Received: 20:[address] Reviewed: Yes: I have viewed the radiologist's interpretation Preliminary Findings: Normal/NAD <Yash Dacosta - Last Filed: 05/18/21 20:29> Vital Signs: 05/18/21 18:27 05/18/21 18:33 Temperature 97.9 F Temperature Source Oral Pulse Rate 85 Pulse Rate [Right Radial] 84 Respiratory Rate 16 18 Blood Pressure 170/93 H Blood Pressure [Right Arm] 172/92 H Blood Pressure Mean [Right Arm] 118 Blood Pressure Source [Right Arm] Automatic Cuff Blood Pressure Position [Right Arm] Sitting 02 Sat by Pulse Oximetry 97 96 Oxygen Delivery Method Room Air - Lab Data Lab Results 05/18/21 18:42: WBC 6.8, RBC 3.74 L, Hgb 10.5 L, Hct 31.4 L, MCV 84.0, MCH 28.2, MCHC 33.5, RDW 16.2, Plt Count 276, MPV 8.6, Neut % (Auto) 61.8, Lymph % (Auto) 24.9, [place] % (Auto) 6.0, Eos % (Auto) 6.1, Baso % (Auto) 1.2, Neut # (Auto) 4.2, Lymph # (Auto) 1.7, [place] # (Auto) 0.4, Eos # (Auto) 0.4, Baso # (Auto) 0.1 05/18/21 18:42: Sodium 137, Potassium 2.3 L*, Chloride 101, Carbon Dioxide 29, Anion Gap 9.3, BUN 13, Creatinine 1.10, Estimated Creat Clear 87, Estimated GFR 69, Est GFR ( Amer) 84, Glucose 246 H, Calcium 8.5, Total Bilirubin 0.1 L, AST 42, ALT 55, Alkaline Phosphatase 74, Total Protein 6.0 L, Albumin 3.2 L, Globulin 2.8, Albumin/Globulin Ratio 1.1 Orders (Tests/Meds): ED MEDICATIONS Discontinued Medications Generic Name Dose Route Start Last Admin Trade Name Freq PRN Reason Stop Dose Admin Levetiracetam 1,000 mg/ Sodium 110 mls @ 220 mls/hr 05/18/21 18:32 05/18/21 19:52 Chloride IV 05/18/21 18:33 220 mls/hr ONCE ONE Administration Potassium Chloride/Water 100 mls @ 100 mls/hr 05/18/21 19:16 05/18/21 19:26 Potassium Chloride 10meq/100ml Ivpb IV 05/18/21 20:15 100 mls/hr ONCE ONE Administration Potassium Chloride 60 meq 05/18/21 19:16 05/18/21 19:26 Potassium Chloride 20meq Tab PO 05/18/21 19:17 60 meq ONCE ONE Administration - Reevaluation(s) Reevaluation #1: On reevaluation, patient remains neurologically intact. Patient was slightly hypokalemic. This was replaced. Loaded with Keppra. Signed out to oncoming physician pending CT scan and reevaluation. (Kwabena Araujo) Medical Decision Narrative: 55-year-old male presented to the emergency department with breakthrough seizure. Appears to be tonic-clonic in nature. Patient is back to his baseline at this time. Likely secondary to medication noncompliance. Work-up initiated. (Kwabena Araujo) Seizures HPI - General Mode of Arrival: EMS Limitations: No Limitations Description of Symptoms (Recalled from ER Triage Doc. b
[2021-05-18 18:53] LABS: Basophils # 0.1 K/mm3 (0-0.2); Basophils % 1.2 % (0.1-2.0); Eosinophils # 0.4 K/mm3 (0.0-0.4); Eosinophils % 6.1 % (0.1-12.0); Hematocrit 31.4 % (42.0-52.0); Hemoglobin 10.5 g/dL (14.1-18.0); Lymphocytes # 1.7 K/mm3 (0.7-4.5); Lymphocytes % 24.9 % (10-50); Mean Corpuscular HGB Conc 33.5 g/dL (31.8-35.4); Mean Corpuscular Hemoglobin 28.2 pg (27.0-31.2); Mean Platelet Volume 8.6 fl (7.4-10.4); Monocytes # 0.4 K/mm3 (0.1-1.0); Neutrophils # 4.2 K/mm3 (1.8-7.8); Neutrophils % 61.8 % (37.0-80.0); Platelet Count 276 K/mm3 (142-424); Red Blood Count 3.74 M/mm3 (4.60-6.20); Red Cell Distribution Width 16.2 % (11.5-17.5); White Blood Count 6.8 K/mm3 (4.8-10.8)
[2021-05-18 19:05] LABS: Alanine Aminotransferase 55 U/L (12-78); Albumin Level 3.2 g/dl (3.5-5.0); Albumin/Globulin Ratio 1.1 (1.1-1.8); Alkaline Phosphatase 74 U/L (38-126); Anion Gap 9.3 mEq/L (5-15); Aspartate Amino Transferase 42 U/L (17-59); Blood Urea Nitrogen 13 mg/dl (9-20); Calcium 8.5 mg/dl (8.4-10.2); Carbon Dioxide 29 mmol/L (22.0-30.0); Chloride 101 mmol/L (98-107); Creatinine Clearance Estimated 87 mL/min (50-200); Estimated Glomerular Filt Rate 69 ml/min (>60); GFR (African American) 84 ML/MIN (>60); Globulin 2.8 g/dL (1.3-3.2); Glucose 246 mg/dl (74-100); Sodium 137 mmol/L (136-145)
[2021-05-18 19:06] LABS: Bilirubin,Total 0.1 mg/dl (0.2-1.3)
[2021-05-18 19:07] LABS: Potassium 2.3 mmoL/L (3.5-5.1)
[2021-05-18 19:30] VITALS: BP 176/91; PULSE 76; RESP 20; O2SAT 96
[2021-05-18 20:00] VITALS: BP 146/82; PULSE 79; O2SAT 98
[2021-05-18 20:47] VITALS: BP 169/88; PULSE 81; RESP 18; TEMP 36.9; O2SAT 99
== END 2021-05-18 20:54 | disposition home or self-care (01) ==
PROVIDERS: Emergency Provider Emergency Medicine; PCP Emergency Medicine
DX: G40.909 Epilepsy, unspecified, not intractable, without status epilepticus (principal); E87.6 Hypokalemia; I25.10 Atherosclerotic heart disease of native coronary artery without angina pectoris; J44.9 Chronic obstructive pulmonary disease, unspecified; E11.9 Type 2 diabetes mellitus without complications; I25.2 Old myocardial infarction; I10 Essential (primary) hypertension; E78.5 Hyperlipidemia, unspecified; Z88.0 Allergy status to penicillin; Z79.899 Other long term (current) drug therapy; Z87.891 Personal history of nicotine dependence
CPT/HCPCS: 70450; 80053; 85025; 96365; 96367; 99283; J1953

== ENCOUNTER → 2021-05-21 14:13 | Outpatient (CLI) | payer OTHER, SELFPAY ==
[2021-05-21 14:48] LABS: Chloride 94 mmol/L (98-107); Sodium 136 mmol/L (136-145)
[2021-05-21 14:51] LABS: Blood Urea Nitrogen 20 mg/dl (9-20); Estimated Glomerular Filt Rate 57 ml/min (>60); GFR (African American) 69 ML/MIN (>60)
[2021-05-21 14:52] LABS: Anion Gap 10.6 mEq/L (5-15); Calcium 8.7 mg/dl (8.4-10.2); Carbon Dioxide 34 mmol/L (22.0-30.0); Glucose 299 mg/dl (74-100)
[2021-05-21 15:30] LABS: Potassium 2.6 mmoL/L (3.5-5.1)
== END ==
PROVIDERS: Visit Provider Emergency Medicine
DX: E87.6 Hypokalemia (principal)
CPT/HCPCS: 80048

== ENCOUNTER 2021-05-24 21:54 | Inpatient (IN) | payer OTHER, SELFPAY ==
[2021-05-24 21:50] VITALS: BP 184/94; PULSE 85; RESP 15; TEMP 36.1; O2SAT 96; BMI 26.5
[2021-05-24 22:16] LABS: Basophils # 0.1 K/mm3 (0-0.2); Basophils % 1.7 % (0.1-2.0); Eosinophils # 0.4 K/mm3 (0.0-0.4); Hematocrit 33.1 % (42.0-52.0); Hemoglobin 10.3 g/dL (14.1-18.0); Lymphocytes # 1.4 K/mm3 (0.7-4.5); Lymphocytes % 20.8 % (10-50); Mean Corpuscular HGB Conc 31.2 g/dL (31.8-35.4); Mean Corpuscular Hemoglobin 27.9 pg (27.0-31.2); Mean Corpuscular Volume 89.2 fl (80-94); Mean Platelet Volume 8.1 fl (7.4-10.4); Monocytes # 0.3 K/mm3 (0.1-1.0); Neutrophils # 4.4 K/mm3 (1.8-7.8); Neutrophils % 66.6 % (37.0-80.0); Platelet Count 262 K/mm3 (142-424); Red Blood Count 3.71 M/mm3 (4.60-6.20); Red Cell Distribution Width 15.5 % (11.5-17.5); White Blood Count 6.6 K/mm3 (4.8-10.8)
[2021-05-24 22:18] LABS: Acetone, Serum (Rapid) None Detected (None Detect)
[2021-05-24 22:21] LABS: Anion Gap 12.6 mEq/L (5-15); Blood Urea Nitrogen 23 mg/dl (9-20); Calcium 8.1 mg/dl (8.4-10.2); Carbon Dioxide 31 mmol/L (22.0-30.0); Chloride 97 mmol/L (98-107); Creatinine Clearance Estimated 82 mL/min (50-200); Estimated Glomerular Filt Rate 63 ml/min (>60); GFR (African American) 76 ML/MIN (>60); Sodium 138 mmol/L (136-145)
--- NOTE | 2021-05-24 22:21 | ECG_ITS ---
APPROVED REPORT Exam: Resting ECG HR:103 bpm ECG Measurements Heart Rate 103 AXES PA 182 P 70 QRSd 98 QRS -55 QT 372 T 80 QTc 487 Conclusion Sinus tachycardia Left axis deviation Anterior infarct, age undetermined Abnormal ECG Electronically signed by : Parveen Rosales MD 05/26/2021 17:59:39
[2021-05-24 22:23] LABS: Glucose 594 mg/dl (74-100); Potassium 2.6 mmoL/L (3.5-5.1)
[2021-05-24 22:24] LABS: Acetaminophen < 10 ug/ml (10-30); Salicylate < 1.0 mg/dL (2.0-20.0)
--- NOTE | 2021-05-24 22:25 | PC.NURSE ---
critical potassium of 2.6 and glucose of [address] Dacosta at this time
[2021-05-24 22:28] LABS: Microscopic, Urine URINE MICROSCOPIC (MICROSCOPIC)
[2021-05-24 22:28] LABS: Coronavirus 19, PCR Not Detected (NotDetected); Influenza A, PCR Not Detected (NotDetected); Influenza B, PCR Not Detected (NotDetected)
[2021-05-24 22:30] VITALS: BP 187/96; PULSE 95; RESP 16; O2SAT 94
[2021-05-24 22:30] LABS: Appearance,Urine SL CLOUDY (Clear); Bilirubin,Urine Negative (Negative); Blood, Urine 3+ (Negative); Color,Urine YELLOW (Yellow); Glucose,Urine (UA) 3+ (Negative); Ketones,Urine Negative (Negative); Leukocyte Esterase,Urine Negative (Negative); Nitrate,Urine Negative (Negative); Protein,Urine 2+ (Negative); Specific Gravity, Urine 1.015 (1.005-1.030); Urobilinogen,Urine 0.2 EU/dl (0.2)
[2021-05-24 22:34] LABS: RBC,Urine 20-50 #/hpf (0-3)
--- NOTE | 2021-05-24 22:40 | PC.NURSE ---
Will FONSECA, RN UPDATING .
[2021-05-24 22:51] LABS: Phencyclidine Screen,Urine Negative ng/ml (<25)
[2021-05-24 22:54] LABS: Barbiturates Screen,Urine Negative ng/ml (<200)
[2021-05-24 22:57] LABS: Cannabinoid Screen,Urine Positive ng/ml (<50)
[2021-05-24 23:00] VITALS: BP 168/80
[2021-05-24 23:03] LABS: Amphetamine/Metha Screen,Urine Negative ng/ml (<1000); Benzodiazepines Screen,Urine Positive ng/ml (<200); Methadone Screen,Urine Negative ng/ml (<300); Opiate Screen,Urine Negative ng/ml (<300)
[2021-05-24 23:04] LABS: Cocaine Screen,Urine Negative ng/ml (<300)
--- NOTE | 2021-05-24 23:07 | HMH.EDSEIZ ---
ED Disposition Clinical Impression: Generalized seizure, Acute delirium, Hypokalemia, Below knee amputation Uncontrolled diabetes mellitus Qualifiers: Diabetes mellitus type: type 2 Glycemic state: with hyperglycemia Qualified Code(s): E11.65 - Type 2 diabetes mellitus with hyperglycemia Disposition: Admitted As Inpatient Condition on Discharge: Serious - Critical Care Critical Care Time: No Attestation: On 05/24/21, the high probability of a clinically significant, sudden or life threatening deterioration of the following system(s) required my full and direct attention, intervention and personal management. The time I documented below is in addition to time spent performing reported procedures but includes the following listed in this critical care notation. Medical Decision Making - Medical Records Medical records reviewed: Yes: I reviewed the patient's medical records. - Anthony Inquiry Pt receiving controlled substance: No Vital Signs: 05/24/21 21:50 05/24/21 22:30 05/24/21 23:00 Temperature 97.0 F L Temperature Source Rectal Pulse Rate 95 H Pulse Rate [Apical] 85 Respiratory Rate 15 16 Blood Pressure 187/96 H 168/80 H Blood Pressure [Right Arm] 184/94 H Blood Pressure Mean 156 121 Blood Pressure Mean [Right Arm] 124 Blood Pressure Source [Right Arm] Automatic Cuff Blood Pressure Position [Right Arm] Supine 02 Sat by Pulse Oximetry 96 94 L Oxygen Delivery Method Room Air 05/24/21 23:30 05/25/21 00:00 05/25/21 00:34 Temperature Temperature Source Pulse Rate 96 H 98 H Pulse Rate [Apical] Respiratory Rate 14 20 20 Blood Pressure 191/96 H 201/102 H 192/98 H Blood Pressure [Right Arm] Blood Pressure Mean 127 135 129 Blood Pressure Mean [Right Arm] Blood Pressure Source [Right Arm] Blood Pressure Position [Right Arm] 02 Sat by Pulse Oximetry 95 97 Oxygen Delivery Method - Lab Data Lab results reviewed: Yes: I reviewed the patient's lab results. Lab Results 05/24/21 22:02: Sodium 138, Potassium 2.6 L*, Chloride 97 L, Carbon Dioxide 31 H, Anion Gap 12.6, BUN 23 H, Creatinine 1.20, Estimated Creat Clear 82, Estimated GFR 63, Est GFR ( Amer) 76, Glucose 594 H*, Calcium 8.1 L 05/24/21 22:02: WBC 6.6, RBC 3.71 L, Hgb 10.3 L, Hct 33.1 L, MCV 89.2, MCH 27.9, MCHC 31.2 L, RDW 15.5, Plt Count 262, MPV 8.1, Neut % (Auto) 66.6, Lymph % (Auto) 20.8, [place] % (Auto) 5.0, Eos % (Auto) 6.0, Baso % (Auto) 1.7, Neut # (Auto) 4.4, Lymph # (Auto) 1.4, [place] # (Auto) 0.3, Eos # (Auto) 0.4, Baso # (Auto) 0.1 05/24/21 22:02: Salicylates < 1.0 L, Acetaminophen < 10 L, Acetone Level None detected 05/24/21 22:02: Plasma/Serum Alcohol < 10 05/24/21 22:15: SARS-CoV-2 (PCR) Not detected, Influenza A Untype (PCR) Not detected, Influenza Type B (PCR) Not detected 05/24/21 22:15: Urine Opiates Screen Negative, Urine Methadone Screen Negative, Ur Barbituates Screen Negative, Ur Phencyclidine Scrn Negative, Ur Amphetamines Screen Negative, U Benzodiazepines Scrn Positive H, Urine Cocaine Screen Negative, U Marijuana (THC) Screen Positive H 05/24/21 22:22: Urine Color Yellow, Urine Appearance Sl cloudy, Urine pH 6.0, Ur Specific [place] 1.015, Urine Protein 2+, Urine Glucose (UA) 3+, Urine Ketones Negative, Urine Blood 3+, Urine Nitrate Negative, Urine Bilirubin Negative, Urine Urobilinogen 0.2, Ur Leukocyte Esterase Negative, Urine RBC 20-50, Urine WBC 10-20 Result diagrams: 05/24/21 22:02 05/24/21 22:02 Orders (Tests/Meds): ED MEDICATIONS Generic Name Dose Route Start Last Admin Trade Name Freq PRN Reason Stop Dose Admin Levetiracetam 500 mg/ Sodium 105 mls @ 210 mls/hr 05/24/21 23:45 05/24/21 23:52 Chloride IV 06/23/21 23:44 210 mls/hr Q12H MARISELA Administration Sodium Chloride 1,000 mls @ 999 mls/hr 05/24/21 23:45 05/24/21 23:00 Sod Chlor 0.9% 1000ml Bag IV 05/25/21 00:45 999 mls/hr .Q1H1M MARISELA Administration Levofloxacin/Dextrose 500 mg in 100 mls @
[2021-05-24 23:30] VITALS: BP 191/96; RESP 14
[2021-05-25] VITALS (11 sets, daily range): BP systolic 169–208; BP diastolic 84–102; PULSE 88–110; RESP 14–25; TEMP 36.6–38.8; O2SAT 95–98; BMI 22.6
[2021-05-25 00:13] LABS: Ethyl Alcohol < 10 mg/dl (0-10)
--- NOTE | 2021-05-25 01:51 | CT_ITS ---
PROCEDURE INFORMATION: Exam: CT Head Without Contrast Exam date and time: 05/25/2021 1:51 AM Age: 55 years old Clinical indication: Other: Seizures; Additional info: Seizure TECHNIQUE: Imaging protocol: Computed tomography of the head without contrast. 3D rendering (Not supervised by radiologist): MIP and/or 3D reconstructed images were created by the technologist. Radiation optimization: All CT scans at this facility use at least one of these dose optimization techniques: automated exposure control; mA and/or kV adjustment per patient size (includes targeted exams where dose is matched to clinical indication); or iterative reconstruction. COMPARISON: CT HEAD/BRAIN WO CON 05/18/2021 6:53 PM FINDINGS: Brain: There is moderate diffuse cerebral volume loss present. Multiple subcortical and deep hypoattenuating white matter foci are present, likely related to small vessel senescent changes and can also be seen with prior infectious / inflammatory insult, or prior traumatic events. No hyperattenuating foci are identified to suggest acute intracranial hemorrhage. Cerebral ventricles: No ventriculomegaly. Paranasal sinuses: Visualized sinuses are unremarkable. No fluid levels. Mastoid air cells: Visualized mastoid air cells are well aerated. Bones/joints: Unremarkable. No acute fracture. Soft tissues: Right parietal soft tissue swelling improving. IMPRESSION: 1. Multiple subcortical and deep hypoattenuating white matter foci are present, likely related to small vessel senescent changes and can also be seen with prior infectious / inflammatory insult, or prior traumatic events. 2. No hyperattenuating foci are identified to suggest acute intracranial hemorrhage.
--- NOTE | 2021-05-25 01:52 | XR_ITS ---
PROCEDURE INFORMATION: Exam: XR Chest Exam date and time: 05/25/2021 1:52 AM Age: 55 years old Clinical indication: Other: Seizure TECHNIQUE: Imaging protocol: XR of the chest. Views: 1 view. COMPARISON: CR XR CHEST 2V 03/28/2021 10:53 AM FINDINGS: Lungs: Azygos fissure incidentally noted. Hazy ground-glass opacities at the bilateral lung bases are suspicious for pneumonia or aspiration pneumonitis. Differential would include artifact due to underpenetration. Pleural spaces: No pleural effusion. No pneumothorax. Heart/Mediastinum: Normal heart size. Aortic atherosclerosis. Bones/joints: Degenerative changes. IMPRESSION: Hazy bilateral lower lung opacity suspicious for pneumonia or aspiration pneumonitis.
--- NOTE | 2021-05-25 02:11 | PC.NURSE ---
DR. OQUENDO IN TO SEE PATIENT.
[2021-05-25 04:03] LABS: Lactic Acid 4.3 mmol/L (0.7-2.1)
--- NOTE | 2021-05-25 04:04 | PC.NURSE ---
critical lab on pt LT of 4.3 MD advised
[2021-05-25 04:08] LABS: POC Glucose,Bedside 573 (70-110)
--- NOTE | 2021-05-25 05:24 | PC.NURSE ---
patient up to floor via stretcher @ this time
[2021-05-25 05:26] LABS: POC Glucose,Bedside 476 (70-110)
[2021-05-25 07:17] LABS: Basophils # 0.1 K/mm3 (0-0.2); Basophils % 0.9 % (0.1-2.0); Eosinophils % 0.4 % (0.1-12.0); Hematocrit 32.3 % (42.0-52.0); Hemoglobin 10.5 g/dL (14.1-18.0); Lymphocytes # 1.3 K/mm3 (0.7-4.5); Lymphocytes % 15.2 % (10-50); Mean Corpuscular HGB Conc 32.4 g/dL (31.8-35.4); Mean Corpuscular Hemoglobin 28.4 pg (27.0-31.2); Mean Corpuscular Volume 87.6 fl (80-94); Mean Platelet Volume 8.4 fl (7.4-10.4); Monocytes # 0.5 K/mm3 (0.1-1.0); Monocytes % 5.5 % (1.7-9.3); Neutrophils # 6.6 K/mm3 (1.8-7.8); Platelet Count 231 K/mm3 (142-424); Red Blood Count 3.68 M/mm3 (4.60-6.20); Red Cell Distribution Width 15.5 % (11.5-17.5); White Blood Count 8.5 K/mm3 (4.8-10.8)
[2021-05-25 07:25] LABS: Chloride 104 mmol/L (98-107); Sodium 145 mmol/L (136-145)
[2021-05-25 07:28] LABS: Anion Gap 10.4 mEq/L (5-15); Blood Urea Nitrogen 20 mg/dl (9-20); Carbon Dioxide 33 mmol/L (22.0-30.0); Creatinine Clearance Estimated 76 mL/min (50-200); Estimated Glomerular Filt Rate 69 ml/min (>60); GFR (African American) 84 ML/MIN (>60)
--- NOTE | 2021-05-25 07:28 | PC.NURSE ---
shortly after arriving to floor patient experienced a tonic-clonic seizure that lasted approxiamtely 45 seconds, head turned to the left, nystagmus noted, left deviated gaze, it was also noted that patient had busted blood vessels to the outer edge of the right eye, notified ER of the seizure, blood pressure, temperature, and output since arriving to floor
[2021-05-25 07:30] LABS: Glucose 471 mg/dl (74-100); Potassium 2.4 mmoL/L (3.5-5.1)
--- NOTE | 2021-05-25 07:30 | PC.NURSE ---
Olesya notified by RN of critical lab values as follows: Potassium- 2.4 Glucose- 471 Patient is having large quantities of urine output with 1500mL out since admission to floor. Patient has maintained urinary output of around 400-500mL/HR this morning. Provider notified. RN asked for urine osmolarity. Patient is increasingly combative, requested q4 ATIVAN be ammended to q2. Provider wishes to hold off at this time. No further orders at this time. Provider will continue to monitor
[2021-05-25 07:38] LABS: Reflex Lactic Add Lactic Reflex
--- NOTE | 2021-05-25 08:00 | XR_ITS ---
PROCEDURE INFORMATION: Exam: XR Chest Exam date and time: 05/25/2021 8:00 AM Age: 55 years old Clinical indication: Shortness of breath; Additional info: SOB TECHNIQUE: Imaging protocol: XR of the chest. Views: 1 view. COMPARISON: CR XR CHEST PORTABLE 05/25/2021 1:41 AM FINDINGS: Lungs: Continued mild hazy opacity at the left base, right base appears clear. Azygos fissure incidentally noted. Pleural spaces: Unremarkable. No pleural effusion. No pneumothorax. Heart/Mediastinum: Unremarkable. No cardiomegaly. Bones/joints: Unremarkable. IMPRESSION: Continued mild hazy opacity at the left base, right base appears clear.
--- NOTE | 2021-05-25 08:00 | PC.NURSE ---
Margarito Pagan at bedside for LUMBAR PUNCTURE. Time out completed. Verbal order of 4mg Versed and 100 of fentanyl ordered IV once for procedure. LP attempted in side lying position. Patient then sat up for better access. CSF collected and sent to lab. Provider stated for patient to remain supine 1 hour
--- NOTE | 2021-05-25 08:28 | HMH.ITSTN ---
I went to take chest xray ordered routine for 8 am . patient was in an agitated state nurses were working with patient to get him calmed down and settled. they ask that I come back in a little while to allow time to get him calmed down
[2021-05-25 08:33] LABS: Lactic Acid Follow Up (RFLX 1) 2.9 mmol/L (0.7-2.1)
[2021-05-25 10:24] LABS: Reflex Lactic (2 hrs) Add Lactic Reflex
--- NOTE | 2021-05-25 10:25 | HMH.HP ---
*Admission Date: 05/24/21 *Chief complaint: seizure *History of present illness: this patient presented to the ed with multiple seizures with hx of seizures and reported as compliant with meds - pt with cap on xray and low grade fever - had nondiagnostic ct head and attempted lp - abx given and admitted - [facility] History I have reviewed the patient's past medical history: Yes Medical History: Reports:: Chronic Obstructive Pulmonary Disease (COPD), Coronary Artery Disease, Diabetes Mellitus Type 2, Hyperlipidemia, Hypertension, Myocardial Infarction, Peripheral Artery Disease Denies:: Cancer, Diabetes Mellitus Type 1, Internal Pacemaker, MRSA, Seizures *Have you ever received a pneumonia vaccine?: No *Have you received a flu vaccine this season?: No Other Medical History: Denies: Blood Transfusion Reaction Laterality Cases: Right: Other Other Surgeries: Yes: Angiogram, Cardiac Catheterization, Cardiac Surgery, Cholecystectomy, Coronary Stent, EGD, Other (RT foot partial amputation). No: Pacemaker Amputation: Yes (right bka) Fractures: No - *Social History Smoking Status: Former smoker Tobacco Type: cigarettes # Packs/Day (cigarettes): 1 #Yrs smoked (if former smoker): 30 Alcohol Intake: never Alcohol Intake Frequency:: holidays/special occasions only Substance Use Type: denies use *Occupational Status:: unemployed Housing: house Household Members: spouse *Travel in the last 8 weeks: None Family Hx:: Diabetes, Hypertension Review of Systems - Review of Systems Review of systems:: unable to obtain Meds Home Medications Medication Instructions Recorded Confirmed Type Aspirin [Aspirin 81mg EC Tab] 81 mg PO DAILY 12/09/20 05/24/21 History metoprolol succinate 100 mg 100 mg PO DAILY tab 02/05/21 05/24/21 History tablet,extended release 24 hr dilTIAZem HCl [Diltiazem 240mg 240 mg PO DAILY 02/13/21 05/24/21 History 24Hr ER Cap] Atorvastatin Calcium [Lipitor 40mg 40 mg PO HS 03/17/21 05/25/21 History Tab] Rivaroxaban [Xarelto 2.5mg Tab*] 2.5 mg PO BID 03/17/21 05/24/21 History clopidogrel 75 mg tablet 75 mg PO DAILY tab 04/08/21 05/24/21 History levetiracetam 500 mg tablet 500 mg PO BID #60 tab 05/21/21 05/24/21 Rx Furosemide [Furosemide 40MG tAB*] 40 mg PO DAILY 05/24/21 05/24/21 History Glucagon [Gvoke HypoPen 2-Pack] 1 mg SQ ONCE 05/24/21 05/24/21 History Insulin Aspart Prot/Insuln Asp 10 unit SQ BID 05/24/21 05/24/21 History [Insulin Aspart Pro Pfo61-62 Pn] Isosorbide Mononitrate [Isosorbide 60 mg PO DAILY 05/24/21 05/25/21 History Mononitrate ER] Losartan Potassium [Cozaar 100mg 100 mg PO DAILY 05/24/21 05/24/21 History Tablets] Metformin HCl [Metformin 1000mg 1,000 mg PO BID 05/24/21 05/25/21 History Tablets] Potassium Chloride [Klor-con 20 20 meq PO DAILY 05/24/21 05/24/21 History mEq tablet] Semaglutide [Rybelsus] 3 mg PO DAILY 05/25/21 05/25/21 History Allergies Allergy/AdvReac Type Severity Reaction Status Date / Time Penicillins [PENICILLINS] Allergy Unknown Throat Verified 05/21/21 11:02 swelling Exam Vital signs and Labs for Last 24 Hours: Temp Pulse Resp BP Pulse Ox 101.0 F H 94 H 14 195/84 H 98 05/25/21 08:00 05/25/21 08:00 05/25/21 08:00 05/25/21 08:00 05/25/21 08:00 Laboratory Results - last 24 hr 05/24/21 22:02: Sodium 138, Potassium 2.6 L*, Chloride 97 L, Carbon Dioxide 31 H, Anion Gap 12.6, BUN 23 H, Creatinine 1.20, Estimated Creat Clear 82, Estimated GFR 63, Est GFR ( Amer) 76, Glucose 594 H*, Calcium 8.1 L 05/24/21 22:02: WBC 6.6, RBC 3.71 L, Hgb 10.3 L, Hct 33.1 L, MCV 89.2, MCH 27.9, MCHC 31.2 L, RDW 15.5, Plt Count 262, MPV 8.1, Neut % (Auto) 66.6, Lymph % (Auto) 20.8, Mineral % (Auto) 5.0, Eos % (Auto) 6.0, Baso % (Auto) 1.7, Neut # (Auto) 4.4, Lymph # (Auto) 1.4, Mineral # (Auto) 0.3, Eos # (Auto) 0.4, Baso # (Auto) 0.1 05/24/21 22:02: Salicylates < 1.0 L, Acetaminophen < 10 L, Acetone Level None detected 05/24/21 22:02: Plasma/
[2021-05-25 11:03] LABS: Glucose,CSF 230 mg/dl (40-70)
[2021-05-25 11:14] LABS: Appearance,CSF Cloudy (Clear); Red Blood Cell,CSF 14 cells/uL (0); Volume,CSF 18 mL; White Blood Cell,CSF 9 cells/uL (0-5)
[2021-05-25 11:30] LABS: POC Glucose,Bedside 466 (70-110)
--- NOTE | 2021-05-25 11:30 | PC.NURSE ---
Notified provider of patient's CSF results. ABX discussed, ceftriaxone dose to be increased. No further orders at this time. Will continue to monitor
[2021-05-25 11:33] LABS: Mononuclear WBCs,CSF 97 %; Polynuclear WBCs,CSF 3 %
[2021-05-25 12:00] LABS: POC Glucose,Bedside 188 (70-110)
--- NOTE | 2021-05-25 14:00 | INFXCTL.NOTE ---
Rn requesting additional medication for pt sedation. Patient is combative and continues to strike staff and attempts to get out of bed. Provider increased Ativan order to 2mg q4.
--- NOTE | 2021-05-25 15:12 | HMH.PHAVTE ---
[facility] Pharmacy VTE Monitoring - Patient Demographics Admission date: 05/25/21 Report Date: 05/25/21 Time: 15:12 Allergies/Adverse Reactions: Patient Allergies Penicillins [PENICILLINS] Allergy (Unknown, Verified 05/21/21 11:02) Throat swelling Height: 1.78 m Weight: 71.94 kg Patient Problems: Current Active Problems (Last Updated 05/07/21 @ 14:43 by Armida Silva RN) Hypokalemia (Acute) Generalized seizure (Acute) Acute delirium (Acute) Below knee amputation (Chronic) Uncontrolled diabetes mellitus (Chronic) - VTE Risk Labs: VTE Related Lab Results Hgb 10.5 g/dL (14.1-18.0) L 05/25/21 06:42 Hct 32.3 % (42.0-52.0) L 05/25/21 06:42 Plt Count 231 K/mm3 (142-424) 05/25/21 06:42 BUN 20 mg/dl (9-20) 05/25/21 06:42 Creatinine 1.10 mg/dl (0.66-1.25) 05/25/21 06:42 Estimated Creat Clear 76 mL/min (50-200) 05/25/21 06:42 Was VTE Risk Assessment Performed: Yes VTE Score: 6 VTE Risk Level: Moderate Risk - Prophylaxis Types of VTE Prophylaxis: TEDS Knee High Location of Applied Device: Bilateral Lower Extremeties (FLAVIA HOSE ORDERED), Not Applicable
--- NOTE | 2021-05-25 16:30 | PC.NURSE ---
Patient continues to show aggression and strike staff despite encouragement of redirection. Provider contacted regarding additional meds if possible, or if sitter is the best option. To continue to keep patient safe we will continue hourly rounding alternating with RN and tech.
[2021-05-25 21:29] LABS: Anion Gap 7.2 mEq/L (5-15); Blood Urea Nitrogen 15 mg/dl (9-20); Calcium 8.7 mg/dl (8.4-10.2); Carbon Dioxide 32 mmol/L (22.0-30.0); Chloride 114 mmol/L (98-107); Creatinine Clearance Estimated 84 mL/min (50-200); Estimated Glomerular Filt Rate 77 ml/min (>60); GFR (African American) 94 ML/MIN (>60); Potassium 3.2 mmoL/L (3.5-5.1)
[2021-05-25 21:38] LABS: Glucose 166 mg/dl (74-100); Sodium 150 mmol/L (136-145)
[2021-05-26] VITALS (7 sets, daily range): BP systolic 148–197; BP diastolic 68–95; PULSE 80–100; RESP 14–26; TEMP 36.4–36.9; O2SAT 96–100; BMI 22.6; BMI 22.7
[2021-05-26 01:30] LABS: POC Glucose,Bedside 146 (70-110)
[2021-05-26 01:30] LABS: POC Glucose,Bedside 207 (70-110)
--- NOTE | 2021-05-26 01:56 | PC.NURSE ---
pt is able to state his name and birthdate at this time, can also tell me his 's name at this time, can state the name of the president and what year is, still unaware of where he is
[2021-05-26 05:43] LABS: POC Glucose,Bedside 207 (70-110)
--- NOTE | 2021-05-26 05:59 | PC.NURSE ---
Addendum entered by Diana Evans RN 05/26/21 06:23: pt has been agitated twice this shift and was treated per OCT Original Note: pt has remained on room air, no seizure activity noted t/o shift, mullins draining at bedside with 3400 mL of clear urine out this shift, FSBS have been better controlled this shift, 2100 was 147, 0600 was 207, systolic BP has been elevated some this shift ranging from what 148-197, pt able to answer some orientation questions, cannot state where he is
[2021-05-26 06:49] LABS: Basophils # 0.1 K/mm3 (0-0.2); Basophils % 1.2 % (0.1-2.0); Eosinophils # 0.4 K/mm3 (0.0-0.4); Hematocrit 36.3 % (42.0-52.0); Hemoglobin 11.3 g/dL (14.1-18.0); Lymphocytes % 19.8 % (10-50); Mean Corpuscular HGB Conc 31.1 g/dL (31.8-35.4); Mean Corpuscular Hemoglobin 27.9 pg (27.0-31.2); Mean Corpuscular Volume 89.8 fl (80-94); Mean Platelet Volume 7.3 fl (7.4-10.4); Monocytes # 0.5 K/mm3 (0.1-1.0); Neutrophils % 70.1 % (37.0-80.0); Platelet Count 265 K/mm3 (142-424); Red Blood Count 4.04 M/mm3 (4.60-6.20); Red Cell Distribution Width 15.4 % (11.5-17.5); White Blood Count 10.1 K/mm3 (4.8-10.8)
[2021-05-26 07:17] LABS: Chloride 109 mmol/L (98-107)
[2021-05-26 07:20] LABS: Blood Urea Nitrogen 12 mg/dl (9-20); Creatinine Clearance Estimated 76 mL/min (50-200); Estimated Glomerular Filt Rate 69 ml/min (>60); GFR (African American) 84 ML/MIN (>60)
[2021-05-26 07:21] LABS: Anion Gap 9.1 mEq/L (5-15); Calcium 8.2 mg/dl (8.4-10.2); Carbon Dioxide 35 mmol/L (22.0-30.0); Glucose 225 mg/dl (74-100)
[2021-05-26 07:23] LABS: Potassium 2.1 mmoL/L (3.5-5.1); Sodium 151 mmol/L (136-145)
--- NOTE | 2021-05-26 11:13 | HMH.ACPN2 ---
Internal Medicine - PN: Subj *Date: 05/26/21 *Time: 08:10 Interval history: pt laying in bed alert Exam Vital signs and Labs for Last 24 Hours: Temp Pulse Resp BP Pulse Ox 98.5 F 87 16 167/95 H 99 05/26/21 04:00 05/26/21 08:00 05/26/21 04:00 05/26/21 08:00 05/26/21 04:00 Laboratory Results - last 24 hr 05/25/21 06:43: POC Glucose 466 H* 05/25/21 10:34: CSF Volume 18, CSF Appearance Cloudy, CSF WBC 9 H, CSF RBC 14, CSF Mononuclear WBCs % 97, CSF Polynuclear WBCs % 3 05/25/21 11:53: POC Glucose 188 H 05/25/21 16:42: POC Glucose 207 H 05/25/21 20:28: POC Glucose 146 H 05/25/21 21:10: Sodium 150 H, Potassium 3.2 L D, Chloride 114 H, Carbon Dioxide 32 H, Anion Gap 7.2, BUN 15, Creatinine 1.00, Estimated Creat Clear 84, Estimated GFR 77, Est GFR ( Amer) 94, Glucose 166 H D, Calcium 8.7 05/26/21 05:26: POC Glucose 207 H 05/26/21 05:39: WBC 10.1, RBC 4.04 L, Hgb 11.3 L, Hct 36.3 L, MCV 89.8, MCH 27.9, MCHC 31.1 L, RDW 15.4, Plt Count 265, MPV 7.3 L, Neut % (Auto) 70.1, Lymph % (Auto) 19.8, [place] % (Auto) 5.0, Eos % (Auto) 4.0, Baso % (Auto) 1.2, Neut # (Auto) 7.0, Lymph # (Auto) 2.0, [place] # (Auto) 0.5, Eos # (Auto) 0.4, Baso # (Auto) 0.1 05/26/21 05:39: Sodium 151 H*, Potassium 2.1 L* D, Chloride 109 H, Carbon Dioxide 35 H, Anion Gap 9.1, BUN 12, Creatinine 1.10, Estimated Creat Clear 76, Estimated GFR 69, Est GFR ( Amer) 84, Glucose 225 H D, Calcium 8.2 L I & O for Last 24 hours: Intake & Output 05/23/21 05/24/21 05/25/21 05/26/21 11:59 11:59 11:59 11:59 Intake Total 0 / 0 Output Total 7350 / 7350 6050 / 6050 Balance -7350 / -7350 -6050 / -6050 Weight 158 lb 9.6 oz 158 lb 3.2 oz Microbiology Reports for the Last 24 Hours: Microbiology 05/25/21 10:34 Cerebral Spinal Fluid Gram Stain - Final 05/25/21 10:34 Cerebral Spinal Fluid CSF Culture - Preliminary NO GROWTH AFTER 24 HOURS 05/24/21 22:22 Urine,Catheterized Urine Culture - Preliminary NO GROWTH AFTER 24 HOURS - Constitutional no acute distress, chronically ill appearing - *Routine HEENT Exam Head: Present: normocephalic Eye: Present: PERRL ENT: Present: mucous membranes moist - *Routine Neck Exam Present: supple. Absent: lymphadenopathy - *Routine Respiratory Exam Present: CTA bilaterally - *Routine Cardiovascular Exam Present: RRR - *Routine Abdominal Exam Present: soft, normoactive bowel sounds. Absent: tenderness - *Routine Extremities Exam Present: amputation. Absent: cyanosis, clubbing, edema Comments: rt bka - *Routine Skin Exam Present: intact - *Routine Neurological Exam Present: alert, altered mental status Assessment and Plan (1) CAP (community acquired pneumonia) Status: Acute Qualifiers: Laterality: right Lung location: lower lobe of lung Qualified Code(s): J18.9 - Pneumonia, unspecified organism Category: Medical Code(s): J18.9 - Pneumonia, unspecified organism (2) Generalized seizure Status: Acute Category: Medical Code(s): R56.9 - Unspecified convulsions (3) Acute delirium Status: Acute Category: Medical Code(s): R41.0 - Disorientation, unspecified (4) Below knee amputation Status: Chronic Category: Medical Code(s): S88.119A - Complete traumatic amputation at level between knee and ankle, unspecified lower leg, initial encounter (5) Uncontrolled diabetes mellitus Status: Chronic Qualifiers: Diabetes mellitus type: type 2 Glycemic state: with hyperglycemia Qualified Code(s): E11.65 - Type 2 diabetes mellitus with hyperglycemia Category: Medical Code(s): E11.65 - Type 2 diabetes mellitus with hyperglycemia - Assessment and plan all Dx Assessment and Plan for all problems:: rounded with dr paul all orders per dr paul continue treatment
[2021-05-26 12:12] LABS: POC Glucose,Bedside 195 (70-110)
--- NOTE | 2021-05-26 18:39 | PC.NURSE ---
PT IS RESTING IN BED. NO COMPLAINTS OF DISCOMFORT. PT IS ALERT TO SELF ONLY BUT HAS NOT BEEN ORIENTED T/O THE SHIFT. PT DID FALL OUT OF THE BED EARLIER THIS MORNING. ACCORDING TO STAFF THAT ASSISTED PT BACK TO BED FALL WAS WITNESSED BY HOUSEKEEPING. NO SIGN OF INJURY. PT HAS SCATTERED BRUISING NOTED HOWEVER WAS PRESENT BEFORE INCIDENT. ACCORDING TO PT'S FAMILY THAT HAS CALLED AND CHECKED ON PT THIS SHIFT STATED THAT PT HAS BEEN FALLING A LOT AT HOME AND HAS BEEN FORGETTING THAT HE HAS LBKA AND ATTEMPTS TO GET UP AND WALK. BED SAFETY IS SET. LUNG SOUNDS CLEAR. ABDOMEN SOFT/NON TENDER WITH ACTIVE BOWEL SOUNDS. TOLERATING CLEAR LIQUIDS. WILL CONTINUE TO MONITOR.
[2021-05-26 21:21] LABS: POC Glucose,Bedside 315 (70-110)
[2021-05-26 21:48] LABS: POC Glucose,Bedside 203 (70-110)
[2021-05-27] VITALS: BP 147/74; PULSE 88; PULSE 90; RESP 15; TEMP 37.1; O2SAT 97
[2021-05-27 04:00] VITALS: BP 167/73; PULSE 80; PULSE 86; RESP 16; TEMP 36.9; O2SAT 100
[2021-05-27 05:00] VITALS: BMI 22.6
--- NOTE | 2021-05-27 05:20 | PC.NURSE ---
Patient was weighed with 1 blanket, 1 sheet, 1 pillow and 3 total seizure pads.
[2021-05-27 06:17] LABS: POC Glucose,Bedside 176 (70-110)
[2021-05-27 06:39] LABS: Basophils # 0.1 K/mm3 (0-0.2); Basophils % 1.1 % (0.1-2.0); Eosinophils # 0.7 K/mm3 (0.0-0.4); Hematocrit 35.9 % (42.0-52.0); Hemoglobin 11.1 g/dL (14.1-18.0); Lymphocytes # 2.3 K/mm3 (0.7-4.5); Lymphocytes % 24.2 % (10-50); Mean Corpuscular HGB Conc 30.8 g/dL (31.8-35.4); Mean Corpuscular Hemoglobin 27.6 pg (27.0-31.2); Mean Corpuscular Volume 89.6 fl (80-94); Mean Platelet Volume 7.3 fl (7.4-10.4); Monocytes # 0.5 K/mm3 (0.1-1.0); Monocytes % 5.5 % (1.7-9.3); Neutrophils # 5.9 K/mm3 (1.8-7.8); Neutrophils % 62.3 % (37.0-80.0); Platelet Count 244 K/mm3 (142-424); Red Blood Count 4.01 M/mm3 (4.60-6.20); Red Cell Distribution Width 15.4 % (11.5-17.5); White Blood Count 9.5 K/mm3 (4.8-10.8)
[2021-05-27 07:12] LABS: Chloride 104 mmol/L (98-107); Sodium 143 mmol/L (136-145)
[2021-05-27 07:15] LABS: Anion Gap 8.3 mEq/L (5-15); Blood Urea Nitrogen 10 mg/dl (9-20); Calcium 7.7 mg/dl (8.4-10.2); Carbon Dioxide 33 mmol/L (22.0-30.0); Creatinine Clearance Estimated 76 mL/min (50-200); Estimated Glomerular Filt Rate 69 ml/min (>60); GFR (African American) 84 ML/MIN (>60); Glucose 181 mg/dl (74-100)
[2021-05-27 07:46] LABS: Potassium 2.3 mmoL/L (3.5-5.1)
[2021-05-27 08:00] VITALS: BP 156/84; PULSE 83; RESP 15; RESP 16; TEMP 36.9; TEMP 37.1; O2SAT 97; O2SAT 99
--- NOTE | 2021-05-27 09:07 | HMH.ACPN2 ---
Internal Medicine - PN: Subj *Date: 05/27/21 *Time: 12:18 Interval history: 55-year-old male patient sitting up in bed resting quietly, denies any pain or needs during the night. Potassium today 2.3, will replenish. Remains on azithromycin, ceftriaxone, and clindamycin. Will DC Yañez today up to chair all meals and PT evaluation. Exam Vital signs and Labs for Last 24 Hours: Temp Pulse Resp BP Pulse Ox 98.8 F 83 15 156/84 H 97 05/27/21 08:00 05/27/21 08:00 05/27/21 08:00 05/27/21 08:00 05/27/21 08:00 Laboratory Results - last 24 hr 05/26/21 11:52: POC Glucose 195 H 05/26/21 17:11: POC Glucose 203 H 05/26/21 21:09: POC Glucose 315 H* 05/27/21 05:17: POC Glucose 176 H 05/27/21 05:47: WBC 9.5, RBC 4.01 L, Hgb 11.1 L, Hct 35.9 L, MCV 89.6, MCH 27.6, MCHC 30.8 L, RDW 15.4, Plt Count 244, MPV 7.3 L, Neut % (Auto) 62.3, Lymph % (Auto) 24.2, [place] % (Auto) 5.5, Eos % (Auto) 7.0, Baso % (Auto) 1.1, Neut # (Auto) 5.9, Lymph # (Auto) 2.3, [place] # (Auto) 0.5, Eos # (Auto) 0.7 H, Baso # (Auto) 0.1 05/27/21 05:47: Sodium 143, Potassium 2.3 L*, Chloride 104, Carbon Dioxide 33 H, Anion Gap 8.3, BUN 10, Creatinine 1.10, Estimated Creat Clear 76, Estimated GFR 69, Est GFR ( Amer) 84, Glucose 181 H, Calcium 7.7 L I & O for Last 24 hours: Intake & Output 05/24/21 05/25/21 05/26/21 05/27/21 23:59 23:59 23:59 23:59 Intake Total 0 / 0 3159 / 3159 480 / 480 Output Total 15619 / 88700 3650 / 3650 1125 / 1125 Balance -74064 / -40428 -491 / -491 -645 / -645 Weight 185 lb 158 lb 9.6 oz 158 lb 11.725 oz 158 lb 2 oz Microbiology Reports for the Last 24 Hours: Microbiology 05/25/21 03:30 Blood Blood Culture - Preliminary NO GROWTH AFTER 48 HOURS 05/25/21 03:30 Blood Blood Culture - Preliminary NO GROWTH AFTER 48 HOURS 05/24/21 22:22 Urine,Catheterized Urine Culture - Final NO GROWTH AFTER 48 HOURS 05/25/21 10:34 Cerebral Spinal Fluid Gram Stain - Final 05/25/21 10:34 Cerebral Spinal Fluid CSF Culture - Preliminary NO GROWTH AFTER 24 HOURS - Constitutional no acute distress, chronically ill appearing - *Routine HEENT Exam Head: Present: normocephalic Eye: Present: EOMI ENT: Present: mucous membranes moist - *Routine Neck Exam Present: trachea midline. Absent: tracheal deviation - *Routine Respiratory Exam Present: CTA bilaterally. Absent: accessory muscle use - *Routine Cardiovascular Exam Present: RRR - *Routine Abdominal Exam Present: soft, normoactive bowel sounds. Absent: tenderness, firm - *Routine Extremities Exam Present: full ROM, amputation. Absent: cyanosis Comments: R BKA - *Routine Skin Exam Present: intact, dry. Absent: cyanosis, erythema - *Routine Neurological Exam Present: alert, oriented X3. Absent: motor deficit - Routine Psychiatric Exam Present: normal affect, normal thought process. Absent: auditory hallucinations Assessment and Plan (1) CAP (community acquired pneumonia) Status: Acute Qualifiers: Laterality: right Lung location: lower lobe of lung Qualified Code(s): J18.9 - Pneumonia, unspecified organism Category: Medical Code(s): J18.9 - Pneumonia, unspecified organism (2) Generalized seizure Status: Acute Category: Medical Code(s): R56.9 - Unspecified convulsions (3) Acute delirium Status: Acute Category: Medical Code(s): R41.0 - Disorientation, unspecified (4) Below knee amputation Status: Chronic Category: Medical Code(s): S88.119A - Complete traumatic amputation at level between knee and ankle, unspecified lower leg, initial encounter (5) Uncontrolled diabetes mellitus Status: Chronic Qualifiers: Diabetes mellitus type: type 2 Glycemic state: with hyperglycemia Qualified Code(s): E11.65 - Type 2 diabetes mellitus with hyperglycemia Category: Medical Code(s): E1
--- NOTE | 2021-05-27 09:39 | SW/DCPLANNER ---
Addendum entered by Jael Farris 05/28/21 14:12: Tam w/ [facility] has stated that this patient was just discharged from their services due to non compliance. I have informed patients and she concurs with plan of discharging home. I will follow up with this patient at time of discharge to assist with any needs/new orders. Addendum entered by Jael Farris 05/28/21 10:16: This patient is expected to discharge home today. I will set this patient up with [facility] for PT/OT/detention. Addendum entered by Jael Farris 05/27/21 14:20: I have updated patients that PT/OT has stated that patient is safe to discharge home at time of discharge. Addendum entered by Jael Farris 05/27/21 09:53: I have spoke with patients and she has stated that depending on PT/OT evaluation she may be interested in placement for this patient at time of discharge. I will follow up with patient and once PT/OT evaluation is completed. Original Note: I attempted to call and speak with patients regarding discharge plans: no answer/VM left at this time.
[2021-05-27 12:00] VITALS: BP 174/90; PULSE 80; RESP 15; TEMP 36.9; O2SAT 100
--- NOTE | 2021-05-27 12:09 | HMH.PTEV ---
Physical Therapy Evaluation Rehab PT IP Evaluation Start: 05/27/21 09:12 Freq: .once Status: Active Protocol: Document 05/27/21 12:06 PHORNE (Rec: 05/27/21 12:09 PHORNE [id number]) Subjective/History History History 55 yowm adm to [facility] with seizures and CAP. He reports he lives with , ramp to enter the home, has RW and w/c at home. He reports being independent with all ADLs. Has hx of prior R BKA, but no prosthesis. Subjective Subjective Pt with no c/o this am. Rehab PT IP Eval Objective Appearance Patient Behavior Appropriate Patient Orientation Person,Place,Time Difficulty following instructions none Speech Pattern Clear Ambulation Patient Able to Ambulate Yes Ambulation Observation IP General Gait Pattern Observation Decrease Weight Bear (R) Ambulation Distance (feet) 5 Ambulation Assistive Device Rolling Walker Ambulation Ability Contact Guard/Hand Hold Balance Ability to Arise Able, uses arms to help Sitting Balance Steady, safe Standing Balance Steady, wide stance Dynamic Sitting Balance Ability Good Dynamic Standing Balance Ability Good Transfers Bed Transfer Ability Contact Guard/Hand Hold Chair Transfer Ability Contact Guard/Hand Hold Sit to Stand Bed Transfer Ability Contact Guard/Hand Hold Sit to Stand Chair Transfer Ability Contact Guard/Hand Hold Rehab PT IP prob,goals,plan Problems Date of Evaluation: 05/27/21 PT IP Problems Bed Mobility,Transfers,Gait Rehab Potential Rehab Potential Good Plan PT Intervention Plan Bed Mobility,Transfers,Gait, Therapeutic Exercise PT Plan Frequency BID Duration LOS Discharge Goals Bed Transfer Ability Supervision/Stand by Sit to Stand Chair Transfer Ability Supervision/Stand by Ambulation Assistive Device Rolling Walker Ambulation Distance (feet) 15 Discharge Plan PT Discharge Plan Pt is appropriate to return home once medically stable. G -code Required No Eval Complexity Eval Charge Codes 08185 - Moderate Complexity PHYSICIAN CERTIFICATION: I certify the specified therapy services for Vikash Van are required, authorized, and reviewed every 30 days.
[2021-05-27 12:22] LABS: POC Glucose,Bedside 281 (70-110)
[2021-05-27 16:00] VITALS: BP 154/77; PULSE 84; PULSE 90; RESP 15; TEMP 36.8; O2SAT 100
--- NOTE | 2021-05-27 16:50 | PC.NURSE ---
Patient was given a neb with 3ml of sodium chloride for sputum induction, but respiratory was unable to obtain a sputum sample
[2021-05-27 17:31] LABS: POC Glucose,Bedside 256 (70-110)
[2021-05-27 20:00] VITALS: BP 144/70; PULSE 100; PULSE 90; RESP 18; TEMP 37; O2SAT 98
[2021-05-27 21:13] LABS: POC Glucose,Bedside 291 (70-110)
[2021-05-28] VITALS (7 sets, daily range): BP systolic 105–160; BP diastolic 52–80; PULSE 75–91; RESP 16–18; TEMP 36.6–36.8; O2SAT 96–100; BMI 23.3
--- NOTE | 2021-05-28 05:20 | PC.NURSE ---
A&OX4. TOLERATING RA WELL. SEIZURE PADS IN PLACE T/O SHIFT. PT HAS HAD NO C/O THUS FAR. RESTING INTERMITTENTLY. UP TO BATHROOM WITH WALKER AND X1 ASSIST. DOING VERY WELL AMBULATING. PT HAS HAD 2 BM THIS SHIFT. REMOVED F/C AT BEGINNING OF SHIFT, PT HAS HAD U/O SINCE REMOVAL. NO OTHER C/O THUS FAR, VSS WILL CONTINUE TO MONITOR.
[2021-05-28 05:29] LABS: POC Glucose,Bedside 185 (70-110)
[2021-05-28 05:59] LABS: Basophils # 0.1 K/mm3 (0-0.2); Basophils % 1.2 % (0.1-2.0); Eosinophils # 0.6 K/mm3 (0.0-0.4); Eosinophils % 6.5 % (0.1-12.0); Hematocrit 34.8 % (42.0-52.0); Hemoglobin 10.8 g/dL (14.1-18.0); Lymphocytes # 1.9 K/mm3 (0.7-4.5); Lymphocytes % 21.5 % (10-50); Mean Corpuscular HGB Conc 31.1 g/dL (31.8-35.4); Mean Corpuscular Hemoglobin 27.5 pg (27.0-31.2); Mean Corpuscular Volume 88.3 fl (80-94); Mean Platelet Volume 7.1 fl (7.4-10.4); Monocytes # 0.5 K/mm3 (0.1-1.0); Monocytes % 5.5 % (1.7-9.3); Neutrophils # 5.8 K/mm3 (1.8-7.8); Neutrophils % 65.4 % (37.0-80.0); Platelet Count 230 K/mm3 (142-424); Red Blood Count 3.94 M/mm3 (4.60-6.20); Red Cell Distribution Width 15.3 % (11.5-17.5); White Blood Count 8.8 K/mm3 (4.8-10.8)
[2021-05-28 06:05] LABS: Chloride 104 mmol/L (98-107); Sodium 140 mmol/L (136-145)
[2021-05-28 06:08] LABS: Blood Urea Nitrogen 9 mg/dl (9-20); Calcium 7.7 mg/dl (8.4-10.2); Carbon Dioxide 30 mmol/L (22.0-30.0); Creatinine Clearance Estimated 72 mL/min (50-200); Estimated Glomerular Filt Rate 63 ml/min (>60); GFR (African American) 76 ML/MIN (>60); Glucose 170 mg/dl (74-100)
--- NOTE | 2021-05-28 06:40 | PC.NURSE ---
CRITICAL LAB REPORTED TO THIS NURSE. VERIFIED NAME, AND ROOM NUMBER. CALLED TO MD OQUENDO.
[2021-05-28 08:22] LABS: POC Glucose,Bedside 192 (70-110)
--- NOTE | 2021-05-28 10:34 | HMH.ACPN ---
Internal Medicine - PN: Subj *Date: 05/28/21 *Time: 10:34 Exam Vital signs and Labs for Last 24 Hours: Temp Pulse Resp BP Pulse Ox 98.1 F 91 H 16 150/57 H 99 05/28/21 07:51 05/28/21 08:00 05/28/21 08:00 05/28/21 07:51 05/28/21 08:00 Laboratory Results - last 24 hr 05/24/21 22:00: Levetiracetam 8.0 L 05/27/21 12:11: POC Glucose 281 H 05/27/21 17:24: POC Glucose 256 H 05/27/21 20:21: POC Glucose 291 H 05/28/21 04:53: POC Glucose 185 H 05/28/21 05:29: WBC 8.8, RBC 3.94 L, Hgb 10.8 L, Hct 34.8 L, MCV 88.3, MCH 27.5, MCHC 31.1 L, RDW 15.3, Plt Count 230, MPV 7.1 L, Neut % (Auto) 65.4, Lymph % (Auto) 21.5, [place] % (Auto) 5.5, Eos % (Auto) 6.5, Baso % (Auto) 1.2, Neut # (Auto) 5.8, Lymph # (Auto) 1.9, [place] # (Auto) 0.5, Eos # (Auto) 0.6 H, Baso # (Auto) 0.1 05/28/21 05:29: Sodium 140, Potassium 2.0 L*, Chloride 104, Carbon Dioxide 30, Anion Gap 8.0, BUN 9, Creatinine 1.20, Estimated Creat Clear 72, Estimated GFR 63, Est GFR ( Amer) 76, Glucose 170 H, Calcium 7.7 L 05/28/21 08:13: POC Glucose 192 H I & O for Last 24 hours: Intake & Output 05/25/21 05/26/21 05/27/21 05/28/21 23:59 23:59 23:59 23:59 Intake Total 0 / 0 3159 / 3159 1080 / 1080 300 / 300 Output Total 25683 / 29296 3650 / 3650 3125 / 3125 Balance -36179 / -41304 -491 / -491 -5 300 / 300 Weight 71.94 kg 72 kg 71.724 kg 73.936 kg Microbiology Reports for the Last 24 Hours: Microbiology 05/25/21 10:34 Cerebral Spinal Fluid Gram Stain - Final 05/25/21 10:34 Cerebral Spinal Fluid CSF Culture - Preliminary NO GROWTH AFTER 48 HOURS Assessment and Plan (1) CAP (community acquired pneumonia) Status: Acute Qualifiers: Laterality: right Lung location: lower lobe of lung Qualified Code(s): J18.9 - Pneumonia, unspecified organism Category: Medical Code(s): J18.9 - Pneumonia, unspecified organism (2) Generalized seizure Status: Acute Category: Medical Code(s): R56.9 - Unspecified convulsions (3) Acute delirium Status: Acute Category: Medical Code(s): R41.0 - Disorientation, unspecified (4) Below knee amputation Status: Chronic Category: Medical Code(s): S88.119A - Complete traumatic amputation at level between knee and ankle, unspecified lower leg, initial encounter (5) Uncontrolled diabetes mellitus Status: Chronic Qualifiers: Diabetes mellitus type: type 2 Glycemic state: with hyperglycemia Qualified Code(s): E11.65 - Type 2 diabetes mellitus with hyperglycemia Category: Medical Code(s): E11.65 - Type 2 diabetes mellitus with hyperglycemia (6) Hypokalemia Status: Acute Category: Medical Code(s): E87.6 - Hypokalemia (7) Tobacco use Status: Chronic Category: Social Hx Code(s): Z72.0 - Tobacco use The patient's infection will respond to the chosen ABx?: Yes Is the patient receiving the right drug, dose, and route?: Yes Could a more targeted ABx be ordered?: No (CAP DIAGNOSIS, WBC WNL, AFEBRILE)
[2021-05-28 11:02] LABS: POC Glucose,Bedside 236 (70-110)
--- NOTE | 2021-05-28 13:41 | HMH.ACPN2 ---
Internal Medicine - PN: Subj *Date: 05/28/21 *Time: 08:20 Interval history: pt sitting up in chair states he is having diarrhea. pt more alert today Exam Vital signs and Labs for Last 24 Hours: Temp Pulse Resp BP Pulse Ox 97.9 F 90 18 146/75 H 100 05/28/21 11:18 05/28/21 11:18 05/28/21 11:18 05/28/21 11:18 05/28/21 11:18 Laboratory Results - last 24 hr 05/24/21 22:00: Levetiracetam 8.0 L 05/27/21 17:24: POC Glucose 256 H 05/27/21 20:21: POC Glucose 291 H 05/28/21 04:53: POC Glucose 185 H 05/28/21 05:29: WBC 8.8, RBC 3.94 L, Hgb 10.8 L, Hct 34.8 L, MCV 88.3, MCH 27.5, MCHC 31.1 L, RDW 15.3, Plt Count 230, MPV 7.1 L, Neut % (Auto) 65.4, Lymph % (Auto) 21.5, [place] % (Auto) 5.5, Eos % (Auto) 6.5, Baso % (Auto) 1.2, Neut # (Auto) 5.8, Lymph # (Auto) 1.9, [place] # (Auto) 0.5, Eos # (Auto) 0.6 H, Baso # (Auto) 0.1 05/28/21 05:29: Sodium 140, Potassium 2.0 L*, Chloride 104, Carbon Dioxide 30, Anion Gap 8.0, BUN 9, Creatinine 1.20, Estimated Creat Clear 72, Estimated GFR 63, Est GFR ( Amer) 76, Glucose 170 H, Calcium 7.7 L 05/28/21 08:13: POC Glucose 192 H 05/28/21 10:51: POC Glucose 236 H I & O for Last 24 hours: Intake & Output 05/26/21 05/27/21 05/28/21 05/29/21 11:59 11:59 11:59 11:59 Intake Total 0 / 0 3639 / 3639 900 / 900 240 / 240 Output Total 6050 / 6050 1924 / 1921999 Balance -6050 / -6050 1714 / 1714 -1100 / -1100 240 / 240 Weight 158 lb 3.2 oz 158 lb 2 oz 163 lb Microbiology Reports for the Last 24 Hours: Microbiology 05/25/21 10:34 Cerebral Spinal Fluid Gram Stain - Final 05/25/21 10:34 Cerebral Spinal Fluid CSF Culture - Preliminary NO GROWTH AFTER 72 HOURS - Constitutional no acute distress, chronically ill appearing - *Routine HEENT Exam Head: Present: normocephalic Eye: Present: PERRL ENT: Present: mucous membranes moist - *Routine Neck Exam Present: supple. Absent: lymphadenopathy - *Routine Respiratory Exam Present: CTA bilaterally - *Routine Cardiovascular Exam Present: RRR - *Routine Abdominal Exam Present: soft, normoactive bowel sounds. Absent: tenderness - *Routine Extremities Exam Present: amputation. Absent: cyanosis, clubbing, edema Comments: rt bka - *Routine Skin Exam Present: warm. Absent: rash - *Routine Neurological Exam Present: alert, oriented X3 Assessment and Plan (1) CAP (community acquired pneumonia) Status: Acute Qualifiers: Laterality: right Lung location: lower lobe of lung Qualified Code(s): J18.9 - Pneumonia, unspecified organism Category: Medical Code(s): J18.9 - Pneumonia, unspecified organism (2) Generalized seizure Status: Acute Category: Medical Code(s): R56.9 - Unspecified convulsions (3) Acute delirium Status: Acute Category: Medical Code(s): R41.0 - Disorientation, unspecified (4) Below knee amputation Status: Chronic Category: Medical Code(s): S88.119A - Complete traumatic amputation at level between knee and ankle, unspecified lower leg, initial encounter (5) Uncontrolled diabetes mellitus Status: Chronic Qualifiers: Diabetes mellitus type: type 2 Glycemic state: with hyperglycemia Qualified Code(s): E11.65 - Type 2 diabetes mellitus with hyperglycemia Category: Medical Code(s): E11.65 - Type 2 diabetes mellitus with hyperglycemia (6) Hypokalemia Status: Acute Category: Medical Code(s): E87.6 - Hypokalemia (7) Tobacco use Status: Chronic Category: Social Hx Code(s): Z72.0 - Tobacco use - Assessment and plan all Dx Assessment and Plan for all problems:: rounded with dr baptiste all orders per dr baptiste continue plan of care. oob
--- NOTE | 2021-05-28 14:32 | DIET.NUTRFU ---
PO intakes 50%, BG moderate-high avg. 225. Pt reports having diarrhea, stool specimen ordered.
[2021-05-28 16:05] LABS: POC Glucose,Bedside 167 (70-110)
[2021-05-28 20:26] LABS: POC Glucose,Bedside 273 (70-110)
[2021-05-29] VITALS (11 sets, daily range): BP systolic 125–154; BP diastolic 62–79; PULSE 77–100; RESP 16–20; TEMP 36.4–36.7; O2SAT 92–100; BMI 24.0
--- NOTE | 2021-05-29 03:12 | PC.NURSE ---
A&OX4, BUT HAS BEEN SLIGHTLY CONFUSED AT TIMES. TOLERATING RA WELL. PT UP TO BATHROOM WITH WALKER AND X1 ASSIST. TOLERATING WELL. PT HAS HAD MULTIPLE LOOSE BM THIS SHIFT, WILL COLLECT SPECIMEN NEXT TIME PER PROTOCOL. PT DID SLIP IN HIS STOOL GETTING UP TO THE BATHROOM. VSS AFTERWARDS, MD OQUENDO NOTIFIED. NNO. PT HAS NO C/O, AND NO NEW BRUISING NOTED. SEIZURE PADS IN PLACE AND BED SAFETY ON. Q30 MINUTE CHECKS. PT RESTING INTERMITTENTLY T/O SHIFT. NIGHT TIME ANTIBIOTICS LATE D/T ADMINISTRATION OF POTASSIUM. VSS WILL CONTINUE TO MONITOR.
[2021-05-29 03:28] LABS: Adenovirus F 40/41, stool Not Detected (NotDetected); Astrovirus Not Detected (NotDetected); Campylobacter Not Detected (NotDetected); Clostridium Difficile A/B, PCR Not Detected (NotDetected); Cryptosporidium Not Detected (NotDetected); Cyclospora Cayetanesis Not Detected (NotDetected); Entamoeba histolytica Not Detected (NotDetected); Enteroaggregative E coli Not Detected (NotDetected); Enteropathogenic E coli Not Detected (NotDetected); Enterotoxigenic E coli Not Detected (NotDetected); Giardia lamblia Not Detected (NotDetected); Norovirus Not Detected (NotDetected); Plesimonas Shigalloides, PCR Not Detected (NotDetected); Rotavirus A Not Detected (NotDetected); Salmonella, PCR Not Detected (NotDetected); Sapovirus Not Detected (NotDetected); Shiga-like toxin E coli Not Detected (NotDetected); Shigella Enterovasive E coli Not Detected (NotDetected); Vibrio Cholerae Not Detected (NotDetected); Vibrio, PCR Not Detected (NotDetected); Yersinia Entercolitica, PCR Not Detected (NotDetected)
[2021-05-29 05:37] LABS: POC Glucose,Bedside 148 (70-110)
[2021-05-29 06:17] LABS: Basophils # 0.1 K/mm3 (0-0.2); Basophils % 1.1 % (0.1-2.0); Eosinophils # 0.5 K/mm3 (0.0-0.4); Eosinophils % 6.8 % (0.1-12.0); Hemoglobin 9.2 g/dL (14.1-18.0); Lymphocytes # 1.8 K/mm3 (0.7-4.5); Lymphocytes % 23.3 % (10-50); Mean Corpuscular HGB Conc 30.5 g/dL (31.8-35.4); Mean Corpuscular Hemoglobin 27.4 pg (27.0-31.2); Mean Corpuscular Volume 89.9 fl (80-94); Mean Platelet Volume 7.3 fl (7.4-10.4); Monocytes # 0.5 K/mm3 (0.1-1.0); Monocytes % 6.4 % (1.7-9.3); Neutrophils # 4.7 K/mm3 (1.8-7.8); Neutrophils % 62.5 % (37.0-80.0); Platelet Count 224 K/mm3 (142-424); Red Blood Count 3.34 M/mm3 (4.60-6.20); Red Cell Distribution Width 15.5 % (11.5-17.5); White Blood Count 7.5 K/mm3 (4.8-10.8)
[2021-05-29 06:28] LABS: Chloride 106 mmol/L (98-107); Sodium 141 mmol/L (136-145)
[2021-05-29 06:30] LABS: Potassium 2.8 mmoL/L (3.5-5.1)
[2021-05-29 06:31] LABS: Anion Gap 9.8 mEq/L (5-15); Blood Urea Nitrogen 11 mg/dl (9-20); Carbon Dioxide 28 mmol/L (22.0-30.0); Creatinine Clearance Estimated 59 mL/min (50-200); Estimated Glomerular Filt Rate 48 ml/min (>60); GFR (African American) 59 ML/MIN (>60)
[2021-05-29 06:32] LABS: Calcium 7.6 mg/dl (8.4-10.2); Glucose 148 mg/dl (74-100)
--- NOTE | 2021-05-29 06:40 | PC.NURSE ---
NOTIFIED OF CRITICAL POTASSIUM OF 2.8. VERIFIED NAME, , ROOM #. NOTIFIED MD OQUENDO.
[2021-05-29 08:57] LABS: POC Glucose,Bedside 237 (70-110)
[2021-05-29 11:43] LABS: POC Glucose,Bedside 262 (70-110)
[2021-05-29 13:12] LABS: Chloride 103 mmol/L (98-107); Sodium 140 mmol/L (136-145)
[2021-05-29 13:15] LABS: Blood Urea Nitrogen 13 mg/dl (9-20); Carbon Dioxide 30 mmol/L (22.0-30.0); Creatinine Clearance Estimated 55 mL/min (50-200); Estimated Glomerular Filt Rate 45 ml/min (>60); GFR (African American) 54 ML/MIN (>60); Glucose 211 mg/dl (74-100)
--- NOTE | 2021-05-29 13:58 | HMH.ACPN2 ---
Internal Medicine - PN: Subj *Date: 05/29/21 *Time: 08:10 Interval history: per staff pt had a good night. Exam Vital signs and Labs for Last 24 Hours: Temp Pulse Resp BP Pulse Ox 97.6 F 79 17 154/77 H 100 05/29/21 11:56 05/29/21 11:56 05/29/21 11:56 05/29/21 11:56 05/29/21 11:56 Laboratory Results - last 24 hr 05/28/21 15:52: POC Glucose 167 H 05/28/21 19:48: POC Glucose 273 H 05/29/21 03:20: Stl Aeromonas (PCR) Not detected, Stl C. cayetanensis PCR Not detected, Stool Rotavirus (PCR) Not detected, Stl Adenov F 40/41 PCR Not detected, Stool Astrovirus (PCR) Not detected, Stool Campylobacter PCR Not detected, Stl C.difficile Tox PCR Not detected, Stool Cryptosporidium PCR Not detected, Stl E.coli Shiga Tox PCR Not detected, Stool E coli O157 PCR Not detected, Stl Enterotoxigenic E PCR Not detected, Stool EPEC (PCR) Not detected, Stool EAEC (PCR) Not detected, Stl E. histolytica PCR Not detected, Stool Giardia Lamblia PCR Not detected, Stool Salmonella PCR Not detected, Stool Sapovirus (PCR) Not detected, Stl P. shigelloides PCR Not detected, Stl Shigella/EIEC PCR Not detected, St Y.enterocolitica PCR Not detected, Stool Vibrio (PCR) Not detected, Stl Vibrio cholerae PCR Not detected, Stl Norovirus GI/GII PCR Not detected 05/29/21 05:03: POC Glucose 148 H 05/29/21 05:33: WBC 7.5, RBC 3.34 L, Hgb 9.2 L, Hct 30.0 L, MCV 89.9, MCH 27.4, MCHC 30.5 L, RDW 15.5, Plt Count 224, MPV 7.3 L, Neut % (Auto) 62.5, Lymph % (Auto) 23.3, [place] % (Auto) 6.4, Eos % (Auto) 6.8, Baso % (Auto) 1.1, Neut # (Auto) 4.7, Lymph # (Auto) 1.8, [place] # (Auto) 0.5, Eos # (Auto) 0.5 H, Baso # (Auto) 0.1 05/29/21 05:33: Sodium 141, Potassium 2.8 L* D, Chloride 106, Carbon Dioxide 28, Anion Gap 9.8, BUN 11, Creatinine 1.50 H D, Estimated Creat Clear 59, Estimated GFR 48 L, Est GFR ( Amer) 59 D, Glucose 148 H, Calcium 7.6 L 05/29/21 08:48: POC Glucose 237 H 05/29/21 11:32: POC Glucose 262 H I & O for Last 24 hours: Intake & Output 05/27/21 05/28/21 05/29/21 05/30/21 11:59 11:59 11:59 11:59 Intake Total 3639 / 3639 900 / 900 7185 / 7185 Output Total 192 / 1924 0 / 0 Balance 1714 / 1714 -1100 / -1100 7185 / 7185 Weight 158 lb 2 oz 163 lb 167 lb 8 oz Microbiology Reports for the Last 24 Hours: Microbiology 05/25/21 10:34 Cerebral Spinal Fluid Gram Stain - Final 05/25/21 10:34 Cerebral Spinal Fluid CSF Culture - Preliminary NO GROWTH AFTER 4 DAYS - Constitutional no acute distress, chronically ill appearing - *Routine HEENT Exam Head: Present: normocephalic Eye: Present: PERRL ENT: Present: mucous membranes moist - *Routine Neck Exam Present: supple. Absent: lymphadenopathy - *Routine Respiratory Exam Present: CTA bilaterally - *Routine Cardiovascular Exam Present: RRR - *Routine Abdominal Exam Present: soft, normoactive bowel sounds. Absent: tenderness - *Routine Extremities Exam Present: amputation. Absent: cyanosis, clubbing, edema - *Routine Skin Exam Present: warm. Absent: rash - *Routine Neurological Exam Present: alert Assessment and Plan (1) CAP (community acquired pneumonia) Status: Acute Qualifiers: Laterality: right Lung location: lower lobe of lung Qualified Code(s): J18.9 - Pneumonia, unspecified organism Category: Medical Code(s): J18.9 - Pneumonia, unspecified organism (2) Generalized seizure Status: Acute Category: Medical Code(s): R56.9 - Unspecified convulsions (3) Acute delirium Status: Acute Category: Medical Code(s): R41.0 - Disorientation, unspecified (4) Below knee amputation Status: Chronic Category: Medical Code(s): S88.119A - Complete traumatic amputation at level between knee and ankle, unspecified lower leg, initial encounter (5) Uncontrolled diabetes mellitus Status: Chronic Qualifiers: Diabetes mellitus type: type 2 Glycemic state: with hyperglycemia Qualified Code(
[2021-05-29 20:57] LABS: POC Glucose,Bedside 252 (70-110)
[2021-05-30] VITALS (7 sets, daily range): BP systolic 127–175; BP diastolic 66–93; PULSE 70–95; RESP 16–22; TEMP 36.6–37.2; O2SAT 96–99; BMI 24.5
--- NOTE | 2021-05-30 03:59 | PC.NURSE ---
Pt has slept well t/o shift. Able to ambulate to BR with standby assist using wheelchair, tolerated well. Pt reminded of need to ask for help. Seizure pads and bed alarm on for safety. No complaints voiced to staff. Pt currently resting in bed. Will continue to monitor.
--- NOTE | 2021-05-30 05:56 | PC.NURSE ---
Pt has slept well t/o shift. Able to ambulate to BR with standby assist using walker, tolerated well. Pt reminded of need to ask for help. Seizure pads and bed alarm on for safety. No complaints voiced to staff. Pt currently resting in bed. Will continue to monitor.
[2021-05-30 06:05] LABS: Chloride 104 mmol/L (98-107); Sodium 138 mmol/L (136-145)
[2021-05-30 06:06] LABS: Basophils # 0.1 K/mm3 (0-0.2); Basophils % 0.9 % (0.1-2.0); Eosinophils # 0.5 K/mm3 (0.0-0.4); Eosinophils % 6.2 % (0.1-12.0); Hematocrit 29.9 % (42.0-52.0); Hemoglobin 9.2 g/dL (14.1-18.0); Lymphocytes # 1.6 K/mm3 (0.7-4.5); Lymphocytes % 18.5 % (10-50); Mean Corpuscular HGB Conc 30.9 g/dL (31.8-35.4); Mean Corpuscular Hemoglobin 27.6 pg (27.0-31.2); Mean Corpuscular Volume 89.6 fl (80-94); Mean Platelet Volume 7.2 fl (7.4-10.4); Monocytes # 0.5 K/mm3 (0.1-1.0); Monocytes % 5.4 % (1.7-9.3); Platelet Count 239 K/mm3 (142-424); Potassium 3.1 mmoL/L (3.5-5.1); Red Blood Count 3.34 M/mm3 (4.60-6.20); Red Cell Distribution Width 15.2 % (11.5-17.5); White Blood Count 8.8 K/mm3 (4.8-10.8)
[2021-05-30 06:09] LABS: Anion Gap 10.1 mEq/L (5-15); Blood Urea Nitrogen 14 mg/dl (9-20); Calcium 7.7 mg/dl (8.4-10.2); Carbon Dioxide 27 mmol/L (22.0-30.0); Creatinine Clearance Estimated 60 mL/min (50-200); Estimated Glomerular Filt Rate 48 ml/min (>60); GFR (African American) 59 ML/MIN (>60); Glucose 267 mg/dl (74-100)
[2021-05-30 10:19] LABS: POC Glucose,Bedside 309 (70-110)
[2021-05-30 10:19] LABS: POC Glucose,Bedside 287 (70-110)
[2021-05-30 11:07] LABS: POC Glucose,Bedside 265 (70-110)
--- NOTE | 2021-05-30 16:42 | HMH.DCSUM ---
General - General Admission date:: 05/25/21 Discharge date: 05/30/21 HPI HPI: this patient presented to the ed with multiple seizures with hx of seizures and reported as compliant with meds - pt with cap on xray and low grade fever - had nondiagnostic ct head and attempted lp - abx given and admitted - Hospital Course Hospital Course: Laboratory Tests 05/24/21 05/24/21 05/24/21 22:00 22:02 22:02 WBC 6.6 RBC 3.71 L Hgb 10.3 L Hct 33.1 L MCV 89.2 MCH 27.9 MCHC 31.2 L RDW 15.5 Plt Count 262 MPV 8.1 Neut % (Auto) 66.6 Lymph % (Auto) 20.8 [place] % (Auto) 5.0 Eos % (Auto) 6.0 Baso % (Auto) 1.7 Neut # (Auto) 4.4 Lymph # (Auto) 1.4 [place] # (Auto) 0.3 Eos # (Auto) 0.4 Baso # (Auto) 0.1 Sodium 138 Potassium 2.6 L* Chloride 97 L Carbon Dioxide 31 H Anion Gap 12.6 BUN 23 H Creatinine 1.20 Estimated Creat Clear 82 Estimated GFR 63 Est GFR ( Amer) 76 Glucose 594 H* POC Glucose Lactate Calcium 8.1 L Urine Color Urine Appearance Urine pH Ur Specific [place] Urine Protein Urine Glucose (UA) Urine Ketones Urine Blood Urine Nitrate Urine Bilirubin Urine Urobilinogen Ur Leukocyte Esterase Urine RBC Urine WBC CSF Volume CSF Appearance CSF WBC CSF RBC CSF Mononuclear WBCs % CSF Polynuclear WBCs % CSF Glucose CSF Total Protein Stl Aeromonas (PCR) Stl C. cayetanensis PCR Stool Rotavirus (PCR) Stl Adenov F 40/41 PCR Stool Astrovirus (PCR) Stool Campylobacter PCR Stl C.difficile Tox PCR Stool Cryptosporidium PCR Stl E.coli Shiga Tox PCR Stool E coli O157 PCR Stl Enterotoxigenic E PCR Stool EPEC (PCR) Stool EAEC (PCR) Stl E. histolytica PCR Stool Giardia Lamblia PCR Stool Salmonella PCR Stool Sapovirus (PCR) Stl P. shigelloides PCR Stl Shigella/EIEC PCR St Y.enterocolitica PCR Stool Vibrio (PCR) Stl Vibrio cholerae PCR Stl Norovirus GI/GII PCR Salicylates Urine Opiates Screen Urine Methadone Screen Acetaminophen Ur Barbituates Screen Levetiracetam 8.0 L Ur Phencyclidine Scrn Ur Amphetamines Screen U Benzodiazepines Scrn Urine Cocaine Screen U Marijuana (THC) Screen Plasma/Serum Alcohol Acetone Level SARS-CoV-2 (PCR) Influenza A Untype (PCR) Influenza Type B (PCR) 05/24/21 05/24/21 05/24/21 22:02 22:02 22:15 WBC RBC Hgb Hct MCV MCH MCHC RDW Plt Count MPV Neut % (Auto) Lymph % (Auto) [place] % (Auto) Eos % (Auto) Baso % (Auto) Neut # (Auto) Lymph # (Auto) [place] # (Auto) Eos # (Auto) Baso # (Auto) Sodium Potassium Chloride Carbon Dioxide Anion Gap BUN Creatinine Estimated Creat Clear Estimated GFR Est GFR ( Amer) Glucose POC Glucose Lactate Calcium Urine Color Urine Appearance Urine pH Ur Specific [place] Urine Protein Urine Glucose (UA) Urine Ketones Urine Blood Urine Nitrate Urine Bilirubin Urine Urobilinogen Ur Leukocyte Esterase Urine RBC Urine WBC CSF Volume CSF Appearance CSF WBC CSF RBC CSF Mononuclear WBCs % CSF Polynuclear WBCs % CSF Glucose CSF Total Protein Stl Aeromonas (PCR) Stl C. cayetanensis PCR Stool Rotavirus (PCR) Stl Adenov F 40/41 PCR Stool Astrovirus (PCR) Stool Campylobacter PCR Stl C.difficile Tox PCR Stool Cryptosporidium PCR Stl E.coli Shiga Tox PCR Stool E coli O157 PCR Stl Enterotoxigenic E PCR Stool EPEC (PCR) Stool EAEC (PCR) Stl E. histolytica PCR Stool Giardia Lamblia PCR Stool Salmonella PCR Stool Sapovirus (PCR) Stl P. shigelloides PCR Stl Shigella/EIEC PCR St Y.enterocolitica PCR Stool Vibrio (P
[2021-05-30 16:56] LABS: POC Glucose,Bedside 307 (70-110)
== END 2021-05-30 18:31 | disposition home or self-care (01) | DRG 194 ==
LOC: ER 22:02 → 2ND 05-25 04:00
PROVIDERS: Nurse Practitioner Family; Admitting Provider Emergency Medicine; Emergency Provider Emergency Medicine; PCP Emergency Medicine; Visit Provider Emergency Medicine
DX: J18.9 Pneumonia, unspecified organism (principal); J44.0 Chronic obstructive pulmonary disease with (acute) lower respiratory infection; G40.909 Epilepsy, unspecified, not intractable, without status epilepticus; Z20.822 Contact with and (suspected) exposure to COVID-19; Z87.891 Personal history of nicotine dependence; Z89.519 Acquired absence of unspecified leg below knee; E11.65 Type 2 diabetes mellitus with hyperglycemia; Z79.4 Long term (current) use of insulin; I25.10 Atherosclerotic heart disease of native coronary artery without angina pectoris; E78.5 Hyperlipidemia, unspecified; I25.2 Old myocardial infarction; E87.6 Hypokalemia; E11.51 Type 2 diabetes mellitus with diabetic peripheral angiopathy without gangrene; Z95.5 Presence of coronary angioplasty implant and graft
CPT/HCPCS: 62270; 36415; 70450; 71045; 80048; 80177; 80305; 80329; 81001; 82009; 82945; 82962; 83605; 84155; 85025; 87040; 87070; 87086; 87205; 87507; 89051; 93005; 96365; 96367; 97110; 97116; 97162; 99285; C9803; J0456; J1953; J1956; U0003; U0005

== ENCOUNTER 2021-07-06 13:43 | Inpatient (IN) | payer OTHER, SELFPAY ==
[2021-07-06] VITALS (9 sets, daily range): BP systolic 178–216; BP diastolic 53–105; PULSE 108–120; RESP 22–30; TEMP 37.4–38.3; O2SAT 91–98; BMI 23.1
--- NOTE | 2021-07-06 13:45 | PC.NURSE ---
rad notified of CT head, stroke protocol
--- NOTE | 2021-07-06 13:45 | CT_ITS ---
PROCEDURE INFORMATION: Exam: CT Head Without Contrast Exam date and time: 07/06/2021 1:45 PM Age: 55 years old Clinical indication: Coma or unconsciousness; Additional info: Unresponsive, massive bleed seen on CT scan and er observed- found nonresponsive TECHNIQUE: Imaging protocol: Computed tomography of the head without contrast. Radiation optimization: All CT scans at this facility use at least one of these dose optimization techniques: automated exposure control; mA and/or kV adjustment per patient size (includes targeted exams where dose is matched to clinical indication); or iterative reconstruction. Other technique: STROKE PROTOCOL was implemented. COMPARISON: CT HEAD/BRAIN WO CON 05/25/2021 1:32 AM FINDINGS: Brain: There is a very large acute right basal ganglia and frontal parenchymal hemorrhage. Approximate dimensions of the hemorrhage are 9 x 5 x 6 cm. . This is a volume of 130 cc. There is surrounding edema. There is mass effect with midline shift of 16 mm. There is herniation of the uncus into the suprasellar cistern.. No acute infarct. Cerebral ventricles: There is intraventricular extension of hemorrhage. Is seen within the right lateral ventricle. No hydrocephalus. Paranasal sinuses: Visualized sinuses are unremarkable. No fluid levels. Mastoid air cells: Visualized mastoid air cells are well aerated. Bones/joints: Unremarkable. No acute fracture. Soft tissues: Unremarkable. IMPRESSION: 1. 9 x 5 x 6 cm right basal ganglia and frontal acute hemorrhage with surrounding edema. There is intraventricular extension of hemorrhage. 2. There is subfalcine herniation with 16 mm of midline shift. There is herniation of the right uncus . Thank you ASSESSMENT: ASPECTS ([place] Stroke Program Early CT Score) 10
[2021-07-06 13:51] LABS: Microscopic, Urine URINE MICROSCOPIC (MICROSCOPIC)
--- NOTE | 2021-07-06 13:51 | PC.NURSE ---
pt to CT
--- NOTE | 2021-07-06 13:52 | PC.NURSE ---
pt going to ct
[2021-07-06 13:57] LABS: Basophils # 0.1 K/mm3 (0-0.2); Basophils % 0.7 % (0.1-2.0); Eosinophils % 0.1 % (0.1-12.0); Hematocrit 33.2 % (42.0-52.0); Hemoglobin 10.5 g/dL (14.1-18.0); Lymphocytes # 0.9 K/mm3 (0.7-4.5); Lymphocytes % 7.3 % (10-50); Mean Corpuscular HGB Conc 31.7 g/dL (31.8-35.4); Mean Corpuscular Hemoglobin 28.1 pg (27.0-31.2); Mean Corpuscular Volume 88.6 fl (80-94); Mean Platelet Volume 7.8 fl (7.4-10.4); Monocytes # 0.4 K/mm3 (0.1-1.0); Neutrophils # 11.1 K/mm3 (1.8-7.8); Neutrophils % 88.8 % (37.0-80.0); Platelet Count 361 K/mm3 (142-424); Red Blood Count 3.75 M/mm3 (4.60-6.20); White Blood Count 12.5 K/mm3 (4.8-10.8)
[2021-07-06 14:01] LABS: Appearance,Urine CLEAR (Clear); Bilirubin,Urine Negative (Negative); Blood, Urine 3+ (Negative); Color,Urine STRAW (Yellow); Glucose,Urine (UA) 3+ (Negative); Ketones,Urine TRACE (Negative); Leukocyte Esterase,Urine Negative (Negative); MANUAL DIFFERENTIAL MANUAL DIFFERENTIAL (MANUAL DIFF); Nitrate,Urine Negative (Negative); Protein,Urine 3+ (Negative); Specific Gravity, Urine 1.015 (1.005-1.030); Urobilinogen,Urine 0.2 EU/dl (0.2)
--- NOTE | 2021-07-06 14:02 | PC.NURSE ---
pt vomitted while trying to transfer pt to CT scanner table pt cleaned up will continue to monitor
--- NOTE | 2021-07-06 14:07 | XR_ITS ---
PROCEDURE INFORMATION: Exam: XR Chest Exam date and time: 07/06/2021 2:07 PM Age: 55 years old Clinical indication: Other: Vomited, possible aspiration; Additional info: Unresponsive TECHNIQUE: Imaging protocol: XR of the chest. Views: 1 view. COMPARISON: CR XR CHEST PORTABLE 05/25/2021 12:26 PM FINDINGS: Lungs: Unremarkable. No consolidation. Pleural spaces: There is minimal blunting of the left costophrenic angle, probable small effusion. Heart/Mediastinum: Unremarkable. No cardiomegaly. Bones/joints: Unremarkable. IMPRESSION: 1. No consolidation. 2. Probable minimal left pleural effusion.
[2021-07-06 14:12] LABS: Barbiturates Screen,Urine Negative ng/ml (<200)
[2021-07-06 14:13] LABS: Amorphous Sediment,Urine 2+ /lpf; Amphetamine/Metha Screen,Urine Negative ng/ml (<1000); Bacteria,Urine 4+ /lpf; Benzodiazepines Screen,Urine Negative ng/ml (<200)
[2021-07-06 14:14] LABS: Methadone Screen,Urine Negative ng/ml (<300)
[2021-07-06 14:15] LABS: Alanine Aminotransferase 35 U/L (12-78); Albumin Level 3.7 g/dl (3.5-5.0); Albumin/Globulin Ratio 1.3 (1.1-1.8); Alkaline Phosphatase 152 U/L (38-126); Anion Gap 9.1 mEq/L (5-15); Aspartate Amino Transferase 31 U/L (17-59); Bilirubin,Total 0.4 mg/dl (0.2-1.3); Blood Urea Nitrogen 19 mg/dl (9-20); Calcium 9.6 mg/dl (8.4-10.2); Cannabinoid Screen,Urine Negative ng/ml (<50); Carbon Dioxide 32 mmol/L (22.0-30.0); Chloride 102 mmol/L (98-107); Cocaine Screen,Urine Negative ng/ml (<300); Creatinine Clearance Estimated 46 mL/min (50-200); Estimated Glomerular Filt Rate 45 ml/min (>60); GFR (African American) 54 ML/MIN (>60); Globulin 2.9 g/dL (1.3-3.2); Lipase 41 U/L (23-300); Potassium 3.1 mmoL/L (3.5-5.1); Sodium 140 mmol/L (136-145); Total Protein,Serum 6.6 g/dl (6.3-8.2)
--- NOTE | 2021-07-06 14:15 | PC.WOUNDNOTE ---
BK DIAZ speaking with pt on the phone at this time
[2021-07-06 14:16] LABS: Opiate Screen,Urine Negative ng/ml (<300)
[2021-07-06 14:17] LABS: Phencyclidine Screen,Urine Negative ng/ml (<25)
--- NOTE | 2021-07-06 14:19 | PC.NURSE ---
BK DIAZ speaking with Landy
--- NOTE | 2021-07-06 14:20 | PC.NURSE ---
pt vomitted again at this time
[2021-07-06 14:22] LABS: Lactic Acid 2.4 mmol/L (0.7-2.1)
[2021-07-06 14:27] LABS: Glucose 532 mg/dl (74-100); NT Pro Brain Natriuretic Pep. 3730 pg/mL (0-125)
--- NOTE | 2021-07-06 14:27 | PC.NURSE ---
notified ER of critical glucose
[2021-07-06 14:29] LABS: Lymphocytes % 9 % (10-50); Monocytes % 2 % (2-9); Neutrophils % 89 % (42-76); Platelet Estimate Normal; RBC Morphology Normal; Total Cells Counted 100; Troponin I < 0.01 ng/ml (0.00-0.034)
--- NOTE | 2021-07-06 14:33 | HMH.EDGENADL ---
ED Disposition Clinical Impression: Intracranial hemorrhage, Uncal herniation, Chronic anticoagulation Fall Qualifiers: Encounter type: initial encounter Qualified Code(s): W19.XXXA - Unspecified fall, initial encounter Disposition: Admitted as Observation Condition on Discharge: Critical Instructions: DI for Altered Mental Status Referrals: Yash Dacosta MD [Primary Care Provider] - Time of Disposition: 15:08 - Critical Care Critical Care Time: Yes Attestation: On 07/06/21, the high probability of a clinically significant, sudden or life threatening deterioration of the following system(s) required my full and direct attention, intervention and personal management. The time I documented below is in addition to time spent performing reported procedures but includes the following listed in this critical care notation. Total Critical Care Time: 35 Vital system(s) involved:: Central Nervous System My critical care processes included: Assessment & monitoring of V/S, Initial and Re-exams, Data Review/Interpretation, Coordinating Care, Medication Orders and management, Documentation Medical Decision Making - Medical Records Medical records reviewed: Yes: I reviewed the patient's medical records. - Anthony Inquiry Pt receiving controlled substance: No Vital Signs: 07/06/21 13:43 07/06/21 14:30 Temperature 99.3 F Temperature Source Rectal Pulse Rate 114 H Pulse Rate [Apical] 113 H Respiratory Rate 22 22 Blood Pressure 203/105 H Blood Pressure [Left Arm] 202/103 H Blood Pressure Mean 137 Blood Pressure Mean [Left Arm] 136 Blood Pressure Source [Left Arm] Automatic Cuff Blood Pressure Position [Left Arm] Supine 02 Sat by Pulse Oximetry 98 93 L Oxygen Delivery Method Nasal Cannula Room Air Oxygen Flow Rate (LPM) 2 - Lab Data Lab results reviewed: Yes: I reviewed the patient's lab results. Lab Results 07/06/21 13:44: Urine Color Straw, Urine Appearance Clear, Urine pH 6.0, Ur Specific [place] 1.015, Urine Protein 3+, Urine Glucose (UA) 3+, Urine Ketones Trace, Urine Blood 3+, Urine Nitrate Negative, Urine Bilirubin Negative, Urine Urobilinogen 0.2, Ur Leukocyte Esterase Negative, Urine RBC 10-20, Urine WBC 10-20, Ur Squamous Epith Cells 5-10, Amorphous Sediment 2+, Urine Bacteria 4+ 07/06/21 13:44: WBC 12.5 H, RBC 3.75 L, Hgb 10.5 L, Hct 33.2 L, MCV 88.6, MCH 28.1, MCHC 31.7 L, RDW 15.0, Plt Count 361, MPV 7.8, Neut % (Auto) 88.8 H, Lymph % (Auto) 7.3 L, [place] % (Auto) 3.0, Eos % (Auto) 0.1, Baso % (Auto) 0.7, Neut # (Auto) 11.1 H, Lymph # (Auto) 0.9, [place] # (Auto) 0.4, Eos # (Auto) 0.0, Baso # (Auto) 0.1, Total Counted 100, Neutrophils % (Manual) 89 H, Lymphocytes % (Manual) 9 L, Monocytes % (Manual) 2, Platelet Estimate Normal, RBC Morphology Normal 07/06/21 13:44: Sodium 140, Potassium 3.1 L, Chloride 102, Carbon Dioxide 32 H, Anion Gap 9.1, BUN 19, Creatinine 1.60 H, Estimated Creat Clear 46, Estimated GFR 45 L, Est GFR ( Amer) 54 L, Glucose 532 H*, Calcium 9.6, Total Bilirubin 0.4, AST 31, ALT 35, Alkaline Phosphatase 152 H, Troponin I < 0.01, NT-Pro-B Natriuret Pep 3730 H, Total Protein 6.6, Albumin 3.7, Globulin 2.9, Albumin/Globulin Ratio 1.3, Lipase 41 07/06/21 13:44: Urine Opiates Screen Negative, Urine Methadone Screen Negative, Ur Barbituates Screen Negative, Ur Phencyclidine Scrn Negative, Ur Amphetamines Screen Negative, U Benzodiazepines Scrn Negative, Urine Cocaine Screen Negative, U Marijuana (THC) Screen Negative 07/06/21 13:46: Lactate 2.4 H Result diagrams: 07/06/21 13:44 07/06/21 13:44 Orders (Tests/Meds): ED MEDICATIONS Discontinued Medications Generic Name Dose Route Start Last Admin Trade Name Freq PRN Reason Stop Dose Admin Sodium Chloride 1,000 mls @ 999 mls/hr 07/06/21 14:00 07/06/21 14:21 Sod Chlor 0.9% 1000ml Bag IV 07/06/21 15:00 999 mls/hr .Q1H1M MARISELA Administration Ondansetron HCl 4 mg 07/06/21 14:20 07/06/21 14:21 Ondansetron 4mg/2ml Vial
--- NOTE | 2021-07-06 14:56 | PC.NURSE ---
pt at , BK DIAZ speaking with at this time
--- NOTE | 2021-07-06 15:10 | PC.NURSE ---
notified household appliance repairer of admission
[2021-07-06 15:41] LABS: Coronavirus 19, PCR Not Detected (NotDetected); Influenza A, PCR Not Detected (NotDetected); Influenza B, PCR Not Detected (NotDetected)
--- NOTE | 2021-07-06 16:00 | PC.NURSE ---
report called to yancy cheng on second floor at this time, states she will send staff down to get pt.
[2021-07-06 18:05] LABS: Reflex Lactic Add Lactic Reflex
--- NOTE | 2021-07-06 23:09 | PC.NURSE ---
Pt unresponsive. Pupils nonreactive. Auditory rhonchi noted t/o. Pt has been febrile this shift. MD sales promotion coordinator notified.New orders received. Levsin 0.125 mg SL. tylenol 650 mg supp administered. Pt suctioned by RT. No other issues and concerns. MD Dacosta rounded tonight at bedside.
[2021-07-07] VITALS: PULSE 110; TEMP 37.7
--- NOTE | 2021-07-07 03:07 | PC.NURSE ---
No acute changes. Pt unresponsive. pupils 2 mm nonreactive. Pt DNR and on chart. He remains on comfort care. O2 2L NC. HR tachy. Pt currently afebrile at this time. Medications administered per oct. Will continue to monitor.
[2021-07-07 04:00] VITALS: PULSE 110
[2021-07-07 05:19] VITALS: BMI 22.5
--- NOTE | 2021-07-07 07:24 | HMH.PHAVTE ---
[facility] Pharmacy VTE Monitoring - Patient Demographics Admission date: 07/06/21 Report Date: 07/07/21 Time: 07:24 Allergies/Adverse Reactions: Patient Allergies Penicillins [PENICILLINS] Allergy (Unknown, Verified 05/21/21 11:02) Throat swelling Height: 1.78 m Weight: 71.441 kg Patient Problems: Current Active Problems (Last Updated 05/07/21 @ 14:43 by Armida Silva RN) Intracranial hemorrhage (Acute) Uncal herniation (Acute) Fall (Acute) Chronic anticoagulation (Acute) - VTE Risk Labs: VTE Related Lab Results Hgb 10.5 g/dL (14.1-18.0) L 07/06/21 13:44 Hct 33.2 % (42.0-52.0) L 07/06/21 13:44 Plt Count 361 K/mm3 (142-424) 07/06/21 13:44 BUN 19 mg/dl (9-20) 07/06/21 13:44 Creatinine 1.60 mg/dl (0.66-1.25) H 07/06/21 13:44 Estimated Creat Clear 46 mL/min (50-200) 07/06/21 13:44 - Prophylaxis VTE Prophylaxis Ordered?: Yes Types of VTE Prophylaxis: TEDS Knee High Location of Applied Device: Bilateral Lower Extremeties
--- NOTE | 2021-07-07 07:39 | HMH.PHAINT ---
Verified with [facility] pharmacy and Dr. Dacosta office visit report
[2021-07-07 08:00] VITALS: BP 192/55; PULSE 106; PULSE 110; RESP 30; TEMP 37; O2SAT 91
[2021-07-07 09:01] VITALS: BMI 22.5
--- NOTE | 2021-07-07 09:38 | HMH.HP ---
*Admission Date: 07/06/21 *Chief complaint: comfort care *History of present illness: 55yr old male presented to ed via ambulance,he was unresponsive, and has minimal reaction to pain. GCS 4. Patient was sent for CT of the head and alerted by staff patient had signs of a brain bleed. Radiologist called the ED to discuss the patient's intracranial hemorrhage with uncal herniation. PER ED note ED MD spoke with the patient's on the phone and inform her that the patient likely suffered a nonsurvivable injury. She reports the patient fell at 1:30 in the morning, other household members were able to assist him back into his wheelchair. They state that he reported being fine and went on to bed. Admitted for end of life care. will consult hospice [facility] History I have reviewed the patient's past medical history: Yes Medical History: Reports:: Chronic Obstructive Pulmonary Disease (COPD), Coronary Artery Disease, Diabetes Mellitus Type 2, Hyperlipidemia, Hypertension, Myocardial Infarction, Peripheral Artery Disease Denies:: Cancer, Diabetes Mellitus Type 1, Internal Pacemaker, MRSA, Seizures *Have you ever received a pneumonia vaccine?: No *Have you received a flu vaccine this season?: No Other Medical History: Denies: Blood Transfusion Reaction Laterality Cases: Right: Other Other Surgeries: Yes: Angiogram, Cardiac Catheterization, Cardiac Surgery, Cholecystectomy, Coronary Stent, EGD, Other (RT foot partial amputation). No: Pacemaker Amputation: Yes (right bka) Fractures: No - *Social History Smoking Status: Former smoker Tobacco Type: cigarettes # Packs/Day (cigarettes): 1 #Yrs smoked (if former smoker): 30 Alcohol Intake: never Alcohol Intake Frequency:: holidays/special occasions only Substance Use Type: denies use *Occupational Status:: disabled Housing: house Household Members: spouse *Travel in the last 8 weeks: None Family Hx:: Unable to obtain Review of Systems - Review of Systems Review of systems:: unable to obtain Meds Home Medications Medication Instructions Recorded Confirmed Type Aspirin [Aspirin 81mg EC Tab] 81 mg PO DAILY 12/09/20 07/07/21 History metoprolol succinate 100 mg 100 mg PO DAILY tab 02/05/21 07/07/21 History tablet,extended release 24 hr dilTIAZem HCl [Diltiazem 240mg 240 mg PO DAILY 02/13/21 07/07/21 History 24Hr ER Cap] Atorvastatin Calcium [Lipitor 40mg 40 mg PO HS 03/17/21 07/07/21 History Tab] Rivaroxaban [Xarelto 2.5mg Tab*] 2.5 mg PO BID 03/17/21 07/07/21 History clopidogrel 75 mg tablet 75 mg PO DAILY tab 04/08/21 07/07/21 History levetiracetam 500 mg tablet 500 mg PO BID #60 tab 05/21/21 07/07/21 Rx Furosemide [Furosemide 40MG tAB*] 40 mg PO DAILY 05/24/21 07/07/21 History Glucagon [Gvoke Hypopen 2-Pack] 1 mg SQ ONCE 05/24/21 07/07/21 History Insulin Aspart Prot/Insuln Asp 10 unit SQ BID 05/24/21 07/07/21 History [Insulin Aspart Pro [id number] Pn] Losartan Potassium [Cozaar 100mg 100 mg PO DAILY 05/24/21 07/07/21 History Tablets] Semaglutide [Rybelsus] 3 mg PO DAILY 05/25/21 07/07/21 History Isosorbide Mononitrate [Isosorbide 30 mg PO DAILY 07/07/21 07/07/21 History Mononitrate ER] Metformin HCl [Metformin 1000mg 1,000 mg PO BID 07/07/21 07/07/21 History Tablets] Allergies Allergy/AdvReac Type Severity Reaction Status Date / Time Penicillins [PENICILLINS] Allergy Unknown Throat Verified 05/21/21 11:02 swelling Exam Vital signs and Labs for Last 24 Hours: Temp Pulse Resp BP Pulse Ox 98.6 F 106 H 30 H 192/55 H 91 L 07/07/21 08:00 07/07/21 08:00 07/07/21 08:00 07/07/21 08:00 07/07/21 08:00 Laboratory Results - last 24 hr 07/06/21 13:44: Urine Color Straw, Urine Appearance Clear, Urine pH 6.0, Ur Specific [place] 1.015, Urine Protein 3+, Urine Glucose (UA) 3+, Urine Ketones Trace, Urine Blood 3+, Urine Nitrate Negative, Urine Bilirubin Negative, Urine Urobilinogen 0.2, Ur Leukocyte Esterase Negative, Urine RBC 10-20,
--- NOTE | 2021-07-07 10:08 | SW/DCPLANNER ---
Addendum entered by Jael Farris 07/07/21 13:25: A.D. w/ Hospice has evaluated this patient: plan is for patient to discharge home today per request w/ Hospice service. I will relay information to Dr Dacosta and [place]. Patient will discharge home today once equipment is set up per A.D.. Original Note: Patient information has been faxed to [facility]. I spoke with Aylin and she stated that patient information will be reviewed and she will send applications sales representative to speak with family at 11AM when family arrives. I spoke with patients and she is agreeable to Hospice evaluation. I will follow up with Hospice nurse once evaluation is completed.
--- NOTE | 2021-07-07 10:15 | SW/DCPLANNER ---
I spoke with this patient this AM regarding discharge plans. Patient stated that he resides at home alone, has meals delivered to his home 3x week and has never been placed or home health services. I discussed with this patient the need for short term placement at time of discharge to rebuild his strength. After a lengthy conversation patient stated that he would be agreeable to short term placement at [facility] or [facility] only if [facility] can not admit. I spoke with Candy from [facility] and she stated that she does have male beds available: patient information has been faxed.
[2021-07-07 12:00] VITALS: PULSE 100
--- NOTE | 2021-07-07 13:25 | HMH.DCSUM ---
General - General Admission date:: 07/06/21 Discharge date: 07/07/21 HPI HPI: 55yr old male presented to ed via ambulance,he was unresponsive, and has minimal reaction to pain. GCS 4. Patient was sent for CT of the head and alerted by staff patient had signs of a brain bleed. Radiologist called the ED to discuss the patient's intracranial hemorrhage with uncal herniation. PER ED note ED MD spoke with the patient's on the phone and inform her that the patient likely suffered a nonsurvivable injury. She reports the patient fell at 1:30 in the morning, other household members were able to assist him back into his wheelchair. They state that he reported being fine and went on to bed. Admitted for end of life care. will consult hospice Hospital Course Hospital Course: Laboratory Tests 07/06/21 07/06/21 07/06/21 13:44 13:44 13:44 WBC 12.5 H RBC 3.75 L Hgb 10.5 L Hct 33.2 L MCV 88.6 MCH 28.1 MCHC 31.7 L RDW 15.0 Plt Count 361 MPV 7.8 Neut % (Auto) 88.8 H Lymph % (Auto) 7.3 L Evans % (Auto) 3.0 Eos % (Auto) 0.1 Baso % (Auto) 0.7 Neut # (Auto) 11.1 H Lymph # (Auto) 0.9 Evans # (Auto) 0.4 Eos # (Auto) 0.0 Baso # (Auto) 0.1 Total Counted 100 Neutrophils % (Manual) 89 H Lymphocytes % (Manual) 9 L Monocytes % (Manual) 2 Platelet Estimate Normal RBC Morphology Normal Sodium 140 Potassium 3.1 L Chloride 102 Carbon Dioxide 32 H Anion Gap 9.1 BUN 19 Creatinine 1.60 H Estimated Creat Clear 46 Estimated GFR 45 L Est GFR ( Amer) 54 L Glucose 532 H* Lactate Calcium 9.6 Total Bilirubin 0.4 AST 31 ALT 35 Alkaline Phosphatase 152 H Troponin I < 0.01 NT-Pro-B Natriuret Pep 3730 H Total Protein 6.6 Albumin 3.7 Globulin 2.9 Albumin/Globulin Ratio 1.3 Lipase 41 Urine Color Straw Urine Appearance Clear Urine pH 6.0 Ur Specific [place] 1.015 Urine Protein 3+ Urine Glucose (UA) 3+ Urine Ketones Trace Urine Blood 3+ Urine Nitrate Negative Urine Bilirubin Negative Urine Urobilinogen 0.2 Ur Leukocyte Esterase Negative Urine RBC 10-20 Urine WBC 10-20 Ur Squamous Epith Cells 5-10 Amorphous Sediment 2+ Urine Bacteria 4+ Urine Opiates Screen Urine Methadone Screen Ur Barbituates Screen Ur Phencyclidine Scrn Ur Amphetamines Screen U Benzodiazepines Scrn Urine Cocaine Screen U Marijuana (THC) Screen SARS-CoV-2 (PCR) Influenza A Untype (PCR) Influenza Type B (PCR) 07/06/21 07/06/21 07/06/21 13:44 13:46 13:48 WBC RBC Hgb Hct MCV MCH MCHC RDW Plt Count MPV Neut % (Auto) Lymph % (Auto) Evans % (Auto) Eos % (Auto) Baso % (Auto) Neut # (Auto) Lymph # (Auto) Evans # (Auto) Eos # (Auto) Baso # (Auto) Total Counted Neutrophils % (Manual) Lymphocytes % (Manual) Monocytes % (Manual) Platelet Estimate RBC Morphology Sodium Potassium Chloride Carbon Dioxide Anion Gap BUN Creatinine Estimated Creat Clear Estimated GFR Est GFR ( Amer) Glucose Lactate 2.4 H Calcium Total Bilirubin AST ALT Alkaline Phosphatase Troponin I NT-Pro-B Natriuret Pep Total Protein Albumin Globulin Albumin/Globulin Ratio Lipase Urine Color Urine Appearance Urine pH Ur Specific [place] Urine Protein Urine Glucose (UA) Urine Ketones Urine Blood Urine Nitrate Urine Bilirubin Urine Urobilinogen Ur Leukocyte Esterase Urine RBC Urine WBC Ur Squamous Epith Cells Amorphous Sediment Urine Bacteria Urine Opiates Screen Negative Urine Methadone Screen Negative Ur Barbituates Screen Negative Ur Phencyclidine Scrn Negative Ur Amphetamines Screen Negative
--- NOTE | 2021-07-07 14:47 | PC.NURSE ---
HOSPICE ARRIVED TO TALK TO FAMILY. FAMILY HAS AGREED TO TAKE PT HOME WITH HOSPICE. HOSPICE NURSE STATED FOR COMFORT MEDS TO BE SENT TO CLINIC PHARMACY. HOSPICE WOULD TAKE CARE OF SUPPLIES FOR IN THE HOME. PT WILL NEED HOSPITAL BED AND OXYGEN. PT WILL BE TRANSPORTED HOME BY AMBULANCE. KALEBIED JUDY ABOUT COMFORT MEDS NEEDING TO BE SENT TO CLINIC PHARMACY PER HOSPICE REQUEST.
[2021-07-07 16:00] VITALS: PULSE 110
--- NOTE | 2021-07-07 17:19 | PC.NURSE ---
PT LEFT WITH AMBULANCE. [facility] NOTIFIED. PT WAS MEDICATED PER MAR BEFORE DISCHARGE. TYLENOL SUPPOSITORY GIVEN FOR 101.0 TEMP. PT HAS BEEN UNRESPONSIVE T/O THE SHIFT.
== END 2021-07-07 17:10 | disposition hospice, home (50) | DRG 80 ==
LOC: ER 15:09 → 2ND 07-07 07:23
PROVIDERS: Admitting Provider Family Medicine; Emergency Provider Family Medicine; PCP Emergency Medicine; Visit Provider Emergency Medicine
DX: G93.5 Compression of brain (principal); I61.0 Nontraumatic intracerebral hemorrhage in hemisphere, subcortical; Z20.822 Contact with and (suspected) exposure to COVID-19; R40.2432 Glasgow coma scale score 3-8, at arrival to emergency department; Z79.01 Long term (current) use of anticoagulants; Z51.5 Encounter for palliative care; W19.XXXA Unspecified fall, initial encounter; J44.9 Chronic obstructive pulmonary disease, unspecified; I10 Essential (primary) hypertension; I25.2 Old myocardial infarction; Z87.891 Personal history of nicotine dependence; Z89.511 Acquired absence of right leg below knee; E11.51 Type 2 diabetes mellitus with diabetic peripheral angiopathy without gangrene
CPT/HCPCS: 70450; 71045; 80053; 80305; 81001; 83605; 83690; 83880; 84484; 85007; 85025; 87040; 87086; 96365; 96375; 99285; C9803; J2405; U0003; U0005